=== PATIENT | female | born 1980 | race Caucasian/White ===

== ENCOUNTER 2020-11-12 09:42 | Outpatient (REF) | payer OTHER, SELFPAY ==
--- NOTE | ~2020-11-12 | MM_ITS ---
EXAMINATION: MM SCREENING DIGITAL BREAST TOMOSYNTHESIS, BILATERAL CLINICAL INFORMATION: Screening. Asymptomatic. The lifetime risk of breast cancer based on the Tyrer-Cuzick Model is 19%. COMPARISON: Mammography: 08/28/2019 (baseline) TECHNIQUE: Digital breast tomosynthesis is performed in both the craniocaudal and mediolateral oblique views along with computer-aided detection (CAD). Synthesized 2D images are generated from the tomosynthesis. FINDINGS: There are scattered areas of fibroglandular density (ACR BI-RADS breast composition Category b). There are no significant masses, abnormal calcifications, or other abnormalities. No significant changes from baseline exam. The axilla and skin contours are unremarkable. MM/MM tomosynthesis screening BI IMPRESSION: There are no significant changes from prior study. ASSESSMENT: BI-RADS 1: Negative RECOMMENDATION: Routine annual mammography screening. This patient's information was entered into a reminder system with a target due date for their next mammogram.
== END 2020-11-12 09:43 | disposition home or self-care (01) ==
LOC: HO.MAMMO 09:42
PROVIDERS: PCP Pediatrics; Visit Provider Advanced Practice Midwife
DX: Z12.31 Encounter for screening mammogram for malignant neoplasm of breast (principal)
CPT/HCPCS: 77063; 77067

== ENCOUNTER 2022-06-26 13:47 | Outpatient (REF) | payer OTHER, SELFPAY ==
--- NOTE | ~2022-06-26 | MM_ITS ---
EXAMINATION: MM SCREENING DIGITAL BREAST TOMOSYNTHESIS, BILATERAL CLINICAL INFORMATION: Screening. Asymptomatic. The lifetime risk of breast cancer based on the Tyrer-Cuzick Model is 12%. COMPARISON: Mammography: 11/12/2020, 08/28/2019 TECHNIQUE: Digital breast tomosynthesis is performed in both the craniocaudal and mediolateral oblique views along with computer-aided detection (CAD). Synthesized 2D images are generated from the tomosynthesis. FINDINGS: There are scattered areas of fibroglandular density (ACR BI-RADS breast composition Category b). There are no significant masses, abnormal calcifications, or other abnormalities. Parenchymal pattern is similar to prior studies. No developing density or architectural abnormality. Again, there is incidental low right axillary tail node on MLO view. The axilla and skin contours are unremarkable. No significant changes. MM/MM tomosynthesis screening BI IMPRESSION: No mammographic evidence of malignancy. ASSESSMENT: BI-RADS 2: Benign RECOMMENDATION: Routine annual mammography screening. This patient's information was entered into a reminder system with a target due date for their next mammogram.
== END 2022-06-26 13:48 | disposition home or self-care (01) ==
LOC: HO.MAMMO 13:47
PROVIDERS: PCP Pediatrics; Visit Provider Pediatrics
DX: Z12.31 Encounter for screening mammogram for malignant neoplasm of breast (principal)
CPT/HCPCS: 77063; 77067

== ENCOUNTER → 2022-11-06 09:03 | Outpatient (BNVA) | payer OTHER, SELFPAY | PROVIDERS: PCP Pediatrics; Visit Provider Surgery | DX: D17.9 Benign lipomatous neoplasm, unspecified (principal); D21.9 Benign neoplasm of connective and other soft tissue, unspecified | CPT/HCPCS: 99202 ==

== ENCOUNTER 2023-05-28 12:20 | Outpatient (REF) | payer OTHER, SELFPAY ==
--- NOTE | ~2023-05-28 | US_ITS ---
EXAMINATION: US VENOUS ULTRASOUND WITH DOPPLER LOWER EXTREMITY, BILATERAL CLINICAL INFORMATION: Swelling. COMPARISON: None available. TECHNIQUE: Ultrasound of the deep veins is performed from the hip to the calf with compression sonography and color and pulse Doppler assessment. Spectral analysis with color-flow imaging is performed. FINDINGS: RIGHT: There is normal venous compression and respiratory variation and augmented flow. The visualized common femoral vein, superficial femoral vein, profunda femoral vein, popliteal vein, and the trifurcation region shows no evidence of deep venous thrombosis. There is no significant popliteal fossa cyst. LEFT: There is normal venous compression and respiratory variation and augmented flow. The visualized common femoral vein, superficial femoral vein, profunda femoral vein, popliteal vein, and the trifurcation region shows no evidence of deep venous thrombosis. There is no significant popliteal fossa cyst. If the patient's symptoms persist, followup ultrasound in 5 days 7 days might be of value to exclude proximal propagation from a non-visualized calf vein. US/US venous duplex LE BI IMPRESSION: No DVT demonstrated in the bilateral lower extremities.
--- NOTE | ~2023-05-28 | US_ITS ---
EXAMINATION: US VENOUS WITH DOPPLER UPPER EXTREMITY, BILATERAL CLINICAL INFORMATION: Swelling. History of pulmonary embolism. COMPARISON: None available. TECHNIQUE: Ultrasound of the upper extremity is performed using compression sonography and color and pulse Doppler flow with assessment of augmentation of flow. There is also imaging and Doppler assessment of the jugular and subclavian veins. Spectral analysis with color-flow imaging is performed. FINDINGS: Respiratory variation, normal compression, and augmented flow are noted throughout the upper extremity including the internal jugular, subclavian, axillary, brachial, basilic, cephalic, radial and ulnar veins. There is normal flow in the internal jugular and subclavian veins. There is no visible deep or superficial thrombophlebitis. If the patient's symptoms progress, a followup ultrasound in 5 -7 days might be of value to exclude proximal propagation from a nonvisualized distal arm vein. US/US venous duplex UE BI IMPRESSION: No DVT demonstrated in the bilateral upper extremities
== END 2023-05-28 12:21 | disposition home or self-care (01) ==
LOC: HO.US 12:20
PROVIDERS: PCP Pediatrics; Visit Provider Registered Nurse
DX: R60.0 Localized edema (principal)
CPT/HCPCS: 93970

== ENCOUNTER → 2023-07-14 08:54 | Outpatient (BNV) | payer OTHER, SELFPAY | PROVIDERS: PCP Pediatrics; Visit Provider Internal Medicine | DX: I26.99 Other pulmonary embolism without acute cor pulmonale (principal) | CPT/HCPCS: 99204 ==

== ENCOUNTER 2023-09-17 12:54 | Outpatient (REF) | payer OTHER, SELFPAY ==
[2023-09-18 04:07] LABS: ~Hepatitis B Surface Antibody NONREACTIVE (Nonreactive)
[2023-09-21 05:28] LABS: Rubella IgG Antibody <0.90 Index
== END 2023-09-17 12:55 | disposition home or self-care (01) ==
LOC: HO.CHCLDS 12:54
PROVIDERS: Visit Provider Pediatrics
DX: Z01.84 Encounter for antibody response examination (principal)
CPT/HCPCS: 36415; 86706; 86735; 86762; 86765; 86787

== ENCOUNTER 2023-09-20 08:54 | Outpatient (REF) | payer OTHER, SELFPAY ==
[2023-09-22 06:39] LABS: RPR Rapid Plasma Reagin NON-REACTIVE (NON-REACTIVE)
[2023-09-22 20:24] LABS: TS Negative Control Passed; TS Panel A 2; TS Panel B 0; TS Positive Control Passed; TSpotTB Negative (Negative)
== END 2023-09-20 08:55 | disposition home or self-care (01) ==
LOC: HO.CHCLDS 08:54
PROVIDERS: Visit Provider Internal Medicine
DX: Z00.00 Encounter for general adult medical examination without abnormal findings (principal); Z11.1 Encounter for screening for respiratory tuberculosis
CPT/HCPCS: 36415; 86481; 86592

== ENCOUNTER 2023-09-24 11:12 | Outpatient (AMB) | payer OTHER, SELFPAY ==
--- NOTE | 2023-09-24 11:13 | MHC.OFFVIS ---
Intake Vital Signs 09/24/23 11:21 Height 5 ft 4 in Weight 194 lb 2 oz BMI 33.3 BP 127/71 Blood Pressure Location Lt brachial Position Sitting Pulse 79 Intake Visit Reasons: re-discuss lipoma removal Intake Note: Patient is seen in office to re-discuss removal of lipoma. Pt c/o:lipoma has not changed since last visit, is ready to have it removed L.OV: 11/19/22 Personal Health Coach Required: No Accompanied by: Spouse Allergies Penicillins Allergy (Mild, Unverified 09/24/23 11:20) SWELLING penicillin V Allergy (Unknown, Unverified 09/24/23 11:20) swelling HPI HPI Comments History of Present Illness Details 43-year-old female patient presenting with complaints of gradually enlarging soft tissue lumps located in bilateral thighs as well as the lower back. She 1st identified the lower back lesion when she developed pain with pressure on the lesion. She denies any bleeding or discharge from either site. She also has 2 skin lesions located in the lateral left and right thigh noted by her primary care physician who felt a should be biopsied as well. These are asymptomatic but have increased in size over the last several years. She denies any bleeding or discharge from either skin lesion. She denies a prior history of skin cancer. [facility] Medical History (Updated 09/24/23 @ 11:30 by Esvin Knowles MD) Pulmonary emboli Surgical History Hx of abdominoplasty (~04/28/23) History of breast lift (~04/28/23) History of delivery Family History Father Prostate cancer Mother High cholesterol HTN (hypertension) Social History Household Members: Spouse and Children Housing: House Alcohol intake: never Patient Tobacco Use Status: Never used Tobacco service: No Current occupational status: employed Review of Systems Const All systems reviewed & are unremarkable except as noted in HPI and below Physical Exam Vital Signs: Last Vital Signs Pulse 79 09/24/23 11:21 BP 127/71 09/24/23 11:21 BMI result Body Mass Index 33.3 Const General: healthy appearing Nutritional Appearance: well nourished Orientation/consciousness: patient oriented x3 Limitations: no limitations Resp Effort & Inspection: normal respiratory effort, no audible wheezes, no cough and no respiratory distress GI Inspection: Yes normal to inspection Skin Full body images: 1. 2 cm lipoma midback 2. 2 cm lipoma medial thigh right 3. 1 cm fibroma right lateral thigh 4. 0.5 cm fibroma right medial thigh 5. 1 cm fibroma left anterior thigh Neuro General: patient oriented x3 Extrem Other: See skin above Assessment & Plan Assessment & Plan (1) Fibroma: Code(s): D21.9 - Benign neoplasm of connective and other soft tissue, unspecified (2) Lipoma: Code(s): D17.9 - Benign lipomatous neoplasm, unspecified Qualifiers: Lipoma location: trunk Qualified Code(s): D17.1 - Benign lipomatous neoplasm of skin and subcutaneous tissue of trunk Plan 43-year-old female patient presenting with a lipoma in the mid back, lipoma of the right medial thigh, fibromas located in the right lateral and medial thigh, and left anterior thigh. The patient reports symptoms from all lesions and is requesting excision. After discussion of the procedure, risks, and alternatives, she consents to the excision of the above lesions. This will be scheduled as a minor surgery under local anesthesia. Coding Level of Care Code Est Pt Level 4 (92226) Diagnoses Fibroma D21.9 Lipoma of torso D17.1 Lipoma location: trunk
[2023-09-24 11:21] VITALS: BP 127/71; PULSE 79; BMI 33.3
== END 2023-09-24 11:33 | disposition home or self-care (01) ==
PROVIDERS: PCP Pediatrics; Visit Provider Surgery
DX: D17.1 Benign lipomatous neoplasm of skin and subcutaneous tissue of trunk (principal)
CPT/HCPCS: 99214

== ENCOUNTER → 2023-09-24 11:12 | Outpatient (BNVA) | payer OTHER, SELFPAY | PROVIDERS: PCP Pediatrics; Visit Provider Surgery | DX: D17.1 Benign lipomatous neoplasm of skin and subcutaneous tissue of trunk (principal); D17.23 Benign lipomatous neoplasm of skin and subcutaneous tissue of right leg; D17.24 Benign lipomatous neoplasm of skin and subcutaneous tissue of left leg | CPT/HCPCS: 99212 ==

== ENCOUNTER 2023-10-05 10:54 | Outpatient (REF) | payer OTHER, SELFPAY ==
[2023-10-05 10:54] VITALS: BP 121/68; PULSE 74; RESP 18; TEMP 36.6; O2SAT 99; BMI 32.4
--- NOTE | 2023-10-05 12:35 | P.OP_ITS ---
Operative Note Operative Note Date of Service: 10/05/23 Narrative: Preoperative diagnosis: Lipoma midback, lipoma medial right thigh, lipoma medial left thigh, fibroma lateral right thigh, fibroma lateral left thigh Postoperative diagnosis: Same Procedure: Excision of lipoma midback, lipoma medial right thigh, lipoma medial left thigh, fibroma lateral right thigh, fibroma lateral left thigh Surgeon: Esvin Knowles MD Biofuels Product Manager: None Anesthesia: Lidocaine 1% with epinephrine Indications for procedure: 43-year-old female patient presenting with painful lesions as noted above. Lipoma of the back measures 2 cm; lipoma of the medial right thigh measures 2 cm, lipoma of the medial left thigh measured 1.5 cm. Fibroma of the bilateral thighs each measured 1 cm. Operative findings: Lesions as noted above Specimen: Lipoma mid back, lipoma medial right thigh, lipoma medial left thigh, fibroma lateral right thigh, fibroma lateral left thigh Estimated blood loss: 5 mL Complications: None Procedure details: Site of surgery was confirmed by the patient as noted above. After assuring informed consent the patient was placed in a prone position. The skin over the palpable lipoma in the mid back was prepped with Betadine and draped in a sterile fashion. Local anesthesia was then infiltrated around the lesion. A longitudinal incision was then made over the lesion and this was carried down through subcutaneous tissue up to the lipoma. The lipoma was then bluntly dissected from the surrounding subcutaneous tissue. This was passed off the table and sent to pathology for further examination. Dermis was then reapproximated using interrupted 3-0 Polysorb sutures. Skin was closed using a running subcuticular 4-0 Polysorb suture. Steri-Strips, 2 x 2 gauze and Tegaderm were then applied. The patient was then rolled to a supine position. Beginning in the right leg, the skin was prepped with Betadine and draped in a sterile fashion. The medial right thigh lipoma was then anesthetized and an incision made in longitudinal fashion over the lipoma. This was carried out through subcutaneous tissue. Blunt dissection was then used to dissect the lipoma from the surrounding subcutaneous tissue. This was then passed off the table and sent to pathology for further examination. Dermis was then reapproximated using interrupted 3-0 Polysorb suture. Skin was closed using a running subcuticular 4-0 Polysorb suture. Steri-Strips, 2 x 2 gauze and Tegaderm were then applied. The lateral right thigh fibroma was then excised. Local was infiltrated circumferentially an elliptical incision created around the lesion. This was carried out through subcutaneous tissue and around the skin lesion. The lesion was passed off the table and sent to pathology for further examination. Dermis was then reapproximated using interrupted 3-0 Polysorb suture. Skin was closed using interrupted 4-0 nylon sutures. Attention was then directed to the left leg were again the skin was prepped with Betadine and draped in a sterile fashion. Local anesthesia was infiltrated around both lesions. Beginning in the medial thigh, a longitudinal incision was made with a scalpel and carried out through subcutaneous tissue. The lipoma was then dissected free from the surrounding subcutaneous tissue. This was then bluntly dissected and completely excised. This was sent to pathology for further examination. Dermis was reapproximated using interrupted 3-0 Polysorb suture and skin closed using a running subcuticular 4-0 Polysorb suture. Steri- Strips, 2 x 2 gauze and Tegaderm were then applied. Attention was then directed to the lateral thigh were an elliptical incision was made around the fibroma in the lateral thigh. This was carried out through subcutaneous tissue the lesion completely excised. This was passed off the table and sent to pathology for further examination. Dermis was then reapproximated using interrupted 3-0 Polysorb sutures. Skin was closed using interrupted 4-0 nylon sutures. 2 x 2 gauze and Tegaderm were then applied. The patient tolerated the procedure well. She was discharged to home in stable condition.
== END 2023-10-05 10:55 | disposition home or self-care (01) ==
LOC: HO.MS 10:54
PROVIDERS: PCP Pediatrics; Visit Provider Surgery
PROC: (CPT 11403; principal; 2023-10-05 11:10)
PROC: (CPT 11403; 2023-10-05 11:10)
DX: D17.1 Benign lipomatous neoplasm of skin and subcutaneous tissue of trunk (principal); D17.24 Benign lipomatous neoplasm of skin and subcutaneous tissue of left leg; D17.23 Benign lipomatous neoplasm of skin and subcutaneous tissue of right leg
CPT/HCPCS: 11403; 11406; 11402 ×2; 88304; 88305

== ENCOUNTER → 2023-10-05 10:54 | Outpatient (BNV) | payer OTHER, SELFPAY | PROVIDERS: PCP Pediatrics; Visit Provider Surgery | DX: D17.1 Benign lipomatous neoplasm of skin and subcutaneous tissue of trunk (principal); D17.23 Benign lipomatous neoplasm of skin and subcutaneous tissue of right leg; D17.24 Benign lipomatous neoplasm of skin and subcutaneous tissue of left leg | CPT/HCPCS: 21930; 27327; 27337 ==

== ENCOUNTER 2023-10-12 09:34 | Outpatient (AMB) | payer OTHER, SELFPAY ==
--- NOTE | 2023-10-12 09:36 | A.OFFVIS_ITS ---
Intake Vital Signs 10/12/23 09:47 Height 5 ft Weight 191 lb BMI 37.3 BP 127/70 Blood Pressure Location Lt brachial Position Sitting Pulse 95 Intake Visit Reasons: S/p Exc lipomas Intake Note: Patient is seen in office for post op assessment post excision of multiple lipomas. Pt c/o: healing as expected, lateral left thigh lesion painful, denies discharge, redness or other concerns MS:10/05/23 Tension Machine Operator Required: No Accompanied by: Family/Other Allergies Penicillins Allergy (Mild, Unverified 10/12/23 09:48) SWELLING penicillin V Allergy (Unknown, Unverified 10/12/23 09:48) swelling HPI HPI Comments History of Present Illness Details 43-year-old female patient returning 1 week following excision of bilateral lower extremity lipomas and bilateral lower extremity fibromas as well as a mid back lipoma. She tolerated the procedure well. She does report some soreness from the incision in the left lateral thigh at the site of a dermatofibroma. Pathology confirmed dermatofibroma and lipomas as expected. She denies any bleeding or discharge from Any incision. [facility] Medical History Pulmonary emboli Surgical History History of excision of mass (10/05/23) Hx of abdominoplasty (~04/28/23) History of breast lift (~04/28/23) History of delivery Family History Father Prostate cancer Mother High cholesterol HTN (hypertension) Social History Household Members: Spouse and Children Housing: House Alcohol intake: never Patient Tobacco Use Status: Never used Tobacco service: No Current occupational status: employed Physical Exam Const General: comfortable Nutritional Appearance: well nourished Orientation/consciousness: patient oriented x3 Resp Effort & Inspection: normal respiratory effort Back/Spine/Pelvis Other: well-healed incision in the lower back which is clean and dry. Neuro General: patient oriented x3 Extrem Other: Bilateral lower extremity incisions are clean, dry, and intact. Sutures removed from the lateral incisions and wounds found to be well healed. Assessment & Plan Assessment & Plan (1) Fibroma: Code(s): D21.9 - Benign neoplasm of connective and other soft tissue, unspecified (2) Lipoma: Code(s): D17.9 - Benign lipomatous neoplasm, unspecified Qualifiers: Lipoma location: trunk Qualified Code(s): D17.1 - Benign lipomatous neoplasm of skin and subcutaneous tissue of trunk Plan Patient returns 1 week following excision of lipomas and fibromas which she tolerated well. Her wounds are clean and intact. All sutures were removed. She should follow up as needed. Coding Level of Care Code Global (13174) Diagnoses Fibroma D21.9 Lipoma of torso D17.1 Lipoma location: trunk
[2023-10-12 09:47] VITALS: BP 127/70; PULSE 95; BMI 37.3
== END 2023-10-12 10:19 | disposition home or self-care (01) ==
PROVIDERS: PCP Pediatrics; Visit Provider Surgery
DX: D21.9 Benign neoplasm of connective and other soft tissue, unspecified (principal); D17.1 Benign lipomatous neoplasm of skin and subcutaneous tissue of trunk
CPT/HCPCS: 99024

== ENCOUNTER → 2023-10-12 09:34 | Outpatient (BNVA) | payer OTHER, SELFPAY | PROVIDERS: PCP Pediatrics; Visit Provider Surgery | DX: Z48.3 Aftercare following surgery for neoplasm (principal); Z98.890 Other specified postprocedural states | CPT/HCPCS: 99212 ==

== ENCOUNTER 2024-02-22 15:32 | Outpatient (REF) | payer OTHER, SELFPAY ==
--- NOTE | ~2024-02-22 | MR_ITS ---
EXAMINATION: MR KNEE WITHOUT CONTRAST, RIGHT CLINICAL INFORMATION: Chronic right knee pain and swelling COMPARISON: None available. TECHNIQUE: MRI of the knee without contrast was performed using routine sequences on a high-field scanner. FINDINGS: MENISCI: Medial Meniscus: Intact Lateral Meniscus: Intact LIGAMENTS: Cruciate: Intact Collateral: Intact EXTENSOR MECHANISM: Intact. Edema in the suprapatellar quadriceps fat pad is nonspecific and may represent quadriceps tendinitis or fat pad impingement. ARTICULAR CARTILAGE/BONE: Patellofemoral Compartment: Normal Medial Compartment: Normal Lateral Compartment: Normal JOINT FLUID AND BURSAE: No significant joint effusion. MR/MR knee RT wo con IMPRESSION: 1. No meniscal tear. 2. Edema in the suprapatellar quadriceps fat pad is nonspecific and may represent quadriceps tendinitis or fat pad impingement.
== END 2024-02-22 15:33 | disposition home or self-care (01) ==
LOC: HO.MRI 15:32
PROVIDERS: PCP Pediatrics; Visit Provider Pediatrics
DX: M25.561 Pain in right knee (principal); G89.29 Other chronic pain
CPT/HCPCS: 73721

== ENCOUNTER → 2024-06-30 16:23 | Outpatient (BNVA) | payer OTHER, SELFPAY | PROVIDERS: PCP Pediatrics; Visit Provider Nurse Practitioner Family | DX: Z01.818 Encounter for other preprocedural examination (principal); K21.9 Gastro-esophageal reflux disease without esophagitis; R14.0 Abdominal distension (gaseous) | CPT/HCPCS: 99202 ==

== ENCOUNTER → 2024-06-30 16:23 | Outpatient (AMB) | payer OTHER, SELFPAY ==
[2024-06-30 16:27] VITALS: BP 110/70; PULSE 86; O2SAT 99; BMI 32.8
--- NOTE | 2024-06-30 16:27 | MHC.OFFVIS ---
Vital Signs 06/30/24 16:27 Height 5 ft 4 in Weight 190 lb 14.725 oz BMI 32.8 BP 110/70 Blood Pressure Location Rt brachial Position Sitting Pulse 86 Pulse Source Pulse Oximeter Pulse Oximetry (%) 99 Oxygen Delivery Method Room Air Intake Visit Reasons: Colonoscopy Screening Intake Note: Relevant Flags or Indicators ? Requires Leasing Consultant? Cele Resendiz presents in office today for a scheduled colo and egd consult. CC; No recent labs, diagnostics, or med orders placed. ? Relevant GI Sx as reported per pt? Nausea ? Vomiting (w/ or w/o bleeding?) ? Reflux -- moderate to severe, worsening over the last few months. Pt does take PRN pantoprazole which is sometimes helpful but does not reliably relieve their sx. ? Abdominal Pain - epigastric ? Early satiety ? Bloating -- Intermittently, typically associated with N/V. ? Abdominal distention ? Hx of any recent surgeries? Pt had lipoma excision w/ Dr. Resendez within the last year. ? Pertinent FMHx? Various kidney issues unspecified per pt. Leasing Consultant Required: No Allergies Penicillins Allergy (Mild, Verified 06/30/24 16:27) SWELLING penicillin V Allergy (Unknown, Verified 06/30/24 16:27) swelling HPI HPI Colonoscopy Screening: Details: 44 year old? female with past medical history of fibroma, abdominoplasty, history of breast lift, pulmonary emboli is here today for pre colonoscopy screening.? Patient was sent to us by her PCP.? This is her first colonoscopy screening.? Patient reports that in the past few months she has been having epigastric pain postprandially sometimes no matter what she eats. Patient reports also postprandial abdominal bloating. Occasional nausea and vomiting. Trouble swallowing solid food. Denies any personal or family history of gastrointestinal disease, colon polyps, or CRC.? Patient reports that she only wore abdominal brace for few months and should have for longer than that. Patient also reports that she did not go for therapy and lymphatic drainage long enough and she feels like she has lumps in her abdomen after her plastic surgery. Patient denies melena, hematochezia, unintentional weight loss or ribbon like stools. [facility] Medical History Pulmonary emboli Surgical History History of excision of mass (10/05/23) Hx of abdominoplasty (~04/28/23) History of breast lift (~04/28/23) History of delivery Family History Father Prostate cancer Mother High cholesterol HTN (hypertension) Social History Household Members: Spouse and Children Housing: House Alcohol intake: never Patient Tobacco Use Status: Never used Tobacco service: No Current occupational status: employed Review of Systems Const Denies weight gain and Denies weight loss ENT Reports no additional complaints, Reports dysphagia and Denies odynophagia Card Reports no additional complaints Resp Reports no additional complaints GI Reports abdominal pain (Epigastric), Denies belching, Denies melena, Reports bloating, Denies change in bowel habits, Reports dysphagia, Denies excessive flatus, Denies dyspepsia, Reports heartburn, Denies diarrhea, Denies loose stools, Reports nausea, Denies odynophagia and Reports vomiting Reports no additional complaints Musc Reports no additional complaints Neuro Reports no additional complaints Psych Reports no additional complaints Endo Reports no additional complaints Physical Exam Vital Signs: Last Vital Signs Pulse 86 06/30/24 16:27 BP 110/70 06/30/24 16:27 Pulse Ox 99 06/30/24 16:27 Oxygen Delivery Method Room Air 06/30/24 16:27 BMI result Body Mass Index 32.8 Const General: healthy appearing and no acute distress Nutritional Appearance: well nourished and obese Orientation/consciousness: patient oriented x3 Resp Effort & Inspection: normal respiratory effort, able to speak in complete sentences, no tracheal deviation and symmetric chest movement Auscultation: clear to auscultation bilaterally Cardio Rate: regular rate GI Inspection: Yes normal to inspection, No distended and Yes obesity Palpation (GI): Soft to palpation, not firm, nontender and No hepatosplenomegaly present Auscultation: normal bowel sounds General: Yes no CVA tenderness Back/Spine/Pelvis Back: no CVA tenderness Skin General skin exam: elasticity normal, turgor normal and dry skin Neuro General: patient oriented x3 Psych Appearance: grossly normal Mental Status: mental status grossly normal Assessment & Plan Assessment & Plan (1) Screen for colon cancer: Code(s): Z12.11 - Encounter for screening for malignant neoplasm of colon (2) GERD (gastroesophageal reflux disease): Code(s): K21.9 - Gastro-esophageal reflux disease without esophagitis Qualifiers: Esophagitis presence: esophagitis presence not specified Qualified Code(s): K21.9 - Gastro-esophageal reflux disease without esophagitis (3) Postprandial abdominal bloating: Code(s): R14.0 - Abdominal distension (gaseous) Plan Will check patient for H pylori. Patient's was treated for H pylori few months with effect. Will check vitamin B12, folate, vitamin-D level. Will check for celiac disease. Patient will be sent for upper GI series. I will see her in 3 months. Message will be sent to surgical schedulers to book upper endoscopy and colonoscopy for patient. Patient is agreeable to current plan of care and verbalizes understanding of instructions. She was given the opportunity to ask questions and all questions answered. Thank you for allowing me to participate in her care Orders: Orders H Pylori Breath Test 06/30/24 K21.9 - Gastro-esophageal reflux disease without esophagitis Vitamin B12 and Folate 06/30/24 R19.7 - Diarrhea, unspecified Vitamin D 25-OH (D2 and D3) 06/30/24 E55.9 - Vitamin D deficiency, unspecified [place] upper GI w Ba Swallow 06/30/24 K21.9 - Gastro-esophageal reflux disease without esophagitis Transglutaminase Ab IgG 06/30/24 R10.9 - Unspecified abdominal pain Transglutaminase IgA 06/30/24 R10.9 - Unspecified abdominal pain Medications: New famotidine (Pepcid) 20 mg PO BID 60 tabs 3RF K29.70 - Gastritis, unspecified, without bleeding Coding Level of Care Code New Pt Level 4 (82935) Diagnoses Screen for colon cancer Z12.11 Gastroesophageal reflux disease, unspecified whether esophagitis present K21.9 Esophagitis presence: esophagitis presence not specified Postprandial abdominal bloating R14.0 Time Spent (min) 45 Comment 30 minutes spent with patient and additional 15 minutes spent reviewing her
== END ==
PROVIDERS: PCP Pediatrics; Visit Provider Nurse Practitioner Family
DX: Z12.11 Encounter for screening for malignant neoplasm of colon (principal); K21.9 Gastro-esophageal reflux disease without esophagitis; R14.0 Abdominal distension (gaseous); Z01.818 Encounter for other preprocedural examination
CPT/HCPCS: 99204

== ENCOUNTER 2024-07-10 09:24 | Outpatient (AMB) | payer OTHER, SELFPAY ==
--- NOTE | 2024-07-10 10:09 | AM.OFFVISNUR ---
Intake Visit Reasons: H PYLORI TEST Allergies Penicillins Allergy (Mild, Verified 06/30/24 16:27) SWELLING penicillin V Allergy (Unknown, Verified 06/30/24 16:27) swelling Nursing Note Patient presents for collection of H Pylori breath test. Patient has been fasting for 1 hour (nothing to eat, drink, no chewing gum or smoking) has not taken any antacid medication for at least 2 weeks and has no allergies to artificial sweeteners.?? Assessment & Plan Assessment & Plan (1) GERD (gastroesophageal reflux disease): Code(s): K21.9 - Gastro-esophageal reflux disease without esophagitis Plan Patient presents for collection of H Pylori breath test. Patient has been fasting for 1 hour (nothing to eat, drink, no chewing gum or smoking) has not taken any antacid medication for at least 2 weeks and has no allergies to artificial sweeteners.???This test checks for an overgrowth of bacteria in your stomach. We all have bacteria but some may have more than others. It is treatable. if the test comes back negative there is nothing else to do. If the test result is positive we will treat you with 2 antibiotics and a medication to decrease the acid in your stomach (PPI) for 2 weeks. Two weeks after you have completed the treatment we will retest you to make sure the overgrowth has resolved. Patient Instructions: Process for specimen collection and reason for testing was explained to the patient. Specimen collection. Patient instructed to take a deep breath and then exhale into the blue bag, filling it up as much as possible. Patient instructed to drink a mixture of water and the artificial sweetener with a straw. A 15 minute wait period was observed. Patient instructed to take a deep breath and then exhale into the pink bag, filling it up as much as possible.??
== END 2024-07-10 10:10 | disposition home or self-care (01) ==
PROVIDERS: PCP Pediatrics; Visit Provider Nurse Practitioner Family
DX: K21.9 Gastro-esophageal reflux disease without esophagitis (principal)

== ENCOUNTER → 2024-07-10 09:24 | Outpatient (BNVA) | payer OTHER, SELFPAY | PROVIDERS: PCP Pediatrics; Visit Provider Nurse Practitioner Family | DX: K21.9 Gastro-esophageal reflux disease without esophagitis (principal) | CPT/HCPCS: 99211 ==

== ENCOUNTER 2024-07-10 09:52 | Outpatient (REF) | payer OTHER, SELFPAY ==
[2024-07-13 11:03] LABS: H Pylori Breath Test Negative (Negative)
== END 2024-07-10 09:53 | disposition home or self-care (01) ==
LOC: HO.LNP 09:52
PROVIDERS: Visit Provider Nurse Practitioner Family
DX: K21.9 Gastro-esophageal reflux disease without esophagitis (principal)
CPT/HCPCS: 83013

== ENCOUNTER 2024-10-04 16:04 | Inpatient (IN) | payer OTHER, SELFPAY ==
--- NOTE | ~2024-10-04 | FL_ITS ---
EXAMINATION: FL GUIDANCE ONLY HISTORY: Left ureteroscopy/retrograde COMPARISON: Correlation is made with a CT of the abdomen and pelvis without contrast dated 10/04/2024. TECHNIQUE: Fluoroscopy time: 11.1 seconds. Cumulative Dose: 2.76 mGy. Images: 4. FINDINGS: Images demonstrate placement of a left nephroureteral stent. FL/FL guidance in OR IMPRESSION: Fluoroscopy during procedure. Please see procedure report for additional information. Electronically signed by: Warner Gary MD 10/06/2024 08:04 AM MARITZA
--- NOTE | ~2024-10-04 | CT_ITS ---
CLINICAL HISTORY: left flank pain CT of the abdomen and pelvis without intravenous contrast. No comparison. Findings: There is mild elevation right hemidiaphragm. The dome of the liver is incompletely imaged. The gallbladder is unremarkable. 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 There is a 7 mm left ureteral stone at the pelvic inlet with [id number] hydronephrosis. The spleen and pancreas are unremarkable. No abdominal aortic aneurysm. Small hiatal hernia. No diverticulitis. Normal appendix. No bowel obstruction. Previous abdominal plasty. The bladder is nondilated. Impression: 7 mm left ureteral stone. Other findings as above. This document has been electronically signed by: William Ryder MD on 10/04/2024 18:38:29
[2024-10-04 16:14] VITALS: BP 118/95; PULSE 94; RESP 22; TEMP 36.3; O2SAT 100; BMI 33.2
[2024-10-04] MEDS: Ondansetron ODT 4 MG TAB.RAPDIS TRANSLINGU (16:20)
[2024-10-04] MEDS: Ibuprofen 600 MG TABLET PO (16:20)
--- NOTE | 2024-10-04 16:21 | ED.ABDPAIN ---
HPI - Abdominal Pain General Chief Complaint: Abdominal Pain Stated Complaint: kidney stones? Time Seen by Provider: 10/04/24 16:49 Related Data Home Medications ?Medication ?Instructions ?Recorded ?Confirmed tirzepatide 5 mg/0.5 mL 5 mg subcut TU 10/04/24 10/04/24 subcutaneous pen injector (Natacha) Allergies Allergy/AdvReac Type Severity Reaction Status Date / Time Penicillins Allergy Mild SWELLING Verified 10/04/24 16:16 penicillin V Allergy Unknown swelling Verified 10/04/24 16:16 [facility] Past Medical History Medical History Pulmonary emboli Surgical History History of excision of mass (10/05/23) Hx of abdominoplasty (~04/28/23) History of breast lift (~04/28/23) History of delivery Family History Family History Father Prostate cancer Mother High cholesterol HTN (hypertension) Social History Social History Household Members: Spouse and Children Housing: House Unable to assess alcohol history related to: Unknown Alcohol intake: never Patient Tobacco Use Status: Never used Tobacco Smoked in Last 30 Days: No Use of substances other than those prescribed or required for medical reasons: Unknown Advance Directives: No Advance Directives Information Provided: Yes Do you have a plan to hurt others: No Plan service: No Current occupational status: employed Physical Exam ED Vital Signs: Vital Signs - 24 hr 10/04/24 16:14 10/04/24 18:58 10/05/24 06:25 Temperature 97.3 F 98 F 97.7 F Pulse Rate 94 77 80 Respiratory Rate 22 H 18 16 Blood Pressure 118/95 H 133/80 98/61 Pulse Oximetry 100 100 96 Oxygen Delivery Method Room Air Room Air Room Air 10/05/24 07:48 Temperature 98.7 F Pulse Rate 90 Respiratory Rate 12 Blood Pressure 99/59 L Pulse Oximetry 98 Oxygen Delivery Method BMI result Body Mass Index 33.2 Course Course Course Narrative: This is a Rapid Medical Examination (RME) performed by Chang Flynn PA-C in triage. Full HPI, ROS, assessment and treatment plan per primary provider in the Main ED. 44-year-old female w/ pmhx significant for pulmonary emboli and nephrolithiasis here for eval of left flank pain radiating to left lower abdomen with associated nausea, vomiting and dysuria. +very uncomfortable appearing Plan: labs, UA, CT motrin and zofran given 1623 Medical Decision Making Lab Data 10/04/24 17:03 10/04/24 17:03 Labs: Lab Results 10/04/24 Range/Units 17:03 WBC 7.9 (4.8-10.8) X10*3/uL RBC 4.51 (4.20-5.50) X10*6/uL Hgb 13.8 (12.0-16.0) g/dl Hct 40.5 (37.0-47.0) % MCV 89.8 (80.0-98.0) fL MCH 30.6 (27.0-33.0) pg MCHC 34.1 (31.0-35.0) g/dl RDW 13.7 (11.0-16.0) % Plt Count 272 (160-400) X10*3/uL MPV 10.9 (9.4-12.3) fL Immature Gran % (Auto) 0.4 (0.0-0.4) % Neut % (Auto) 53.3 (45-73) % Lymph % (Auto) 35.8 (20-40) % [place] % (Auto) 8.9 (2-11) % Eos % (Auto) 1.1 (0-4) % Baso % (Auto) 0.5 (0-2) % Lymph # (Auto) 2.8 (1.2-4.9) X10*3/uL [place] # (Auto) 0.7 (0.1-1.2) X10*3/uL Eos # (Auto) 0.1 (0.0-0.4) X10*3/uL Baso # (Auto) 0.0 (0.0-0.2) X10*3/uL Abs Immat Gran (auto) 0.03 (0.00-0.03) X10*3/uL Absolute Neuts (auto) 4.2 (2.0-8.3) x10*3/uL Absolute Nucleated RBC 0.000 (0.0-0.012) X10*3/uL Nucleated RBC % (auto) 0.0 (0.0-0.2) /100WBC PT 11.6 (10.9-12.4) SEC INR 1.0 (0.9-1.1) APTT 30.4 (26.0-36.8) SEC Sodium 141 (135-145) mmol/L Potassium 3.8 (3.3-5.1) mmol/L Chloride 109 H (96-108) mmol/L Carbon Dioxide 25 (22-29) mmol/L Anion Gap 11 L (12-20) BUN 17 H (9-16) mg/dL Creatinine 1.01 (0.5-1.4) mg/dL Estim Creat Clear Calc 75.4 Estimated GFR 59 Random Glucose 84 (60-115) mg/dL Calcium 9.6 (8.4-10.2) mg/dL Magnesium 2.0 (1.6-2.6) mg/dL Total Bilirubin 0.3 (0.0-1.0) mg/dL AST 24 (5-31) U/L ALT 24 (0-31) U/L Alkaline Phosphatase 37 L (39-117) U/L Total Protein 7.2 (6.5-8.0) g/dL Albumin 4.3 (3.5-5.0) g/dL Lipase 31 (8-78) U/L Beta HCG, Quant < 2 mIU/mL Urine Color Yellow Urine Appearance Turbid Urine pH 6.5 (5.0-9.0) Ur Specific [place] 1.020 (1.005-1.025) Urine Protein Trace (Neg-Trace) mg/dL Urine Glucose (UA) Negative (Negative) mg/dL Urine Ketones Negative (Negative) mg/dL Urine Blood Moderate (2+) H (Negative) Urine Nitrite Negative (Negative) Ur Leukocyte Esterase Negative (Negative) Urine RBC >20 H (0-2) /HPF Urine WBC 0-5 (0-5) /HPF Ur Squamous Epith Cells 0-2 (0-2) /HPF Urine Bacteria Trace (None Seen) Hyaline Casts 0-2 (0-2) /LPF Medications Administered Generic Name Dose Route Start Last Admin Trade Name Freq PRN Reason Stop Dose Admin Hydrocodone Bitart/Acetaminophen 1 tab 10/05/24 08:14 10/05/24 09:46 Hydrocodone Bit/Acetam 5/325 Tablet PO 1 tab Q4H PRN Administration Pain, Moderate(Pain Scale 4-6) Lactated Ringer's 1,000 mls @ 125 mls/hr 10/05/24 08:15 10/05/24 08:52 Lr IVCONT 125 mls/hr .Q8H CHRISTOPHER Administration Discontinued Medications Generic Name Dose Route Start Last Admin Trade Name Marcusq PRN Reason Stop Dose Admin Hydromorphone HCl 1 mg 10/04/24 19:02 10/04/24 20:19 Hydromorphone Hcl 1 Mg/Ml Syringe IVPUSH 10/04/24 19:03 1 mg ONCE ONE Administration Protocol Sodium Chloride 1,000 mls @ 999 mls/hr 10/04/24 16:57 10/04/24 19:12 Ns IV 10/04/24 17:57 Infused .Q1H1M STA Infusion Ibuprofen 600 mg 10/04/24 16:15 10/04/24 16:20 Ibuprofen 600 Mg Tablet PO 10/04/24 16:16 600 mg ONCE ONE Administration Ketorolac Tromethamine 30 mg 10/04/24 17:00 10/04/24 17:32 Ketorolac Tromethamine 30 Mg/Ml Vial IVPUSH 10/04/24 17:01 30 mg ONCE ONE Administration Morphine Sulfate 4 mg 10/04/24 16:57 10/04/24 17:37 Morphine Sulfate 4 Mg/Ml Cartridge IVPUSH 10/04/24 16:58 4 mg ONCE ONE Administration Protocol Ondansetron HCl 4 mg 10/04/24 16:15 10/04/24 16:20 Ondansetron Odt 4 Mg Tab.Rapdis TRANSLINGU 10/04/24 16:16 4 mg ONCE ONE Administration Ondansetron HCl 4 mg 10/04/24 16:57 10/04/24 17:32 Ondansetron Hcl 4 Mg/2 Ml Vial IVPUSH 10/04/24 16:58 4 mg ONCE ONE Administration Prochlorperazine Edisylate 10 mg 10/04/24 20:59 10/04/24 21:05 Prochlorperazine Edisylate 10 Mg/2 Ml Vial IVPUSH 10/04/24 21:00 10 mg ONCE STA Administration Discharge Plan Discharge Clinical Impression: Calculus, ureteral Patient Disposition: Admitted As Inpatient
--- NOTE | 2024-10-04 17:00 | ED.GENADULT ---
HPI - General Adult General Chief complaint: Abdominal Pain Stated complaint: kidney stones? Time Seen by Provider: 10/04/24 16:49 Source: patient Mode of arrival: ambulatory Limitations: no limitations History of Present Illness ED Provider: Mohit Franco HPI narrative: 44-year-old female history of kidney stones and had to have lithotripsy therapy in the past presents to ED for left flank pain for the past couple of days. For patient is very uncomfortable. Patient states also nausea and vomiting. Patient states dysuria. Related Data Home Medications ?Medication ?Instructions ?Recorded ?Confirmed pantoprazole 40 mg tablet,delayed 40 mg PO DAILY PRN 06/30/24 release Previous Rx's ?Medication ?Instructions ?Recorded famotidine 20 mg tablet (Pepcid) 20 mg PO BID #60 tabs 06/30/24 Allergies Allergy/AdvReac Type Severity Reaction Status Date / Time Penicillins Allergy Mild SWELLING Verified 10/04/24 16:16 penicillin V Allergy Unknown swelling Verified 10/04/24 16:16 Review of Systems Review of Systems: Left FLank pain Yes all other systems are reviewed and are negative PMFSH Past Medical History Medical History Pulmonary emboli Surgical History History of excision of mass (10/05/23) Hx of abdominoplasty (~04/28/23) History of breast lift (~04/28/23) History of delivery Family History Family History Father Prostate cancer Mother High cholesterol HTN (hypertension) Social History Social History Household Members: Spouse and Children Housing: House Alcohol intake: never Patient Tobacco Use Status: Never used Tobacco Advance Directives: No Advance Directives Information Provided: Yes Do you have a plan to hurt others: No Plan service: No Current occupational status: employed Physical Exam ED Vital Signs: Vital Signs - 24 hr 10/04/24 16:14 10/04/24 18:58 Temperature 97.3 F 98 F Pulse Rate 94 77 Respiratory Rate 22 H 18 Blood Pressure 118/95 H 133/80 Pulse Oximetry 100 100 Oxygen Delivery Method Room Air Room Air BMI result Body Mass Index 33.2 Const General: cooperative, healthy appearing, comfortable, no acute distress, well developed, alert and awake Orientation/consciousness: patient oriented x3 HENMT Head: Yes normal to inspection, Yes No palpable skull fracture present, Yes normocephalic and Yes atraumatic Eyes General: appearance normal, both eyes and all related structures Neck Neck: Yes normal visual inspection, Yes full ROM, Yes no lymphadenopathy, Yes no meningeal signs, Yes trachea midline, Yes supple, No anterior neck swelling and No tender Chest Chest palpation & inspection: normal inspection of the chest and normal palpation of entire chest wall Resp Effort & Inspection: normal respiratory effort and able to speak in complete sentences Auscultation: clear to auscultation bilaterally Cardio Jugular venous distension: no JVD Heart sounds: S1 normal heart sound present and S2 normal heart sound present GI Inspection: Yes normal to inspection Palpation (GI): Soft to palpation, not firm, Tenderness to palpation present (GI) in the LLQ, no guarding and not rigid General: Yes CVA tenderness (left flank tenderness) Back/Spine/Pelvis Back: CVA tenderness (left flank tenderness) Skin General skin exam: no rashes or lesions noted, elasticity normal and turgor normal Neuro General: patient oriented x3, gait normal, tone normal, moves all extremities, Normal light touch and pain sensation, no meningeal signs, no focal motor deficits, CN's II-XI intact bilaterally and normal sensation to monofilament Extrem General: Yes normal to inspection, Yes full ROM and Yes capillary refill normal Psych Appearance: grossly normal and well kempt Medications Administered Discontinued Medications Generic Name Dose Route Start Last Admin Trade Name Freq PRN Reason Stop Dose Admin Sodium Chloride 1,000 mls @ 999 mls/hr 10/04/24 16:57 10/04/24 19:12 Ns IV 10/04/24 17:57 Infused .Q1H1M STA Infusion Ibuprofen 600 mg 10/04/24 16:15 10/04/24 16:20 Ibuprofen 600 Mg Tablet PO 10/04/24 16:16 600 mg ONCE ONE Administration Ketorolac Tromethamine 30 mg 10/04/24 17:00 10/04/24 17:32 Ketorolac Tromethamine 30 Mg/Ml Vial IVPUSH 10/04/24 17:01 30 mg ONCE ONE Administration Morphine Sulfate 4 mg 10/04/24 16:57 10/04/24 17:37 Morphine Sulfate 4 Mg/Ml Cartridge IVPUSH 10/04/24 16:58 4 mg ONCE ONE Administration Protocol Ondansetron HCl 4 mg 10/04/24 16:15 10/04/24 16:20 Ondansetron Odt 4 Mg Tab.Rapdis TRANSLINGU 10/04/24 16:16 4 mg ONCE ONE Administration Ondansetron HCl 4 mg 10/04/24 16:57 10/04/24 17:32 Ondansetron Hcl 4 Mg/2 Ml Vial IVPUSH 10/04/24 16:58 4 mg ONCE ONE Administration Medical Decision Making Medical Decision Making [facility] Narrative: 44-year-old female presents to ED for left flank pain. Patient states history of kidney stones. Labs UA CT scan ordered. 7:27: Patient's CT scan shows 7 mm stone with hydronephrosis. Patient received morphine Dilaudid and Toradol. Patient received fluids. Case discussed with Dr. Dukes who states patient should be admitted and does not believe patient will past stone on her own. Patient agreeable for admission Differential Diagnosis Differential Diagnoses: The differential diagnosis associated with the presentation includes (Kidney stones urosepsis UTI) Admission/Observation Consideration of admission/observation: Escalation of care including admission/observation considered Lab Data [facility] Lab Attestation statement: I reviewed the patient's lab results. 10/04/24 17:03 10/04/24 17:03 Labs: Lab Results 10/04/24 Range/Units 17:03 WBC 7.9 (4.8-10.8) X10*3/uL RBC 4.51 (4.20-5.50) X10*6/uL Hgb 13.8 (12.0-16.0) g/dl Hct 40.5 (37.0-47.0) % MCV 89.8 (80.0-98.0) fL MCH 30.6 (27.0-33.0) pg MCHC 34.1 (31.0-35.0) g/dl RDW 13.7 (11.0-16.0) % Plt Count 272 (160-400) X10*3/uL MPV 10.9 (9.4-12.3) fL Immature Gran % (Auto) 0.4 (0.0-0.4) % Neut % (Auto) 53.3 (45-73) % Lymph % (Auto) 35.8 (20-40) % [place] % (Auto) 8.9 (2-11) % Eos % (Auto) 1.1 (0-4) % Baso % (Auto) 0.5 (0-2) % Lymph # (Auto) 2.8 (1.2-4.9) X10*3/uL [place] # (Auto) 0.7 (0.1-1.2) X10*3/uL Eos # (Auto) 0.1 (0.0-0.4) X10*3/uL Baso # (Auto) 0.0 (0.0-0.2) X10*3/uL Abs Immat Gran (auto) 0.03 (0.00-0.03) X10*3/uL Absolute Neuts (auto) 4.2 (2.0-8.3) x10*3/uL Absolute Nucleated RBC 0.000 (0.0-0.012) X10*3/uL Nucleated RBC % (auto) 0.0 (0.0-0.2) /100WBC PT 11.6 (10.9-12.4) SEC INR 1.0 (0.9-1.1) APTT 30.4 (26.0-36.8) SEC Sodium 141 (135-145) mmol/L Potassium 3.8 (3.3-5.1) mmol/L Chloride 109 H (96-108) mmol/L Carbon Dioxide 25 (22-29) mmol/L Anion Gap 11 L (12-20) BUN 17 H (9-16) mg/dL Creatinine 1.01 (0.5-1.4) mg/dL Estim Creat Clear Calc 75.4 Estimated GFR 59 Random Glucose 84 (60-115) mg/dL Calcium 9.6 (8.4-10.2) mg/dL Magnesium 2.0 (1.6-2.6) mg/dL Total Bilirubin 0.3 (0.0-1.0) mg/dL AST 24 (5-31) U/L ALT 24 (0-31) U/L Alkaline Phosphatase 37 L (39-117) U/L Total Protein 7.2 (6.5-8.0) g/dL Albumin 4.3 (3.5-5.0) g/dL Lipase 31 (8-78) U/L Beta HCG, Quant < 2 mIU/mL Urine Color Yellow Urine Appearance Turbid Urine pH 6.5 (5.0-9.0) Ur Specific [place] 1.020 (1.005-1.025) Urine Protein Trace (Neg-Trace) mg/dL Urine Glucose (UA) Negative (Negative) mg/dL Urine Ketones Negative (Negative) mg/dL Urine Blood Moderate (2+) H (Negative) Urine Nitrite Negative (Negative) Ur Leukocyte Esterase Negative (Negative) Urine RBC >20 H (0-2) /HPF Urine WBC 0-5 (0-5) /HPF Ur Squamous Epith Cells 0-2 (0-2) /HPF Urine Bacteria Trace (None Seen) Hyaline Casts 0-2 (0-2) /LPF Independent Interpretation I performed an independent interpretation of an: CT Scan Independent Historian Clinical information obtained from an independent historian. History obtained from or confirmed by: Other (Patient) Discharge Plan Discharge Clinical Impression: Calculus, ureteral Patient Disposition: Admitted As Inpatient Print Language: Lithuanian
[2024-10-04 17:07] LABS: MANUAL DIFF FLAG NO
[2024-10-04 17:09] LABS: Appearance Urine Turbid; Basophils Percent Auto 0.5 % (0-2); Color Urine Yellow; Eosinophils Absolute Auto 0.1 X10*3/uL (0.0-0.4); Eosinophils Percent Auto 1.1 % (0-4); Glucose Urine UA Negative (Negative); Hematocrit 40.5 % (37.0-47.0); Hemoglobin 13.8 g/dl (12.0-16.0); Imm Gran Abs Auto 0.03 X10*3/uL (0.00-0.03); Imm Gran Pct Auto 0.4 % (0.0-0.4); Leukocyte Esterase Urine Negative (Negative); Lymphocytes Absolute Auto 2.8 X10*3/uL (1.2-4.9); Lymphocytes Percent Auto 35.8 % (20-40); Mean Corpuscular HGB Conc 34.1 g/dl (31.0-35.0); Mean Corpuscular Hemoglobin 30.6 pg (27.0-33.0); Mean Corpuscular Volume 89.8 fL (80.0-98.0); Mean Platelet Volume 10.9 fL (9.4-12.3); Monocytes Absolute Auto 0.7 X10*3/uL (0.1-1.2); Monocytes Percent Auto 8.9 % (2-11); Neutrophils Absolute Auto 4.2 x10*3/uL (2.0-8.3); Neutrophils Percent Auto 53.3 % (45-73); Nitrite Urine Negative (Negative); PH 6.5 (5.0-9.0); Platelet Count 272 X10*3/uL (160-400); Red Blood Count 4.51 X10*6/uL (4.20-5.50); Red Cell Distribution Width 13.7 % (11.0-16.0); UMIC TRIGGER UACC YES; Urine Blood Moderate (2+) (Negative); Urine Ketones Negative (Negative); Urine Protein Trace mg/dL (Neg-Trace); White Blood Count 7.9 X10*3/uL (4.8-10.8)
--- OUTSIDE RECORDS SUMMARY | 2024-10-04 17:11 | XMS_ITS | Clinical Summary ---
Author Organization [employer] Address [address] [facility] 7[address] [place] [address] Care Team Providers Care Supervisor Silvering Department Name Role Phone Bethanie Holliday MD Primary Care Provider [phone] Allergies Active Allergy Reactions Criticality Noted Date Comments Penicillin G Swelling Low 02/10/2012 Penicillins Swelling Low 08/18/2022 Medications EPINEPHrine (Epipen) 0.3 MG/0.3ML injection syringe Inject 0.3 mL into the shoulder, thigh, or buttocks. 0 Active SM Vitamin D3 50 MCG capsule TAKE TWO CAPSULES BY MOUTH EVERY DAY 60 capsule 3 3 Active Additional Information Patient not taking.Reported on 08/06/2023 Eliquis DVT/PE Starter Pack 5 MG tablet therapy pack 10 mg twice a day for 7 days then 5 mg twice daily 3 Active traMADol (Ultram) 50 MG tablet TAKE 1 TABLET BY MOUTH EVERY 8 HOURS FOR 1 WEEK NEEDED 3 Active apixaban (Eliquis) 5 MG tablet Take 1 tablet (5 mg) by mouth 2 times daily. 120 tablet 3 Active Active Problems Problem Noted Date Diagnosed Date Hospital discharge follow-up 05/13/2023 Assessment & Plan (05/13/2023 10:32 AM EDT): Patient underwent a tummy tuck and breast lift on 04/28, complicated 3 days later with sudden shortness of breath, at er found with bilateral pulmonary embolism, no DVT was found. She was started initially on a heparin drip switched to eliquis. No complication associated with taking eliquis. On examination wounds are healing well, no dishcarge, no seroma palpated. She denied shortness of breath. Discussed importance of taking eliquis as prescribed, length of therapy should be at least 3 months, will order refills, and will schedule a follow up with pcp in 4-6 weeks. Reviewed red flags Multiple subsegmental pulmon desiree emboli without acute cor pulmonale 05/13/2023 Assessment & Plan (06/13/2023 11:46 AM EDT): -Hx surgery 04/28/23 - breast augmentation and tummy tuck -05/04/23 - ED visit prior to travel (5 days post-op) for chest pain and SOB, noted to have bilateral lower lobe pulmonary artery embolus and right LL pleural effusion . -Continues on Eliquis 5mg BID -Referral to Heme/Onc for for further eval and coagulopathy workup Prolactinoma 08/18/2022 Dyslipidemia 08/18/2022 Subclinical hypothyroidism 08/18/2022 Nephrolithiasis 08/18/2022 Insulin resistance 08/18/2022 Encounters Date Type Department Care Team Description 10/04/2024 Orders Only GENERIC EXTERNAL DATA DEPARTMENT Provider, Generic External Data 07/20/2024 3:15 PM EST Clinical Support [facility] MED [facility] P[facility] [address] [place] [address] Beverly Mccann RN Encounter for immunization 07/20/2024 Travel 07/18/2024 9:00 AM EST Office Visit [facility] ADULT DENTAL [address] [place] [address] Tk Valerio Dental calculus (Primary Dx) from Last 3 Months Immunizations Name Administration Dates Next Due Hep B, adult 10/21/2023,09/23/2023 Influenza injectable quadriv alent IIV4 with preservative 07/19/2019,07/09/2017 Influenza injectable quadriv alent preservative free 09/23/2023,05/29/2022,06/18/2020 Influenza, seasonal, injecta ble, preservative free 07/20/2024 MMR 09/23/2023 Pfizer Covid-19 Vaccine 12+ 07/20/2024, Tdap 01/07/2017 Social History Tobacco Use Types Packs/Day Years Used Date Smoking Tobacco: Never Passive Smoke Exposure: Never Smokeless Tobacco: Never Tobacco Cessation:Counseling Given: Not Answered Alcohol Use Standard Drinks/Week Comments Never 0 (1 standard drink = 0.6 oz pur e alcohol) Depression Answer Date Recorded Patient Health Questionnaire-9 Score 0 05/25/2023 Housing Stability Answer Date Recorded What is your housing situation today? I have laina dalton 06/14/[address] you li ve. Do you have problems with any of the following? None of the above 06/14/2023 Food Insecurity Answer Date Recorded Within the past 12 months, y ou worried that your food would run out before you got money to buy more: Never True 06/14/2023 Within the past 12 months,th e food you bought just didn't last and you didn't have enough money to get more: Never True Transportation Answer Date Recorded In the past 12 months, has l ack of transportation kept you from medical appts, meetings, work or from getting things needed for daily living? No 06/14/2023 Utilities Answer Date Recorded In the past 12 months, has t he electric, gas, oil or water company threatened to shut off services in your home? No 06/14/2023 Depression Answer Date Recorded Patient Health Questionnaire-2 Score 0 05/25/2023 Comments Unknown Sex and Gender Information Value Date Recorded Sex Assigned at Female 06/29/2022 10:18 AM EDT Legal Sex Female 10:18 AM EDT Gender Identity Female 06/29/2022 10:18 AM EDT Sexual Orientation Straight 06/29/2022 10 :18 AM EDT Last Filed Vital Signs Vital Sign Reading Time Taken Comments Blood Pressure 112/64 07/18/2024 9:05 AM EST Pulse 64 07/18/2024 9:05 AM EST Temperature 36.6 ??C (97.8 ??F) 01/28/2024 11:25 AM E DT Respiratory Rate 18 05/26/2024 2:30 PM EDT Oxygen Saturation 98% 05/26/2024 2:30 PM EDT Inhaled Oxygen Concentration - - Weight 88 kg (194 lb) 05/26/2024 2:30 PM EDT Height 160 cm (5' 3 ) 05/26/2024 2:30 PM EDT Body Mass Index 34.37 05/26/2024 2:30 PM EDT Plan of Treatment Upcoming Encounters Date Type Department Care Team (Late st Contact Info) Description 01/15/2025 10:00 AM EDT Office Visit [facility] ADULT DENTAL [address] [place] [address] Tk Valerio Health Maintenance Due Date Last Done Comments CT Colonography 1979 Colonoscopy 1979 Colorectal Cancer Screening 1979 FIT DNA/Cologuard 1979 FIT 1979 FOBT 1979 HIV Screening 1979 Sigmoidoscopy 1979 Alcohol/Substance Use Screening 1991 Family Planning (PISQ) 1994 Hepatitis C Screening 1997 Pap Smear 06/18/2023 06/18/2020 Hepatitis B Vaccines (3 of 3 - 19+ 3-dose series) 03/23/2024 10/21/2023, 09/23/2023 Dental Oral Exam 05/04/2024 11/01/2023, 06/03/2022 Depression Screening 05/25/2024 05/25/2023, 05/25/20 23 SDOH Screening 05/25/2024 05/25/2023 Mammogram 06/26/2024 06/26/2022, 08/29/2019 Dental X-Ray: Bitewings 11/01/2024 11/01/19 24, 08/06/2023, 08/06/2023, Additional history exists Dental Prophylaxis 01/16/2025 07/18/2024, 0 11/01/2023, 05/28/2022 Dental X-Ray: Full Mouth 05/29/2025 05/28/2022 Cervical Cancer Screening 06/18/2025 HPV/Cotest 06/18/2025 06/18/2020 Tobacco Screening 07/18/2025 07/18/2024 DTaP/Tdap/Td Vaccines (2 - Td or Tdap) 01/07/2027 01/07/2017 Lipid Panel 05/28/2027 05/28/2022, 0210/2021, 10/30/2020, Additional history exists Zoster Vaccines (1 of 2) 2029 RSV Patients and Patients Aged 60 years or older (1 - 1-dose 75+ series) 2054 COVID-19 Vaccine Completed 07/20/2024, , 06/27/2021, Additional history exists Influenza Vaccine Completed 07/20/2024, , 05/29/2022, Additional history exists HIB Vaccines Aged Out No longer eligi ble based on patient's age to complete this topic HPV Vaccines Aged Out No longer eligi ble based on patient's age to complete this topic Hepatitis A Vaccines Aged Out No long er eligible based on patient's age to complete this topic IPV Vaccines Aged Out No longer eligi ble based on patient's age to complete this topic Meningococcal Vaccine Aged Out No abena dann eligible based on patient's age to complete this topic Pneumococcal Vaccine: Pediatrics (0 to 5 Years) and At-Risk Patients (6 to 49) Years) Aged Out No longer eligible based on patient's age to complete this topic RSV under 20 months Aged Out No longe r eligible based on patient's age to complete this topic Rotavirus Vaccines Aged Out No longer eligible based on patient's age to complete this topic Procedures Procedure Name Priority Date/Time Associated Diagnosis Comments URINALYSIS, COMPLETE, WITH REFLEX TO CULTURE Routine 10/04/2024 5:03 PM EST CBC WITH AUTO DIFFERENTIAL Routine 10/04/2024 5:03 PM EST ADJUNCTIVE GENERAL SERVICES - PROFESSIONAL VISITS - CASE PRESENTATION, SUBSEQUENT TO DETAILED AND EXTENSIVE TREATMENT PLANNING Routine 07/18/2024 9:00 AM EST ORAL HYGIENE INSTRUCTIONS Routine 07/18/2024 9:00 AM EST PROPHYLAXIS - ADULT Routine 07/18/2024 9 :00 AM EST BITEWINGS - 4 RADIOGRAPHIC IMAGES Routine 11/01/2023 11:00 AM EST PERIODIC ORAL EVALUATION - ESTABLISHED PATIENT Routine 11/01/2023 11:00 AM EST MAMMOGRAM GENERIC Routine 06/26/2022 2:3 0 PM EDT LIPID PANEL, STANDARD Routine 05/28/2022 8:46 AM EDT HPV MRNA E6/E7 Routine 06/18/2020 1:09 PM EDT THINPREP PAP Routine 06/18/2020 1:09 PM EDT from Last 3 Months or Most Recently Relevant to Health Maintenance Results * (ABNORMAL) Urinalysis, Complete, with Reflex to Culture (10/04/2024 5:03 PM EST) Color Urine Yellow [facility] Appearance Urine Turbid [facility] PH 6.5 5.0 - 9.0 [facility] Glucose Urine UA Negative Negative mg/dL [facility] Urine Blood Moderate (2+)(A) Negative [facility] Specific Vida - Urine 1.020 1.005 - 1.025 [facility] Urine Protein Trace Neg-Trace mg/dL [facility] Urine Ketones Negative Negative mg/dL [facility] Nitrite Urine Negative Negative [facility] Leukocyte Esterase Urine Negative Negative [facility] 10/04/2024 5:03 PM EST 10/04/2024 5:06 PM EST Narrative [facility] - 10/04/2024 5:09 PM EST [id number], Clean Catch us Generic External Data Provider LAB URINE ORDERAB LES Final Result [facility] [address] [place] [phone] * CBC auto differential (10/04/2024 5:03 PM EST) White Blood Count 7.9 4.8 - 10.8 X10*3/uL [facility] Red Blood Count 4.51 4.20 - 5.50 X10*6/uL [facility] Hemoglobin 13.8 12.0 - 16.0 g/dl [facility] Hematocrit 40.5 37.0 - 47.0 % [facility] Mean Corpuscular Volume 89.8 80.0 - 98.0 fL [facility] Mean Corpuscular Hemoglobin 30.6 27.0 - 33.0 pg [facility] Mean Corpuscular HGB Conc 34.1 31.0 - 35.0 g/dl [facility] Red Cell Distribution Width 13.7 11.0 - 16.0 % [facility] Platelet Count 272 160 - 400 X10*3/uL [facility] Mean Platelet Volume 10.9 9.4 - 12.3 fL [facility] Neutrophils Percent Auto 53.3 45 - 73 % [facility] Imm Gran Pct Auto 0.4 0.0 - 0.4 % [facility] Lymphocytes Percent Auto 35.8 20 - 40 % [facility] Monocytes Percent Auto 8.9 2 - 11 % [facility] Eosinophils Percent Auto 1.1 0 - 4 % [facility] Basophils Percent Auto 0.5 0 - 2 % [facility] NRBC Pct Auto 0.0 0.0 - 0.2 /100WBC [facility] Neutrophils Absolute Auto 4.2 2.0 - 8.3 x10*3/uL [facility] Imm Gran Abs Auto 0.03 0.00 - 0.03 X10*3/uL [facility] Lymphocytes Absolute Auto 2.8 1.2 - 4.9 X10*3/uL [facility] Monocytes Absolute Auto 0.7 0.1 - 1.2 X10*3/uL [facility] Eosinophils Absolute Auto 0.1 0.0 - 0.4 X10*3/uL [facility] Basophils Absolute Auto 0.0 0.0 - 0.2 X10*3/uL [facility] NRBC Abs Auto 0.000 0.0 - 0.012 X10*3/uL [facility] 10/04/2024 5:03 PM EST 10/04/2024 5:06 PM EST us Generic External Data Provider LAB BLOOD ORDERAB LES Final Result [facility] [address] [place] [address] [phone] * Mammography Report 1 (06/26/2022 2:30 PM EDT) Anatomical Region Laterality Modality Breast Bilateral Mammography 06/26/2022 2:30 PM EDT Narrative 06/30/2022 9:31 AM EDT Refer to the Notes tab for result details [facility] Procedure: Mammography Report 1 Procedure Note ProviderWendy MD - 11/22/2022 Refer to the Notes tab for result details [facility] Procedure: Mammography Report 1 us Bethanie Holliday MD IMG BI PROCEDURES Final Resul t * (ABNORMAL) LIPID PANEL, STANDARD (05/28/2022 8:46 AM EDT) Chol/HDLC Ratio 4.0 <5.0 (calc) [facility] Cholesterol, Total 188 <200 mg/dL [facility] HDL Cholesterol 47(L) > OR = 50 mg/dL [facility] LDL Cholesterol 115(H) mg/dL (calc) [facility] Comment: Reference range: <100 ?? Desirable range <100 mg/dL for primary prevention; ?? <70 mg/dL for patients with CHD or diabetic patients ?? with > or = 2 CHD risk factors. ?? LDL-C is now calculated using the Lilia ?? calculation, which is a validated novel method providing ?? better accuracy than the Friedewald equation in the ?? estimation of LDL-C. ?? Darren COLLADO et al. REBA. 2013;310(19): 8278-4416 ?? (http://education.Urvew/faq/XYP618) Non-HDL Cholesterol 141(H) <130 mg/dL (calc) [facility] Comment: For patients with diabetes plus 1 major ASCVD risk ?? factor, treating to a non-HDL-C goal of <100 mg/dL ?? (LDL-C of <70 mg/dL) is considered a therapeutic ?? option. Triglycerides 149 <150 mg/dL [facility] 05/28/2022 8:46 AM EDT Bubba Lenz MD LAB BLOOD ORDERABL ES Final Result Performing Organization Address [facility]/ZIP Co de Phone Number [facility] * THINPREP PAP (06/18/2020 1:09 PM EDT) Clinical Information: [facility] Comment:None given COMMENT [facility] Comment: EXPLANATORY NOTE: ? The Pap is a screening test for cervical cancer. It is ?? not a diagnostic test and is subject to false negative ?? and false positive results. It is most reliable when a ?? satisfactory sample, regularly obtained, is submitted ?? with relevant clinical findings and history, and when ?? the Pap result is evaluated along with historic and ?? current clinical information. ?? Skin Care Instructor: [facility] Comment: HJP, CT(ASCP) CT screening location: [address] ??[id number] Interpretation/Resu lt: [facility] Comment:Negative for intraep ithelial lesion or malignancy. LMP: [facility] Comment:05/30/20 Prev. BX: NONE [facility]IVEN [facility] Prev. PAP: [facility] Comment:NONE GIVEN SOURCE: [facility] Comment:None given Statement Of Adequacy: [facility] Comment: Satisfactory for evaluation. Endocervical/transformation zone component absent. 06/18/2020 1:09 PM EDT us Beata Blakely CNM LAB PATHOLOGY ORDERABLES Final Result Performing Organization Address City/[facility]/ZIP Co de Phone Number [facility] [address] * HPV mRNA E6/E7 (06/18/2020 1:09 PM EDT) HPV nRNA E6/E7 Not Detected Not Detected [facility] Comment: This test was performed using the APTIMA HPV Assay ([employer] ?? This assay detects E6/E7 viral messenger RNA (mRNA) from 14 high-risk HPV types (16,18,31,33,35,39,45,51,52,56,58,59,66,68). ?? The analytical performance characteristics of this assay have been determined by [employer]. The modifications have not been cleared or approved by the FDA. This assay has been validated pursuant to the CLIA regulations and is used for clinical purposes. 06/18/2020 1:09 PM EDT us Beata Blakely CNM LAB BLOOD ORDERABLES Liz loco Result [facility] [address] from Last 3 Months or Most Recently Relevant to Health [place] [address] [place] [address] [address] [facility] [address] Care Teams Supervisor Silvering Department Relationship Specialty Start Date End Date Bethanie Holliday MD [address] [place] [phone] PCP - General Family Medicine 10/22/14
--- OUTSIDE RECORDS SUMMARY | 2024-10-04 17:11 | XMS_ITS | Encounter Summary ---
Author Organization [employer] Address [address] [facility] 7t [place] [address] Care Team Providers Care Damascener Name Role Phone Bethanie Holliday MD Primary Care Provider [phone] Encounter Details Date Type Department Care Team (Late st Contact Info) Description 11/13/2022 Orders Only [facility] MED & PEDS [address] [place], [place] [phone] Bethanie Holliday MD [address] [place], [place] [phone] Arthralgia of right knee (Primary Dx) Social History Tobacco Use Types Packs/Day Years Used Date Smoking Tobacco: Never Passive Smoke Exposure: Never Smokeless Tobacco: Never Alcohol Use Standard Drinks/Week Comments Never 0 (1 standard drink = 0.6 oz pur e alcohol) Comments Unknown Sex and Gender Information Value Date Recorded Sex Assigned at Female 06/29/2022 10:18 AM EDT Legal Sex Female 10:18 AM EDT Gender Identity Female 06/29/2022 10:18 AM EDT Sexual Orientation Straight 06/29/2022 10 :18 AM EDT COVID-19 Exposure Response Date Recorded In the last 10 days, have yo u been in contact with someone who was confirmed or suspected to have Coronavirus/COVID-19? No / Unsure 11/05/2022 3:40 PM EST documented as of this encounter Plan of Treatment Upcoming Encounters Date Type Department Care Team (Late st Contact Info) Description 01/15/2025 10:00 AM EDT Office Visit [facility] ADULT D[facility] [address] [place] [address] Tk Valerio documented as of this encounter Visit Diagnoses Diagnosis Arthralgia of right knee- Primary documented in this encounter Care Teams Damascener Relationship Specialty Start Date End Date Bethanie Holliday MD [address] [place] [address] PCP - General Family Medicine 10/22/14 documented as of this encounter
--- OUTSIDE RECORDS SUMMARY | 2024-10-04 17:11 | XMS_ITS | Encounter Summary ---
Author Organization [employer] Address 75 [facility] [address] [place] [address] Care Team Providers Care Forest Practices Field Coordinator Name Role Phone Bethanie Holliday MD Primary Care Provider Encounter Details Date Type Department Care Team (Latest Contact Info) Description 05/28/2022 Abstract [facility] Dental, Provider, DDS Social History Tobacco Use Types Packs/Day Years Used Date Smoking Tobacco: Never Assessed Comments Unknown Sex and Gender Information Value Date Recorded Sex Assigned at Female 06/29/2022 10:18 AM EDT Legal Sex Female 10:18 AM EDT Gender Identity Female 06/29/2022 10:18 AM EDT Sexual Orientation Straight 06/29/2022 10 :18 AM EDT documented as of this encounter Plan of Treatment Upcoming Encounters Date Type Department Care Team (Late st Contact Info) Description 01/15/2025 10:00 AM EDT Office Visit [facility] CHC ADULT DENTAL [address] [place] [address] Tk Valerio documented as of this encounter Visit Diagnoses Not on filedocumented in this encounter Care Teams Forest Practices Field Coordinator Relationship Specialty Start Date End Date Bethanie Holliday MD [address] [place] [address] PCP - General Family Medicine 10/22/14 documented as of this encounter
--- OUTSIDE RECORDS SUMMARY | 2024-10-04 17:11 | XMS_ITS | Encounter Summary ---
Author Organization [employer] Address 75 [facility] 7 [place] [address] Care Team Providers Care Primary Mill Roller Name Role Phone Bethanie Holliday MD Primary Care Provider Encounter Details Date Type Department Care Team (Latest Contact Info) Description 09/06/2019 Abstract [facility] Dental, Provider, DDS Social History [...] Description 01/15/2025 10:00 AM EDT Office Visit [facility] CHC ADULT DENTAL [address] [place] [address] Tk Valerio documented as of this encounter Visit Diagnoses Not on filedocumented in this encounter Care Teams Primary Mill Roller Relationship Specialty Start Date End Date Bethanie Holliday MD [address] [place] [address] PCP - General Family Medicine 10/22/14 documented as of this encounter
--- OUTSIDE RECORDS SUMMARY | 2024-10-04 17:11 | XMS_ITS | Encounter Summary ---
Author Organization [employer] Address [address] [facility] 7 [place] [address] Care Team Providers Care Academic Support Specialist Name Role Phone Bethanie Holliday MD Primary Care Provider [phone] Encounter Details Date Type Department Care Team (Latest Contact Info) Description 12/12/2020 Abstract [facility] Dental, Provider, DDS Social History Tobacco [...] 01/15/2025 10:00 AM EDT Office Visit [facility] CHC ADULT DENTAL [address] [place] [address] Tk Valerio documented as of this encounter Visit Diagnoses Not on filedocumented in this encounter Care Teams Academic Support Specialist Relationship Specialty Start Date End Date Bethanie Holliday MD [address] [place] [address] PCP - General Family Medicine 10/22/14 documented as of this encounter
--- OUTSIDE RECORDS SUMMARY | 2024-10-04 17:11 | XMS_ITS | Encounter Summary ---
Author Organization [employer] Address [address] [facility] 7 [place] [address] Care Team Providers Care Registered Medical Transcriptionist Name Role Phone Bethanie Holliday MD Primary Care Provider [phone] Reason for Visit * Reason Onset Date Comments Nurse Triage 05/24/2023 Encounter Details Date Type Department Care Team (Late st Contact Info) Description 05/24/[address] [facility] [address] [place] [address] Bethanie Holliday MD [address] [place], [place] [id number] Nurse Triage Social History Tobacco Use Types Packs/Day Years [...] AM EDT documented as of this encounter Miscellaneous Notes * Telephone Encounter - Dinorah Hernandez RN - 05/24/2023 11:12 AM EDT Triage call Pt is at work during call. Pt reports hx of surgery 04/28/23 , sarahi layne, breast lift. Pt had complications of pulmonary emboli. Pt has been taking eliquis as prescribed since discharge. Pt reports right arm and leg pain. Pt has had to travel for 2 hours and found some heaviness feeling of right arm and fingers feel like they are falling asleep when arm is lifted up. Right arm feels cooler than left arm. Pt requests to see provider. No apts in [facility] today but apt with TRELL Hester 05/25/23 @1015am. Pt is advised if any worsening of symptoms Pt must go to ED for evaluation and Pt agrees. Pt was seen 05/13/23 by provider and has apt with PCP 06/25/23. Multiple (2) protocols were used on this call. Disposition for Call: See in Office or Video Visit Today or Tomorrow Protocol Used: Arm Pain (Adult) Protocol-Based Disposition: See in Office or Video Visit Today or Tomorrow Video visit not offered Positive Triage Question: * Patient wants to be seen * All higher-acuity triage questions were negative Care Advice Discussed: * Pain Medicines * Pain Medicines - Extra Notes and Warnings * Reasons To Call Back - Moderate pain (e.g., interferes with normal activities) lasts more than 3 days - Mild pain lasts more than 7 days - Arm swelling occurs - Signs of infection occur (e.g., spreading redness, warmth, fever) - You become worse Protocol Used: Leg Pain (Adult) Protocol-Based Disposition: See in Office or Video Visit Today or Tomorrow Video visit not offered Positive Triage Question: * Patient wants to be seen * All higher-acuity triage questions were negative Care Advice Discussed: * Reassurance and Education - Leg Pain * Pain Medicines * Pain Medicines - Extra Notes and Warnings * Reasons To Call Back - Moderate pain (e.g., limping) lasts more than 3 days - Mild pain lasts more than 7 days - Signs of infection occur (e.g., spreading redness, warmth, fever) - You become worse * Telephone Encounter - Iggy Campbell - 05/24/2023 10:42 AM EDT Symptom: Arm Pain - Not From Injury Outcome: Schedule an urgent appointment (within 1 hour) or talk to a nurse or provider soon Reason: Severe pain now, pt stated they had surgery The caller accepted this outcome Please contact at [phone] documented in this encounter Plan of Treatment Upcoming Encounters Date Type Department Care Team (Late st Contact Info) Description 01/15/2025 10:00 AM EDT Office Visit [facility] [address] [place], [place] [id number] Tk Valerio documented as of this encounter Visit Diagnoses Not on filedocumented in this encounter Care Teams Registered Medical Transcriptionist Relationship Specialty Start Date End Date Bethanie Holliday MD [address] [place], [place] [phone] PCP - General Family Medicine 10/22/14 documented as of this encounter
[2024-10-04 17:12] LABS: Bacteria Urine Trace (None Seen); Hyaline Casts Urine 0-2 /LPF (0-2); RBC Urine >20 /HPF (0-2); Squamous Epithelial Cell Urine 0-2 /HPF (0-2); WBC Urine 0-5 /HPF (0-5)
[2024-10-04] MEDS: 0.9 % Sodium Chloride 1,000 ML 999 ML IV (17:13)
[2024-10-04 17:19] LABS: Prothrombin Time 11.6 SEC (10.9-12.4)
[2024-10-04 17:21] LABS: Partial Thromboplastin Time 30.4 SEC (26.0-36.8)
[2024-10-04 17:31] LABS: Alanine Aminotransferase 24 U/L (0-31); Albumin Level 4.3 g/dL (3.5-5.0); Anion Gap 11 (12-20); Aspartate Amino Transferase 24 U/L (5-31); Bilirubin Total 0.3 mg/dL (0.0-1.0); Blood Urea Nitrogen 17 mg/dL (9-16); Calcium 9.6 mg/dL (8.4-10.2); Carbon Dioxide 25 mmol/L (22-29); Chloride 109 mmol/L (96-108); Creatinine Clr Calc Pharmacy 75.4; Estimated Glomerular Filt Rate 59; Glucose Random 84 mg/dL (60-115); HCG Quantitative < 2 mIU/mL; Lipase 31 U/L (8-78); Potassium 3.8 mmol/L (3.3-5.1); Sodium 141 mmol/L (135-145); Total Protein 7.2 g/dL (6.5-8.0)
[2024-10-04] MEDS: ondansetron HCL 4 MG/2 ML VIAL IVPUSH (17:32)
[2024-10-04] MEDS: Ketorolac Tromethamine 30 MG/ML VIAL IVPUSH (17:32)
[2024-10-04] MEDS: Morphine Sulfate 4 MG/ML CARTRIDGE IVPUSH (17:37)
[2024-10-04 18:17] LABS: Alkaline Phosphatase 37 U/L (39-117)
[2024-10-04 18:58] VITALS: BP 133/80; PULSE 77; RESP 18; TEMP 36.6; O2SAT 100
[2024-10-04] MEDS: HYDROmorphone HCl 1 MG/ML SYRINGE IVPUSH (20:19)
--- NOTE | 2024-10-04 20:25 | PHA.MEDREC ---
Pharmacy Consult ? Medication Reconciliation Pharmacy has completed the medication reconciliation. Spoke to patient to confirm medication list. Patient showed me picture of a vial of tirzepatide 16.6 mg/mL (she said she fills it at [facility] pharmacy) and said she injects 0.3 ml every week. Last dose was yesterday 10/03/24.
--- NOTE | 2024-10-04 20:57 | PC.NURSE ---
patient profusely vomtiing post MD lisa aware. Asked for something for nausea and vomiting. Awaiting order.
[2024-10-04] MEDS: Prochlorperazine Edisylate 10 MG/2 ML VIAL IVPUSH (21:05)
[2024-10-05] VITALS (12 sets, daily range): BP systolic 98–135; BP diastolic 59–84; PULSE 71–90; RESP 12–18; TEMP 36.2–37.2; O2SAT 95–100; BMI 34.7
--- NOTE | 2024-10-05 08:19 | PM.UROCN ---
History of Present Illness Consult details Consult date: 10/05/24 Narrative: CC: Distal ureteric stone with persistent pain 44-year-old female Prior history of kidney stones Prior diagnosis Medullary calcinosis Prior as well Presents with left flank pain for past 48 hours. Associated with nausea and vomiting. 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 There is a 7 mm left ureteral stone at the pelvic inlet with [id number] hydronephrosis. Recommend ureteroscopy laser lithotripsy and stent placement NPO after midnight Review of Systems Constitutional: Constitutional: Reports as per HPI and Reports no additional constitutional complaints Cardiovascular: Cardiovascular: Reports as per HPI and Reports no additional cardiovascular complaints Respiratory: Respiratory: Reports as per HPI and Reports no additional respiratory complaints Gastrointestinal: Gastrointestinal: Reports as per HPI and Reports no additional gastrointestinal complaints Genitourinary: Genitourinary: Reports as per HPI Musculoskeletal: Musculoskeletal: Reports no additional musculoskeletal complaints and Reports as per HPI Neurologic: Reports system reviewed and no additional complaints, except as documented and Reports as per HPI [facility] Past Medical History Medical History Pulmonary emboli Family History Family History Father Prostate cancer Mother High cholesterol HTN (hypertension) Surgical History Surgical History History of excision of mass (10/05/23) Hx of abdominoplasty (~04/28/23) History of breast lift (~04/28/23) History of delivery Social History Social History Household Members: Spouse and Children Housing: House Unable to assess alcohol history related to: Unknown Alcohol intake: never Patient Tobacco Use Status: Never used Tobacco Smoked in Last 30 Days: No Use of substances other than those prescribed or required for medical reasons: Unknown Advance Directives: No Advance Directives Information Provided: Yes Do you have a plan to hurt others: No Plan service: No Current occupational status: employed Meds Allergies Allergy/AdvReac Type Severity Reaction Status Date / Time Penicillins Allergy Mild SWELLING Verified 10/04/24 16:16 penicillin V Allergy Unknown swelling Verified 10/04/24 16:16 Active Medications: Current Medications Acetaminophen (Acetaminophen 325 Mg Tablet) 650 mg PO Q6H PRN PRN Reason: Pain, Mild 1-3,fever,headache Hydrocodone Bitart/Acetaminophen (Hydrocodone Bit/Acetam 5/325 Tablet) 1 tab PO Q4H PRN PRN Reason: Pain, Moderate(Pain Scale 4-6) Calcium Carbonate (Calcium Carbonate 750 Mg Tab.Chew) 750 mg PO Q4H PRN PRN Reason: Heartburn Hydromorphone HCl (Hydromorphone Hcl 1 Mg/Ml Syringe) 0.5 mg IVPUSH Q4H PRN; Protocol PRN Reason: Pain, Severe (Pain Scale 7-10) Lactated Ringer's (Lr) 1,000 mls @ 125 mls/hr IVCONT .Q8H CHRISTOP[facility] Magnesium Hydroxide (Milk Of Magnesia 30 Ml Oral.Susp) 30 ml PO DAILY PRN PRN Reason: Constipation Melatonin (Melatonin 3 Mg Tablet) 6 mg PO BEDTIME PRN PRN Reason: Insomnia Sodium Chloride (0.9 % Sodium Chloride Flush 3 Ml Syringe) 3 ml IVFLUSH QSHIFT CHRISTOPHER Home Medications ?Medication ?Instructions ?Recorded ?Confirmed ?Last Taken ?Type tirzepatide 5 mg/0.5 mL 5 mg subcut TU 10/04/24 10/04/24 10/03/24 History subcutaneous pen injector (Natacha) Physical Exam Vital Signs: Vital Signs: Last Vital Signs Temp 98.7 F 10/05/24 07:48 Pulse 90 10/05/24 07:48 Resp 12 10/05/24 07:48 BP 99/59 L 10/05/24 07:48 Pulse Ox 98 10/05/24 07:48 O2 Del Method Room Air 10/05/24 06:25 BMI result Body Mass Index 33.2 Const: General: cooperative, healthy appearing, comfortable and no acute distress Orientation/consciousness: patient oriented x3 HEENT: Face and sinus: Yes normal facial exam Mouth: moist mucous membranes Neck: Neck: Yes normal visual inspection, Yes full ROM and Yes trachea midline Chest: Chest palpation & inspection: normal inspection of the chest Resp: Effort & Inspection: normal respiratory effort, able to speak in complete sentences and no respiratory distress GI: Inspection: Yes normal to inspection Back/Spine/Pelvis: Cervical Spine: normal cervical lordosis Thoracic/Lumbar Spine: thoracic and lumbar spine normal to inspection Skin: General skin exam: no rashes or lesions noted Neuro: General: patient oriented x3, tone normal and moves all extremities Extrem: General: Yes normal to inspection and Yes capillary refill normal Results Labs 10/04/24 17:03 10/04/24 17:03 Labs: Abnormal lab results 10/04/24 Range/Units 17:03 Chloride 109 H (96-108) mmol/L Anion Gap 11 L (12-20) BUN 17 H (9-16) mg/dL Alkaline Phosphatase 37 L (39-117) U/L Urine Blood Moderate (2+) H (Negative) Urine RBC >20 H (0-2) /HPF Short CBC 10/04/24 Range/Units 17:03 WBC 7.9 (4.8-10.8) X10*3/uL Hgb 13.8 (12.0-16.0) g/dl Hct 40.5 (37.0-47.0) % Plt Count 272 (160-400) X10*3/uL BMP 10/04/24 17:03 Sodium 141 Potassium 3.8 Chloride 109 H Carbon Dioxide 25 BUN 17 H Creatinine 1.01 Calcium 9.6 Liver Function 10/04/24 Range/Units 17:03 Total Bilirubin 0.3 (0.0-1.0) mg/dL AST 24 (5-31) U/L ALT 24 (0-31) U/L Alkaline Phosphatase 37 L (39-117) U/L Albumin 4.3 (3.5-5.0) g/dL Urine 10/04/24 Range/Units 17:03 Urine Color Yellow Urine Appearance Turbid Urine pH 6.5 (5.0-9.0) Ur Specific [place] 1.020 (1.005-1.025) Urine Protein Trace (Neg-Trace) mg/dL Urine Glucose (UA) Negative (Negative) mg/dL All other labs normal. Assessment and Plan (1) Calculus, ureteral: Status: Acute Plan Ureteroscopy We discussed the nature of the decision and reasonable alternatives for performing ureteroscopy. Options such as medical therapy were discussed. Interventions include chemical dissolution, ESWL, ureteroscopy with laser lithotripsy and stent placement, PCNL. The relative uncertainties and benefits related to each alternate procedure were adequately discussed. General surgical risks including, but not limited to - pain, bleeding, infection, myocardial infarction, pulmonary embolus, deep vein thrombosis and cerebrovascular accident which may result in further hospitalization were discussed. Full disclosure of the procedure as well as all major risks, benefits and complications were discussed including but not limited to damage to the urethra, bladder and kidney infection, damage to the ureter, stent migration or malposition, scarring to the renal pelvis, remnant stone fragments, subsequent stone passage with need for secondary procedures. The overall secondary procedure rate is approximately 10-15%. The overall clearance rate is approximately 90-95%. Success of the procedure in the short-term does not necessarily guarantee that long-term success will be maintained. Suitable follow up will need to be maintained. The patient showed understanding of discussion and wishes to proceed with - cystoscopy, retrograde, ureteroscopy, possible lithotripsy/stone basketing and stent on the left side Procedures Date of Service Date of Service: 10/05/24
--- NOTE | 2024-10-05 08:44 | PC.NURSE ---
assumed care of patient at 0700, patient resp even and unlabored, skin dry and intact. VSS. patient states her pain is 2/10, states much better than when she initially presented. patient is alert and oriented x3
[2024-10-05] MEDS: Lactated Ringers 1,000 ML 125 ML IVCONT (08:52)
[2024-10-05] MEDS: HYDROcodone Bit/Acetam 5/325 TABLET 1 TAB PO (09:46)
[2024-10-05] MEDS: HYDROmorphone HCl 0.5 MG/0.5 ML SYRINGE IVPUSH (16:00)
--- NOTE | 2024-10-05 16:07 | HO.ANESPROP2 ---
[facility] Active Problems Active Problems: All Active Problems Calculus, ureteral (Acute) Pulmonary emboli (Acute) Fibroma (Acute) Lipoma (Acute) Hx of abdominoplasty (Acute ~04/28/23) History of breast lift (Acute ~04/28/23) Past Medical History Medical History Pulmonary emboli Family History Family History Father Prostate cancer Mother High cholesterol HTN (hypertension) Family history of problems with anesthesia: No Surgical History Surgical History History of excision of mass (10/05/23) Hx of abdominoplasty (~04/28/23) History of breast lift (~04/28/23) History of delivery History of Problems with Anesthesia: No Social History Social History Household Members: Spouse and Children Housing: House Unable to assess alcohol history related to: Unknown Alcohol intake: never Patient Tobacco Use Status: Never used Tobacco Smoked in Last 30 Days: No Use of substances other than those prescribed or required for medical reasons: Unknown Advance Directives: No Advance Directives Information Provided: Yes Do you have a plan to hurt others: No Plan service: No Current occupational status: employed Meds Allergies Allergy/AdvReac Type Severity Reaction Status Date / Time Penicillins Allergy Mild SWELLING Verified 10/04/24 16:16 penicillin V Allergy Unknown swelling Verified 10/04/24 16:16 Active Medications: Current Medications Acetaminophen (Acetaminophen 325 Mg Tablet) 650 mg PO Q6H PRN PRN Reason: Pain, Mild 1-3,fever,headache Hydrocodone Bitart/Acetaminophen (Hydrocodone Bit/Acetam 5/325 Tablet) 1 tab PO Q4H PRN PRN Reason: Pain, Moderate(Pain Scale 4-6) Last Admin: 10/05/24 09:46 Dose: 1 tab Calcium Carbonate (Calcium Carbonate 750 Mg Tab.Chew) 750 mg PO Q4H PRN PRN Reason: Heartburn Hydromorphone HCl (Hydromorphone Hcl 0.5 Mg/0.5 Ml Syringe) 0.5 mg IVPUSH Q4H PRN; Protocol PRN Reason: Pain, Severe (Pain Scale 7-10) Last Admin: 10/05/24 16:00 Dose: 0.5 mg Lactated Ringer's (Lr) 1,000 mls @ 125 mls/hr IVCONT .Q8H [facility] Last Admin: 10/05/24 08:52 Dose: 125 mls/hr Magnesium Hydroxide (Milk Of Magnesia 30 Ml Oral.Susp) 30 ml PO DAILY PRN PRN Reason: Constipation Melatonin (Melatonin 3 Mg Tablet) 6 mg PO BEDTIME PRN PRN Reason: Insomnia Sodium Chloride (0.9 % Sodium Chloride Flush 3 Ml Syringe) 3 ml IVFLUSH QSHIFT [facility] Home Medications ?Medication ?Instructions ?Recorded ?Confirmed ?Last Taken ?Type tirzepatide 5 mg/0.5 mL 5 mg subcut TU 10/04/24 10/04/24 10/03/24 History subcutaneous pen injector (Natacha) Exam Height,Weight and Vital Signs: Height 5 ft 4 in Weight 87.7 kg Last Vital Signs Temp 98.2 F 10/05/24 15:38 Pulse 80 10/05/24 15:38 Resp 18 10/05/24 16:00 BP 115/73 10/05/24 15:38 Pulse Ox 100 10/05/24 15:38 O2 Del Method Room Air 10/05/24 15:38 Pertinent Lab Results Pertinent Lab Results: Laboratory Tests 10/04/24 17:03 WBC 7.9 RBC 4.51 Hgb 13.8 Hct 40.5 MCV 89.8 MCH 30.6 MCHC 34.1 RDW 13.7 Plt Count 272 MPV 10.9 Immature Gran % (Auto) 0.4 Neut % (Auto) 53.3 Lymph % (Auto) 35.8 [place] % (Auto) 8.9 Eos % (Auto) 1.1 Baso % (Auto) 0.5 Lymph # (Auto) 2.8 [place] # (Auto) 0.7 Eos # (Auto) 0.1 Baso # (Auto) 0.0 Abs Immat Gran (auto) 0.03 Absolute Neuts (auto) 4.2 Absolute Nucleated RBC 0.000 Nucleated RBC % (auto) 0.0 PT 11.6 INR 1.0 APTT 30.4 Sodium 141 Potassium 3.8 Chloride 109 H Carbon Dioxide 25 Anion Gap 11 L BUN 17 H Creatinine 1.01 Estim Creat Clear Calc 75.4 Estimated GFR 59 Random Glucose 84 Calcium 9.6 Magnesium 2.0 Total Bilirubin 0.3 AST 24 ALT 24 Alkaline Phosphatase 37 L Total Protein 7.2 Albumin 4.3 Lipase 31 Beta HCG, Quant < 2 Urine Color Yellow Urine Appearance Turbid Urine pH 6.5 Ur Specific [place] 1.020 Urine Protein Trace Urine Glucose (UA) Negative Urine Ketones Negative Urine Blood Moderate (2+) H Urine Nitrite Negative Ur Leukocyte Esterase Negative Urine RBC >20 H Urine WBC 0-5 Ur Squamous Epith Cells 0-2 Urine Bacteria Trace Hyaline Casts 0-2 Airway Mallampati Class: II TM Dist: >3cm Neck ROM: Full Assessment and Plan Assessment Anesthesia Assessment: Anesthesia Plan Discussed and Chart Reviewed Final Anesthetic Review Family History of Problems with Anesthesia: No History of Problems with Anesthesia: No NPO: Yes ASA Class: II and Emergency Final Preanesthetic Review: No Changes in Pt Med Stat, Meds/Allgs Chart Reviewed, Consent Obtained/Reviewed and Anes Risks/Benef Reviewed Patient Risk: Low Procedure Risk: Low Anesthetic Plan Anesthetic Plan: GA Disposition: Standard PACU
--- NOTE | 2024-10-05 16:27 | MHC.SHP ---
Pre-Procedural Eval Section A - 24 Hr Update-Section A only Date of Service: 10/05/24 The patient is an INPATIENT: Yes Changes since office visit: No Cold of Flu in the past 2 weeks, No New Medical Problems, No Changes in Medication and No Patient answered all questions The patient has been examined within 24 hours of the surgical procedure. The History & Physical has been completed within 30 days and I have reviewed it.: Yes Section B - Complete if H&P > 30 days Chief Complaint: Stones Details of Present Illness: distal left ureteric stone with hydronephrosis Allergies: Allergies Allergy/AdvReac Type Severity Reaction Status Date / Time Penicillins Allergy Mild SWELLING Verified 10/04/24 16:16 penicillin V Allergy Unknown swelling Verified 10/04/24 16:16 Plan I have reviewed the history and physical and performed a pertinent physical examination on my patient. No changes have occurred unless specified. Time Spent With Patient Time: Total time managing care of this patient today ____ minutes.
[2024-10-05] MEDS: ceFAZolin Sodium/Dextrose,Iso 2 GM/50 ML PIGGYBACK IV (16:30)
--- NOTE | 2024-10-05 17:02 | P.OP_ITS ---
Operative Note Operative Note Date of Service: 10/05/24 Narrative: PreOperative Diagnosis: Distal left ureteric stone with hydro nephrosis Post Operative Diagnosis: Distal left ureteric stone with hydronephrosis Procedure: - cystoscopy, left retrograde - left dilatation of ureteric orifice under fluoroscopy - left ureteroscopy, laser lithotripsy, stone basketing - left stent placement Surgeon: Dr Yazan Dukes Anesthesia: General Indications for procedure: 8 mm distal left ureteric stone with proximal hydro nephrosis. Two day history of left flank pain associated with nausea and vomiting Procedure: After informed consent was verified the patient was brought to the operating room and placed in a supine position. Anesthesia was administered per protocol. The patient was placed in a modified dorsal lithotomy position and prepped and draped in a sterile fashion. Safety pause time-out and side of surgery were confirmed. Images were available for review. Antibiotic administration confirmed. A 22 Malay cystoscope was inserted per urethra. The urethra was without abnormality. The bladder was normal in its entirety. Both ureteric orifices were seen in normal position. The left ureteric orifice was cannulated and a retrograde examination was performed. Filling defects seen at junction between proximal and mid ureter . A Sensor guidewire was placed up to the level of the renal pelvis under fluoroscopy. The rigid cystoscope was removed. A Marlon dilator was placed over the Sensor guidewire and used to dilate the ureteric orifice under fluoroscopy. The dilator was removed. The semi rigid ureteral scope was placed alongside the Sensor guidewire. The stone was encountered. Using a 365 micro holmium laser fiber the stone was broken into small pieces using a combination of hammer and dusting techiques. Stone fragments were removed from the ureter using a Surecatch 2.4 basket. Once the fragments were removed a decision was made to place a ureteric stent. Based on the height of the patient a 6 Fr x 24 cm stent was used. The string was removed from the stent prior to placement. A 6 Malay by 24 cm double-J stent was placed into the renal pelvis and bladder under a combination of fluoroscopy and direct visualization. The symphisis pubis was used as a radiographic marker to release the stent and good coil was seen within the bladder confirming position Proximal positioning of the stent was confirmed using fluoroscopy. The bladder was emptied. The patient tolerated the procedure well and was extubated in the operating room. They were transferred in stable condition to the recovery area. Pathology: stones Drains: Double J stent as described above
[2024-10-05] MEDS: Ketorolac Tromethamine 15 MG/ML VIAL IVPUSH (17:20)
[2024-10-05] MEDS: Phenazopyridine HCL 100 MG TABLET PO (17:24)
--- NOTE | 2024-10-05 18:43 | PC.NURSE ---
Pt arrived to the unit from the PACU approx 1830. Settled pt in room, primary RN Paige aware patient arrived to the unit. Pt is A&Ox3, no c/o pain, no resp distress, able to make needs known. Call mcnally within reach and instructed how to use. Bed alarm on for safety. Dinner tray delievered.
[2024-10-05] MEDS: oxyCODONE HCl Immed Release 5 MG TABLET PO (22:10)
[2024-10-06] MEDS: 0.9 % Sodium Chloride Flush 3 ML SYRINGE IVFLUSH ×2 (01:17→08:52)
[2024-10-06 04:00] VITALS: BP 110/57; PULSE 96; RESP 16; TEMP 36.4; O2SAT 96
[2024-10-06 07:50] VITALS: BP 119/75; PULSE 85; RESP 20; TEMP 36.6; O2SAT 98
--- NOTE | 2024-10-06 08:30 | P.DS_ITS ---
DS: Providers Provider Date of Service: 10/06/24 Date of admission: 10/05/24 08:34 Date of discharge: 10/06/24 Primary care physician: Bethanie Holliday MD DS: Diagnosis Discharge Diagnosis (1) Calculus, ureteral: Status: Acute DS: Summary Hospital Course Hospital Course: Admit 10/05/2024 Underwent ureteroscopy laser lithotripsy and stent placement for 7 mm distal left ureteric stone Status at Discharge Functional status at discharge: independent ambulation Overall status at discharge: patient is back to baseline Time Attestation Total time managing care of this patient today: 30 mintues. Discharge Coordination Time (in mins): 15 Quality: Safe Use of Opioids Does Pt have an Active Cancer Diagnosis on the Problem List?: No Quality: Stroke Does the patient have a stroke diagnosis?: No Physical Exam Vital Signs: Vital Signs: Last Vital Signs Temp 97.9 F 10/06/24 07:50 Pulse 85 10/06/24 07:50 Resp 20 10/06/24 07:50 BP 119/75 10/06/24 07:50 Pulse Ox 98 10/06/24 07:50 O2 Del Method Room Air 10/06/24 07:50 O2 Flow Rate 2 10/05/24 17:23 BMI result Body Mass Index 34.7 DS: Data Data Completed and Pending Pending studies at discharge: Pending at discharge 10/05/24 16:59 Surgical [PTH] Routine Imaging CT scan - abdomen: Attestation: I personally reviewed and interpreted this imaging study as follows: Radiologist's impression: ITS Impressions Guidance Fluoroscopy 10/05/24 16:42 IMPRESSION: Fluoroscopy during procedure. Please see procedure report for additional information. 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 There is a 7 mm left ureteral stone at the pelvic inlet with [id number] hydronephrosis. Discharge Plan Discharge Anticipated Discharge Date/Time: 10/05/24 17:07 Patient Disposition: Home, Self-Care Discharge Diagnosis: Distal ureteric stones Referrals: Bethanie Holliday MD [Primary Care Provider] - 1 Week Discharge Medications: New tamsulosin 0.4 mg capsule 0.4 mg PO BEDTIME 14 Days Qty: 14 0RF phenazopyridine [Pyridium] 100 mg tablet 100 mg PO TID PRN (Reason: Spasm) 4 Days Qty: 12 0RF naproxen 500 mg tablet 500 mg PO BID PRN (Reason: pain) 7 Days Qty: 14 0RF oxycodone 5 mg tablet 5 mg PO Q8H PRN (Reason: pain) 3 Days Qty: 8 0RF Rx Instructions: Partial Fill upon patient request. Continued Mounjaro 5 mg/0.5 mL Pen Injector 5 mg SUBCUT TU Discharge Orders: Discharge Order (Routine); Ordered 10/06/24 Ordered By: Yazan Dukes Diet: Advance to usual diet Activity on Discharge: As tolerated Stand Alone Forms: Patient Portal Discharge page Print Language: Chinese Care Plan Goals: Stones Health Concerns: Stones Plan of Treatment: Stone Assessment: Stones Patient Instructions: Ureteral Stones (ED)
[2024-10-06] MEDS: Acetaminophen 325 MG TABLET 650 MG PO (08:52)
--- NOTE | 2024-10-06 09:04 | MHC.CM.PN ---
CM MET WITH PT AT BEDSIDE. PT LIVES WITH SPOUSE AND CHILDREN. 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 +HCP PCP DR. AKHTAR AT [facility]. DP: PT HAS BEEN MEDICALLY CLEARED FOR DC HOME, NO SERVICES. PT'S SPOUSE WILL TRANSPORT.
[2024-10-06] MEDS: Phenazopyridine HCL 100 MG TABLET PO (09:29)
--- NOTE | 2024-10-06 14:13 | HO.POSTANES ---
Post Anesthesia Evaluation Post Anesthesia Evaluation Date of Service: 10/06/24 Vital Signs: Vital Signs Temp Pulse Resp BP Pulse Ox O2 Del Method 10/06/24 07:50 97.9 F 85 20 119/75 98 Room Air 10/06/24 04:00 97.5 F 96 16 110/57 L 96 Room Air Anesthesia: General LMA Mental Status: Awake Pain Control: Satisfactory Nausea/Vomiting: None Hydration: Adequate Anesthesia-Related Issues: No Anes. Related Issues
[2024-10-13 15:38] LABS: Stone Source LEFT KIDNEY STONE
== END 2024-10-06 09:33 | disposition home or self-care (01) | DRG 661 ==
LOC: HO.ED 10-05 06:13 → HO.EDOVER 10-05 08:35 → HO.S3 10-05 17:43
PROVIDERS: Physician Assistant; Physician Assistant Medical; Admitting Provider Urology; Emergency Provider Emergency Medicine; PCP Pediatrics; Visit Provider Urology
PROC: 0T778DZ Dilation of Left Ureter with Intraluminal Device, Via Natural or Artificial Opening Endoscopic (ICD-10-PCS; principal; 2024-10-05 16:30)
DX: N13.2 Hydronephrosis with renal and ureteral calculous obstruction (principal); E83.59 Other disorders of calcium metabolism; N29 Other disorders of kidney and ureter in diseases classified elsewhere; Z87.442 Personal history of urinary calculi; Z79.899 Other long term (current) drug therapy
CPT/HCPCS: 36415; 74176; 80053; 81001; 82365; 83690; 83735; 84702; 85025; 85610; 85730; 88300; 99285; C1758; C1769; C2617; J0131; J0690; J0696; J0737; J1100; J1171; J1885; J2003; J2250; J2270; J2405; J2704; J3010; J7120; Q9967

== ENCOUNTER → 2024-10-04 16:21 | Outpatient (BNV) | payer OTHER, SELFPAY | PROVIDERS: Emergency Provider Emergency Medicine; PCP Pediatrics; Visit Provider Radiology Diagnostic Radiology | DX: R10.32 Left lower quadrant pain (principal) | CPT/HCPCS: 74176 ==

== ENCOUNTER 2024-10-17 14:21 | Outpatient (AMB) | payer OTHER, SELFPAY ==
--- NOTE | 2024-10-17 14:54 | A.OFFVIS_ITS ---
Intake Visit Reasons: stent removal Intake Note: New Patient presents for initial visit for stent removal Urology Medications: none Blood Thinner: none URO- G Disposable Cystoscope Lot: [id number] Exp: Marine Diver Required: No Accompanied by: Self / Same As Patient Allergies Penicillins Allergy (Mild, Verified 10/17/24 15:07) SWELLING penicillin V Allergy (Unknown, Verified 10/17/24 15:07) swelling HPI Comments Details: Martín is a pleasant female. She is a patient of . She is seen for the following urologic conditions - nephrolithiasis Here for stent removal Discussed Stone composition Recommend 2 L fluid per day, lemon water therapy Vitamin B6 Three-month follow-up renal ultrasound in Uro risk Nephrolithiasis Longstanding since childhood Prior diagnosis Medullary calcinosis Recent presentation through emergency room Intervention - 10/24 left ureteroscopy Stone composition - 10/24 mixed calcium oxalate with calcium apatite [facility] - calcium 9.6 Therapeutic plan - see above [facility] Medical History Pulmonary emboli Surgical History History of excision of mass (10/05/23) Hx of abdominoplasty (~04/28/23) History of breast lift (~04/28/23) History of delivery Family History Father Prostate cancer Mother High cholesterol HTN (hypertension) Social History Household Members: Family Housing: House Do you presently have visiting nurse or other home services: No Unable to assess alcohol history related to: Unknown Alcohol intake: never Comment: supervision as pt post op Patient Tobacco Use Status: Never used Tobacco service: No Current occupational status: employed Review of Systems Const Denies chills and Denies fever(s) Card Reports no additional complaints and Denies syncope Resp Denies cough GI Denies abdominal pain and Denies heartburn Reports as per HPI and Denies change in libido Neuro Denies syncope Psych Denies change in libido Endo Denies change in libido Physical Exam Const General: cooperative, healthy appearing, comfortable and no acute distress Orientation/consciousness: patient oriented x3 HEENT Face and sinus: Yes normal facial exam Mouth: moist mucous membranes Neck Neck: Yes normal visual inspection, Yes full ROM and Yes trachea midline Chest Chest palpation & inspection: normal inspection of the chest Resp Effort & Inspection: normal respiratory effort, able to speak in complete sentences and no respiratory distress GI Inspection: Yes normal to inspection Back/Spine/Pelvis Cervical Spine: normal cervical lordosis Thoracic/Lumbar Spine: thoracic and lumbar spine normal to inspection Skin General skin exam: no rashes or lesions noted Neuro General: patient oriented x3, gait normal, tone normal and moves all extremities Extrem General: Yes normal to inspection and Yes capillary refill normal Office Procedures Cystoscopy Consent Discussed risk and benefit or proposed procedure with the patient. Information consent for procedure given to the patient. Discussed technical aspects, risks, benefits and alternatives in full. Addressed all of the patient's questions and concerns regarding the procedure. The patient demonstrated knowledge and understanding. They wish to proceed with this procedure. Preparation The patient was prepped in the usual manner. A ginger farmer was present and in the room. Genitalia was prepped with betadine solution in a sterile manner. Lidocaine Jelly 2% was placed into the urethra and 16Fr flexible Olympus cystoscope was inserted into the meatus after adequate lubrication. Procedure A well lubricated 16 Tajik cystoscope was placed No abnormality noted of urethra during placement Indwelling stent seen within bladder emerging from left ureteric orifices The stent was grasped with a 3 prong grasper and removed without difficulty The patient tolerated the procedure well [id number] with stent removal DISPOSABLE SCOPE URO-G FLEXIBLE SCOPE Procedure code (CPT) selection complete Office Meds lidocaine HCl 2 % mucosal jelly in applicator Performing Provider: Yazan Dukes MD [facility] Administered by: Katy Weber RN on 10/17/24 15:17 Dose Route Admin Location Dispensed Lot Number Expiration Date [facility] Power Project Manager 10 mL intra-urethral 10 mL nitrofurantoin monohydrate/macrocrystals 100 mg capsule Performing Provider: Yazan Dukes MD Performing Location: [facility] Administered by: Katy Weber RN on 10/17/24 15:17 Dose Route Admin Location Dispensed Lot Number Expiration Date [employer] 100 mg PO 1 cap naproxen 500 mg tablet Performing Provider: Yazan Dukes MD Performing Location: [facility] Administered by: Katy Weber RN on 10/17/24 15:17 Dose Route Admin Location Dispensed Lot Number Expiration Date [employer] Project [employer] 500 mg PO 1 tab Results AMB Urinalysis, Automated UA Leukoctes 0 Tonia/uL Last Edit by [employer] on 10/17/24 15:14 UA Nitrite Last Edit by [employer] on 10/17/24 15:14 UA Urobilinogen 0.2 mg/dL Last Edit by [employer] on 10/17/24 15:14 UA Protein 0 mg/dL Last Edit by [employer] on 10/17/24 15:14 UA pH 6.0 Last Edit by Br[employer] B[employer] on 10/17/24 15:14 UA Blood 10 Davonte/uL Last Edit by [employer] on 10/17/24 15:14 UA Specific [place] 1.015 Last Edit by Brandy[employer] Bress on 10/17/24 15:14 UA Ketone Last Edit by [employer]andy[employer] Bress on 10/17/24 15:14 UA Bilirubin 0 mg/dL Last Edit by [employer] on 10/17/24 15:14 UA Glucose 0 mg/dL Last Edit by [employer] on 10/17/24 15:14 Results Reviewed Results Reviewed: Laboratory Last Values Urine pH (Auto) 6.0 10/17/24 15:13 Specific [place] (Auto) 1.015 10/17/24 15:13 Urine Protein (Auto) 0 mg/dL 10/17/24 15:13 Glucose (UA)(Auto) 0 mg/dL 10/17/24 15:13 Urine Blood (Auto) 10 Davonte/uL 10/17/24 15:13 Urine Bilirubin (Auto) 0 mg/dL 10/17/24 15:13 Urine Urobilinogen (Auto) 0.2 mg/dL 10/17/24 15:13 Leukocyte Esterase (Auto) 0 Tonia/uL 10/17/24 15:13 Assessment & Plan Assessment & Plan (1) Nephrolithiasis: Code(s): N20.0 - Calculus of kidney Category: Medical Plan Three-month follow-up - Urorisk - imaging Orders: Orders AMB Cystoscopy Today N20.1 - Calculus of ureter US renal BI 3 Months N20.0 - Calculus of kidney AMB Urinalysis Automated Today Z13.9 - Encounter for screening, unspecified URORISK Today N20.0 - Calculus of kidney Patient Instructions: This note is constructed using voice recognition software. While every effort has been made to ensure accuracy logistics manager errors may have been included. Imaging studies, laboratory and physical exam results were discussed and reviewed in detail. No major barriers to patient understanding were identified. An opportunity to ask questions regarding the treatment plan was provided. All questions were answered. The patient expressed understanding and agreement with the above treatment plan. The patient is aware they should contact our office by phone for worsening of their current condition or the appearance of new urologic symptoms. Compliance is encouraged with any medications and followup testing that is ordered. It is a privilege to participate in the urologic care of your patient. If you have any questions or concerns regarding treatment for the above conditions, or other urologic issues, please do not hesitate to contact me. The office telephone contact is [phone]. Sincerely, Dr Yazan Dukes MD, [facility] - Urology Compassionate Specialist Care for the Genitourinary System Coding Level of Care Code Est Pt Level 4 (58028) Diagnoses Nephrolithiasis N20.0 CPT Codes Cystoscopy - CPT: 18010-[id number] with stent removal ([id number])
--- OUTSIDE RECORDS SUMMARY | 2024-10-17 15:21 | XMS_ITS | Encounter Summary ---
Author Organization [employer] Address [address] [place] [address] Care Team Providers Care Plate Glass Installer Name Role Phone Bethanie Holliday MD Primary Care Provider [phone] Reason for Visit * Reason Onset Date Comments Nurse Triage 05/24/2023 Encounter Details Date Type Department Care Team (Late st Contact Info) Description 05/24/2023 Telephone [facility] [address] [place] [address] Bethanie Holliday MD [address], [place] [phone] Nurse Triage Social History Tobacco Use Types [...] caller accepted this outcome Please contact at [phone] documented in this encounter Plan of Treatment Upcoming Encounters Date Type Department Care Team (Late st Contact Info) Description 10/20/2024 9:15 AM EST Office Visit [facility] [address], [place] [phone] Bethanie Holliday MD [address], [place] [phone] 01/15/2025 10:00 AM EDT Office Visit [facility] AD[facility] [address] [place] [address] Tk Valerio documented as of this encounter Visit Diagnoses Not on filedocumented in this encounter Care Teams Plate Glass Installer Relationship Specialty Start Date End Date Bethanie Holliday MD [address] [place] [address] PCP - General Family Medicine 10/22/14 documented as of this encounter
--- OUTSIDE RECORDS SUMMARY | 2024-10-17 15:21 | XMS_ITS | Clinical Summary ---
Author Organization [employer] Address [address] [facility] 7t [place] [address] Care Team Providers Care Bulb Grower Name Role Phone Bethanie Holliday MD Primary Care Provider [phone] Allergies Active Allergy Reactions Criticality Noted Date [...] Encounters Date Type Department Care Team Description 10/06/2024 Patient Outreach [facility] [address] [place] [address] Bethanie Holliday MD 10/06/2024 Telephone [facility] [address] [place] [address] Bethanie Holliday MD Hospital Follow-up 10/04/2024 Orders Only GENERIC EXTERNAL DATA DEPARTMENT Provider, Generic External Data 07/20/2024 3:15 PM EST Clinical Support [facility] [address] [place] [address] Beverly Mccann, RN Encounter for immunization 07/20/2024 Travel 07/18/2024 9:00 AM EST Office Visit [facility] [address] [facility] [place] [address] Tk Valerio Dental calculus (Primary Dx) from [...] is your housing situation today? I have lainaayde dalton 06/14/[address] you [...] Upcoming Encounters Date Type Department Care Team ([facility] st Contact Info) Description 10/20/2024 9:15 AM EST Office Visit [facility] [address] [place] [address] Bethanie Holliday MD [address] [place] [address] 01/15/2025 10:00 AM EDT Office Visit [facility] [address] [place] [address] Tk Valerio Health Maintenance Due Date Last [...] Tdap) 01/07/2027 01/07/2017 Lipid Panel 05/28/2027 05/28/2022, 02/0 10/2021, 10/30/2020, Additional history exists Zoster Vaccines (1 [...] Procedure Name Priority Date/Time Associated Diagnosis Comments FL GUIDANCE IN OR Routine 10/05/2024 4:[address] ABDOMEN PELVIS WO CONTRAST Routine 10/04/2024 6:38 PM EST HCG, TOTAL, QN Routine 10/04/2024 5:03 PM EST LIPASE Routine 10/04/2024 5:03 PM EST MAGNESIUM Routine 10/04/2024 5:03 PM EST COMPREHENSIVE METABOLIC PANEL Routine 10/04/2024 5:03 PM EST APTT Routine 10/04/2024 5:03 PM EST PROTHROMBIN TIME-INR Routine 10/04/2024 5:03 PM EST URINALYSIS, COMPLETE, WITH REFLEX TO CULTURE Routine 10/04/2024 5:03 PM EST CBC WITH AUTO DIFFERENTIAL Routine 10/04/2024 5:03 PM EST CASE PRESENTATION, DETAILED AND EXTENSIVE TREATMENT PLANNING Routine 07/18/2024 [...] Recently Relevant to Health Maintenance Results * FL Guidance in OR (10/05/2024 4:42 PM EST) Anatomical Region Laterality Modality X-Ray Angiograph y 10/05/2024 4:42 PM EST Narrative 10/06/2024 8:06 AM EST ? [facility] ?[address] ?[place] [address] ? Fluoroscopy Report ? Signed ? Patient: Sapna Cabrera,Martín Markham ?MR#: [id number] ? : 1980 ?Acct:[id number] ? Age/Sex: 44 / F ?ADM Date: 10/05/24 ? Loc: HO.S3 ?371-1 ? Attending Dr: Yazan Dukes MD ? Ordering Physician: Yazan Dukes MD ?? Date of Service: 10/05/24 ?? Procedure(s): FL guidance in OR ?? Accession Number(s): [id number] ? cc: Bethanie Holliday MD; Yazan Dukes MD ? EXAMINATION: ??FL GUIDANCE ONLY ? HISTORY: Left ureteroscopy/retrograde ? COMPARISON: ?? Correlation is made with a CT of the abdomen and pelvis without ?? contrast dated 10/04/2024. ? TECHNIQUE: ?? Fluoroscopy time: 11.1 seconds. ?? Cumulative Dose: 2.76 mGy. ?? Images: 4. ? FINDINGS: ?? Images demonstrate placement of a left nephroureteral stent. ? FL/FL guidance in OR ?? IMPRESSION: ?? Fluoroscopy during procedure. Please see procedure report for ?? additional information. ? Electronically signed by: ??Warner Gary MD ??10/06/2024 08:04 AM EST ? Dictated By: ?Warner Gary MD ? Signed By: ?<Electronically signed by Warner Gary MD in OV> ?10/06/24 0804 ? DD/ 1642 ? TD/TT: 10/05/24 1703 ? Particle Board Supervisor: ? Procedure Note Cynthia Mary - 10/06/[address] [address] Fluoroscopy Report Signed Patient: Martín Ervin MR#: [id number] : 1980Acct:[id number] Age/Sex: 44 / FADM Date: 10/05/24 Loc: HO.S3 371-[address]: Yazan Dukes MD Ordering Physician: Yazan Dukes MD Date of Service: 10/05/24 Procedure(s): FL guidance in OR Accession Number(s): [id number] cc: Bethanie Holliday MD; Yazan Dukes MD EXAMINATION: FL GUIDANCE ONLY HISTORY: Left ureteroscopy/retrograde COMPARISON: Correlation is made with a CT of the abdomen and pelvis without contrast dated 10/04/2024. TECHNIQUE: Fluoroscopy time: 11.1 seconds. Cumulative Dose: 2.76 mGy. Images: 4. FINDINGS: Images demonstrate placement of a left nephroureteral stent. FL/FL guidance in OR IMPRESSION: Fluoroscopy during procedure. Please see procedure report for additional information. Electronically signed by: Warner Gary MD 10/06/2024 08:04 AM EST RP Dictated By: Warner Gary MD Signed By: <Electronically signed by Warner Gary MD in OV> 10/06/24 0804 DD/ 1642 TD/TT: 10/05/24 1703 Particle Board Supervisor: [facility] External Provider IMG IR PROCEDURES Final Result * CT Abdomen Pelvis w/o Contrast (10/04/2024 6:38 PM EST) Anatomical Region Laterality Modality Body, Pelvis, Abdomen Computed T omography 10/04/2024 6:38 PM EST Narrative 10/04/2024 6:39 PM EST ? [facility] ?[address] ?[place] [address] ? CT Scan Report ? Signed ? Patient: Sapna Cabrera,Martín Markham ?MR#: [id number] ? : 1980 ?Acct:[id number] ? Age/Sex: 44 / F ?ADM Date: 02/05/25 ? Loc: HO.ED ? Attending Dr: ? Ordering Physician: Roxana Flynn ?? Date of Service: 10/04/24 ?? Procedure(s): CT abdomen pelvis wo IV con ?? Accession Number(s): [id number] ? cc: Bethanie Holliday MD; Roxana Flynn ? Report Number: ?? [id number]: Total DLP = ??805.00 mGy-cm ? CLINICAL HISTORY: left flank pain ? CT of the abdomen and pelvis without intravenous contrast. ? No comparison. ? Findings: ?? There is mild elevation right hemidiaphragm. ?? The dome of the liver is incompletely imaged. ?? The gallbladder is unremarkable. ?? 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 There is a 7 mm left ?? ureteral stone at the pelvic inlet with ggal-we-igmojmdn hydronephrosis. ? The spleen and pancreas are unremarkable. ?? No abdominal aortic aneurysm. ?? Small hiatal hernia. ? No diverticulitis. ?? Normal appendix. ?? No bowel obstruction. ?? Previous abdominal plasty. ? The bladder is nondilated. ? Impression: ?? 7 mm left ureteral stone. ?? Other findings as above. ? This document has been electronically signed by: William Ryder MD on ?? 10/04/2024 18:38:29 ? Dictated By: ?Josh Galicia MD ? Signed By: ?<Electronically signed by Josh Galicia MD in OV> ?10/04/24 1839 ? DD/ 1838 ? TD/TT: 10/04/241837 ? Particle Board Supervisor: ? Procedure Note Tyra, Image - 10/04/[address] [place] [address] [address] Scan Report Signed Patient: Martín Ervin MR#: [id number] : 1980Acct:[id number] Age/Sex: 44 / FADM Date: 10/04/24 Loc: HO.ED Attending Dr: Ordering Physician: Roxana Flynn Date of Service: 10/04/24 Procedure(s): CT abdomen pelvis wo IV con Accession Number(s): [id number] cc: Bethanie Holliday MD; Roxana Flynn Report Number: [id number]: Total DLP = 805.00 mGy-cm CLINICAL HISTORY: left flank pain CT of the abdomen and pelvis without intravenous contrast. No comparison. Findings: There is mild elevation right hemidiaphragm. The dome of the liver is incompletely imaged. The gallbladder is unremarkable. 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 There is a 7 mm left ureteral stone at the pelvic inlet with pmcr-rz-usbdnkug hydronephrosis. The spleen and pancreas are unremarkable. No abdominal aortic aneurysm. Small hiatal hernia. No diverticulitis. Normal appendix. No bowel obstruction. Previous abdominal plasty. The bladder is nondilated. Impression: 7 mm left ureteral stone. Other findings as above. This document has been electronically signed by: William Ryder MD on 10/04/2024 18:38:29 Dictated By: Josh Galicia MD Signed By: <Electronically signed by Josh Galicia MD in OV> 10/04/241838 DD/ 37 TD/TT: 10/04/241837 Particle Board Supervisor: [facility] External Provider IMG CT PROCEDURES Edited Result - Final * (ABNORMAL) Urinalysis, Complete, with Reflex to Culture (10/04/2024 5:03 PM EST) Color Urine Yellow [facility] Appearance Urine Turbid [facility] PH 6.5 5.0 - 9.0 [facility] Glucose Urine UA Negative Negative mg/dL [facility] Urine Blood Moderate (2+)(A) Negative [facility] Specific Streeter - Urine 1.020 1.005 - 1.025 [facility] Urine Protein Trace Neg-Trace mg/dL [facility] Urine Ketones Negative Negative mg/dL [facility] Nitrite Urine Negative Negative [facility] Leukocyte Esterase Urine Negative Negative [facility] RBC Urine >20(A) 0 - 2 /HPF [facility] Urine WBC 0-5 0 - 5 /HPF [facility] Urine Squamous Epithelial Cell 0-2 0 - 2 /HPF [facility] Urine Bacteria Trace None Seen [facility] Hyaline Casts, Urine 0-2 0 - 2 /LPF [facility] 10/04/2024 5:03 PM EST 10/04/2024 5:06 PM EST Narrative [facility] - 10/04/2024 5:13 PM EST [id number], [employer] us Generic External Data Provider LAB URINE ORDERAB LES Final Result [facility] [address] [place] [address] [phone] * CBC auto differential (10/04/2024 5:03 PM EST) White Blood Count 7.9 4.8 - 10.8 X10*3/uL [facility] Red Blood Count 4.51 4.20 - 5.50 X10*6/uL [facility] Hemoglobin 13.8 12.0 - 16.0 g/dl [facility] Hematocrit 40.5 37.0 - 47.0 % [facility] Mean Corpuscular Volume 89.8 80.0 - 98.0 fL [facility] Mean Corpuscular Hemoglobin 30.6 27.0 - 33.0 pg [facility] Mean Corpuscular HGB Conc 34.1 31.0 - 35.0 g/dl [facility] Red Cell Distribution Width 13.7 11.0 - 16.0 % [facility] Platelet Count 272 160 - 400 X10*3/uL [facility] Mean Platelet Volume 10.9 9.4 - 12.3 fL [facility] Neutrophils Percent Auto 53.3 45 - 73 % [facility] Imm Gran Pct Auto 0.4 0.0 - 0.4 % [facility] Lymphocytes Percent Auto 35.8 20 - 40 % [facility] Monocytes Percent Auto 8.9 2 - 11 % [facility] Eosinophils Percent Auto 1.1 0 - 4 % [facility] Basophils Percent Auto 0.5 0 - 2 % [facility] NRBC Pct Auto 0.0 0.0 - 0.2 /100WBC [facility] Neutrophils Absolute Auto 4.2 2.0 - 8.3 x10*3/uL [facility] Imm Gran Abs Auto 0.03 0.00 - 0.03 X10*3/uL [facility] Lymphocytes Absolute Auto 2.8 1.2 - 4.9 X10*3/uL [facility] Monocytes Absolute Auto 0.7 0.1 - 1.2 X10*3/uL [facility] Eosinophils Absolute Auto 0.1 0.0 - 0.4 X10*3/uL [facility] Basophils Absolute Auto 0.0 0.0 - 0.2 X10*3/uL [facility] NRBC Abs Auto 0.000 0.0 - 0.012 X10*3/uL [facility] 10/04/2024 5:03 PM EST 10/04/2024 5:06 PM EST us Generic External Data Provider LAB BLOOD ORDERAB LES Final Result Performing Organization Address City/[facility]/ZIP Co de Phone Number [facility] [address] [place] [phone] * Partial Thromboplastin Time, Activated (APTT) (10/04/2024 5:03 PM EST) [facility] Partial Thromboplastin Time 30.4 26.0 - 36.8 SEC [facility] Comment:For information rega rding the monitoring of direct thrombininhibitors, please refer to Pharmacy. 10/04/2024 5:03 PM EST 10/04/2024 5:06 PM EST us Generic External Data Provider LAB BLOOD ORDERAB LES Final Result Performing Organization Address City/[facility]/ZIP Co de Phone Number [facility] [address] [place] [phone] * Prothrombin Time-INR (10/04/2024 5:03 PM EST) Prothrombin Time 11.6 10.9 - 12.4 SEC [facility] INTERNATIONAL NORM RATIO 1.0 0.9 - 1.1 [facility] Comment:INTERNATIONAL NORMAL IZED RATIO (INR) REFERENCE RANGES Reference RangeFor patients not on anticoagulant therapy: 0.9 - 1.1INR ranges for oral anticoagulanttherapy:For prevention and treatment of venous thrombosis and pulmonary embolism: 2.0 - 3.0For acute myocardial infarction with aspirin therapy: 2.0 - 3.0For acute myocardial infarction without aspirin therapy: 3.0 - 4.0For patients with mechanical prosthetic heart valves: 2.5 - 3.5 10/04/2024 5:03 PM EST 10/04/2024 5:06 PM EST [employer] External Data Provider LAB BLOOD ORDERAB LES Final Result [facility] [address] [place] [phone] * hCG, Total, Quantitative (10/04/2024 5:03 PM EST) HCG Quantitative <2 mIU/mL [facility] Comment:Weeks post LMP Appro ximate hCG(Last Menstrual Period) Range (mIU/ml)3 - 4 weeks 9 - 1304 - 5 weeks 75 - 2,6005 - 6 weeks 850 - 20,8006 - 7 weeks 4000 - 100,2007 - 12 weeks 11,500 - 289,74374 - 16 weeks 18,300 - 137,86621 - 29 weeks (2nd trimester) 1,400 - 53,15139 - 41 weeks (3rd trimester) 940 - 60,000The Herrera B- hCG assay is used for the early detection ofpregnancy; it cannot be used to diagnose any conditionunrelated to . If a B-hCG level is not supportedby the clinical evidence, results should be confirmed by analternative method (qualitative urine hCG, for example). 10/04/2024 5:03 PM EST 10/04/2024 5:06 PM EST Generic External Data Provider LAB BLOOD ORDERAB LES Final Result Performing Organization Address [facility] Co de Phone Number [facility] [address] [place] [phone] * Magnesium (10/04/2024 5:03 PM EST) [facility] Magnesium 2.0 1.6 - 2.6 mg/dL [facility] 10/04/2024 5:03 PM EST 10/04/2024 5:06 PM EST Generic External Data Provider LAB BLOOD ORDERAB LES Final Result Performing Organization Address [facility] Co ct Phone Number [facility] [address] [place] [phone] * Lipase (10/04/2024 5:03 PM EST) [facility] Lipase 31 8 - 78 U/L [facility] 10/04/2024 5:03 PM EST 10/04/2024 5:06 PM EST Generic External Data Provider LAB BLOOD ORDERAB LES Final Result Performing Organization Address [facility] Phone Number [facility] [address] [place] [phone] * (ABNORMAL) Comprehensive Metabolic Panel (10/04/2024 5:03 PM EST) [facility] Sodium 141 135 - 145 mmol/L [facility] Potassium 3.8 3.3 - 5.1 mmol/L [facility] Chloride 109(H) 96 - 108 mmol/L [facility] Carbon Dioxide 25 22 - 29 mmol/L [facility] Anion Gap 11(L) 12 - 20 [facility] Urea Nitrogen (BUN) 17(H) 9 - 16 mg/dL [facility] Creatinine, Serum 1.01 0.5 - 1.4 mg/dL [facility] Creatinine Clr Calc Pharmacy 75.4 [facility] Comment:Provided height and weight: 162.56 cm,87.7 kg.eGFR (calculated from the MDRD study equation) and eCrCl(calculated from the Cockcroft-Gault equation) are based ondifferent parameters and may not yield comparable results.If eCrCl result is absurd, please check patient'sheight/weight. Estimated Glomerular Filt Rate 59 [facility] Comment:Chronic Kidney Disea se: Estimated GFR < 60 mL/min/1.65w5Rbqkop Kidney Disease: Estimated GFR < 15 mL/min/1.73m2 Glucose 84 60 - 115 mg/dL [facility] Calcium 9.6 8.4 - 10.2 mg/dL [facility] Bilirubin, Total 0.3 0.0 - 1.0 mg/dL [facility] Aspartate Amino Transferase 24 5 - 31 U/L [facility] Alanine Aminotransferase 24 0 - 31 U/L [facility] Total Protein 7.2 6.5 - 8.0 g/dL [facility] Albumin Level 4.3 3.5 - 5.0 g/dL [facility] Alkaline Phosphatase 37(L) 39 - 117 U/L [facility] 10/04/2024 5:03 PM EST 10/04/2024 5:06 PM EST us Generic External Data Provider LAB BLOOD ORDERAB LES Final Result [facility] [address] [place] [phone] * Mammography Report 1 (06/26/2022 2:30 [...] ?? LDL-C is now calculated using the Darren-Calvillo ?? calculation, which is a validated novel method providing ?? better accuracy than the Friedewald equation in the ?? estimation of LDL-C. ?? Darren SS et al. REBA. 2013;310(19): 0261-6063 ?? (http://education.GreenSQL/faq/NSG648) Non-HDL Cholesterol 141(H) <130 mg/dL (calc) [facility] Comment: For patients with diabetes plus 1 major ASCVD risk ?? factor, treating to a non-HDL-C goal of <100 mg/dL ?? (LDL-C of <70 mg/dL) is considered a therapeutic ?? option. Triglycerides 149 <150 mg/dL [facility] 05/28/2022 8:46 AM EDT Bubba Lenz MD LAB BLOOD ORDERABL ES Final Result [facility] * THINPREP PAP (06/18/2020 1:09 PM EDT) Pathologist [facility] Clinical Information: [facility] [...] historic and ?? current clinical information. ?? Extension Service Specialist In Charge: SEE COMMENT [facility] Comment: HJP, CT(ASCP) CT screening location: [address] ??[address] Interpretation/Resu lt: SEE COMMENT [facility] Comment:Negative for intraep ithelial lesion or malignancy. LMP: [facility] Comment:05/30/20 Prev. BX: NONE [facility]IVEN [facility] Prev. PAP: [facility] Comment:NONE GIVEN SOURCE: [facility] Comment:None given Statement Of Adequacy: SEE COMMENT [facility] Comment: Satisfactory for evaluation. Endocervical/transformation zone component absent. 06/18/2020 1:09 PM EDT Beata Blakely [facility] PATHOLOGY ORDERABLES Final Result Performing Organization Address [facility] Phone Number [facility] [address] * HPV mRNA E6/E7 (06/18/2020 1:09 PM EDT) HPV nRNA E6/E7 Not Detected Not Detected [facility] Comment: This test was performed using the APTIMA HPV Assay ([employer] ?? This assay detects E6/E7 viral messenger RNA (mRNA) from 14 high-risk HPV types (16,18,31,33,35,39,45,51,52,56,58,59,66,68). ?? The analytical performance characteristics of this assay have been determined by [employer]. The modifications have not been cleared or approved by the FDA. This assay has been validated pursuant to the CLIA regulations and is used for clinical purposes. 06/18/2020 1:09 PM EDT Beata Blakely [facility] LAB BLOOD ORDERABLES Liz l Result Performing Organization Address [facility] de Phone Number [facility] [address] from Last 3 Months or Most Recently Relevant to Health Maintenance Insurance [facility] Care Teams Bulb Grower Relationship Specialty Start Date End Date Bethanie Holliday MD [address] [place] [phone] PCP - General Family Medicine 10/22/14
--- OUTSIDE RECORDS SUMMARY | 2024-10-17 15:22 | XMS_ITS | Encounter Summary ---
Author Organization [employer] Address [address] [facility] [address]t [place] [address] Care Team Providers Care Minute Clerk For Basic Traffic Name Role Phone Bethanie Holliday MD Primary Care Provider [phone] Encounter Details Date Type Department Care Team (Latest Contact Info) Description 09/06/2019 Abstract [facility] CONVERSIONS Dental, Provider, DDS Social History [...] Description 10/20/2024 9:15 AM EST Office Visit [facility] [address] [place] [address] Bethanie Holliday MD [address] [place] [address] 01/15/2025 10:00 AM EDT Office Visit [facility] AD[facility] [address] [place] [address] Tk Valerio documented as of this encounter Visit Diagnoses Not on filedocumented in this encounter Care Teams Minute Clerk For Basic Traffic Relationship Specialty Start Date End Date Bethanie Holliday MD [address] [place] [phone] PCP - General Family Medicine 10/22/14 documented as of this encounter
--- OUTSIDE RECORDS SUMMARY | 2024-10-17 15:22 | XMS_ITS | Encounter Summary ---
Author Organization [employer] Address [address] [facility] 7t [place] [address] Care Team Providers Care Vendor Analyst Name Role Phone Bethanie Holliday MD Primary Care Provider [phone] Encounter Details Date Type Department Care Team (Latest Contact Info) Description 12/12/2020 Abstract [facility] CONVERSIONS Dental, Provider, DDS Social History [...] Visit [facility] [address] [place] [address] Bethanie Holliday MD [address] [place] [address] 01/15/2025 10:00 AM EDT Office Visit [facility] [address] [place] [address] Tk Valerio documented as of this encounter Visit Diagnoses Not on filedocumented in this encounter Care Teams Vendor Analyst Relationship Specialty Start Date End Date Bethanie Holliday MD [address] [place] [phone] PCP - General Family Medicine 10/22/14 documented as of this encounter
--- OUTSIDE RECORDS SUMMARY | 2024-10-17 15:22 | XMS_ITS | Encounter Summary ---
Author Organization [employer] Address [address] [facility] 7t [place] [address] Care Team Providers Care Set Designer Name Role Phone Bethanie Holliday MD Primary Care Provider [phone] Encounter Details Date Type Department Care Team (Late st Contact Info) Description 11/13/2022 Orders Only [facility] [address] [place], [place] [phone] Bethanie Holliday MD [address] [place], [place] [phone] Arthralgia of right knee (Primary Dx) Social [...] Description 10/20/2024 9:15 AM EST Office Visit [facility] MED & PED[facility] [address] [place] [address] Bethanie Holliday MD [address] [place] [address] 01/15/2025 10:00 AM EDT Office Visit [facility] ADULT DENTAL [address] [place] [address] Tk Valerio documented as of this encounter Visit Diagnoses Diagnosis Arthralgia of right knee- Primary documented in this encounter Care Teams Set Designer Relationship Specialty Start Date End Date Bethanie Holliday MD [address] [place] [address] PCP - General Family Medicine 10/22/14 documented as of this encounter
--- OUTSIDE RECORDS SUMMARY | 2024-10-17 15:22 | XMS_ITS | Encounter Summary ---
Author Organization [employer] Address [address] [facility] 7t [place] [address] Care Team Providers Care Research Home Economist Name Role Phone Bethanie Holliday MD Primary Care Provider [phone] Encounter Details Date Type Department Care Team (Late st Contact Info) Description 10/06/2024 Patient Outreach [facility] MED & PEDS [address] [place], [place] [phone] Bethanie Holliday MD [address] [place] [address] Social History Tobacco Use Types Packs/Day Years [...] AM EDT documented as of this encounter Progress Notes * Milagros Figueroa - 10/06/2024 4:10 PM EST error documented in this encounter Plan of Treatment Upcoming Encounters Date Type Department Care Team (Late st Contact Info) Description 10/20/2024 9:15 AM EST Office Visit [facility] MED & PEDS [address] [place] [address] Bethanie Holliday MD [address] [place] [address] 01/15/2025 10:00 AM EDT Office Visit [facility] ADULT DENTAL [address] [place] [address] Tk Valerio documented as of this encounter Visit Diagnoses Not on filedocumented in this encounter Additional Health Concerns Assessment Noted Time PHQ-9 Depression Total Score: 0 05/25/20 10:22 AM EDT documented as of this encounter Care Teams Research Home Economist Relationship Specialty Start Date End Date Bethanie Holliday MD [address] [place] [address] PCP - General Family Medicine 10/22/14 documented as of this encounter
--- OUTSIDE RECORDS SUMMARY | 2024-10-17 15:22 | XMS_ITS | Encounter Summary ---
Author Organization [employer] Address [address] [facility] 7t [place] [address] Care Team Providers Care Faith Doctor Name Role Phone Bethanie Holliday MD Primary Care Provider [phone] Reason for Visit * Reason Onset Date Comments Hospital Follow-up 10/06/2024 Encounter Details Date Type Department Care Team (Late st Contact Info) Description 10/06/2024 Telephone [facility] MEDICINE [address] [place] [address] Bethanie Holliday MD [address] [place] [address] Hospital Follow-up Social History Tobacco Use Types Packs/Day Years [...] encounter Miscellaneous Notes * Telephone Encounter - Shae Yi - 10/06/2024 3:59 PM EST Tc from pt requesting a HDF appt. Hospital: [facility] Date of admission: 10/04 Discharge date: 10/06 Diagnosed: Kidney Stones Surgery *Send message to [facility] Care Coordinators [phone] documented in this encounter Plan of Treatment Upcoming Encounters Date Type Department Care Team (Late st Contact Info) Description 10/20/2024 9:15 AM EST Office Visit [facility] MED & PEDS [address] [place] [address] Bethanie Holliday MD [address] [place] [address] 01/15/2025 10:00 AM EDT Office Visit [facility] ADULT DENTAL [address] [place] [address] Tk Valerio documented as of this encounter Visit Diagnoses Not on filedocumented in this encounter Additional Health Concerns Assessment Noted Time PHQ-9 Depression Total Score: 0 05/25/20 10:22 AM EDT documented as of this encounter Care Teams Faith Doctor Relationship Specialty Start Date End Date Bethanie Holliday MD [address] [place] [phone] PCP - General Family Medicine 10/22/14 documented as of this encounter
--- OUTSIDE RECORDS SUMMARY | 2024-10-17 15:22 | XMS_ITS | Encounter Summary ---
Author Organization [employer] Address [address] [facility] 7 [place] [address] Care Team Providers Care Shock Absorption Floor Layer Name Role Phone Bethanie Holliday MD Primary Care Provider [phone] Encounter Details Date Type Department Care Team (Latest Contact Info) Description 05/28/2022 Abstract [facility] CONVERSIONS Dental, Provider, DDS Social History [...] Description 10/20/2024 9:15 AM EST Office Visit [facility] MED & PEDS [address] [place] [address] Bethanie Holliday MD [address] [place] [address] 01/15/2025 10:00 AM EDT Office Visit [facility] ADULT DENTAL [address] [place] [address] Tk Valerio documented as of this encounter Visit Diagnoses Not on filedocumented in this encounter Care Teams Shock Absorption Floor Layer Relationship Specialty Start Date End Date Bethanie Holliday MD [address] [place] [phone] PCP - General Family Medicine 10/22/14 documented as of this encounter
--- OUTSIDE RECORDS SUMMARY | 2024-10-17 15:22 | XMS_ITS | Encounter Summary ---
Author Organization [employer] Address [address] [facility] [address] 7t [place] [address] Care Team Providers Care Water Taxi Operator Name Role Phone Bethanie Holliday MD Primary Care Provider [phone] Encounter Details Date Type Department Care Team (Late st Contact Info) Description 10/04/2024 Orders Only GENERIC EXTERNAL DATA DEPARTMENT Provider, Generic External Data Social History Tobacco Use Types Packs/Day Years [...] Upcoming Encounters Date Type Department Care Team ([facility] st Contact Info) Description 10/20/2024 9:15 AM EST Office Visit [facility] MED & PEDS [address] [place] [address] Bethanie Holliday MD [address] [place], [place] [phone] 01/15/2025 10:00 AM EDT Office Visit [facility] ADULT DENTAL [address] [place] [address] Tk Valerio documented as of this encounter Procedures Procedure Name Priority Date/Time Associated Diagnosis Comments FL GUIDANCE IN OR Routine 10/05/2024 4:[address] ABDOMEN PELVIS WO CONTRAST Routine 10/04/2024 6:38 PM EST URINALYSIS, COMPLETE, WITH REFLEX TO CULTURE Routine 10/04/2024 5:03 PM EST CBC WITH AUTO DIFFERENTIAL Routine 10/04/2024 5:03 PM EST APTT Routine 10/04/2024 5:03 PM EST PROTHROMBIN TIME-INR Routine 10/04/2024 5:03 PM EST HCG, TOTAL, QN Routine 10/04/2024 5:03 PM EST MAGNESIUM Routine 10/04/2024 5:03 PM EST LIPASE Routine 10/04/2024 5:03 PM EST COMPREHENSIVE METABOLIC PANEL Routine 10/04/2024 5:03 PM EST documented in this encounter Results * FL Guidance in OR (10/05/2024 4:42 PM EST) Anatomical Region Laterality Modality X-Ray Angiograph y 10/05/2024 4:42 PM EST Narrative 10/06/2024 8:06 AM EST ? [facility] ?[address] ?[place] [address] ? Fluoroscopy Report ? Signed ? Patient: Alejo Rick,Martín Markham ?MR#: [id number] ? : 1980 ?Acct:[id number] ? Age/Sex: 44 / F ?ADM Date: 10/05/24 ? Loc: HO.S3 ?371-1 ? Attending Dr: Yazan Dukes MD ? Ordering Physician: Yazan Dukes MD ?? Date of Service: 10/05/24 ?? Procedure(s): FL guidance in OR ?? Accession Number(s): [id number] ? cc: Bethanie Holliday MD; Yazan Dukes [...] ??Warner Gary MD ??10/06/2024 08:04 AM EST ?? RP ? Dictated By: ?Warner Gary MD ? Signed By: ?<Electronically signed by Warner Gary MD in OV> ?10/06/24 0804 ? DD/ ? TD/TT: 10/05/24 1703 ? Sewer And Inspector: ? Procedure Note Donotuseinterpreter, Image - 10/06/[address] [address] Fluoroscopy Report Signed Patient: Martín Ervin MR#: [id number] : 1980Acct:[id number] Age/Sex: 44 / FADM Date: 10/05/24 Loc: .S3 371-[address]: Yazan Dukes MD Ordering Physician: Yazan Dukes MD Date of Service: 10/05/24 Procedure(s): FL guidance in OR Accession Number(s): [id number] cc: Bethanie Holliday MD; Yazan Dukes MD [...] Warner Gary MD 10/06/2024 08:04 AM EST Dictated By: Warner Gary MD Signed By: <Electronically signed by Warner Gary MD in OV> 10/06/24 0804 DD/ 1642 TD/TT: 10/05/24 1703 Sewer And Inspector: us [facility] External Provider IMG IR PROCEDURES Final Result * CT Abdomen Pelvis w/o Contrast (10/04/2024 6:38 PM EST) Anatomical Region Laterality Modality Body, Pelvis, Abdomen Computed T omography 10/04/2024 6:38 PM EST Narrative 10/04/2024 6:39 PM EST ? [facility] ?[address] ?[place] [address] ? CT Scan Report ? Signed ? Patient: Sapna Cabrera,Clecia Shahrzad ?MR#: [id number] ? : 1980 ?Acct:[id number] ? Age/Sex: 44 / F ?ADM Date: 10/04/24 ? Loc: HO.ED ? Attending Dr: ? Ordering Physician: Roxana Flynn ?? Date of Service: 10/04/24 ?? Procedure(s): CT abdomen pelvis wo IV con ?? Accession Number(s): [id number] ? cc: Bethanie Holliday MD; Roxana Flynn ? Report Number: ?? [id number]: Total DLP = ??805.00 mGy-cm ? CLINICAL [...] ureteral stone at the pelvic inlet with dbsq-bk-pphvqtzt hydronephrosis. ? The spleen and pancreas are [...] MD in OV> ?10/04/24 1839 ? DD/ 37 ? TD/TT: 10/04/241837 ? Sewer And Inspector: ? Procedure Note Cynthia Mary - 10/04/[address] [address] [address] Scan Report Signed Patient: Martín Ervin MR#: [id number] : 1980Acct:[id number] Age/Sex: 44 / FADM Date: 10/04/24 Loc: HO.ED Attending Dr: Ordering Physician: Roxana Flynn Date of Service: 10/04/24 Procedure(s): CT abdomen pelvis wo IV con Accession Number(s): [id number] cc: Bethanie Holliday MD; Roxana Flynn Report Number: [id number]: Total DLP = 805.00 mGy-cm CLINICAL HISTORY: left flank pain CT of the abdomen and pelvis without intravenous contrast. No comparison. Findings: There is mild elevation right hemidiaphragm. The dome of the liver is incompletely imaged. The gallbladder is unremarkable. 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 There is a 7 mm left ureteral stone at the pelvic inlet with jasu-va-tglkcaps hydronephrosis. The spleen and pancreas are unremarkable. [...] in OV> 10/04/241838 DD/ 37 TD/TT: 10/04/241837 Sewer And Inspector: [facility] External Provider IMG CT PROCEDURES Edited Result - Final * hCG, Total, Quantitative (10/04/2024 5:03 PM EST) HCG Quantitative <2 mIU/mL [facility] Comment:Weeks post LMP Appro ximate hCG(Last Menstrual Period) Range (mIU/ml)3 - 4 weeks 9 - 1304 - 5 weeks 75 - 2,6005 - 6 weeks 850 - 20,8006 - 7 weeks 4000 - 100,2007 - 12 weeks 11,500 - 289,43770 - 16 weeks 18,300 - 137,72706 - 29 weeks (2nd trimester) 1,400 - 53,15743 - 41 weeks (3rd trimester) 940 - [...] ORDERAB LES Final Result Performing Organization Address [facility] Co de Phone Number [facility] [address] [place] [phone] * Lipase (10/04/2024 5:03 PM EST) Pathologist [facility] Lipase 31 8 - 78 U/L [facility] 10/04/2024 5:03 PM EST 10/04/2024 5:06 PM EST Generic External Data Provider LAB BLOOD ORDERAB LES Final Result Performing Organization Address [facility] Phone Number [facility] [address] [place] [phone] * Magnesium (10/04/2024 5:03 PM EST) Pathologist [facility] Magnesium 2.0 1.6 - 2.6 mg/dL [facility] 10/04/2024 5:03 PM EST 10/04/2024 5:06 PM EST Generic External Data Provider LAB BLOOD ORDERAB LES Final Result Performing Organization Address [place] de Phone Number [facility] [address] [place] [phone] * (ABNORMAL) Comprehensive Metabolic Panel (10/04/2024 5:03 PM EST) Pathologist [facility] Sodium 141 135 - 145 mmol/L [facility] Potassium 3.8 3.3 - 5.1 mmol/L [facility] Chloride 109(H) 96 - 108 mmol/L [facility] Carbon Dioxide 25 22 - 29 mmol/L [facility] Anion Gap 11(L) 12 - 20 [facility] Urea Nitrogen (BUN) 17(H) 9 - 16 mg/dL [facility] Creatinine, Serum 1.01 0.5 - 1.4 mg/dL [facility] Creatinine Clr Calc Pharmacy 75.4 [facility] Comment:Provided height and weight: 162.56 cm,87.7 kg.eGFR (calculated from the MDRD study equation) and eCrCl(calculated from the Cockcroft-Gault equation) are based ondifferent parameters and may not yield comparable results.If eCrCl result is absurd, please check patient'sheight/weight. Estimated Glomerular Filt Rate 59 [facility] Comment:Chronic Kidney Disea se: Estimated GFR < 60 mL/min/1.82h9Ctthie Kidney Disease: Estimated GFR < 15 mL/min/1.73m2 Glucose 84 60 - 115 mg/dL [facility] Calcium 9.6 8.4 - 10.2 mg/dL [facility] Bilirubin, Total 0.3 0.0 - 1.0 mg/dL [facility] Aspartate Amino Transferase 24 5 - 31 U/L [facility] Alanine Aminotransferase 24 0 - 31 U/L [facility] Total Protein 7.2 6.5 - 8.0 g/dL [facility] Albumin Level 4.3 3.5 - 5.0 g/dL [facility] Alkaline Phosphatase 37(L) 39 - 117 U/L [facility] 10/04/2024 5:03 PM EST 10/04/2024 5:06 PM EST us Generic External Data Provider LAB BLOOD ORDERAB LES Final Result [facility] [address] [place] [phone] * Partial Thromboplastin Time, Activated (APTT) (10/04/2024 5:03 PM EST) Pathologist [facility] Partial Thromboplastin Time 30.4 26.0 - 36.8 SEC [facility] Comment:For information rega rding the monitoring of direct thrombininhibitors, please refer to Pharmacy. 10/04/2024 5:03 PM EST 10/04/2024 5:06 PM EST Generic External Data Provider LAB BLOOD ORDERAB LES Final Result Performing Organization Address [facility] Co de Phone Number [facility] [address] [place] [phone] * Prothrombin Time-INR (10/04/2024 5:03 PM EST) [facility] Prothrombin Time 11.6 10.9 - 12.4 SEC [facility] INTERNATIONAL NORM RATIO 1.0 0.9 - 1.1 [facility] Comment:INTERNATIONAL NORMAL IZED RATIO (INR) REFERENCE [...] 5:03 PM EST 10/04/2024 5:06 PM EST [employer] External Data Provider LAB BLOOD ORDERAB LES Final Result Performing Organization Address [facility] de Phone Number [facility] [address] [place] [phone] * (ABNORMAL) Urinalysis, Complete, with Reflex to Culture (10/04/2024 5:03 PM EST) Pathologist [facility] Color Urine Yellow [facility] Appearance Urine Turbid [facility] PH 6.5 5.0 - 9.0 [facility] Glucose Urine UA Negative Negative mg/dL [facility] Urine Blood Moderate (2+)(A) Negative [facility] Specific Wilmore - Urine 1.020 1.005 - 1.025 [facility] Urine Protein Trace Neg-Trace mg/dL [facility] Urine Ketones Negative Negative mg/dL [facility] Nitrite Urine Negative Negative [facility] Leukocyte Esterase Urine Negative Negative [facility] RBC Urine >20(A) 0 - 2 /HPF [facility] Urine WBC 0-5 0 - 5 /HPF [facility] Urine Squamous Epithelial Cell 0-2 0 - 2 /HPF [facility] Urine Bacteria Trace None Seen [facility] Hyaline Casts, Urine 0-2 0 - 2 /LPF [facility] 10/04/2024 5:03 PM EST 10/04/2024 5:06 PM EST Narrative [facility] - 10/04/2024 5:13 PM EST [id number], Clean Catch us Generic External Data Provider LAB URINE ORDERAB LES Final Result [facility] [address] [place] [phone] * CBC auto differential (10/04/2024 5:03 PM EST) White Blood Count 7.9 4.8 - 10.8 X10*3/uL [facility] Red Blood Count 4.51 4.20 - 5.50 X10*6/uL [facility] Hemoglobin 13.8 12.0 - 16.0 g/dl [facility] Hematocrit 40.5 37.0 - 47.0 % [facility] Mean Corpuscular Volume 89.8 80.0 - 98.0 fL [facility] Mean Corpuscular Hemoglobin 30.6 27.0 - 33.0 pg [facility] Mean Corpuscular HGB Conc 34.1 31.0 - 35.0 g/dl [facility] Red Cell Distribution Width 13.7 11.0 - 16.0 % [facility] Platelet Count 272 160 - 400 X10*3/uL [facility] Mean Platelet Volume 10.9 9.4 - 12.3 fL [facility] Neutrophils Percent Auto 53.3 45 - 73 % [facility] Imm Gran Pct Auto 0.4 0.0 - 0.4 % [facility] Lymphocytes Percent Auto 35.8 20 - 40 % [facility] Monocytes Percent Auto 8.9 2 - 11 % [facility] Eosinophils Percent Auto 1.1 0 - 4 % [facility] Basophils Percent Auto 0.5 0 - 2 % [facility] NRBC Pct Auto 0.0 0.0 - 0.2 /100WBC [facility] Neutrophils Absolute Auto 4.2 2.0 - 8.3 x10*3/uL [facility] Imm Gran Abs Auto 0.03 0.00 - 0.03 X10*3/uL [facility] Lymphocytes Absolute Auto 2.8 1.2 - 4.9 X10*3/uL [facility] Monocytes Absolute Auto 0.7 0.1 - 1.2 X10*3/uL [facility] Eosinophils Absolute Auto 0.1 0.0 - 0.4 X10*3/uL [facility] Basophils Absolute Auto 0.0 0.0 - 0.2 X10*3/uL [facility] NRBC Abs Auto 0.000 0.0 - 0.012 X10*3/uL [facility] 10/04/2024 5:03 PM EST 10/04/2024 5:06 PM EST us Generic External Data Provider LAB BLOOD ORDERAB LES Final Result [facility] [address] [place] [phone] documented in this encounter Visit Diagnoses Not on filedocumented in this encounter Additional Health Concerns Assessment Noted Time PHQ-9 Depression Total Score: 0 05/25/20 23 10:22 AM EDT documented as of this encounter Care Teams Water Taxi Operator Relationship Specialty Start Date End Date Bethanie Holliday MD [address] [place] [address] PCP - General Family Medicine 10/22/14 documented as of this encounter
== END 2024-10-17 15:34 | disposition home or self-care (01) ==
PROVIDERS: PCP Pediatrics; Visit Provider Urology
DX: N20.1 Calculus of ureter (principal); N20.0 Calculus of kidney; Z13.9 Encounter for screening, unspecified
CPT/HCPCS: 52310

== ENCOUNTER → 2024-10-17 14:21 | Outpatient (BNVA) | payer OTHER, SELFPAY | PROVIDERS: PCP Pediatrics; Visit Provider Urology | DX: Z48.816 Encounter for surgical aftercare following surgery on the genitourinary system (principal) | CPT/HCPCS: 52310; 81003 ==

== ENCOUNTER 2025-01-16 10:12 | Outpatient (REF) | payer OTHER, SELFPAY ==
--- OUTSIDE RECORDS SUMMARY | 2025-01-16 11:24 | XMS_ITS | Encounter Summary ---
Author Organization [employer] Address [address] [place] [phone] Care Team Providers Care Cnc Grinder Name Role Phone Bethanie Holliday MD Primary Care Provider Encounter Details Date Type Department Care Team (Latest Contact Info) Description 09/06/2019 Abstract [facility] CONVERSIONS Dental, Provider, DDS Social History Tobacco Use Types Packs/Day Years Used Date Smoking Tobacco: Never Assessed Comments Unknown Sex and Gender Information Value Date Recorded Sex Assigned at Female 06/29/2022 10:18 AM EDT Legal Sex Female 10:18 AM EDT Gender Identity Female 06/29/2022 10:18 AM EDT Sexual Orientation Straight 06/29/2022 10 :18 AM EDT documented as of this encounter Plan of Treatment Not on file documented as of this encounter Visit Diagnoses Not on filedocumented in this encounter Care Teams Cnc Grinder Relationship Specialty Start Date End Date Bethanie Holliday MD [address] [place] [address] PCP - General Family Medicine 10/22/14 documented as of this encounter
--- OUTSIDE RECORDS SUMMARY | 2025-01-16 11:24 | XMS_ITS | Encounter Summary ---
Author Organization [employer] Address [address] [facility] 7 [place] [address] Care Team Providers Care Outside Property Agent Name Role Phone Bethanie Holliday MD Primary Care Provider [phone] Encounter Details Date Type Department Care Team (Late st Contact Info) Description 11/13/2022 Orders Only [facility] CH[facility] MED & PEDS [address] [place], [place] [phone] Bethanie Holliday MD [address] [place], [place] [phone] Arthralgia of right knee (Primary Dx) Social [...] Primary documented in this encounter Care Teams Outside Property Agent Relationship Specialty Start Date End Date Bethanie Holliday MD [address] [place] [address] PCP - General Family Medicine 10/22/14 documented as of this encounter
--- OUTSIDE RECORDS SUMMARY | 2025-01-16 11:24 | XMS_ITS | Encounter Summary ---
Author Organization [employer] Address [address] [facility] 7t [place] [address] Care Team Providers Care Two Needle Machine Operator Name Role Phone Bethanie Holliday MD Primary Care Provider [phone] Encounter Details Date Type Department Care Team (Latest Contact Info) Description 01/16/2025 Travel Social History Tobacco Use Types Packs/Day Years Used Date Smoking Tobacco: Never Passive Smoke Exposure: Never Smokeless Tobacco: Never Alcohol Use Standard Drinks/Week Comments Never 0 (1 standard drink = 0.6 oz pur e alcohol) Depression Answer Date Recorded Patient Health Questionnaire-9 Score 2 01/16/2025 Patient Health Questionnaire-9 Score 2 01/16/2025 Last PHQ-9: Questionnaire Data Not on file 0 01/16/2025 Housing Stability Answer Date Recorded What is your housing situation today? I have laina dalton 11/24/[address] you li ve. Do you have problems with any of the following? None of the above 11/24/2024 Food Insecurity Answer Date Recorded Within the past 12 months, y ou worried that your food would run out before you got money to buy more: Never True 11/24/2024 Within the past 12 months,th e food you bought just didn't last and you didn't have enough money to get more: Never True Transportation Answer Date Recorded In the past 12 months, has l ack of transportation kept you from medical appts, meetings, work or from getting things needed for daily living? No 11/24/2024 Utilities Answer Date Recorded In the past 12 months, has t he electric, gas, oil or water company threatened to shut off services in your home? No 11/24/2024 Depression Answer Date Recorded Patient Health Questionnaire-2 Score 0 01/16/2025 Internet Access Answer Date Recorded Internet Access Q1 Yes 11/24/2024 Internet Access Q2 Not on file 11/24/2024 Comments No Sex and Gender Information Value Date Recorded Sex Assigned at Female 06/29/2022 10:18 AM EDT Legal Sex Female 10:18 AM EDT Gender Identity Female 06/29/2022 10:18 AM EDT Sexual Orientation Straight 06/29/2022 10 :18 AM EDT documented as of this encounter Functional Status * Over the past 2 weeks, how often have you been bothered by any of the following problems? Question Answer Date of Assessment Author Patient Health Questionnaire -2 Score 0 01/16/2025 9:54 AM EDT Sari Georges MA * Little interest or pleasure in doing things Answer Date of Assessment Author Not at all 01/16/2025 9:54 AM EDT Torri Georges MA * Feeling down, depressed, or hopeless Answer Date of Assessment Author Not at all 01/16/2025 9:54 AM CLAIRT Torri Georges MA * Trouble falling or staying asleep, or sleeping too much Answer Date of Assessment Author More than half the days 01/16/2025 9:54 AM EDT Torri Barker MA * Feeling tired or having little energy Answer Date of Assessment Author Not at all 01/16/2025 9:54 AM EDT Torri Georges MA * Poor appetite or overeating Answer Date of Assessment Author Not at all 01/16/2025 9:54 AM Torri Montemayor MA * Feeling bad about yourself - or that you are a failure or have let yourself or your family down Answer Date of Assessment Author Not at all 01/16/2025 9:54 AM Torri Montemayor MA * Trouble concentrating on things, such as reading the newspaper or watching television Answer Date of Assessment Author Not at all 01/16/2025 9:54 AM EDT Torri Georges MA * Moving or speaking so slowly that other people could have noticed? Or the opposite - being so fidgety or restless that you have been moving around a lot more than usual. Answer Date of Assessment Author Not at all 01/16/2025 9:54 AM EDT Torri Georges MA * Thoughts that you would be better off or hurting yourself in some way Answer Date of Assessment Author Not at all 01/16/2025 9:54 AM EDT Torri Georges MA * Patient Health Questionnaire-9 Score Answer Date of Assessment Author 2 01/16/2025 9:54 AM EDT Torri Georges MA * How difficult have these problems made it for you to do your work, take care of things at home, or get along with other people? Answer Date of Assessment Author Not difficult at all 01/16/2025 9:54 AM EDT Torri Flores MA documented as of this encounter Plan of Treatment Not on file documented as of this encounter Visit Diagnoses Not on filedocumented in this encounter Additional Health Concerns Assessment Noted Time PHQ-9 Depression Total Score: 2 01/17/20 25 9:54 AM EDT documented as of this encounter Care Teams Two Needle Machine Operator Relationship Specialty Start Date End Date Bethanie Holliday MD [address] [place] [address] PCP - General Family Medicine 10/22/14 documented as of this encounter
--- OUTSIDE RECORDS SUMMARY | 2025-01-16 11:24 | XMS_ITS | Encounter Summary ---
Author Organization [employer] Address [address] [place] [address] Care Team Providers Care Continuity Director Name Role Phone Bethanie Holliday MD Primary Care Provider [phone] Encounter Details Date Type Department Care Team (Latest Contact Info) Description 01/16/2025 9:15 AM EDT Office Visit [facility] PEDS [address] [place], [place] [phone] Bethanie Holliday MD [address] [place] [address] Subclinical hypothyroidism (Primary Dx); Prolactinoma (CMS/HCC) Social History Tobacco Use Types Packs/Day Years [...] AM EDT documented as of this encounter Last Filed Vital Signs Vital Sign Reading Time Taken Comments Blood Pressure 128/80 01/16/2025 9:21 AM EDT Pulse 100 01/16/2025 9:21 AM EDT Temperature 36.9 ??C (98.4 ??F) 01/16/2025 9:21 AM ED T Respiratory Rate 20 01/16/2025 9:21 AM EDT Oxygen Saturation - - Inhaled Oxygen Concentration - - Weight 87.1 kg (192 lb) 01/16/2025 9:21 AM EDT Height 161.3 cm (5' 3.5 ) 01/16/2025 9:21 AM EDT Body Mass Index 33.48 01/16/2025 9:21 AM EDT documented in this encounter Functional Status * Over the [...] 9:54 AM Torri Montemayor [place] * Feeling down, depressed, or hopeless Answer Date of Assessment Author Not at all 01/16/2025 9:54 AM Torri Montemayor [place] * Trouble falling or staying asleep, or sleeping too much Answer Date of Assessment Author More than half the days 01/16/2025 9:54 AM Torri Daniels [place] * Feeling tired or having little energy Answer Date of Assessment Author Not at all 01/16/2025 9:54 AM Torri Montemayor MA * Poor appetite or overeating Answer [...] 01/16/2025 9:54 AM Torri Montemayor MA * Moving or speaking so slowly that other people could have noticed? Or the opposite - being so fidgety or restless that you have been moving around a lot more than usual. Answer Date of Assessment Author Not at all 01/16/2025 9:54 AM Torri Montemayor MA * Thoughts that you would be better off or hurting yourself in some way Answer Date of Assessment Author Not at all 01/16/2025 9:54 AM Torri Montemayor MA * Patient Health Questionnaire-9 Score Answer Date of Assessment Author 2 01/16/2025 9:54 AM Torri Montemayor MA * How difficult have these problems made it for you to do your work, take care of things at home, or get along with other people? Answer Date of Assessment Author Not difficult at all 01/16/2025 9:54 AM Torri Benz MA documented as of this encounter Plan of Treatment Scheduled Orders Name Type Priority Associated Diagnoses Orde r Schedule CBC auto differential Lab Routine Subclinical hypothyroidism Prolactinoma (CMS/HCC) Expected: 01/16/2025 (Approximate), Expires: 01/16/2026 TSH W/Reflex to FT4 Lab Routine Subclinical hypothyroidism Prolactinoma (CMS/HCC) Expected: 01/16/2025 (Approximate), Expires: 01/16/2026 Prolactin Lab Routine Subclinical hypothyroidism Prolactinoma (CMS/HCC) Expected: 01/16/2025 (Approximate), Expires: 01/16/2026 documented as of this encounter Visit Diagnoses Diagnosis Subclinical hypothyroidism- Primary Other specified acquired hypothyroidism Prolactinoma (CMS/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
--- OUTSIDE RECORDS SUMMARY | 2025-01-16 11:24 | XMS_ITS | Encounter Summary ---
Author Organization [employer] Address [address] [place] [address] Care Team Providers Care Logistics Operations Manager Name Role Phone Bethanie Holliday MD Primary Care Provider [phone] Reason for Visit * Reason Onset Date Comments Hospital Follow-up 10/06/2024 Encounter Details Date Type Department Care Team (Late st Contact Info) Description 10/06/2024 Telephone [facility] MEDICINE [address] [place] [address] Bethanie Holliday MD [address] [place] [address] Hospital Follow-up Social History Tobacco Use Types [...] from pt requesting a HDF appt. Hospital: [facility] Date of admission: 10/04 Discharge date: 10/06 Diagnosed: Kidney Stones Surgery *Send message to [place] Clinical Care Coordinators [phone] documented in this encounter Plan of Treatment Not on file documented as of this encounter Visit Diagnoses Not on filedocumented in this encounter Additional Health Concerns Assessment Noted Time PHQ-9 Depression Total Score: 0 05/25/20 23 10:22 AM EDT documented as of this encounter Care Teams Logistics Operations Manager Relationship Specialty Start Date End Date Bethanie Holliday MD [address] [place] [address] PCP - General Family Medicine 10/22/14 documented as of this encounter
--- OUTSIDE RECORDS SUMMARY | 2025-01-16 11:24 | XMS_ITS | Clinical Summary ---
Author Organization [employer] Address 75 [facility] 7 [place] [address] Care Team Providers Care Management Trainee Program Stores Name Role Phone Bethanie Holliday MD Primary Care Provider [phone] Allergies Active Allergy Reactions Criticality Noted Date Comments Penicillin G Swelling Low 02/10/2012 Penicillins Swelling Low 08/18/2022 Medications EPINEPHrine (Epipen) 0.3 MG/0.3ML injection syringe Inject 0.3 mL into the shoulder, thigh, or buttocks. 0 Active SM Vitamin D3 50 MCG capsule TAKE TWO CAPSULES BY MOUTH EVERY DAY 60 capsule 3 3 Active Additional Information Patient not taking.Reported on 08/06/2023 Tirzepatide (Mounjaro) 5 MG/0.5ML solution auto-injector 5 mg. 5 Active ergocalciferol (Vitamin D2) 1.25 MG (97206 UT) capsule Take 1 capsule (1.25 mg) by mouth 1 (one) time per week. 12 capsule 5 Active Active Problems Problem Noted Date Diagnosed [...] Encounters Date Type Department Care Team Description 01/16/2025 9:15 AM EDT Office Visit [facility] MED & PEDS [address] [place] [address] Bethanie Holliday MD Subclinical hypothyroidism (Primary Dx); Prolactinoma (CMS/HCC) 01/16/2025 Travel 12/01/2024 Telephone [facility] MED & PEDS [address] [place] [address] Bethanie Holliday MD Fax: Pre-Op 11/24/2024 9:15 AM EDT Office Visit [facility] MED & PEDS [address] [place] [address] Bethanie Holliday MD Preoperative clearance (Primary Dx) 11/24/2024 Travel 10/23/2024 Telephone [facility] MED [facility] PEDS [address] [place] [address] Bethanie Holliday MD Pre-op Visit 10/20/2024 9:15 AM EST Office Visit [facility] MED [facility] PEDS [address] [place] [address] Bethanie Holliday MD Breast cancer screening by mammogram (Primary Dx); Dietary counseling; Exercise counseling; Nephrolithiasis 10/20/2024 Travel from Last 3 Months Immunizations Immunization Administration Dates Next Due Hep B, adult [...] 01/16/2025 9:21 AM ED T Respiratory Rate 01/16/2025 9:21 AM EDT Oxygen Saturation 98% 10/20/2024 9:29 AM EST Inhaled Oxygen Concentration - - Weight 87.1 kg (192 lb) 01/16/2025 9:21 AM EDT Height 161.3 cm (5' 3.5 ) 01/16/2025 9:21 AM EDT Body Mass Index 33.48 01/16/2025 9:21 AM EDT Plan of Treatment Health Maintenance Due Date Last Done Comments CT Colonography 1979 Colonoscopy 1979 Colorectal Cancer Screening 1979 FIT DNA/Cologuard 1979 FIT 1979 FOBT 1979 HIV Screening 1980 Sigmoidoscopy 1980 Family Planning (PISQ) 1994 Hepatitis C Screening 1997 Pap Smear 06/18/2023 06/18/2020 Hepatitis B Vaccines (3 of 3 - 19+ 3-dose series) 03/23/2024 10/21/2023, 09/23/2023 Dental Oral Exam 05/04/2024 11/01/2023, 06/03/2022 Mammogram 06/26/2024 06/26/2022, 08/29/2019 Dental X-Ray: Bitewings 11/01/2024 11/01/19 24, 08/06/2023, 08/06/2023, Additional history exists Dental Prophylaxis 01/16/2025 07/18/2024, 0 11/01/2023, 05/28/2022 Dental X-Ray: Full Mouth 05/29/2025 05/28/2022 Cervical Cancer Screening 06/18/2025 HPV/Cotest 06/18/2025 06/18/2020 Alcohol/Substance Use Screening 11/24/2025 11/24/2024 Disability Screening 11/24/2025 11/24/2024 SDOH Screening 11/24/2025 11/24/2024 Depression Screening 01/16/2026 01/16/2025, 01/17/20 Tobacco Screening 01/16/2026 01/16/2025 DTaP/Tdap/Td Vaccines (2 - Td or Tdap) [...] patient's age to complete this topic Meningococcal B Vaccine Aged Out No l onger eligible based on patient's age to complete [...] Procedure Name Priority Date/Time Associated Diagnosis Comments PROPHYLAXIS - ADULT Routine 07/18/2024 9 :00 [...] Recently Relevant to Health Maintenance Results * Mammography Report 1 (06/26/2022 2:30 PM EDT) Anatomical Region Laterality Modality Breast Bilateral Mammography 06/26/2022 2:30 PM EDT Narrative 06/30/2022 9:31 AM EDT Refer to the Notes tab for result details [facility] Procedure: Mammography Report 1 Procedure Note Provider, MD Wendy - 11/22/2022 Refer to the Notes tab for result details [facility] Procedure: Mammography Report 1 Bethanie Holliday MD IM BI PROCEDURES Final Resul t * (ABNORMAL) [...] ?? Darren COLLADO et al. REBA. 2013;310(19): 3193-8000 ?? (http://education.[employer]/faq/UVO107) Non-HDL Cholesterol 141(H) <130 mg/dL (calc) CONVERTED [...] 1:09 PM EDT) Clinical Information: SEE COMMENT [facility] Comment:None given COMMENT SEE COMMENT [...] historic and ?? current clinical information. ?? Primer And Powder Canning Leader: SEE COMMENT [facility] Comment: HJP, CT(ASCP) CT screening location: [address] ??[address] Interpretation/Resu lt: SEE COMMENT [facility] Comment:Negative for intraep ithelial lesion or malignancy. LMP: SEE COMMENT [facility] Comment:05/30/20 Prev. BX: NONE GIVEN [facility] Prev. PAP: SEE COMMENT [facility] Comment:NONE GIVEN SOURCE: SEE COMMENT [facility] Comment:None given Statement Of Adequacy: SEE COMMENT [facility] Comment: Satisfactory for evaluation. Endocervical/transformation zone component absent. 06/18/2020 1:09 PM EDT Beata Blakely CNM LAB PATHOLOGY ORDERABLES Final Result Performing Organization Address [facility] Co de Phone Number [facility] [address] * HPV mRNA E6/E7 (06/18/2020 1:09 PM EDT) HPV nRNA E6/E7 Not Detected Not Detected [facility] Comment: This test was performed using the APTIMA HPV Assay ([employer] ?? This assay detects E6/E7 viral messenger RNA (mRNA) from 14 high-risk HPV types (16,18,31,33,35,39,45,51,52,56,58,59,66,68). ?? The analytical performance characteristics of this assay have been determined by [employer]. The modifications have not been cleared or approved by the FDA. This assay has been validated pursuant to the CLIA regulations and is used for clinical purposes. 06/18/2020 1:09 PM EDT Beata HENRY LAB BLOOD ORDERABLES Liz l Result Performing Organization Address [facility] Co de Phone Number [facility] [address] from Last 3 Months or Most Recently Relevant to Health Maintenance [place] [address] [place] [address] [facility] Care Teams Management Trainee Program Stores Relationship Specialty Start Date End Date Bethanie Holliday MD [address] [place] [id number] PCP - General Family Medicine 10/22/14
--- OUTSIDE RECORDS SUMMARY | 2025-01-16 11:24 | XMS_ITS | Encounter Summary ---
Author Organization [employer] Address [address] [address] Care Team Providers Care Compensation Consulting Manager Name Role Phone Bethanie Holliday MD Primary Care Provider [phone] Encounter Details Date Type Department Care Team (Latest Contact Info) Description 05/28/[address] [facility] CONVERSIONS Dental, Provider, DDS Social [...] on filedocumented in this encounter Care Teams Compensation Consulting Manager Relationship Specialty Start Date End Date Bethanie Holliday MD [address] [place] [address] PCP - General Family Medicine 10/22/14 documented as of this encounter
--- OUTSIDE RECORDS SUMMARY | 2025-01-16 11:24 | XMS_ITS | Encounter Summary ---
Author Organization [employer] Address [address] [place] [address] Care Team Providers Care Brick Kiln Burner Name Role Phone Bethanie Holliday MD Primary Care Provider [phone] Encounter Details Date Type Department Care Team (Latest Contact Info) Description 12/12/2020 Abstract [facility] CONVERSIONS Dental, Provider, DDS Social History Tobacco [...] on filedocumented in this encounter Care Teams Brick Kiln Burner Relationship Specialty Start Date End Date Bethanie Holliday MD [address] [place] [address] PCP - General Family Medicine 10/22/14 documented as of this encounter
[2025-01-16 14:19] LABS: MANUAL DIFF FLAG NO
[2025-01-16 14:26] LABS: Basophils Percent Auto 0.5 % (0-2); Eosinophils Absolute Auto 0.2 X10*3/uL (0.0-0.4); Eosinophils Percent Auto 2.7 % (0-4); Hematocrit 37.2 % (37.0-47.0); Hemoglobin 12.3 g/dl (12.0-16.0); Imm Gran Abs Auto 0.04 X10*3/uL (0.00-0.03); Imm Gran Pct Auto 0.7 % (0.0-0.4); Lymphocytes Absolute Auto 1.9 X10*3/uL (1.2-4.9); Lymphocytes Percent Auto 34.9 % (20-40); Mean Corpuscular HGB Conc 33.1 g/dl (31.0-35.0); Mean Corpuscular Hemoglobin 30.7 pg (27.0-33.0); Mean Corpuscular Volume 92.8 fL (80.0-98.0); Mean Platelet Volume 10.9 fL (9.4-12.3); Monocytes Absolute Auto 0.5 X10*3/uL (0.1-1.2); Monocytes Percent Auto 8.9 % (2-11); Neutrophils Absolute Auto 2.9 x10*3/uL (2.0-8.3); Neutrophils Percent Auto 52.3 % (45-73); Platelet Count 324 X10*3/uL (160-400); Red Blood Count 4.01 X10*6/uL (4.20-5.50); Red Cell Distribution Width 14.4 % (11.0-16.0); White Blood Count 5.5 X10*3/uL (4.8-10.8)
[2025-01-16 14:59] LABS: TSH reflex Free T4 3.59 uIU/mL (0.32-4.0)
[2025-01-17 03:53] LABS: Prolactin 24.1 ng/mL
== END 2025-01-16 10:13 | disposition home or self-care (01) ==
LOC: HO.CHCLDS 10:12
PROVIDERS: Visit Provider Pediatrics
DX: E03.8 Other specified hypothyroidism (principal); D35.2 Benign neoplasm of pituitary gland
CPT/HCPCS: 36415; 84146; 84443; 85025

== ENCOUNTER 2025-02-12 10:58 | Outpatient (REF) | payer OTHER, SELFPAY ==
--- OUTSIDE RECORDS SUMMARY | 2025-02-12 12:31 | XMS_ITS | Encounter Summary ---
Author Organization [employer] Address [address] [place] [address] Care Team Providers Care Financial Wellness Coach Name Role Phone Bethanie Holliday MD Primary Care Provider [phone] Encounter Details Date Type Department Care Team (Latest Contact Info) Description 09/06/2019 Abstract [facility] CONVERSIONS Dental, Provider, DDS Social History [...] on filedocumented in this encounter Care Teams Financial Wellness Coach Relationship Specialty Start Date End Date Bethanie Holliday MD [address] [place] [address] PCP - General Family Medicine 10/22/14 documented as of this encounter
== END 2025-02-12 10:59 | disposition home or self-care (01) ==
LOC: HO.US 10:58
PROVIDERS: PCP Pediatrics; Visit Provider Urology
DX: Z13.89 Encounter for screening for other disorder (principal)

== ENCOUNTER → 2025-02-12 11:07 | Outpatient (BNV) | payer OTHER, SELFPAY | PROVIDERS: PCP Pediatrics; Visit Provider Radiology Vascular & Interventional Radiology | DX: Q61.5 Medullary cystic kidney (principal) | CPT/HCPCS: 76775 ==

== ENCOUNTER 2025-02-16 13:10 | Outpatient (REF) | payer OTHER, SELFPAY ==
--- NOTE | ~2025-02-16 | US_ITS ---
CLINICAL HISTORY: N20.0 - Calculus of kidney US Renal Comparison: None Findings: Right kidney normal size, 9.5 cm length. Diffusely echogenic renal pyramids. Left kidney normal size, 10.4 cm length. Diffusely echogenic renal pyramids. No hydronephrosis of either kidney. Normal color Doppler IMPRESSION: Medullary sponge kidney appearance bilaterally. No obstruction. No suspicious lesion. This document has been electronically signed by: Rodrick Dozier MD on 02/12/2025 20:33:39
--- NOTE | ~2025-02-16 | MM_ITS ---
EXAMINATION: MM SCREENING DIGITAL BREAST TOMOSYNTHESIS, BILATERAL CLINICAL INFORMATION: Screening. Asymptomatic. COMPARISON: Mammography: Comparison is made with available priors TECHNIQUE: Digital breast mammography with tomosynthesis is performed in both the craniocaudal and mediolateral oblique views along with computer-aided detection (CAD). FINDINGS: There are scattered areas of fibroglandular density (ACR BI-RADS breast composition Category b). Bilateral mastopexy/reduction mammoplasty changes. There are no significant masses, abnormal calcifications, or other abnormalities. MM/MM tomosynthesis screening BI IMPRESSION: No mammographic evidence of malignancy. ASSESSMENT: BI-RADS BI-RADS 2 - Benign Findings RECOMMENDATION: Routine annual mammography screening. 1 year F/U This examination should not preclude the clinical evaluation of a suspicious palpable abnormality. This patient's information was entered into a reminder system with a target due date for their next mammogram. Electronically signed by: Karen Gaytan DO 02/22/2025 01:39 PM EDT
--- OUTSIDE RECORDS SUMMARY | 2025-02-16 13:14 | XMS_ITS | Encounter Summary ---
Author Organization [email or web address] Address 75 [facility] 7t [place] [address] Care Team Providers Care Chemical Detection Expert Name Role Phone Bethanie Holliday MD Primary Care Provider [phone] Encounter Details Date Type Department Care Team (Late st Contact Info) Description 02/16/2025 Orders Only [facility] External Provider, [facility] Social History Tobacco Use Types Packs/Day Years [...] on file documented as of this encounter Procedures Procedure Name Priority Date/Time Associated Diagnosis Comments US RENAL BI Routine 02/12/2025 8:33 PM EDT documented in this encounter Results * US RENAL BI (02/12/2025 8:33 PM EDT) Anatomical Region Laterality Modality Abdomen Ultrasound 02/12/2025 8:33 PM EDT Narrative 02/12/2025 8:34 PM EDT [address] [place], [place] [address] Ultrasound Report Signed Patient: Alejo Martín Cabrera#: [id number] : 1980 Acct:[id number] Age/Sex: 45 / F ADM Date: 12/28/24 Loc: HO.MAMMO Attending Dr: Bethanie Holliday MD Ordering Physician: Yazan Dukes MD Date of Service: 02/12/25 Procedure(s): US renal BI Accession Number(s): [id number] cc: Bethanie Holliday MD; Yazan Dukes MD CLINICAL HISTORY: N20.0 - Calculus of kidney US Renal Comparison: None Findings: Right kidney normal size, 9.5 cm length. Diffusely echogenic renal pyramids. Left kidney normal size, 10.4 cm length. Diffusely echogenic renal pyramids. No hydronephrosis of either kidney. Normal color Doppler IMPRESSION: Medullary sponge kidney appearance bilaterally. No obstruction. No suspicious lesion. This document has been electronically signed by: Rodrick Dozier MD on 02/12/2025 20:33:39 Dictated By: Rodrick Dozier MD Signed By: <Electronically signed by Rodrick Dozier MD in OV> 02/12/252033 DD/ 32 TD/TT: 02/12/252032 Developmental Mathematics Instructor: Procedure Note Donotuseinterpreter, Image - 02/12/2025 [facility] [address] [place], [place] [address] Ultrasound Report Signed Patient: Martín Ervin MM R#: [id number] : 1980Acct:[id number] Age/Sex: 45 / FADM Date: 12/28/24 Loc: HOOsvaldoMAMMO Attending Dr: Bethanie Holliday MD Ordering Physician: Yazan Dukes MD Date of Service: 02/12/25 Procedure(s): US renal BI Accession Number(s): [id number] cc: Bethanie Holliday MD; Yazan Dukes MD CLINICAL HISTORY: N20.0 - Calculus of kidney US Renal Comparison: None Findings: Right kidney normal size, 9.5 cm length. Diffusely echogenic renal pyramids. Left kidney normal size, 10.4 cm length. Diffusely echogenic renal pyramids. No hydronephrosis of either kidney. Normal color Doppler IMPRESSION: Medullary sponge kidney appearance bilaterally. No obstruction. No suspicious lesion. This document has been electronically signed by: Rodrick Dozier MD on 02/12/2025 20:33:39 Dictated By: Rodrick Dozier MD Signed By: <Electronically signed by Rodrick Dozier MD in OV> 02/12/252033 DD/ 32 TD/TT: 02/12/252032 Developmental Mathematics Instructor: us [facility] External Provider IMG US PROCEDURES Edited Result - Final documented in this encounter Visit Diagnoses Not on filedocumented in this encounter Additional Health Concerns Assessment Noted Time PHQ-9 Depression Total Score: 2 01/17/20 25 9:54 AM EDT documented as of this encounter Care Teams Chemical Detection Expert Relationship Specialty Start Date End Date Bethanie Holliday MD [address] [place] [address] PCP - General Family Medicine 10/22/14 documented as of this encounter
== END 2025-02-16 13:11 | disposition home or self-care (01) ==
LOC: HO.MAMMO 13:10
PROVIDERS: PCP Pediatrics; Visit Provider Pediatrics
DX: Z12.31 Encounter for screening mammogram for malignant neoplasm of breast (principal); N20.0 Calculus of kidney
CPT/HCPCS: 76775; 77063; 77067

== ENCOUNTER → 2025-02-16 13:15 | Outpatient (BNV) | payer OTHER, SELFPAY | PROVIDERS: PCP Pediatrics; Visit Provider Internal Medicine | DX: Z12.31 Encounter for screening mammogram for malignant neoplasm of breast (principal) | CPT/HCPCS: 77063; 77067 ==

== ENCOUNTER 2025-04-03 15:36 | Outpatient (AMB) | payer OTHER, SELFPAY ==
--- NOTE | 2025-04-03 15:40 | A.OFFVIS_ITS ---
Intake Visit Reasons: follow up/ Litho/US(set) Intake Note: Patient presents for follow up visit Urology Medications: none Blood Thinner: none Supreme Court Judge Required: No Accompanied by: Self / Same As Patient Allergies Penicillins Allergy (Mild, Verified 04/03/25 16:10) SWELLING penicillin V Allergy (Unknown, Verified 04/03/25 16:10) swelling Medication List - Last Reconciled 04/03/25 by HARLEEN Mejia naproxen 500 mg PO BID 2 weeks tirzepatide (Mounjaro) 5 mg subcut TU HPI Comments Details: Martín a very pleasant 45-year-old Chinese female patient of . She has a past medical history of pulmonary embolism and nephrolithiasis. She presents to the office today for follow-up of her nephrolithiasis and medullary sponge kidney. In discussion with the patient today she reports a longstanding history of nephrolithiasis since the age of 76 years old. She denies having had any bothersome urinary issues or concerns since her last office visit here. Recent renal imaging results were reviewed 02/21 bilateral kidneys are normal in size. Diffusely echogenic renal pyramids. No hydronephrosis noted bilaterally. Medullary sponge kidney appearance bilaterally. No obstruction or suspicious lesions per radiology report. Recent 24 hour urine collection results reviewed with the patient today. We discussed suboptimal urine volume of 1.7 L. We did discuss attempting to increase urine volume between 2-2.5L. We also discussed hypercalciuria, borderline high pH. We discussed trial of indapamide. However, she would like to attempt lifestyle modifications as she believes hypercalciuria might be related to her [id number] vitamins. She currently denies any bothersome urinary issues. She denies urinary urgency, urinary frequency, incontinence, nocturia, hematuria, dysuria, foul smelling urine, changes to urinary stream, flank pain, fever, and or chills. She is happy with her current voiding parameters. In office urinalysis results reviewed with the patient today. All questions were answered. She otherwise offers no other issues or concerns at this time. PREVIOUS OFFICE NOTE: Discussed Stone composition Recommend 2 L fluid per day, lemon water therapy Vitamin B6 Nephrolithiasis Longstanding since childhood Prior diagnosis Medullary calcinosis Recent presentation through emergency room Intervention - 10/24 left ureteroscopy Stone composition - 10/24 mixed calcium oxalate with calcium [facility] - calcium 9.6 Therapeutic plan - see above [facility] Medical History Pulmonary emboli Surgical History History of excision of mass (10/05/23) Hx of abdominoplasty (~04/28/23) History of breast lift (~04/28/23) History of delivery Family History Father Prostate cancer Mother High cholesterol HTN (hypertension) Social History Household Members: Family Housing: House Do you presently have visiting nurse or other home services: No Unable to assess alcohol history related to: Unknown Alcohol intake: never Comment: supervision as pt post op Patient Tobacco Use Status: Never used Tobacco service: No Current occupational status: employed Review of Systems Const All systems reviewed & are unremarkable except as noted in HPI and below Physical Exam Const General: cooperative, healthy appearing, comfortable, no acute distress, well developed, alert and awake Nutritional Appearance: overweight Orientation/consciousness: patient oriented x3 Limitations: no limitations HEENT Head: Yes normal to inspection, Yes normocephalic and Yes atraumatic Ears: hearing grossly normal bilaterally Eyes General: appearance normal, both eyes and all related structures Neck Neck: Yes normal visual inspection and Yes trachea midline Chest Chest palpation & inspection: normal inspection of the chest Resp Effort & Inspection: normal respiratory effort and able to speak in complete sentences Cardio Rate: regular rate GI Inspection: Yes normal to inspection General: Yes no CVA tenderness Back/Spine/Pelvis Back: no CVA tenderness Skin General skin exam: no rashes or lesions noted Neuro General: patient oriented x3 Extrem General: Yes normal to inspection Psych Appearance: grossly normal and well kempt Mental Status: mental status grossly normal Speech and movement: Normal speech and movement present and Clear speech present Affect: normal affect Attitude: cooperative Thought process: Normal thought process present Thought content: Normal thought content present Insight: Fair insight present (Psych) Judgement: Fair judgement present (Psych) Results Reviewed Results Reviewed: Date of Service: 02/12/25 Procedure(s): US renal BI Findings: Right kidney normal size, 9.5 cm length. Diffusely echogenic renal pyramids. Left kidney normal size, 10.4 cm length. Diffusely echogenic renal pyramids. No hydronephrosis of either kidney. Normal color Doppler IMPRESSION: Medullary sponge kidney appearance bilaterally. No obstruction. No suspicious lesion. Assessment & Plan Assessment & Plan (1) Nephrolithiasis: Code(s): N20.0 - Calculus of kidney Category: Medical (2) Medullary sponge kidney: Code(s): Q61.5 - Medullary cystic kidney Category: Medical Plan Recent Litholink results reviewed with the patient today; as noted above. Recent renal imaging results reviewed with the patient today; as noted above. We discussed trial of indapamide; however patient declines at this time would like to consider lifestyle modifications. We discussed decrease in sodium intake. We discussed increase in hydration in relation to recent 24 hour urine collection results. She currently denies any bothersome urinary issues or concerns. She reports be happy with current voiding parameters. Will repeat Litholink in 2-3 months. Continue adding 1 oz of lemon juice to water daily. Follow-up in 2-3 months with Litholink to be completed prior; or sooner with any issues, concerns, and or questions. Orders: Orders URORISK 2 Months N20.0 - Calculus of kidney, Q61.5 - Medullary cystic kidney Patient Instructions: The patient had an opportunity to ask questions regarding the treatment plan. All questions were answered. Physical exam, labs, and imaging were discussed and reviewed in detail. As well as risks, benefits, and discussion of treatment choices. No major barriers to understanding were identified. The patient expressed understanding and agreement with the above treatment plan. The patient was made aware they should contact our office by phone for worsening of their current condition, the appearance of new symptoms, or with any questions or concerns. Compliance is encouraged with any medications and follow up testing that is ordered. It is a privilege to be allowed the opportunity to participate in? your urological care.? Again, if you have any questions or concerns If you have any questions or concerns please do not hesitate to contact me. The office is [phone]. This note is constructed using voice recognition software. While every effort has been made to ensure accuracy thaw shed heater tender errors may have been included. Yours sincerely, HARLEEN Mejia Coding Level of Care Code Est Pt Level 3 (17478) Diagnoses Nephrolithiasis N20.0 Medullary sponge kidney Q61.5
== END 2025-04-03 16:10 | disposition home or self-care (01) ==
PROVIDERS: PCP Pediatrics; Visit Provider Nurse Practitioner Family
DX: N20.0 Calculus of kidney (principal); Q61.5 Medullary cystic kidney
CPT/HCPCS: 99213

== ENCOUNTER → 2025-04-03 15:36 | Outpatient (BNVA) | payer OTHER, SELFPAY | PROVIDERS: PCP Pediatrics; Visit Provider Nurse Practitioner Family | DX: N20.0 Calculus of kidney (principal); Q61.5 Medullary cystic kidney | CPT/HCPCS: 99212 ==

== ENCOUNTER 2025-05-01 14:53 | Outpatient (AMB) | payer OTHER, SELFPAY ==
[2025-05-01 14:58] VITALS: BP 130/78; PULSE 92; O2SAT 98; BMI 32.8
--- NOTE | 2025-05-01 14:58 | A.OFFVIS_ITS ---
Vital Signs 05/01/25 14:58 Height 5 ft 4 in Weight 190 lb 14.725 oz BMI 32.8 BP 130/78 Blood Pressure Location Rt brachial Position Sitting Pulse 92 Pulse Source Pulse Oximeter Pulse Oximetry (%) 98 Oxygen Delivery Method Room Air Intake Visit Reasons: Obesity Intake Note: New patient externally referred by PCP for Obesity. Costume Seamstress Required: No Accompanied by: Self / Same As Patient Allergies Penicillins Allergy (Mild, Verified 05/01/25 15:03) SWELLING penicillin V Allergy (Unknown, Verified 05/01/25 15:03) swelling Medication List - Last Reconciled 05/01/25 by Warner Solis MD naproxen 500 mg PO BID 2 weeks tirzepatide (Mounjaro) 5 mg subcut TU HPI Comments Details: This is a 45-year-old female sent to endocrinology for evaluation of obesity. Weight gain was 10 yrs ago Patient has tried various diets . Patient has seen a web operations lead. She was prescribed Mounjaro by Dr. Bragg provider who prescribed Mounjaro . On Mounjaro for 2 yrs and lost 60 lbs . On 5 mg for >1 yr . Some nausea but tolerating The patient is a 45-year-old female presenting with obesity management. She reports a significant weight gain starting approximately ten years ago, reaching a peak weight of 240 pounds, attributed to hormonal changes. 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 Approximately two to three years ago, she began treatment with Mounjaro, initially weighing 242 pounds. She has faced challenges with insurance coverage for the medication, affecting her ability to maintain consistent treatment. Despite these challenges, she has reduced her weight to 190 pounds, with f luctuations between 184 and 190 pounds. The patient has been on a 5 mg dose of Mounjaro for over a year, tolerating it well with only initial mild gastrointestinal discomfort. She has been advised to continue dietary management and exercise, with a referral to a web operations lead suggested to support her weight management goals. In her past medical history, a thyroid cyst was identified through biopsy, which was benign, and no further follow-up was deemed necessary at that time. The patient has attempted various diets and consulted a web operations lead to change her eating habits, although the specifics of her dietary intake were not detailed. The patient engages in some exercise as part of her weight management efforts, although specific types and frequency were not detailed. [facility] Medical History (Updated 05/01/25 @ 15:18 by Warner Solis MD) Obesity Pulmonary emboli Surgical History History of excision of mass (10/05/23) Hx of abdominoplasty (~04/28/23) History of breast lift (~04/28/23) History of delivery Family History Father Prostate cancer Mother High cholesterol HTN (hypertension) Social History Household Members: Family Housing: House Do you presently have visiting nurse or other home services: No Unable to assess alcohol history related to: Unknown Alcohol intake: never Comment: supervision as pt post op Patient Tobacco Use Status: Never used Tobacco service: No Current occupational status: employed Physical Exam Vital Signs: Last Vital Signs Pulse 92 05/01/25 14:58 BP 130/78 05/01/25 14:58 Pulse Ox 98 05/01/25 14:58 Oxygen Delivery Method Room Air 05/01/25 14:58 BMI result Body Mass Index 32.8 Const Other: Thyroid gland is normal size weighs about 15 g. There are no thyroid nodules palpated. There are no cushingoid features Assessment & Plan Assessment & Plan (1) Obesity: Code(s): E66.9 - Obesity, unspecified Category: Medical Plan: 1. Obesity The patient is managing her weight with Mounjaro, reducing from 242 to 190 pounds. Insurance issues affect treatment consistency. A web operations lead referral is planned to aid dietary management and exercise. - Continue taking Zepbound 5 mg as prescribed. - Follow up with the web operations lead for dietary and exercise guidance. - Monitor weight and report any significant changes. T The patient had an opportunity to ask questions regarding treatment plan. The patient expressed understanding and agreement with the above treatment plan. Patient was informed and verbally consented to the use of an ambient scribe for clinic note documentation during this visit. Orders: Referrals Nutrition/Dietitian Referral E66.9 - Obesity, unspecified Medications: New Zepbound (tirzepatide (weight loss)) 5 mg (0.5 mL) subcut QWEEK 2 mL 3RF NS Coding Level of Care Code New Pt Level 4 (98762) Diagnoses Obesity E66.9
--- OUTSIDE RECORDS SUMMARY | 2025-05-01 16:07 | XMS_ITS | Clinical Summary ---
Author Organization [employer] Address 75 [facility] 7 [place] [address] Care Team Providers Care It Operations Analyst Name Role Phone Bethanie Holliday MD Primary Care Provider [phone] Allergies Active Allergy Reactions Criticality Noted Date Comments Penicillin G Swelling Low 02/10/2012 Penicillins Swelling Low 08/18/2022 Medications EPINEPHrine (Epipen) 0.3 MG/0.3ML injection syringe Inject 0.3 mL into the shoulder, thigh, or buttocks. 01/18/2020 Active Tirzepatide (Mounjaro) 5 MG/0.5ML solution auto-injector 5 mg. 10/04/2024 Activ e ergocalciferol (Vitamin D2) 1.25 MG (44250 UT) capsule Take 1 capsule (1.25 mg) by mouth 1 (one) time per week. 12 capsule 11/24/2024 Active Active Problems Problem Noted Date Diagnosed Date Obesity (BMI 30-39.9) 03/15/2025 Hospital discharge follow-up 05/13/2023 Assessment & Plan [...] pcp in 4-6 weeks. Reviewed red flags Prolactinoma 08/18/2022 Dyslipidemia 08/18/2022 Subclinical hypothyroidism 08/18/2022 Nephrolithiasis 08/18/2022 Insulin resistance 08/18/2022 Resolved Problems Problem Noted Date Diagnosed Date Resolved Date Multiple subsegmental pulmon desiree emboli without acute cor pulmonale 05/13/2023 01/16/2025 Assessment & Plan (06/13/2023 11:46 AM EDT): -Hx surgery 04/28/23 - breast augmentation and tummy tuck -05/04/23 - ED visit prior to travel (5 days post-op) for chest pain and SOB, noted to have bilateral lower lobe pulmonary artery embolus and right LL pleural effusion . -Continues on Eliquis 5mg BID -Referral to Heme/Onc for for further eval and coagulopathy workup Encounters Date Type Department Care Team Description 03/28/2025 Refill [facility] [address] [place] [address] Bethanie Holliday MD 03/26/2025 Refill [facility] [address] [place] [address] Bethanie Holliday MD 03/15/2025 10:15 AM EDT Office Visit [facility] [address] [place] [address] Bethanie Holliday MD Pelvic pain (Primary Dx); Obesity (BMI 30-39.9); Prolactinoma (CMS/HCC) 03/15/2025 Travel 03/14/2025 Telephone [facility] [address] [place] [address] Bethanie Holliday MD Chart Prep 03/08/2025 Patient Outreach [facility] [address] [place] [address] Bethanie Holliday MD Pre-visit Planning (SDOH screening completed on 11/24/24 ) 02/28/2025 Results Follow-Up [facility] [address] [place] [address] Bethanie Holliday MD BI Mammogram Screening Tomosynthesis Bilateral 02/16/2025 Orders Only [facility] External Provider, [facility] from Last 3 Months Immunizations Immunization Administration [...] Sign Reading Time Taken Comments Blood Pressure 103/71 03/15/2025 10:28 AM EDT Pulse 85 03/15/2025 10:28 AM EDT Temperature 37.1 C (98.7 F) 03/15/2025 10:28 AM EDT Respiratory Rate 20 03/15/2025 10:28 AM EDT Oxygen Saturation 98% 10/20/2024 9:29 AM EST Inhaled Oxygen Concentration - - Weight 82.6 kg (182 lb) 03/15/2025 10:28 AM EDT Height 161.3 cm (5' 3.5 ) 03/15/2025 10:28 AM ED T Body Mass Index 31.73 03/15/2025 10:28 AM EDT Plan of Treatment Health Maintenance Due Date Last Done Comments CT Colonography 1979 Colonoscopy 1979 Colorectal Cancer Screening 1979 FIT DNA/Cologuard 1979 FIT 1979 FOBT 1979 HIV Screening 1979 Sigmoidoscopy 1979 Family Planning (PISQ) 1994 Hepatitis C Screening 1997 Hepatitis B Vaccines (3 of 3 - 19+ 3-dose series) 03/23/2024 10/21/2023, 09/23/2023 Dental Oral Exam 05/04/2024 11/01/2023, 06/03/2022 Dental X-Ray: Bitewings 11/01/2024 11/01/19 24, 08/06/2023, 08/06/2023, Additional history exists Dental Prophylaxis 01/16/2025 07/18/2024, 0 11/01/2023, 05/28/2022 Influenza Vaccine (#1) 2025 4, 09/23/2023, 05/29/2022, Additional history exists Dental X-Ray: Full Mouth 05/29/2025 05/28/2022 Cervical Cancer Screening 06/18/2025 HPV/Cotest 06/18/2025 06/18/2020 Pap Smear 06/18/2025 06/18/2020 Alcohol/Substance Use Screening 11/24/2025 11/24/2024 Disability Screening 11/24/2025 11/24/2024 SDOH Screening 11/24/2025 11/24/2024 Depression Screening 01/16/2026 01/16/2025, 01/17/20 Tobacco Screening 03/15/2026 03/15/2025 DTaP/Tdap/Td Vaccines (2 - Td or Tdap) 01/07/2027 01/07/2017 Mammogram 02/16/2027 02/16/2025, 1003/2022, 08/29/2019 Lipid Panel 05/28/2027 05/28/2022, 02/10/2021, 10/30/2020, Additional history exists Zoster Vaccines (1 of 2) 2029 RSV Patients and Patients Aged 60 years or older (1 - 1-dose 75+ series) 2054 COVID-19 Vaccine Completed 07/20/2024, , 06/27/2021, Additional history exists HIB Vaccines Aged Out [...] Years) and At-Risk Patients (6 to 49) Years Aged Out No longer eligible based on patient's age to complete this topic RSV under 20 months Aged Out No longe r eligible based on patient's age to complete this topic Rotavirus Vaccines Aged Out No longer eligible based on patient's age to complete this topic Procedures Procedure Name Priority Date/Time Associated Diagnosis Comments BI MAMMOGRAM SCREENING TOMOSYNTHESIS BILATERAL Routine 02/16/2025 1:20 PM EDT Breast cancer screening by mammogram US RENAL BI Routine 02/12/2025 8:33 PM EDT PROPHYLAXIS - ADULT Routine 07/18/2024 9 :00 AM EST BITEWINGS - 4 RADIOGRAPHIC IMAGES Routine 11/01/2023 11:00 AM EST PERIODIC ORAL EVALUATION - ESTABLISHED PATIENT Routine 11/01/2023 11:00 AM EST LIPID PANEL, STANDARD Routine 05/28/2022 8:46 AM EDT HPV MRNA E6/E7 Routine 06/18/2020 1:09 PM EDT THINPREP PAP Routine 06/18/2020 1:09 PM EDT from Last 3 Months or Most Recently Relevant to Health Maintenance Results * BI Mammogram Screening Tomosynthesis Bilateral (02/16/2025 1:20 PM EDT) Anatomical Region Laterality Modality Breast Bilateral Mammography 02/16/2025 1:20 PM EDT Narrative 02/22/2025 1:42 PM EDT [facility] [address] [place] [address] Mammography Report Signed Patient: Alejo Martín Cabrera#: [id number] : 1980 Acct:[id number] Age/Sex: 45 / F ADM Date: 02/16/25 Loc: MAMMO Attending Dr: Bethanie Holliday MD Ordering Physician: Bethanie Holliday MD Results: 2Be nign Findings Date of Service: 02/16/25 Follow Up: 1 Year From Orig inal Mammogram Procedure(s): MM tomosynthesis screening BI Accession Number(s): [id number] cc: Bethanie Holliday MD EXAMINATION: MM SCREENING DIGITAL BREAST TOMOSYNTHESIS, BILATERAL CLINICAL INFORMATION: Screening. Asymptomatic. COMPARISON: Mammography: Comparison is made with available priors TECHNIQUE: Digital breast mammography with tomosynthesis is performed in both the craniocaudal and mediolateral oblique views along with computer-aided detection (CAD). FINDINGS: There are scattered areas of fibroglandular density (ACR BI-RADS breast composition Category b). Bilateral mastopexy/reduction mammoplasty changes. There are no significant masses, abnormal calcifications, or other abnormalities. MM/MM tomosynthesis screening BI IMPRESSION: No mammographic evidence of malignancy. ASSESSMENT: BI-RADS BI-RADS 2 - Benign Findings RECOMMENDATION: Routine annual mammography screening. 1 year F/U This examination should not preclude the clinical evaluation of a suspicious palpable abnormality. This patient's information was entered into a reminder system with a target due date for their next mammogram. Electronically signed by: Karen Gaytan DO 02/22/2025 01:39 PM EDT Dictated By: Karen Gaytan DO Signed By: <Electronically signed by Karen Gaytan DO in OV> 02/22/25 1339 DD/ 1320 TD/TT: 02/16/25 1340 Chief Minister: Procedure Note Donotuseinterpreter, Image - 02/22/2025 [facility] [address] [place] [address] Mammography Report Signed Patient: Martín Ervin ELIO R#: [id number] : 1980Acct:[id number] Age/Sex: 45 / FADM Date: 02/16/25 Loc: HO.MAMMO Attending Dr: Bethanie Holliday MD Ordering Physician: Bethanie Holliday MDResults: 2Be nign Findings Date of Service: 02/16/25Follow Up: 1 Year From Orig inal Mammogram Procedure(s): MM tomosynthesis screening BI Accession Number(s): [id number] cc: Bethanie Holliday MD EXAMINATION: MM SCREENING DIGITAL BREAST TOMOSYNTHESIS, BILATERAL CLINICAL INFORMATION: Screening. Asymptomatic. COMPARISON: Mammography: Comparison is made with available priors TECHNIQUE: Digital breast mammography with tomosynthesis is performed in both the craniocaudal and mediolateral oblique views along with computer-aided detection (CAD). FINDINGS: There are scattered areas of fibroglandular density (ACR BI-RADS breast composition Category b). Bilateral mastopexy/reduction mammoplasty changes. There are no significant masses, abnormal calcifications, or other abnormalities. MM/MM tomosynthesis screening BI IMPRESSION: No mammographic evidence of malignancy. ASSESSMENT: BI-RADS BI-RADS 2 - Benign Findings RECOMMENDATION: Routine annual mammography screening. 1 year F/U This examination should not preclude the clinical evaluation of a suspicious palpable abnormality. This patient's information was entered into a reminder system with a target due date for their next mammogram. Electronically signed by: Karen Gaytan DO 02/22/2025 01:39 PM EDT Dictated By: Karen Gaytan DO Signed By: <Electronically signed by Karen Gaytan DO in OV> 02/22/25 1339 DD/ 1320 TD/TT: 02/16/25 1340 Chief Minister: us Bethanie Holliday MD IMG BI PROCEDURES Final Resul t * US RENAL BI (02/12/2025 8:33 PM EDT) Anatomical Region Laterality Modality Abdomen Ultrasound 02/12/2025 8:33 PM EDT Narrative 02/12/2025 8:34 PM EDT [facility] [address] [place] [address] Ultrasound Report Signed Patient: Sapna CabreraMartín#: [id number] : 1980 Acct:[id number] Age/Sex: 45 / F ADM Date: 12/28/24 Loc: HO.MAMMO Attending Dr: Bethanie Holliday MD Ordering Physician: Yazan Dukes MD Date of Service: 02/12/25 Procedure(s): US renal BI Accession Number(s): [id number] cc: Bethanie Holliday MD; Yazan Dukes MD [...] in OV> 02/12/252033 DD/ 32 TD/TT: 02/12/252032 Chief Minister: Procedure Note Donotuseinterpreter, Image - 02/12/2025 [facility] [address] [place], [place] [address] Ultrasound Report Signed Patient: Martín Ervin R#: [id number] : 1980Acct:[id number] Age/Sex: 45 / FADM Date: 12/28/24 Loc: HO.MAMMO Attending Dr: Bethanie Holliday MD Ordering Physician: Yazan Dukes MD Date of Service: 02/12/25 Procedure(s): US renal BI Accession Number(s): [id number] cc: Bethanie Holliday MD; Yazan Dukes MD [...] in OV> 02/12/252033 DD/ 32 TD/TT: 02/12/252032 Chief Minister: [facility] External Provider IMG US PROCEDURES Edited Result - Final * (ABNORMAL) LIPID PANEL, STANDARD (05/28/2022 8:46 AM EDT) Chol/HDLC Ratio 4.0 <5.0 (calc) [facility] Cholesterol, Total 188 <200 mg/dL [facility] HDL Cholesterol 47(L) > OR = 50 mg/dL [facility] LDL Cholesterol 115(H) mg/dL (calc) [facility] Comment: Reference range: <100 Desirable range <100 mg/dL for primary prevention; <70 mg/dL for patients with CHD or diabetic patients with > or = 2 CHD risk factors. LDL-C is now calculated using the Darren-Calvilol calculation, which is a validated novel method providing better accuracy than the Friedewald equation in the estimation of LDL-C. Darren SS et al. REBA. 2013;310(19): 8533-1065 (http://education.CompassMD.com/faq/CBW266) Non-HDL Cholesterol 141(H) <130 mg/dL (calc) [facility] Comment: For patients with diabetes plus 1 major ASCVD risk factor, treating to a non-HDL-C goal of <100 mg/dL (LDL-C of <70 mg/dL) is considered a therapeutic option. Triglycerides 149 <150 mg/dL [facility] 05/28/2022 8:46 AM EDT Bubba Lenz MD LAB BLOOD ORDERABL ES Final Result [facility] * THINPREP PAP (06/18/2020 1:09 PM EDT) Clinical Information: SEE COMMENT [facility] Comment:None given COMMENT [facility] Comment: EXPLANATORY NOTE: The Pap is a screening test for cervical cancer. It is not a diagnostic test and is subject to false negative and false positive results. It is most reliable when a satisfactory sample, regularly obtained, is submitted with relevant clinical findings and history, and when the Pap result is evaluated along with historic and current clinical information. Ship Captain: SEE COMMENT [facility] Comment: HJP, CT(ASCP) CT screening location: [place] [address] Interpretation/Resu lt: SEE COMMENT [facility] Comment:Negative for intraep ithelial lesion or malignancy. LMP: SEE COMMENT [facility] Comment:05/30/20 Prev. BX: NONE GIVEN [facility] Prev. PAP: SEE COMMENT [facility] Comment:NONE GIVEN SOURCE: SEE COMMENT [facility] Comment:None given Statement Of Adequacy: SEE COMMENT [facility] Comment: Satisfactory for evaluation. Endocervical/transformation zone component absent. 06/18/2020 1:[address] [facility] LAB PATHOLOGY ORDERABLES Final Result [facility] [address] * HPV mRNA E6/E7 (06/18/2020 1:09 PM EDT) HPV nRNA E6/E7 Not Detected Not Detected [facility] Comment: This test was performed using the APTIMA HPV Assay ([employer] This assay detects E6/E7 viral messenger RNA (mRNA) from 14 high-risk HPV types (16,18,31,33,35,39,45,51,52,56,58,59,66,68). The analytical performance characteristics of this assay have been determined by [employer]. The modifications have not been cleared or approved by the FDA. This assay has been validated pursuant to the CLIA regulations and is used for clinical purposes. 06/18/2020 1:[address] [facility] LAB BLOOD ORDERABLES Liz l Result [facility] [address] from Last 3 Months or Most Recently Relevant to Health Maintenance Insurance [facility] [address] [place] [address] Care Teams It Operations Analyst Relationship Specialty Start Date End Date Bethanie Holliday MD [address] [place] [address] PCP - General Family Medicine 10/22/14
--- OUTSIDE RECORDS SUMMARY | 2025-05-01 16:07 | XMS_ITS | Encounter Summary ---
Author Organization [employer] Address [address] [place] [address] Care Team Providers Care Shuttle Spotter Name Role Phone Bethanie Holliday MD Primary Care Provider [phone] Encounter Details Date Type Department Care Team (Latest Contact Info) Description 02/28/2025 Results Follow-Up [facility] [address] [place], [place] [phone] Bethanie Holliday MD [address] [place], [place] [id number] BI Mammogram Screening Tomosynthesis Bilateral Social History Tobacco Use Types Packs/Day Years [...] documented as of this encounter Care Teams Shuttle Spotter Relationship Specialty Start Date End Date Bethanie Holliday MD [address] [place] [address] PCP - General Family Medicine 10/22/14 documented as of this encounter
--- OUTSIDE RECORDS SUMMARY | 2025-05-01 16:07 | XMS_ITS | Encounter Summary ---
Author Organization [employer] Address [address] [place] [address] Care Team Providers Care Superintendent Automotive Name Role Phone Bethanie Holliday MD Primary Care Provider [phone] Reason for Visit * Reason Onset Date Comments Hospital Follow-up 10/06/2024 Encounter Details Date Type Department Care Team (Late st Contact Info) Description 10/06/2024 Telephone [facility] [address] [place] [address] Bethanie Holliday MD [address] [place] [address] Hospital Follow-up Social History Tobacco Use Types [...] from pt requesting a HDF appt. Hospital: [facility] Date of admission: 10/04 Discharge date: 10/06 Diagnosed: Kidney Stones Surgery *Send message to [place] [facility] Care Coordinators [phone] documented in this encounter Plan of Treatment Not on file documented as of this encounter Visit Diagnoses Not on filedocumented in this encounter Additional Health Concerns Assessment Noted Time PHQ-9 Depression Total Score: 0 05/25/20 23 10:22 AM EDT documented as of this encounter Care Teams Superintendent Automotive Relationship Specialty Start Date End Date Bethanie Holliday MD [address] [place] [address] PCP - General Family Medicine 10/22/14 documented as of this encounter
--- OUTSIDE RECORDS SUMMARY | 2025-05-01 16:07 | XMS_ITS | Encounter Summary ---
Author Organization [employer] Address [address] [place] [address] Care Team Providers Care Computer Customer Support Specialist Name Role Phone Bethanie Holliday MD Primary Care Provider Encounter Details Date Type Department Care Team (Latest Contact Info) Description 12/12/2020 Abstract [facility] CONVERSIONS Dental, Provider, DDS Social [...] on filedocumented in this encounter Care Teams Computer Customer Support Specialist Relationship Specialty Start Date End Date Bethanie Holliday MD [address] [place] [address] PCP - General Family Medicine 10/22/14 documented as of this encounter
--- OUTSIDE RECORDS SUMMARY | 2025-05-01 16:07 | XMS_ITS | Encounter Summary ---
Author Organization [employer] Address [address] [address] Care Team Providers Care Non Ferrous Material Handler Name Role Phone Bethanie Holliday MD Primary Care Provider [phone] Reason for Visit * Reason Comments Med Refill Encounter Details Date Type Department Care Team (Late st Contact Info) Description 03/28/2025 Refill [facility] [address] [place], [place] [phone] Bethanie Holliday MD [address] [place] [address] Social History Tobacco Use Types Packs/Day Years [...] documented as of this encounter Care Teams Non Ferrous Material Handler Relationship Specialty Start Date End Date Bethanie Holliday MD [address] [place] [address] PCP - General Family Medicine 10/22/14 documented as of this encounter
--- OUTSIDE RECORDS SUMMARY | 2025-05-01 16:07 | XMS_ITS | Encounter Summary ---
Author Organization [employer] Address [address] [place] [address] Care Team Providers Care Optimization Engineer Name Role Phone Bethanie Holliday MD Primary Care Provider [phone] Encounter Details Date Type Department Care Team (Latest Contact Info) Description 05/28/2022 Abstract [facility] CONVERSIONS Dental, Provider, DDS Social History [...] on filedocumented in this encounter Care Teams Optimization Engineer Relationship Specialty Start Date End Date Bethanie Holliday MD [address] [place] [address] PCP - General Family Medicine 10/22/14 documented as of this encounter
--- OUTSIDE RECORDS SUMMARY | 2025-05-01 16:07 | XMS_ITS | Encounter Summary ---
Author Organization [employer] Address 75 [facility] 7 [place] [address] Care Team Providers Care Buckle Strap Drum Operator Name Role Phone Bethanie Holliday MD Primary Care Provider Encounter Details Date Type Department Care Team (Late st Contact Info) Description 11/13/2022 Orders Only [facility] [address] [place], [place] [phone] Bethanie Holliday MD [address] [place], [place] [phone] Arthralgia of right knee (Primary Dx) Social [...] Primary documented in this encounter Care Teams Buckle Strap Drum Operator Relationship Specialty Start Date End Date Bethanie Holliday MD [address] [place] [address] PCP - General Family Medicine 10/22/14 documented as of this encounter
--- OUTSIDE RECORDS SUMMARY | 2025-05-01 16:07 | XMS_ITS | Encounter Summary ---
Author Organization [employer] Address [address] [place] [address] Care Team Providers Care Certified Nursing Assistant Instructor Name Role Phone Bethanie Holliday MD Primary Care Provider [phone] Reason for Visit * Reason Onset Date Comments Med Refill 03/26/2025 Encounter Details Date Type Department Care Team (Late st Contact Info) Description 03/26/2025 Refill [facility] [address] [place], [place] [phone] Bethanie Holliday MD [address] [place] [address] Social History Tobacco Use Types Packs/Day Years [...] documented as of this encounter Care Teams Certified Nursing Assistant Instructor Relationship Specialty Start Date End Date Bethanie Holliday MD [address] [place] [address] PCP - General Family Medicine 10/22/14 documented as of this encounter
--- OUTSIDE RECORDS SUMMARY | 2025-05-01 16:07 | XMS_ITS | Encounter Summary ---
Author Organization [employer] Address [address] [place] [address] Care Team Providers Care Utility Aircrewman Name Role Phone Bethanie Holliday MD Primary Care Provider [phone] Encounter Details Date Type Department Care Team (Latest Contact Info) Description 09/06/2019 Abstract [facility] CONVERSIONS Dental, Provider, DDS Social History Tobacco [...] on filedocumented in this encounter Care Teams Utility Aircrewman Relationship Specialty Start Date End Date Bethanie Holliday MD [address] [place] [address] PCP - General Family Medicine 10/22/14 documented as of this encounter
== END 2025-05-01 15:45 | disposition home or self-care (01) ==
LOC: HO.ENCR 14:54
PROVIDERS: PCP Pediatrics; Visit Provider Internal Medicine Endocrinology, Diabetes & Metabolism
DX: E66.9 Obesity, unspecified (principal)
CPT/HCPCS: 99204

== ENCOUNTER → 2025-05-01 14:53 | Outpatient (BNVA) | payer OTHER, SELFPAY | PROVIDERS: PCP Pediatrics; Visit Provider Internal Medicine Endocrinology, Diabetes & Metabolism | DX: E66.9 Obesity, unspecified (principal) | CPT/HCPCS: 99202 ==

== ENCOUNTER 2025-05-11 13:15 | Outpatient (REF) | payer OTHER, SELFPAY ==
--- NOTE | ~2025-05-11 | US_ITS ---
EXAMINATION: US PELVIS CLINICAL INFORMATION: Pelvic pain. COMPARISON: December 01, 2015. TECHNIQUE: Ultrasound of the pelvis is performed using both transabdominal and transvaginal transducers along with Doppler. Transvaginal imaging is performed due to inadequate visualization transabdominally. FINDINGS: Uterus: The uterus is anteverted and measures 9 x 4 x 6 cm. Volume: 125 cc. The double wall endometrial thickness is 8 mm. Trace of fluid in the uterine cavity. The cervix is closed. Normal parenchyma of the uterus. No gross uterine fibroid. Adnexa: The ovaries are identified with flow on color Doppler interrogation.. No free fluid in the cul-de-sac. Right ovary measures 3 x 2 x 2 cm. Volume: 3 cc. No gross solid or cystic lesion. Left ovary measures 4 x 2 x 2 cm. Volume: 9 cc. No gross solid or cystic lesion. US/US pelvic and transvaginal IMPRESSION: 8 mm endometrial stripe with trace of fluid. No gross uterine fibroid. No ovarian torsion. Electronically signed by: Luis Antonio Leavitt MD 05/11/2025 02:22 PM EDT
--- OUTSIDE RECORDS SUMMARY | 2025-05-11 15:46 | XMS_ITS | Encounter Summary ---
Author Organization [employer] Address [address] [place] [address] Care Team Providers Care Fur Trimmer Name Role Phone Bethanie Holliday MD Primary Care Provider [phone] Reason for Visit * Reason Onset Date Comments Med Refill 03/26/2025 Encounter Details Date Type Department Care Team (Late st Contact Info) Description 03/26/2025 Refill [facility] [address] [place], [place] [phone] Bethanie Holliday MD [address] [place] [address] Social History Tobacco Use Types Packs/Day Years [...] documented as of this encounter Care Teams Fur Trimmer Relationship Specialty Start Date End Date Bethanie Holliday MD [address] [place] [address] PCP - General Family Medicine 10/22/14 documented as of this encounter
--- OUTSIDE RECORDS SUMMARY | 2025-05-11 15:46 | XMS_ITS | Encounter Summary ---
Author Organization [employer] Address [address] [place] [address] Care Team Providers Care Map Drafter Name Role Phone Bethanie Holliday MD Primary Care Provider [phone] Encounter Details Date Type Department Care Team (Latest Contact Info) Description 12/12/2020 Abstract [facility] CONVERSIONS Dental, Provider, DDS Social History [...] on filedocumented in this encounter Care Teams Map Drafter Relationship Specialty Start Date End Date Bethanie Holliday MD [address] [place] [address] PCP - General Family Medicine 10/22/14 documented as of this encounter
--- OUTSIDE RECORDS SUMMARY | 2025-05-11 15:46 | XMS_ITS | Encounter Summary ---
Author Organization [employer] Address [address] [place] [address] Care Team Providers Care Senior Director Creative Services Name Role Phone Bethanie Holliday MD Primary Care Provider [phone] Encounter Details Date Type Department Care Team (Latest Contact Info) Description 05/28/2022 Abstract [facility] CONVERSIONS Dental, Provider, DDS Social History [...] on filedocumented in this encounter Care Teams Senior Director Creative Services Relationship Specialty Start Date End Date Bethanie Holliday MD [address] [place] [address] PCP - General Family Medicine 10/22/14 documented as of this encounter
--- OUTSIDE RECORDS SUMMARY | 2025-05-11 15:46 | XMS_ITS | Encounter Summary ---
Author Organization [employer] Address [address] [place] [address] Care Team Providers Care Hand Fretted Instrument Maker Name Role Phone Bethanie Holliday MD Primary Care Provider Encounter Details Date Type Department Care Team (Latest Contact Info) Description 09/06/2019 Abstract [facility] CONVERSIONS Dental, Provider, DDS Social History [...] on filedocumented in this encounter Care Teams Hand Fretted Instrument Maker Relationship Specialty Start Date End Date Bethanie Holliday MD [address] [place] [address] PCP - General Family Medicine 10/22/14 documented as of this encounter
--- OUTSIDE RECORDS SUMMARY | 2025-05-11 15:47 | XMS_ITS | Encounter Summary ---
Author Organization [employer] Address 75 [facility] 7 [place] [address] Care Team Providers Care Physical Therapist Center Manager Name Role Phone Bethanie Holliday MD Primary Care Provider [phone] Encounter Details Date Type Department Care Team (Late st Contact Info) Description 11/13/2022 Orders Only [facility] MED & PEDS [address] [place], [place] [phone] Bethanie oHlliday MD [address] [place], [place] [phone] Arthralgia of right knee (Primary Dx) Social [...] Primary documented in this encounter Care Teams Physical Therapist Center Manager Relationship Specialty Start Date End Date Bethanie Holliday MD [address] [place] [address] PCP - General Family Medicine 10/22/14 documented as of this encounter
--- OUTSIDE RECORDS SUMMARY | 2025-05-11 15:47 | XMS_ITS | Clinical Summary ---
Author Organization [employer] Address 75 [facility] 7 [place] [address] Care Team Providers Care Turf Grower Name Role Phone Bethanie Holliday MD Primary Care Provider [phone] Allergies Active Allergy Reactions Criticality Noted Date Comments Penicillin G Swelling Low 02/10/2012 Penicillins Swelling Low 08/18/2022 Medications EPINEPHrine (Epipen) 0.3 MG/0.3ML injection syringe Inject 0.3 mL into the shoulder, thigh, or buttocks. 01/18/2020 Active Tirzepatide (Mounjaro) 5 MG/0.5ML solution auto-injector 5 mg. 10/04/2024 Activ e ergocalciferol (Vitamin D2) 1.25 MG (75329 UT) capsule Take 1 capsule (1.25 mg) [...] Type Department Care Team Description 03/28/2025 Refill [facility] MED & PEDS [address] [place] [address] Bethanie Holliday MD 03/26/2025 Refill [facility] [address] [place] [address] Bethanie Holliday MD 03/15/2025 10:15 AM EDT Office Visit [facility] [address] [place] [address] Bethanie Holliday MD Pelvic pain (Primary Dx); Obesity (BMI 30-39.9); Prolactinoma (CMS/HCC) 03/15/2025 Travel 03/14/2025 Telephone [facility] [address] [place] [address] Bethanie Holliday MD Chart Prep 03/08/2025 Patient Outreach [facility] [address] [place] [address] Bethanie Holliday MD Pre-visit Planning (SDOH screening completed on 11/24/24 ) 02/28/2025 Results Follow-Up [facility] CHC MED & PEDS [address] [place] [address] Bethanie Holliday MD BI Mammogram Screening Tomosynthesis Bilateral 02/16/2025 Orders Only [facility] External Provider, [facility] from Last 3 Months Immunizations Immunization Administration [...] Name Priority Date/Time Associated Diagnosis Comments US PELVIS TRANSVAGINAL Routine 1:49 PM EDT Pelvic pain BI MAMMOGRAM SCREENING TOMOSYNTHESIS BILATERAL Routine 02/16/2025 [...] Recently Relevant to Health Maintenance Results * US Pelvis Transvaginal (05/11/2025 1:49 PM EDT) Anatomical Region Laterality Modality Pelvis Ultrasound 05/11/2025 1:49 PM EDT Narrative 05/11/2025 2:25 PM EDT [address] [address] Ultrasound Report Signed Patient: Sapna Martín Cabrera#: [id number] : 1980 Acct:[id number] Age/Sex: 45 / F ADM Date: 05/11/25 Loc: HO.US Attending Dr: Bethanie Holliday MD Ordering Physician: Bethanie Holliday MD Date of Service: 05/11/25 Procedure(s): US pelvic and transvaginal Accession Number(s): [id number] cc: Bethanie Holliday MD Reason for Exam: chronic right pelvic pain,dyspareunia EXAMINATION: US PELVIS CLINICAL INFORMATION: Pelvic pain. COMPARISON: December 01, 2015. TECHNIQUE: Ultrasound of the pelvis is performed using both transabdominal and transvaginal transducers along with Doppler. Transvaginal imaging is performed due to inadequate visualization transabdominally. FINDINGS: Uterus: The uterus is anteverted and measures 9 x 4 x 6 cm. Volume: 125 cc. The double wall endometrial thickness is 8 mm. Trace of fluid in the uterine cavity. The cervix is closed. Normal parenchyma of the uterus. No gross uterine fibroid. Adnexa: The ovaries are identified with flow on color Doppler interrogation.. No free fluid in the cul-de-sac. Right ovary measures 3 x 2 x 2 cm. Volume: 3 cc. No gross solid or cystic lesion. Left ovary measures 4 x 2 x 2 cm. Volume: 9 cc. No gross solid or cystic lesion. US/US pelvic and transvaginal IMPRESSION: 8 mm endometrial stripe with trace of fluid. No gross uterine fibroid. No ovarian torsion. Electronically signed by: Luis Antonio Leavitt MD 05/11/2025 02:22 PM EDT Dictated By: Luis Antonio Crane MD Signed By: <Electronically signed by Luis Antonio Ramirez MD in OV> 05/11/25 1422 DD/ 1349 TD/TT: 05/11/25 1401 Plastic Shaper: Procedure Note Donotuseinterpreter, Image - 05/11/[address] [address] Ultrasound Report Signed Patient: Martín Ervin ELIO R#: [id number] : 1980Acct:[id number] Age/Sex: 45 / FADM Date: 05/11/25 Loc: HO.US Attending Dr: Bethanie Holliday MD Ordering Physician: Bethanie Holliday MD Date of Service: 05/11/25 Procedure(s): US pelvic and transvaginal Accession Number(s): [id number] cc: Bethanie Holliday MD Reason for Exam: chronic right pelvic pain,dyspareunia EXAMINATION: US PELVIS CLINICAL INFORMATION: Pelvic pain. COMPARISON: December 01, 2015. TECHNIQUE: Ultrasound of the pelvis is performed using both transabdominal and transvaginal transducers along with Doppler. Transvaginal imaging is performed due to inadequate visualization transabdominally. FINDINGS: Uterus: The uterus is anteverted and measures 9 x 4 x 6 cm. Volume: 125 cc. The double wall endometrial thickness is 8 mm. Trace of fluid in the uterine cavity. The cervix is closed. Normal parenchyma of the uterus. No gross uterine fibroid. Adnexa: The ovaries are identified with flow on color Doppler interrogation.. No free fluid in the cul-de-sac. Right ovary measures 3 x 2 x 2 cm. Volume: 3 cc. No gross solid or cystic lesion. Left ovary measures 4 x 2 x 2 cm. Volume: 9 cc. No gross solid or cystic lesion. US/US pelvic and transvaginal IMPRESSION: 8 mm endometrial stripe with trace of fluid. No gross uterine fibroid. No ovarian torsion. Electronically signed by: Luis Antonio Leavitt MD 05/11/2025 02:22 PM EDT Dictated By: Luis Antonio Crane MD Signed By: <Electronically signed by Luis Antonio Ramirez MDin OV> 05/11/25 1422 DD/ 1349 TD/TT: 05/11/25 1401 Plastic Shaper: us Bethanie Holliday MD IMG US PROCEDURES Final Resul t * BI Mammogram Screening Tomosynthesis Bilateral (02/16/2025 1:20 PM EDT) Anatomical Region Laterality Modality Breast Bilateral Mammography 02/16/2025 1:20 PM EDT Narrative 02/22/2025 1:42 PM EDT [facility] [address] [place] [address] Mammography Report Signed Patient: Martín Ervin Robyn R#: [id number] : 1980 Acct:[id number] Age/Sex: 45 / F ADM Date: 02/16/25 Loc: HO.MAMMO Attending Dr: Bethanie Holliday MD Ordering Physician: Bethanie Holliday MD Results: 2Be nign Findings Date of Service: 02/16/25 Follow Up: 1 Year From Orig inal Mammogram Procedure(s): MM tomosynthesis screening BI Accession Number(s): [id number] cc: Bethanie Holliday MD EXAMINATION: MM SCREENING [...] 02/22/25 1339 DD/ 1320 TD/TT: 02/16/25 1340 Plastic Shaper: Procedure Note Donotuseinterpreter, Image - [facility] [address] [place] [address] Mammography Report Signed Patient: Martín Ervin MM R#: [id number] : 1980Acct:[id number] Age/Sex: 45 / FADM Date: 02/16/25 Loc: HO.MAMMO Attending Dr: Bethanie Holliday MD Ordering Physician: Bethanie Holliday MDResults: 2Be nign Findings Date of Service: 02/16/25Follow Up: 1 Year From Orig ina Mammogram Procedure(s): MM tomosynthesis screening BI Accession Number(s): [id number] cc: Bethanie Holliday MD EXAMINATION: MM SCREENING [...] 02/22/25 1339 DD/ 1320 TD/TT: 02/16/25 1340 Plastic Shaper: us Bethanie Holliday MD IMG BI PROCEDURES Final Resul t * US RENAL BI (02/12/2025 8:33 PM EDT) Anatomical Region Laterality Modality Abdomen Ultrasound 02/12/2025 8:33 PM EDT Narrative 02/12/2025 8:34 PM EDT [address] [place] [address] Ultrasound Report Signed Patient: Martín Ervin R#: [id number] : 1980 Acct:[id number] Age/Sex: 45 / F ADM Date: 12/28/24 Loc: HOOsvaldoMAMMO Attending Dr: Bethanie Holliday MD Ordering Physician: Yazan Dukes MD Date of Service: 02/12/25 Procedure(s): US renal BI Accession Number(s): [id number] cc: Bethanie Holliday MD; Yazan Dukes MD [...] in OV> 02/12/252033 DD/ 32 TD/TT: 02/12/252032 Plastic Shaper: Procedure Note Donotuseinterpreter, Image - 02/12/[address] [place] [address] Ultrasound Report Signed Patient: Martín Ervin MM R#: [id number] : 1980Acct:[id number] Age/Sex: 45 / FADM Date: 12/28/24 Loc: MAMMO Attending Dr: Bethanie Holliday MD Ordering Physician: Yazan Dukes MD Date of Service: 02/12/25 Procedure(s): US renal BI Accession Number(s): [id number] cc: Bethanie Holliday MD; Yazan Dukes MD [...] in OV> 02/12/252033 DD/ 32 TD/TT: 02/12/252032 Plastic Shaper: [facility] External Provider IMG US PROCEDURES [...] factors. LDL-C is now calculated using the Darren-Calvillo calculation, which is a validated novel method providing better accuracy than the Friedewald equation in the estimation of LDL-C. Darren COLLADO et al. REBA. 2013;310(19): 8859-8768 (http://education.[employer].com/faq/CZX635) Non-HDL Cholesterol 141(H) <130 mg/dL (calc) [facility] Comment: For patients with diabetes plus 1 major ASCVD risk factor, treating to a non-HDL-C goal of <100 mg/dL (LDL-C of <70 mg/dL) is considered a therapeutic option. Triglycerides 149 <150 mg/dL [facility] 05/28/2022 8:46 AM EDT us Bubba Lenz MD LAB BLOOD ORDERABL ES Final Result Performing Organization Address [facility] Co de Phone Number [facility] * THINPREP PAP (06/18/2020 1:09 PM EDT) Clinical Information: SEE COMMENT [facility] Comment:None given COMMENT SEE [...] along with historic and current clinical information. Fringe Knotter: SEE COMMENT [facility] Comment: HJP, CT(ASCP) CT screening location: [place] [address] Interpretation/Resu lt: SEE COMMENT [facility] Comment:Negative for intraep ithelial lesion or malignancy. LMP: [facility] Comment:05/30/20 Prev. BX: NONE GIVEN [facility] Prev. PAP: SEE COMMENT [facility] Comment:NONE GIVEN SOURCE: SEE COMMENT [facility] Comment:None given Statement Of Adequacy: SEE COMMENT [facility] Comment: Satisfactory for evaluation. Endocervical/transformation zone component absent. 06/18/2020 1:09 PM EDT us Beata Blakely CNM LAB PATHOLOGY ORDERABLES Final Result Performing Organization Address City/[facility]/ZIP Co de Phone Number [facility] [address] * HPV mRNA E6/E7 (06/18/2020 1:09 PM EDT) HPV nRNA E6/E7 Not Detected Not Detected [facility] Comment: This test was performed using the APTIMA HPV Assay ([employer] This assay detects E6/E7 viral messenger RNA (mRNA) from 14 high-risk HPV types (16,18,31,33,35,39,45,51,52,56,58,59,66,68). The analytical performance characteristics of this assay have been determined by [employer]. The modifications have not been cleared or approved by the FDA. This assay has been validated pursuant to the CLIA regulations and is used for clinical purposes. 06/18/2020 1:09 PM EDT us Beata Blakely CNM LAB BLOOD ORDERABLES Liz loco Result [facility] [address] from Last 3 Months or Most Recently Relevant to Health Maintenance [place] [address] [place] [address] [facility] * Guarantor: Martín Cabrera Account Type Relation to Patient Date of Phone Billing Address Personal/Family Self [address] [id number] Care Teams Turf Grower Relationship Specialty Start Date End Date Bethanie Holliday MD [address] [place] [address] PCP - General Family Medicine 10/22/14
--- OUTSIDE RECORDS SUMMARY | 2025-05-11 15:47 | XMS_ITS | Encounter Summary ---
Author Organization [employer] Address [address] [place] [address] Care Team Providers Care Attending Psychiatrist Name Role Phone Bethanie Holliday MD Primary Care Provider Reason for Visit * Reason Onset Date Comments Hospital Follow-up 10/06/2024 Encounter Details Date Type Department Care Team (Late st Contact Info) Description 10/06/2024 Telephone [facility] [address] [place] [address] Bethanie Holliday MD [address] [place] [address] Hospital Follow-up Social History Tobacco Use Types [...] from pt requesting a HDF appt. Hospital: [facility] Date of admission: 10/04 Discharge date: 10/06 Diagnosed: Kidney Stones Surgery *Send message to [place] Clinical Care Coordinators [phone] documented in this encounter Plan of Treatment Not on file documented as of this encounter Visit Diagnoses Not on filedocumented in this encounter Additional Health Concerns Assessment Noted Time PHQ-9 Depression Total Score: 0 05/25/20 23 10:22 AM EDT documented as of this encounter Care Teams Attending Psychiatrist Relationship Specialty Start Date End Date Bethanie Holliday MD [address] [place] [address] PCP - General Family Medicine 10/22/14 documented as of this encounter
--- OUTSIDE RECORDS SUMMARY | 2025-05-11 15:47 | XMS_ITS | Encounter Summary ---
Author Organization [employer] Address [address] [address] Care Team Providers Care Home Health Clinician Name Role Phone Bethanie Holliday MD Primary Care Provider [phone] Reason for Visit * Reason Comments Med Refill Encounter Details Date Type Department Care Team (Late st Contact Info) Description 03/28/2025 Refill [facility] CHC MED & PEDS [address] [place], [place] [phone] Bethanie Holliday MD [address] [place] [address] Social History Tobacco Use Types Packs/Day Years [...] documented as of this encounter Care Teams Home Health Clinician Relationship Specialty Start Date End Date Bethanie Holliday MD [address] [place] [address] PCP - General Family Medicine 10/22/14 documented as of this encounter
== END 2025-05-11 13:16 | disposition home or self-care (01) ==
LOC: HO.US 13:15
PROVIDERS: PCP Pediatrics; Visit Provider Pediatrics
DX: R10.2 Pelvic and perineal pain (principal)
CPT/HCPCS: 76830; 76856

== ENCOUNTER → 2025-05-11 13:18 | Outpatient (BNV) | payer OTHER, SELFPAY | PROVIDERS: PCP Pediatrics; Visit Provider Radiology Diagnostic Radiology | DX: N85.00 Endometrial hyperplasia, unspecified (principal) | CPT/HCPCS: 76830; 76856 ==

== ENCOUNTER 2025-05-28 09:00 | Outpatient (REF) | payer OTHER, SELFPAY ==
--- NOTE | ~2025-05-28 | FL_ITS ---
EXAMINATION: XR UPPER GI SERIES WITH SMALL BOWEL CLINICAL INFORMATION: Abdominal pain with nausea. COMPARISON: None available. TECHNIQUE: Routine upper GI air contrast study with barium swallow was performed in upright and lying position. FINDINGS: Following oral administration of thick barium and effervescent granules there is normal propagation of bolus from the oral cavity through the pharynx, esophagus into stomach without obstruction, narrowing or stricture. No laryngeal penetration, aspiration or extrinsic esophageal compression. On placing patient supine and prone lying there is mild increased gastric secretions. No gastric and duodenal bulb ulceration or erosion seen. The course, caliber and peristalsis of the stomach, duodenal bulb and the sweep is normal. There is moderate gastroesophageal reflux into the upper esophagus with a small sliding hiatal hernia. FLUOROSCOPY TIME: 2 minutes 21 seconds. DOSE AREA PRODUCT: 2323 uGy-m2 (microgray-meter squared) FL/FL upper GI w air w Ba Swallow IMPRESSION: Increased gastric secretions suggestive of hyper acidity. Moderate gastroesophageal reflux into upper esophagus with a small sliding hiatal hernia. Electronically signed by: Randy Gutierrez MD 05/28/2025 12:42 PM EDT
--- OUTSIDE RECORDS SUMMARY | 2025-05-28 09:34 | XMS_ITS | Encounter Summary ---
Author Organization [employer] Address [address] [address] Care Team Providers Care Rod Finisher Name Role Phone Bethanie Holliday MD Primary Care Provider [phone] Encounter Details Date Type Department Care Team (Latest Contact Info) Description 05/28/2022 Abstract [facility] CONVERSIONS Dental, Provider, DDS Social [...] on filedocumented in this encounter Care Teams Rod Finisher Relationship Specialty Start Date End Date Bethanie Holliday MD [address] [place] [address] PCP - General Family Medicine 10/22/14 documented as of this encounter
--- OUTSIDE RECORDS SUMMARY | 2025-05-28 09:34 | XMS_ITS | Encounter Summary ---
Author Organization [employer] Address [address] [place] [address] Care Team Providers Care Personnel Placement Specialist Name Role Phone Bethanie Holliday MD Primary Care Provider [phone] Encounter Details Date Type Department Care Team (Latest Contact Info) Description 12/12/2020 Abstract [facility] CONVERSIONS Dental, Provider, DDS Social History Tobacco [...] on filedocumented in this encounter Care Teams Personnel Placement Specialist Relationship Specialty Start Date End Date Bethanie Holliday MD [address] [place] [address] PCP - General Family Medicine 10/22/14 documented as of this encounter
--- OUTSIDE RECORDS SUMMARY | 2025-05-28 09:34 | XMS_ITS | Encounter Summary ---
Author Organization [employer] Address 75 [facility] 7 [place] [address] Care Team Providers Care 3D Specialist Name Role Phone Bethanie Holliday MD Primary Care Provider [phone] Encounter Details Date Type Department Care Team (Late st Contact Info) Description 11/13/2022 Orders Only [facility] MED & PEDS [address] [place], [place] [phone] Bethanie Holliday MD [address] [place], [place] [phone] Arthralgia of right knee (Primary Dx) Social [...] Primary documented in this encounter Care Teams 3D Specialist Relationship Specialty Start Date End Date Bethanie Holliday MD [address] [place] [address] PCP - General Family Medicine 10/22/14 documented as of this encounter
--- OUTSIDE RECORDS SUMMARY | 2025-05-28 09:34 | XMS_ITS | Encounter Summary ---
Author Organization [employer] Address [address] [place] [address] Care Team Providers Care Accounts Payables Clerk Name Role Phone Bethanie Holliday MD Primary Care Provider Reason for Visit * Reason Onset Date Comments Med Refill 03/26/2025 Encounter Details Date Type Department Care Team (Late st Contact Info) Description 03/26/2025 Refill [facility] PEDS [address] [place], [place] [phone] Bethanie Holliday MD [address] [place] [address] Social History Tobacco Use Types Packs/Day Years [...] documented as of this encounter Care Teams Accounts Payables Clerk Relationship Specialty Start Date End Date Bethanie Holliday MD [address] [place] [address] PCP - General Family Medicine 10/22/14 documented as of this encounter
--- OUTSIDE RECORDS SUMMARY | 2025-05-28 09:34 | XMS_ITS | Clinical Summary ---
Author Organization [employer] Address [address] [facility] 7 [place] [address] Care Team Providers Care Career Coach Name Role Phone Bethanie Holliday MD Primary Care Provider [phone] Allergies Active Allergy Reactions Criticality Noted Date Comments Penicillin G Swelling Low 02/10/2012 Penicillins Swelling Low 08/18/2022 Medications EPINEPHrine (Epipen) 0.3 MG/0.3ML injection syringe Inject 0.3 mL into the shoulder, thigh, or buttocks. 01/18/2020 Active Tirzepatide (Mounjaro) 5 MG/0.5ML solution auto-injector 5 mg. 10/04/2024 Activ e ergocalciferol (Vitamin D2) 1.25 MG (69905 UT) capsule Take 1 capsule (1.25 mg) [...] in 4-6 weeks. Reviewed red flags Prolactinoma (CMS/HCC) 08/18/2022 Dyslipidemia 08/18/2022 Subclinical hypothyroidism 08/18/2022 Nephrolithiasis 08/18/2022 Insulin resistance 08/18/2022 Resolved Problems Problem Noted Date Diagnosed Date Resolved Date Multiple subsegmental pulmon desiree emboli without acute cor pulmonale (CMS/HCC) 05/13/2023 Assessment & Plan (06/13/2023 11:46 AM [...] Encounters Date Type Department Care Team Description 05/14/2025 Results Follow-Up [facility] [address] [place] [address] Bethanie Holliday MD Pelvis Transvaginal 05/14/2025 Orders Only [facility] [address] [place] [address] Bethanie Holliday MD Pelvic pain (Primary Dx); Free fluid in pelvis; Dyspareunia, female 03/28/2025 Refill [facility] [address] [place] [address] Bethanie Holliday MD 03/26/2025 Refill [facility] [address] [place] [address] Bethanie Holliday MD 03/15/2025 10:15 AM EDT Office Visit [facility] [address] [place] [address] Bethanie Holliday MD Pelvic pain (Primary Dx); Obesity (BMI 30-39.9); Prolactinoma (CMS/HCC) 03/15/2025 Travel 03/14/2025 Telephone [facility] [address] [place] [address] Bethanie Holliday MD Chart Prep 03/08/2025 Patient Outreach [facility] [address] [place] [address] Bethanie Holliday MD Pre-visit Planning (SDOH screening completed on 11/24/24 ) 02/28/2025 Results Follow-Up [facility] [address] [place] [address] Bethanie Holliday MD BI Mammogram Screening Tomosynthesis Bilateral from Last 3 Months Immunizations Immunization Administration [...] 0 11/01/2023, 05/28/2022 Influenza Vaccine (#1) 2025 , 09/23/2023, 05/29/2022, Additional history exists Dental X-Ray: Full Mouth 05/29/2025 05/28/2022 Cervical Cancer Screening 06/18/2025 HPV/Cotest 06/18/2025 06/18/2020 Pap Smear 06/18/2025 06/18/2020 Alcohol/Substance Use Screening 11/24/2025 11/24/2024 Disability Screening 11/24/2025 11/24/2024 SDOH Screening 11/24/2025 11/24/2024 Depression Screening 01/16/2026 01/16/2025, 01/17/20 Tobacco Screening 03/15/2026 03/15/2025 DTaP/Tdap/Td Vaccines (2 - Td or Tdap) 01/07/2027 01/07/2017 Mammogram 02/16/2027 02/16/2025, 05/31, 08/29/2019 Lipid Panel 05/28/2027 05/28/2022, 02/0 10/2021, 10/30/2020, [...] PM EDT Breast cancer screening by mammogram PROPHYLAXIS - ADULT Routine 07/18/2024 9 :00 [...] PM EDT Narrative 05/11/2025 2:25 PM EDT [address] [address] Ultrasound Report Signed Patient: Martín Ervin#: [id number] : 1980 Acct:[id number] Age/Sex: 45 / F ADM Date: 05/11/25 Loc: HO.US Attending Dr: Bethanie Holliday MD Ordering Physician: Bethanie Holliday MD Date of Service: 05/11/25 Procedure(s): US pelvic and transvaginal Accession Number(s): [id number] cc: Bethanie Holliday MD Reason for Exam: [...] 05/11/25 1422 DD/ 1349 TD/TT: 05/11/25 1401 Bar Supervisor: Procedure Note Donotuseinterpreter, Image - 05/11/[address] [address] Ultrasound Report Signed Patient: Martín Ervin R#: [id number] : 1980Acct:[id number] Age/Sex: 45 / FADM Date: 05/11/25 Loc: HO.US Attending Dr: Bethanie Holliday MD Ordering Physician: Bethanie Holliday MD Date of Service: 05/11/25 Procedure(s): US pelvic and transvaginal Accession Number(s): [id number] cc: Bethanie Holliday MD Reason for Exam: [...] 05/11/25 1422 DD/ 1349 TD/TT: 05/11/25 1401 Bar Supervisor: us Bethanie Holliday MD IMG US PROCEDURES Final Resul t * BI Mammogram Screening Tomosynthesis Bilateral (02/16/2025 1:20 PM EDT) Anatomical Region Laterality Modality Breast Bilateral Mammography 02/16/2025 1:20 PM EDT Narrative 02/22/2025 1:42 PM EDT [facility] [address] [place] [place], [place] [address] Mammography Report Signed Patient: Martín Ervin R#: [id number] : 1980 Acct:[id number] Age/Sex: 45 / F ADM Date: 02/16/25 Loc: HO.MAMMO Attending Dr: Bethanie Holliday MD Ordering Physician: Bethanie Holliday MD Results: 2Be nign Findings Date of Service: 02/16/25 Follow Up: 1 Year From Orig ina Mammogram Procedure(s): MM tomosynthesis screening BI Accession Number(s): [id number] cc: Bethanie Holliday MD EXAMINATION: MM SCREENING [...] 02/22/25 1339 DD/ 1320 TD/TT: 02/16/25 1340 Bar Supervisor: Procedure Note Donotuseinterpreter, Image - 02/22/2025 [facility] [address] [place], [place] [address] Mammography Report Signed Patient: Martín Ervin MM R#: [id number] : 1980Acct:[id number] Age/Sex: 45 / FADM Date: 02/16/25 Loc: HO.MAMMO Attending Dr: Bethanie Holliday MD Ordering Physician: Bethanie Holliday MDResults: 2Be nign Findings Date of Service: 02/16/25Follow Up: 1 Year From Orig inal Mammogram Procedure(s): MM tomosynthesis screening BI Accession Number(s): [id number] cc: Bethanie Holliday MD EXAMINATION: MM SCREENING [...] 02/22/25 1339 DD/ 1320 TD/TT: 02/16/25 1340 Bar Supervisor: us Bethanie Holliday MD IMG BI PROCEDURES [...] LDL-C. Darren SS et al. REBA. 2013;310(19): 7836-0041 (http://education.[employer] [facility]/faq/WOZ639) Non-HDL Cholesterol 141(H) <130 mg/dL (calc) CONVERTED [...] along with historic and current clinical information. Contact Center Consultant: SEE COMMENT [facility] Comment: HJP, CT(ASCP) CT screening location: [place] [address] Interpretation/Resu lt: SEE COMMENT [facility] [...] zone component absent. 06/18/2020 1:09 PM EDT [facility] PATHOLOGY ORDERABLES Final Result Performing Organization Address [facility] Any[address] * HPV mRNA E6/E7 (06/18/2020 1:09 PM EDT) HPV nRNA E6/E7 Not Detected Not Detected [facility] Comment: This test was performed using the APTIMA HPV Assay ([employer] This assay detects E6/E7 viral messenger RNA (mRNA) from 14 high-risk HPV types (16,18,31,33,35,39,45,51,52,56,58,59,66,68). The analytical performance characteristics of this assay have been determined by [employer]. The modifications have not been cleared or approved by the FDA. This assay has been validated pursuant to the CLIA regulations and is used for clinical purposes. 06/18/2020 1:09 PM EDT Beata Blakely [facility] LAB BLOOD ORDERABLES Liz l Result Performing Organization Address [facility] de Phone Number [facility] [address] from Last 3 Months or Most Recently Relevant to Health Maintenance Insurance [facility] Care Teams Career Coach Relationship Specialty Start Date End Date Bethanie Holliday MD [address] [place] [address] PCP - General Family Medicine 10/22/14
--- OUTSIDE RECORDS SUMMARY | 2025-05-28 09:34 | XMS_ITS | Encounter Summary ---
Author Organization [employer] Address [address] [address] Care Team Providers Care Parallel Computing Software Engineer Name Role Phone Bethanie Holliday MD Primary Care Provider [phone] Encounter Details Date Type Department Care Team (Latest Contact Info) Description 05/14/2025 Results Follow-Up [facility] MED & PEDS [address] [place], [place] [phone] Bethanie Holliday MD [address] [place] [address] [place] Pelvis Transvaginal Social History Tobacco Use Types Packs/Day Years [...] documented as of this encounter Care Teams Parallel Computing Software Engineer Relationship Specialty Start Date End Date Bethanie Holliday MD [address] [place] [address] PCP - General Family Medicine 10/22/14 documented as of this encounter
--- OUTSIDE RECORDS SUMMARY | 2025-05-28 09:34 | XMS_ITS | Encounter Summary ---
Author Organization [employer] Address [address] [place] [address] Care Team Providers Care Electronic Assembler Group Leader Name Role Phone Bethanie Holliday MD Primary Care Provider [phone] Reason for Visit * Reason Onset Date Comments Hospital Follow-up 10/06/2024 Encounter Details Date Type Department Care Team (Late st Contact Info) Description 10/06/2024 Telephone [facility] MEDICINE [address] [place] [address] Bethanie Holliday MD [address] [place] [address] Hospital Follow-up Social History Tobacco Use Types [...] from pt requesting a HDF appt. Hospital: [facility] Date of admission: 10/04 Discharge date: 10/06 Diagnosed: Kidney Stones Surgery *Send message to [place] Clinical Care Coordinators [phone] documented in this encounter Plan of Treatment Not on file documented as of this encounter Visit Diagnoses Not on filedocumented in this encounter Additional Health Concerns Assessment Noted Time PHQ-9 Depression Total Score: 0 05/25/20 23 10:22 AM EDT documented as of this encounter Care Teams Electronic Assembler Group Leader Relationship Specialty Start Date End Date Bethanie Holliday MD [address] [place] [address] PCP - General Family Medicine 10/22/14 documented as of this encounter
--- OUTSIDE RECORDS SUMMARY | 2025-05-28 09:34 | XMS_ITS | Encounter Summary ---
Author Organization [employer] Address [address] [address] Care Team Providers Care Subgrade Tester Name Role Phone Bethanie Holliday MD Primary Care Provider [phone] Reason for Visit * Reason Comments Med Refill Encounter Details Date Type Department Care Team (Late st Contact Info) Description 03/28/2025 Refill [facility] MED & PEDS [address] [place], [place] [phone] Bethanie Holliday MD [address] [place] [address] Social History Tobacco Use Types Packs/Day Years [...] documented as of this encounter Care Teams Subgrade Tester Relationship Specialty Start Date End Date Bethanie Holliday MD [address] [place] [address] PCP - General Family Medicine 10/22/14 documented as of this encounter
--- OUTSIDE RECORDS SUMMARY | 2025-05-28 09:34 | XMS_ITS | Encounter Summary ---
Author Organization [employer] Address [address] [place] [address] Care Team Providers Care Forensic Scientist Name Role Phone Bethanie Holliday MD Primary Care Provider [phone] Encounter Details Date Type Department Care Team (Latest Contact Info) Description 09/06/2019 Abstract [facility] CONVERSIONS Dental, Provider, DDS Social History [...] on filedocumented in this encounter Care Teams Forensic Scientist Relationship Specialty Start Date End Date Bethanie Holliday MD [address] [place] [address] PCP - General Family Medicine 10/22/14 documented as of this encounter
== END 2025-05-28 09:01 | disposition home or self-care (01) ==
LOC: HO.XRAY 09:00
PROVIDERS: PCP Pediatrics; Visit Provider Nurse Practitioner Family
DX: K21.9 Gastro-esophageal reflux disease without esophagitis (principal)
CPT/HCPCS: 74246

== ENCOUNTER → 2025-05-28 09:01 | Outpatient (BNV) | payer OTHER, SELFPAY | PROVIDERS: PCP Pediatrics; Visit Provider Radiology Diagnostic Radiology | DX: K21.9 Gastro-esophageal reflux disease without esophagitis (principal); K44.9 Diaphragmatic hernia without obstruction or gangrene | CPT/HCPCS: 74246 ==

== ENCOUNTER 2025-05-31 11:03 | Outpatient (REF) | payer OTHER, SELFPAY ==
[2025-05-31 13:52] LABS: Lipase 52 U/L (8-78)
[2025-05-31 14:19] LABS: Folate 13.3 ng/mL (> or = 4.0); Vitamin B12 423 pg/mL (200-900)
[2025-06-01 18:08] LABS: Transglutaminase Ab IgG <1.0 U/mL
[2025-06-05 16:24] LABS: Vitamin D 25-OH, D2 12 ng/mL; Vitamin D 25-OH, D3 19 ng/mL; Vitamin D 25-OH, Total 31 ng/mL (30-100)
== END 2025-05-31 11:04 | disposition home or self-care (01) ==
LOC: HO.LAB 11:03
PROVIDERS: PCP Pediatrics; Visit Provider Nurse Practitioner Family
DX: K21.9 Gastro-esophageal reflux disease without esophagitis (principal); K59.00 Constipation, unspecified; E55.9 Vitamin D deficiency, unspecified; Z12.11 Encounter for screening for malignant neoplasm of colon
CPT/HCPCS: 36415; 82306; 82607; 82746; 83690; 84443; 86364; 99212

== ENCOUNTER 2025-05-31 11:03 | Outpatient (AMB) | payer OTHER, SELFPAY ==
--- NOTE | 2025-05-31 11:09 | A.OFFVIS_ITS ---
Vital Signs 05/31/25 11:14 Height 5 ft 4 in Weight 182 lb BMI 31.2 BP 104/70 Blood Pressure Location Rt brachial Position Sitting Pulse 72 Pulse Source Pulse Oximeter Pulse Oximetry (%) 99 Intake Visit Reasons: Pt + Prov req visit. Intake Note: ESTABLISHED PATIENT for GERD mgmt. Worsening chronic sx. Chief Complaint; C.O. worsening GERD despite current therapies. Pt also reports having epigastric pain intermittently. Review EGD + [place]. Physical Education Instructor Required: No Accompanied by: Self / Same As Patient Allergies Penicillins Allergy (Mild, Verified 05/01/25 15:03) SWELLING penicillin V Allergy (Unknown, Verified 05/01/25 15:03) swelling HPI HPI Pt + Prov req visit.: Details: LAST VISIT: Screen for colon cancer GERD (gastroesophageal reflux disease) Postprandial abdominal bloating Plan Will check patient for H pylori. Patient's was treated for H pylori few months with effect. Will check vitamin B12, folate, vitamin-D level. Will check for celiac disease. Patient will be sent for upper GI series. I will see her in 3 months. Message will be sent to surgical schedulers to book upper endoscopy and colonoscopy for patient. Patient is agreeable to current plan of care and verbalizes understanding of instructions. She was given the opportunity to ask questions and all questions answered. ? Thank you for allowing me to participate in her care Orders H Pylori Breath Test 06/30/24 K21.9 Vitamin B12 and Folate 06/30/24 R19.7 Vitamin D 25-OH (D2 and D3) 06/30/24 E55.9 FL upper GI w Ba Swallow 06/30/24 K21.9 Transglutaminase Ab IgG 06/30/24 R10.9 Transglutaminase IgA 06/30/24 R10.9 New famotidine (Pepcid) 20 mg PO BID 60 tabs 3RF K29.70 TODAY'S VISIT Patient is here today to discuss going for colonoscopy. Unfortunately patient was unable to poke procedure. Patient had to change the appointment for her upper GI series with barium swallow. Patient ate the morning of that test and had to reschedule. Patient continues to have epigastric pain and nausea. Patient reports that she feels worse by the end of the day. Postprandial abdominal bloating. Patient reports that she is moving her bowels without any issues. Denies melena, hematochezia, unintentional weight loss or rectal script patient never had a colonoscopy in the past. Patient reports was diagnosed and treated for H pylori. Patient had negative breath test in the past. However patient has not completed her blood work yet. Will send patient today. [facility] Medical History Obesity Pulmonary emboli Surgical History (Updated 05/31/25 @ 11:11 by GRACIELA Zuleta) H/O lithotripsy History of excision of mass (10/05/23) Hx of abdominoplasty (~04/28/23) History of breast lift (~04/28/23) History of delivery Family History Father Prostate cancer Mother High cholesterol HTN (hypertension) Social History Household Members: Family Housing: House Do you presently have visiting nurse or other home services: No Unable to assess alcohol history related to: Unknown Alcohol intake: never Comment: supervision as pt post op Patient Tobacco Use Status: Never used Tobacco service: No Current occupational status: employed Review of Systems Const Denies weight gain and Denies weight loss ENT Reports no additional complaints, Reports dysphagia and Denies odynophagia Card Reports no additional complaints Resp Reports no additional complaints GI Reports abdominal pain (Epigastric), Denies belching, Denies melena, Reports bloating, Denies change in bowel habits, Reports dysphagia, Denies excessive flatus, Denies dyspepsia, Reports heartburn, Denies diarrhea, Denies loose stools, Reports nausea, Denies odynophagia and Reports vomiting Reports no additional complaints Musc Reports no additional complaints Neuro Reports no additional complaints Psych Reports no additional complaints Endo Reports no additional complaints Physical Exam Vital Signs: Last Vital Signs Pulse 72 10/02/25 11:14 BP 104/70 05/31/25 11:14 Pulse Ox 99 05/31/25 11:14 BMI result Body Mass Index 31.2 Const General: healthy appearing and no acute distress Nutritional Appearance: well nourished and obese Orientation/consciousness: patient oriented x3 Resp Effort & Inspection: normal respiratory effort, able to speak in complete sentences, no tracheal deviation and symmetric chest movement Auscultation: clear to auscultation bilaterally Cardio Rate: regular rate GI Inspection: Yes normal to inspection, No distended and Yes obesity Palpation (GI): Soft to palpation, not firm, nontender and No hepatosplenomegaly present Auscultation: normal bowel sounds General: Yes no CVA tenderness Back/Spine/Pelvis Back: no CVA tenderness Skin General skin exam: elasticity normal, turgor normal and dry skin Neuro General: patient oriented x3 Psych Appearance: grossly normal Mental Status: mental status grossly normal Assessment & Plan Assessment & Plan (1) GERD (gastroesophageal reflux disease): Code(s): K21.9 - Gastro-esophageal reflux disease without esophagitis Qualifiers: Esophagitis presence: esophagitis presence not specified Qualified Code(s): K21.9 - Gastro-esophageal reflux disease without esophagitis (2) Postprandial epigastric pain: Code(s): R10.13 - Epigastric pain (3) Screen for colon cancer: Code(s): Z12.11 - Encounter for screening for malignant neoplasm of colon (4) Postprandial abdominal bloating: Code(s): R14.0 - Abdominal distension (gaseous) Plan Message sent to surgical schedulers to bulk procedure for patient. Patient will start taking pantoprazole in the morning and famotidine at bedtime. Discussed with patient upper GI series. Patient will go to lab her to get that done. H pylori was negative. Patient will be sent for upper endoscopy and colonoscopy. What to expect before during and after procedures discussed with patient. Stressed the importance of good bowel prep and clear liquid diet day before procedure. Patient denies issues with anesthesia in the past. No history of sleep apnea. Patient is on Zepbound for weight loss. Patient reports that symp toms of epigastric pain and reflux on going in even when patient was not on GLP 1 I will see patient after the procedure, sooner on as needed basis. Patient is agreeable to this plan and verbalizes understanding of instructions. She was given the opportunity to ask questions and all questions answered. Thank you for allowing me to participate in her care Orders: Orders Vitamin D 25-OH (D2 and D3) Today E55.9 - Vitamin D deficiency, unspecified Transglutaminase IgA Today R10.9 - Unspecified abdominal pain TSH reflex Free T4 Today K59.00 - Constipation, unspecified Vitamin B12 and Folate Today R19.7 - Diarrhea, unspecified Lipase Today R10.9 - Unspecified abdominal pain Medications: New pantoprazole 40 mg PO DAILY 90 tabs 1RF bisacodyl (Dulcolax (bisacodyl)) take 4 tabs at noon the day before your colonoscopy 20 mg (4 x 5 mg) PO ONCE 4 tabs 0RF constipation 1 day Z12.11 - Encounter for screening for malignant neoplasm of colon polyethylene glycol 3350 (Miralax) As directed by gastroenterology department at [facility] 238 grams PO ONCE 238 grams 0RF Z12.11 - Encounter for screening for malignant neoplasm of colon famotidine 40 mg PO BEDTIME 30 tabs 3RF K21.9 - Gastro-esophageal reflux disease without esophagitis Coding Level of Care Code Est Pt Level 4 (59211) Complex EM visit Add On G2211 Diagnoses Gastroesophageal reflux disease, unspecified whether esophagitis present K21.9 Esophagitis presence: esophagitis presence not specified Postprandial epigastric pain R10.13 Screen for colon cancer Z12.11 Postprandial abdominal bloating R14.0 Time Spent (min) 40 Comment 25 minutes spent with patient and additional 15 minutes spent reviewing her records
[2025-05-31 11:14] VITALS: BP 104/70; PULSE 72; O2SAT 99; BMI 31.2
--- OUTSIDE RECORDS SUMMARY | 2025-05-31 12:58 | XMS_ITS | Encounter Summary ---
Author Organization [employer] Address [address] [place] [address] Care Team Providers Care Ada Accommodation Consultant Name Role Phone Bethanie Holliday MD Primary Care Provider [phone] Reason for Visit * Reason Onset Date Comments Hospital Follow-up 10/06/2024 Encounter Details Date Type Department Care Team (Late st Contact Info) Description 10/06/2024 Telephone [facility] MEDICINE [address] [place] [address] Bethanie Holliday MD [address] [place] [address] Hospital Follow-up Social History Tobacco Use Types [...] from pt requesting a HDF appt. Hospital: [facility] Date of admission: 10/04 Discharge date: 10/06 Diagnosed: Kidney Stones Surgery *Send message to [place] Clinical Care Coordinators [phone] documented in this encounter Plan of Treatment Not on file documented as of this encounter Visit Diagnoses Not on filedocumented in this encounter Additional Health Concerns Assessment Noted Time PHQ-9 Depression Total Score: 0 05/25/20 23 10:22 AM EDT documented as of this encounter Care Teams Ada Accommodation Consultant Relationship Specialty Start Date End Date Bethanie Holliday MD [address] [place] [address] PCP - General Family Medicine 10/22/14 documented as of this encounter
--- OUTSIDE RECORDS SUMMARY | 2025-05-31 12:58 | XMS_ITS | Encounter Summary ---
Author Organization [employer] Address [address] [place] [address] Care Team Providers Care Regrinder Name Role Phone Bethanie Holliday MD Primary Care Provider [phone] Encounter Details Date Type Department Care Team (Latest Contact Info) Description 12/12/2020 Abstract [facility] CONVERSIONS Dental, Provider, DDS Social History Tobacco [...] on filedocumented in this encounter Care Teams Regrinder Relationship Specialty Start Date End Date Bethanie Holliday MD [address] [place] [address] PCP - General Family Medicine 10/22/14 documented as of this encounter
--- OUTSIDE RECORDS SUMMARY | 2025-05-31 12:58 | XMS_ITS | Encounter Summary ---
Author Organization [employer] Address [address] [place] [address] Care Team Providers Care Medical Intern Name Role Phone Bethanie Holliday MD Primary Care Provider [phone] Encounter Details Date Type Department Care Team (Latest Contact Info) Description 09/06/2019 Abstract [facility] CONVERSIONS Dental, Provider, DDS Social [...] on filedocumented in this encounter Care Teams Medical Intern Relationship Specialty Start Date End Date Bethanie Holliday MD [address] [place] [address] PCP - General Family Medicine 10/22/14 documented as of this encounter
--- OUTSIDE RECORDS SUMMARY | 2025-05-31 12:58 | XMS_ITS | Encounter Summary ---
Author Organization [employer] Address [address] [address] Care Team Providers Care Sky Diver Name Role Phone Bethanie Holliday MD Primary Care Provider [phone] Encounter Details Date Type Department Care Team (Latest Contact Info) Description 05/14/2025 Results Follow-Up [facility] MED & PEDS [address] [place], [place] [phone] Bethanie Holliday MD [address] [place] [address] [place] Pelvis Transvaginal Social History Tobacco Use [...] documented as of this encounter Care Teams Sky Diver Relationship Specialty Start Date End Date Bethanie Holliday MD [address] [place] [address] PCP - General Family Medicine 10/22/14 documented as of this encounter
--- OUTSIDE RECORDS SUMMARY | 2025-05-31 12:58 | XMS_ITS | Encounter Summary ---
Author Organization [employer] Address [address] [place] [address] Care Team Providers Care Learning Design Specialist Name Role Phone Bethanie Holliday MD Primary Care Provider [phone] Reason for Visit * Reason Onset Date Comments Med Refill 03/26/2025 Encounter Details Date Type Department Care Team (Late st Contact Info) Description 03/26/2025 Refill [facility] MED & PEDS [address] [place], [place] [phone] Bethanie Holliday MD 505 [place] [address] Social History Tobacco Use Types Packs/Day Years [...] documented as of this encounter Care Teams Learning Design Specialist Relationship Specialty Start Date End Date Bethanie Holliday MD [address] [place] [address] PCP - General Family Medicine 10/22/14 documented as of this encounter
--- OUTSIDE RECORDS SUMMARY | 2025-05-31 12:58 | XMS_ITS | Encounter Summary ---
Author Organization [employer] Address [address] [place] [address] Care Team Providers Care Pastrycook'S Assistant Name Role Phone Bethanie Holliday MD Primary Care Provider [phone] Encounter Details Date Type Department Care Team (Latest Contact Info) Description 05/28/2022 Abstract [facility] CONVERSION[facility] Dental, Provider, DDS Social History Tobacco [...] on filedocumented in this encounter Care Teams Pastrycook'S Assistant Relationship Specialty Start Date End Date Bethanie Holliday MD 505 [place] [address] PCP - General Family Medicine 10/22/14 documented as of this encounter
--- OUTSIDE RECORDS SUMMARY | 2025-05-31 12:58 | XMS_ITS | Encounter Summary ---
Author Organization [employer] Address [address] [address] Care Team Providers Care Bale Breaker Operator Name Role Phone Bethanie Holliday MD Primary Care Provider Reason for Visit * Reason Comments Med Refill Encounter Details Date Type Department Care Team (Late st Contact Info) Description 03/28/2025 Refill [facility] CH[facility] MED & PEDS [address] [place], [place] [phone] Bethanie Holliday MD 505 [place] [address] Social History Tobacco Use Types Packs/Day Years [...] documented as of this encounter Care Teams Bale Breaker Operator Relationship Specialty Start Date End Date Bethanie Holliday MD [address] [place] [address] PCP - General Family Medicine 10/22/14 documented as of this encounter
--- OUTSIDE RECORDS SUMMARY | 2025-05-31 12:58 | XMS_ITS | Encounter Summary ---
Author Organization [employer] Address 75 [facility] 7 [place] [address] Care Team Providers Care Buttonhole Marker Name Role Phone Bethanie Holliday MD Primary Care Provider [phone] Encounter Details Date Type Department Care Team (Late st Contact Info) Description 11/13/2022 Orders Only [facility] CHC MED & PEDS 505 [place], [place] [phone] Bethanie Holliday MD [address] [place], [place] [phone] Arthralgia of right knee (Primary Dx) Social [...] Primary documented in this encounter Care Teams Buttonhole Marker Relationship Specialty Start Date End Date Bethanie Holliday MD [address] [place] [address] PCP - General Family Medicine 10/22/14 documented as of this encounter
--- OUTSIDE RECORDS SUMMARY | 2025-05-31 12:58 | XMS_ITS | Clinical Summary ---
Author Organization [employer] Address 75 [facility] 7 [place] [address] Care Team Providers Care Retail Analyst Name Role Phone Bethanie Holliday MD Primary Care Provider [phone] Allergies Active Allergy Reactions Criticality Noted Date Comments Penicillin G Swelling Low 02/10/2012 Penicillins Swelling Low 08/18/2022 Medications EPINEPHrine (Epipen) 0.3 MG/0.3ML injection syringe Inject 0.3 mL into the shoulder, thigh, or buttocks. 01/18/2020 Active Tirzepatide (Mounjaro) 5 MG/0.5ML solution auto-injector 5 mg. 10/04/2024 Activ e ergocalciferol (Vitamin D2) 1.25 MG (85678 UT) capsule Take 1 capsule (1.25 mg) [...] Department Care Team Description 05/14/2025 Results Follow-Up [facility] MED & PEDS [address] [place] [address] Bethanie Holliday MD Pelvis Transvaginal 05/14/[address] [facility] MED & PEDS [address] [place] [address] Bethanie Holliday MD Pelvic pain (Primary Dx); Free fluid in pelvis; Dyspareunia, female 03/28/[address] [facility] MED & PEDS [address] [place] [address] Bethanie Holliday MD 03/26/[address] [facility] MED & PEDS [address] [place] [address] Bethanie Holliday MD 03/15/2025 10:15 AM EDT Office Visit [facility] MED & PEDS [address] [place] [address] Bethanie Holliday MD Pelvic pain (Primary Dx); Obesity (BMI 30-39.9); Prolactinoma (CMS/HCC) 03/15/2025 Travel 03/14/[address] [facility] MED & PEDS [address] [place] [address] Bethanie Holliday MD Chart Prep 03/08/2025 Patient Outreach [facility] MEDICINE [address] [place] [address] Bethanie Holliday MD Pre-visit Planning (SDOH screening completed on 11/24/24 ) 02/28/2025 Results Follow-Up [facility] MED & PEDS [address] [place] [address] Bethanie Holliday MD BI Mammogram Screening Tomosynthesis [...] Name Priority Date/Time Associated Diagnosis Comments FL UPPER GI W AIR W BARIUM SWALLOW Routine 05/28/2025 9:24 AM EDT US PELVIS TRANSVAGINAL Routine 1:49 PM EDT [...] Relevant to Health Maintenance Results * FL Upper GI w/air w/Barium Swallow (05/28/2025 9:24 AM EDT) Anatomical Region Laterality Modality Body Radiographic Elza ging 05/28/2025 9:24 AM EDT Narrative 05/28/2025 12:45 PM EDT [address] [address] Fluoroscopy Report Signed Patient: Martín Ervin Wen#: [id number] : 1980 Acct:[id number] Age/Sex: 45 / F ADM Date: 05/28/25 Loc: HO.XRAY Attending Dr: Aylin Morales [facility] Ordering Physician: Aylin Morales [facility] Date of Service: 05/28/25 Procedure(s): FL upper GI w air w Ba Swallow Accession Number(s): [id number] cc: Bethanie Holliday MD; Aylin Morales [facility] Reason for Exam: K21.9 - Gastro-esophageal reflux disease without esophagitis EXAMINATION: XR UPPER GI SERIES WITH SMALL BOWEL CLINICAL INFORMATION: Abdominal pain with nausea. COMPARISON: None available. TECHNIQUE: Routine upper GI air contrast study with barium swallow was performed in upright and lying position. FINDINGS: Following oral administration of thick barium and effervescent granules there is normal propagation of bolus from the oral cavity through the pharynx, esophagus into stomach without obstruction, narrowing or stricture. No laryngeal penetration, aspiration or extrinsic esophageal compression. On placing patient supine and prone lying there is mild increased gastric secretions. No gastric and duodenal bulb ulceration or erosion seen. The course, caliber and peristalsis of the stomach, duodenal bulb and the sweep is normal. There is moderate gastroesophageal reflux into the upper esophagus with a small sliding hiatal hernia. FLUOROSCOPY TIME: 2 minutes 21 seconds. DOSE AREA PRODUCT: 2323 uGy-m2 (microgray-meter squared) FL/FL upper GI w air w Ba Swallow IMPRESSION: Increased gastric secretions suggestive of hyper acidity. Moderate gastroesophageal reflux into upper esophagus with a small sliding hiatal hernia. Electronically signed by: Randy Gutierrez MD 05/28/2025 12:42 PM EDT Dictated By: Randy Gutierrez MD Signed By: <Electronically signed by Randy Gutierrez MD in OV> 05/28/25 1242 DD/ TD/TT: 05/28/25 0937 Traveling Inventory Associate: [facility] Procedure Note Donotuseinterpreter, Image - 05/28/[address] [address] Fluoroscopy Report Signed Patient: Martín Ervin MM R#: [id number] : 1980Acct:[id number] Age/Sex: 45 / FADM Date: 05/28/25 Loc: HO.XRAY Attending Dr: Aylin Morales [facility] Ordering Physician: Aylin Morales [facility] Date of Service: 05/28/25 Procedure(s): FL upper GI w air w Ba Swallow Accession Number(s): [id number] cc: Bethanie Holliday MD; Aylin Morales [facility] Reason for Exam: K21.9 - Gastro-esophageal reflux disease withoutesophagitis EXAMINATION: XR UPPER GI SERIES WITH SMALL BOWEL CLINICAL INFORMATION: Abdominal pain with nausea. COMPARISON: None available. TECHNIQUE: Routine upper GI air contrast study with barium swallow was performed in upright and lying position. FINDINGS: Following oral administration of thick barium and effervescent granules there is normal propagation of bolus from the oral cavity through the pharynx, esophagus into stomach without obstruction, narrowing or stricture. No laryngeal penetration, aspiration or extrinsic esophageal compression. On placing patient supine and prone lying there is mild increased gastric secretions. No gastric and duodenal bulb ulceration or erosion seen. The course, caliber and peristalsis of the stomach, duodenal bulb and the sweep is normal. There is moderate gastroesophageal reflux into the upper esophagus with a small sliding hiatal hernia. FLUOROSCOPY TIME: 2 minutes 21 seconds. DOSE AREA PRODUCT: 2323 uGy-m2 (microgray-meter squared) FL/FL upper GI w air w Ba Swallow IMPRESSION: Increased gastric secretions suggestive of hyper acidity. Moderate gastroesophageal reflux into upper esophagus with a small sliding hiatal hernia. Electronically signed by: Randy Gutierrez MD 05/28/2025 12:42 PM EDT Dictated By: Randy Gutierrez MD Signed By: <Electronically signed by Randy Gutierrez MD in OV> 05/28/25 1242 DD/ 3 TD/TT: 05/28/25 0937 Traveling Inventory Associate: SOHEILA us [facility] External Provider IMG FLU OROSCOPY PROCEDURES Final Result * US Pelvis Transvaginal (05/11/2025 1:49 PM EDT) Anatomical Region Laterality Modality Pelvis Ultrasound 05/11/2025 1:49 PM EDT Narrative 05/11/2025 2:25 PM EDT [address] [address] Ultrasound Report Signed Patient: Martín Ervin Robyn Carlson R#: [id number] : 1980 Acct:[id number] Age/Sex: 45 / F ADM Date: 05/11/25 Loc: HO.US Attending Dr: Bethanie Holliday MD Ordering Physician: Bethanie Holliday MD Date of Service: 05/11/25 Procedure(s): US pelvic and transvaginal Accession Number(s): [id number] cc: Bethanie Holliday MD Reason for Exam: [...] Antonio Leavitt MD 05/11/2025 02:22 PM EDT RP Dictated By: Luis Antonio Crane MD Signed By: <Electronically signed by Luis Antonio Ramirez MD in OV> 05/11/25 1422 DD/ 1349 TD/TT: 05/11/25 1401 Traveling Inventory Associate: Procedure Note Donotuseinterpreter, Image - 05/11/[address] [address] Ultrasound Report Signed Patient: Martín Ervin ELIO R#: [id number] : 1980Acct:[id number] Age/Sex: 45 / FADM Date: 05/11/25 Loc: HO.US Attending Dr: Bethnaie Holliday MD Ordering Physician: Bethanie Holliday MD Date of Service: 05/11/25 Procedure(s): US pelvic and transvaginal Accession Number(s): [id number] cc: Bethanie Holliday MD Reason for Exam: [...] 05/11/25 1422 DD/ 1349 TD/TT: 05/11/25 1401 Traveling Inventory Associate: us Bethanie Holliday MD IMG US PROCEDURES Final Resul t * BI Mammogram Screening Tomosynthesis Bilateral (02/16/2025 1:20 PM EDT) Anatomical Region Laterality Modality Breast Bilateral Mammography 02/16/2025 1:20 PM EDT Narrative 02/22/2025 1:42 PM EDT [facility] [place] [address] Mammography Report Signed Patient: Sapna TarangoMartín francisco R#: [id number] : 1980 Acct:[id number] Age/Sex: 45 / F ADM Date: 02/16/25 Loc: HO.MAMMO Attending Dr: Bethanie Holliday MD Ordering Physician: Bethanie Holliday MD Results: 2Be nign Findings Date of Service: 02/16/25 Follow Up: 1 Year From [facility] Mammogram Procedure(s): MM tomosynthesis screening BI Accession Number(s): [id number] cc: Bethanie Holliday MD EXAMINATION: MM SCREENING [...] Karen Gaytan DO 02/22/2025 01:39 PM EDT RP Dictated By: Karen Gaytan DO Signed By: <Electronically signed by Karen Gaytan DO in OV> 02/22/25 1339 DD/ 1320 TD/TT: 02/16/25 1340 Traveling Inventory Associate: Procedure Note Donotuseinterpreter, Image - 02/22/2025 [facility] [address] [place], [place] [address] Mammography Report Signed Patient: Sapna CabreraMartín MM R#: [id number] : 1980Acct:[id number] Age/Sex: 45 / FADM Date: 02/16/25 Loc: HO.MAMMO Attending Dr: Bethanie Holliday MD Ordering Physician: Bethanie Holliday MDResults: 2Be nign Findings Date of Service: 02/16/25Follow Up: 1 Year From [facility] Mammogram Procedure(s): MM tomosynthesis screening BI Accession Number(s): [id number] cc: Bethanie Holliday MD EXAMINATION: MM SCREENING [...] Karen Gaytan DO 02/22/2025 01:39 PM EDT RP Dictated By: Karen Gaytan DO Signed By: <Electronically signed by Karen Gaytan DO in OV> 02/22/25 1339 DD/ 1320 TD/TT: 02/16/25 1340 Traveling Inventory Associate: us Bethanie Holliday MD IMG BI PROCEDURES [...] LDL-C. Darren SS et al. REBA. 2013;310(19): 8871-1788 (http://education.iPerceptions.AcesoBee/faq/JSI140) Non-HDL Cholesterol 141(H) <130 mg/dL (calc) [facility] Comment: For patients with diabetes plus 1 major ASCVD risk factor, treating to a non-HDL-C goal of <100 mg/dL (LDL-C of <70 mg/dL) is considered a therapeutic option. Triglycerides 149 <150 mg/dL [facility] 05/28/2022 8:46 AM EDT us Bubba Lenz MD LAB BLOOD ORDERABL ES Final Result Performing Organization Address City/[facility]/ZIP Co de Phone Number [facility] * THINPREP PAP (06/18/2020 1:09 PM EDT) Clinical Information: SEE COMMENT [facility] Comment:None given COMMENT SEE COMMENT [...] along with historic and current clinical information. Gallery Manager: SEE COMMENT [facility] Comment: HJP, CT(ASCP) CT screening location: [place] [address] Interpretation/Resu lt: SEE COMMENT [facility] Comment:Negative for intraep ithelial lesion or malignancy. LMP: SEE COMMENT [facility] Comment:05/30/20 Prev. BX: NONE GIVEN [facility] Prev. PAP: SEE COMMENT [facility] Comment:NONE GIVEN SOURCE: SEE COMMENT [facility] Comment:None given Statement Of Adequacy: SEE COMMENT [facility] Comment: Satisfactory for evaluation. Endocervical/transformation zone component absent. 06/18/2020 1:09 PM EDT Beata HENRY LAB PATHOLOGY ORDERABLES Final Result Performing Organization Address [facility] Co de Phone Number [facility] [address] * HPV mRNA E6/E7 (06/18/2020 1:09 PM EDT) HPV nRNA E6/E7 Not Detected Not Detected [facility] Comment: This test was performed using the APTIMA HPV Assay ([employer] This assay detects E6/E7 viral messenger RNA (mRNA) from 14 high-risk HPV types (16,18,31,33,35,39,45,51,52,56,58,59,66,68). The analytical performance characteristics of this assay have been determined by [employer]. The modifications have not been cleared or approved by the FDA. This assay has been validated pursuant to the CLIA regulations and is used for clinical purposes. 06/18/2020 1:09 PM EDT us Beata Reddy CN LAB BLOOD ORDERABLES Liz claudy Result [facility] [address] from Last 3 Months or Most Recently Relevant to Health Maintenance Insurance [facility] Care Teams Retail Analyst Relationship Specialty Start Date End Date Bethanie Holliday MD [address] [place] [address] PCP - General Family Medicine 10/22/14
== END 2025-05-31 11:50 | disposition home or self-care (01) ==
LOC: HO.HGI 11:04
PROVIDERS: PCP Pediatrics; Visit Provider Nurse Practitioner Family
DX: Z01.818 Encounter for other preprocedural examination (principal); Z12.11 Encounter for screening for malignant neoplasm of colon; R10.13 Epigastric pain; K21.9 Gastro-esophageal reflux disease without esophagitis; R14.0 Abdominal distension (gaseous)
CPT/HCPCS: 99214

== ENCOUNTER 2025-06-12 14:30 | Outpatient (AMB) | payer OTHER, SELFPAY ==
--- NOTE | 2025-06-12 14:30 | MHC.OFFVIS ---
Vital Signs 06/12/25 14:39 Height 5 ft 4 in Weight 185 lb BMI 31.8 BP 112/70 Intake Visit Reasons: pelvic pain Intake Note: Per patient, unsure of when her last pap smear was. Normal hx. Freight Shipping Agent: Freight Shipping Agent Present (Vicky) Accompanied by: Self / Same As Patient Allergies Penicillins Allergy (Mild, Verified 06/12/25 14:37) SWELLING penicillin V Allergy (Unknown, Verified 06/12/25 14:37) swelling Medication List - Last Reconciled 06/12/25 by Dipika Gurrola CNM bisacodyl (Dulcolax (bisacodyl)) 20 mg (4 x 5 mg) PO ONCE 1 day famotidine 40 mg PO BEDTIME naproxen 500 mg PO BID 2 weeks pantoprazole 40 mg PO DAILY polyethylene glycol 3350 (Miralax) 238 grams PO ONCE tirzepatide (weight loss) (Zepbound) 7.5 mg (0.5 mL) subcut QWEEK Is last menstrual period known: Yes Last menstrual period: 05/18/25 Post menopausal: No Patient : No HPI HPI pelvic pain: Details: Patient tells me she is referred here from her primary care provider after having an ultrasound done for pelvic pain that comes and goes. She says her primary care provider told her there was something seen in the ultrasound particularly fluid in the uterus and thickened lining and that she might need further testing. Patient tells me that her last menstrual period was approximately 3 weeks ago she gets them every month she does not use control because her had a vasectomy. She has a little bit of pain when she had sex 2 days ago which corresponds to the day of ovulation according to her herman. she gets regular cycles she has had 2 children delivered by 2 C sections and tells me that I saw her in her pregnancies and helped her in her pregnancies the last was done by Dr. Watters at the [facility] 17 years ago. [facility] Medical History Obesity Pulmonary emboli Surgical History H/O lithotripsy History of excision of mass (10/05/23) Hx of abdominoplasty (~04/28/23) History of breast lift (~04/28/23) History of delivery Family History Father Prostate cancer Mother High cholesterol HTN (hypertension) Social History Household Members: Family Housing: House Do you presently have visiting nurse or other home services: No Alcohol intake: never Comment: supervision as pt post op Patient Tobacco Use Status: Never used Tobacco Patient : No service: No Current occupational status: employed Female Reproductive History Menstrual Age of Menarche: 13 Duration of menses: 3-5 days Date of last menstrual period: 05/18/25 control method: none Total pregnancies: 3 Full term: 2 Ab spontaneous: 1 Date of Mammogram: 02/16/25 (bi rad 2) Physical Exam Vital Signs: Last Vital Signs BP 112/70 06/12/25 14:39 BMI result Body Mass Index 31.8 Other: Pelvic exam offered as no Pap visible in system either end the patient's phone or in our system Pap smear done as well as cultures offered the patient has no complaints about infection or worries. Cervix is tightly closed nulliparous barely yielding to Cytobrush and Q-tips it is pink soft with normal scant discharge cervix long close thick mobile nontender adnexa nontender uterus nontender nonenlarged patient's bladder was full. She had a very slight twinge on the right-hand side on deep palpation but her bladder was full. External Female Exam: normal external appearance Speculum Exam - Vagina: normal appearance of the vagina and normal vaginal discharge Speculum Exam - Cervix: normal appearance of the cervix Bimanual exam- vagina & uterus: normal bimanual exam, uterine size normal, consistency normal, uterine mobility normal, uterine shape normal and non-tender Bimanual Exam- Adnexa, other: normal adnexae, no masses and No adnexal tenderness Results Reviewed Results Reviewed: Patient: Martín Ervin MR#: [id number] : 1980 Acct:[id number] Age/Sex: 45 / F ADM Date: 05/11/25 Loc: . Attending Dr: Bethanie Holliday MD Ordering Physician: Bethanie Holliday MD Date of Service: 05/11/25 Procedure(s): US pelvic and transvaginal Accession Number(s): [id number] cc: Bethanie Holliday MD~ Reason for Exam: chronic right pelvic pain,dyspareunia EXAMINATION: US PELVIS CLINICAL INFORMATION: Pelvic pain. COMPARISON: December 01, 2015. TECHNIQUE: Ultrasound of the pelvis is performed using both transabdominal and transvaginal transducers along with Doppler. Transvaginal imaging is performed due to inadequate visualization transabdominally. FINDINGS: Uterus: The uterus is anteverted and measures 9 x 4 x 6 cm. Volume: 125 cc. The double wall endometrial thickness is 8 mm. Trace of fluid in the uterine cavity. The cervix is closed. Normal parenchyma of the uterus. No gross uterine fibroid. Adnexa: The ovaries are identified with flow on color Doppler interrogation.. No free fluid in the cul-de-sac. Right ovary measures 3 x 2 x 2 cm. Volume: 3 cc. No gross solid or cystic lesion. Left ovary measures 4 x 2 x 2 cm. Volume: 9 cc. No gross solid or cystic lesion. US/US pelvic and transvaginal IMPRESSION: 8 mm endometrial stripe with trace of fluid. No gross uterine fibroid. No ovarian torsion. Electronically signed by: Luis Antonio Leavitt MD 05/11/2025 02:22 PM EDT RP Dictated By: Luis Antonio Crane MD Signed By: <Electronically signed by Luis Antonio Ramirez MD in OV> 05/11/25 1422 DD/ 1349 TD/TT: 05/11/25 1401 Soil Chemist: Assessment & Plan Assessment & Plan (1) Pelvic pain: Comment: Occasional sporadic Code(s): R10.20 - Pelvic and perineal pain unspecified side Category: Medical (2) Screening for malignant neoplasm of cervix: Code(s): Z12.4 - Encounter for screening for malignant neoplasm of cervix Category: Medical (3) Nephrolithiasis: Code(s): N20.0 - Calculus of kidney Category: Medical Plan I reviewed the patient's ultrasound with her in great detail. 8 mm uterine lining would not be out of norms for somebody who is regularly menstruating and a week before her period When the ultrasound was done. Neither would a trace fluid be abnormal. No ovarian cyst was seen. No Pap smear could be found in any system neither her phone herman or our system Discussed with the patient that I could today do a Pap smear and I offered cultures though she had no worry but she accepted them Discussed in detail the ultrasound and the I did not see any evident pathology in it. Whoever it maybe very helpful for her to keep close track using her herman or something else in a calendar of when exactly she gets the pain and is it with intercourse or without and chart on the calendar how it is related and when it is within her cycle and related to ovulation and post ovulatory time discussed that this is often a time when women have a little bit more discomfort because of having ovulated in a cycle and also the tendency towards constipation at this time can also contribute as well. The patient is very well-versed with her symptoms of kidney stones and has had them often on for many many years and they run in her family. Discussed keeping close track of her symptoms and if she finds that it is always the 2nd half of her cycle that may in fact be reassuring to her but if she finds anything untoward if she ever experienced an irregular bleeding pattern or bleeding outside of her cycle were something that changed that would deserve looking into in addition she may some day soon expect hoda menopausal changes such as skipped periods hot flashes vaginal dryness etc. and I did discuss these as information. She will keep track of her symptoms and seek a visit if it is necessary. Coding Level of Care Code New Pt Level 3 (94386) Diagnoses Pelvic pain R10.20 Screening for malignant neoplasm of cervix Z12.4 Nephrolithiasis N20.0
[2025-06-12 14:39] VITALS: BP 112/70; BMI 31.8
--- OUTSIDE RECORDS SUMMARY | 2025-06-12 17:22 | XMS_ITS | Encounter Summary ---
Author Organization [employer] Address [address] [place] [address] Care Team Providers Care Airport Ramp Agent Name Role Phone Bethanie Holliday MD Primary Care Provider Reason for Visit * Reason Onset Date Comments Med Refill 03/26/2025 Encounter Details Date Type Department Care Team (Late st Contact Info) Description 03/26/[address] [facility] MED & PEDS [address] [place], [place] [phone] Bethanie Holliday MD [address] [place] [address] Social History Tobacco Use Types Packs/Day Years [...] documented as of this encounter Care Teams Airport Ramp Agent Relationship Specialty Start Date End Date Bethanie Holliday MD [address] [place] [phone] PCP - General Family Medicine 10/22/14 documented as of this encounter
--- OUTSIDE RECORDS SUMMARY | 2025-06-12 17:22 | XMS_ITS | Encounter Summary ---
Author Organization [employer] Address [address] [place] [address] Care Team Providers Care Bench Scientist Name Role Phone Bethanie Holliday MD Primary Care Provider [phone] Encounter Details Date Type Department Care Team (Latest Contact Info) Description 05/14/2025 Results Follow-Up [facility] MED & PEDS [address] [place], [place] [phone] Bethanie Holilday MD [address] [place] [address] [place] Pelvis Transvaginal Social History Tobacco Use [...] documented as of this encounter Care Teams Bench Scientist Relationship Specialty Start Date End Date Bethanie Holliday MD [address] [place] [address] PCP - General Family Medicine 10/22/14 documented as of this encounter
--- OUTSIDE RECORDS SUMMARY | 2025-06-12 17:22 | XMS_ITS | Encounter Summary ---
Author Organization [employer] Address [address] [address] Care Team Providers Care Infantry Weapons Officer Name Role Phone Bethanie Holliday MD Primary Care Provider [phone] Encounter Details Date Type Department Care Team (Latest Contact Info) Description 05/28/2022 Abstract [facility] CONVERSIONS Dental, Provider, DDS Social [...] on filedocumented in this encounter Care Teams Infantry Weapons Officer Relationship Specialty Start Date End Date Bethanie Holliday MD [address] [place] [address] PCP - General Family Medicine 10/22/14 documented as of this encounter
--- OUTSIDE RECORDS SUMMARY | 2025-06-12 17:22 | XMS_ITS | Clinical Summary ---
Author Organization [employer] Address [address] [facility] 7 [place] [address] Care Team Providers Care Finishing Technician Name Role Phone Bethanie Holliday MD Primary Care Provider [phone] Allergies Active Allergy Reactions Criticality Noted Date Comments Penicillin G Swelling Low 02/10/2012 Penicillins Swelling Low 08/18/2022 Medications EPINEPHrine (Epipen) 0.3 MG/0.3ML injection syringe Inject 0.3 mL into the shoulder, thigh, or buttocks. 01/18/2020 Active Tirzepatide (Mounjaro) 5 MG/0.5ML solution auto-injector 5 mg. 10/04/2024 Activ e ergocalciferol (Vitamin D2) 1.25 MG (70813 UT) capsule Take 1 capsule (1.25 mg) [...] Provider, Generic External Data 05/14/2025 Results Follow-Up [facility] [address] [place] [address] Bethanie Holliday MD Pelvis Transvaginal 05/14/2025 Orders Only [facility] [address] [place] [address] Bethanie Holliday MD Pelvic pain (Primary Dx); Free fluid in pelvis; Dyspareunia, female 03/28/2025 Refill [facility] [address] [place] [address] Bethanie Holliday MD 03/26/2025 Refill [facility] [address] [place] [address] Bethanie Holliday MD 03/15/2025 10:15 AM EDT Office Visit [facility] [address] [place] [address] Bethanie Holliday MD Pelvic pain (Primary Dx); Obesity (BMI 30-39.9); Prolactinoma ([facility]/HCC) 03/15/2025 Travel 03/14/2025 Telephone [facility] [address] [place] [address] Bethanie Holliday MD Chart Prep from Last 3 Months Immunizations Immunization Administration [...] 02/16/2025, 05/31, 08/29/2019 Lipid Panel 05/28/2027 05/28/2022, 02/10/2021, 10/30/2020, [...] Name Priority Date/Time Associated Diagnosis Comments VITAMIN D 25-OH (D2 AND D3) Routine 05/31/2025 12:18 PM EDT TISSUE TRANSGLUTAMINASE [...] Recently Relevant to Health Maintenance Results * VITAMIN D 25-OH (D2 AND D3) (05/31/2025 12:18 PM EDT) Vitamin D, 25-OH, D2 12 ng/mL [facility] Comment:This test was develo ped and its analytical performancecharacteristics have been determined by [employer], [place]. It hasnot been cleared or approved by the U.S. Food and DrugAdministration. This assay has been validated pursuantto the CLIA regulations and is used for clinicalpurposes.THIS TEST WAS PERFORMED AT:[employer] [id number] [place] [id number] SUAREZ MD,PHD Vitamin D, 25-OH, D3 19 ng/mL [facility] Comment:This test was develo ped and its analytical performancecharacteristics have been determined by [employer] [place], [place]. It hasnot been cleared or approved by the U.S. Food and DrugAdministration. This assay has been validated pursuantto the CLIA regulations and is used for clinicalpurposes. Vitamin D, 25-OH, Total 31 30 - 100 ng/mL [facility] Comment:Vitamin D, 25-Hydrox y reports concentrations of twocommon forms, 25-OHD2 and 25-OHD3. 25-OHD3 indicatesboth endogenous production and supplementation.25-OHD2 is an indicator of exogenous sources such asdiet or supplementation. Therapy is based onmeasurement of Total 25-OHD, with levels <20 ng/mLindicative of Vitamin D deficiency, while levelsbetween 20 ng/mL and 30 ng/mL suggest insufficiency.Optimal levels are > or = 30 ng/mL.For additional information, please refer tohttp://education.[employer]/faq/VED368(This link is being provided for informational/educational purposes only.) 05/31/2025 12:1 8 PM EDT 05/31/2025 12:18 PM EDT us Generic External Data Provider LAB BLOOD ORDERAB LES Final Result Performing Organization Address City/[facility]/ZIP Co de Phone Number [facility] [address] [place] [phone] * Vitamin B12 (Cobalamin) and Folate Panel, Serum (05/31/2025 12:18 PM EDT) Vitamin B12 423 200 - 900 pg/mL [facility] Comment:NORMAL 200-900 PG/ML INDETERMINATE 160-199 PG/ML DEFICIENT < 160 PG/ML Folate 13.3 > or = 4.0 ng/mL [facility] Comment:Reference Values:> o r = 4.0 ng/mL< 4.0 ng/mL suggests folate deficiency Methotrexate, aminopterin and folinic acid(leucovorin) are chemotherapeutic agents whose molecularstructures are similar to folate; therefore, the Architectfolate assay cannot be used for patients using these drugs. 05/31/2025 12:1 8 PM EDT 05/31/2025 12:18 PM EDT us Generic External Data Provider LAB BLOOD ORDERAB LES Final Result Performing Organization Address [facility] Co de Phone Number [facility] [address] [place] [phone] * TSH with Reflex to Free T4 (05/31/2025 12:18 PM EDT) TSH reflex Free T4 2.55 0.32 - 4.0 uIU/mL [facility] 05/31/2025 12:1 8 PM EDT 05/31/2025 12:18 PM EDT us Generic External Data Provider LAB BLOOD ORDERAB LES Final Result Performing Organization Address [facility]/ZIP Co de Phone Number [facility] [address] [place] [phone] * Tissue Transglutaminase (tTG) Antibody (IgG) (05/31/2025 12:18 PM EDT) Tissue Transglutaminase Antibody IgG <1.0 U/mL [facility] Comment:Value Interpretation ----- <15.0 Antibody not detected> or = 15.0 Antibody detectedTHIS TEST WAS PERFORMED AT:[facility] [place] [id number] NINA MD 05/31/2025 12:1 8 PM EDT 05/31/2025 12:18 PM EDT Generic External Data Provider LAB BLOOD ORDERAB LES Final Result Performing Organization Address [facility] Co de Phone Number [facility] [address] [place] [phone] * Tissue Transglutaminase Antibody, IgA (05/31/2025 12:18 PM EDT) Transglutaminase IgA <1.0 U/mL [facility] Comment:Value Interpretation ----- <15.0 Antibody not detected> or = 15.0 Antibody detectedTHIS TEST WAS PERFORMED AT:[facility] [address] [id number] NINA MD 05/31/2025 12:1 8 PM EDT 05/31/2025 12:18 PM EDT us Generic External Data Provider LAB BLOOD ORDERAB LES Final Result Performing Organization Address [facility] de Phone Number [facility] [address] [place] [phone] * Lipase (05/31/2025 12:18 PM EDT) Lipase 52 8 - 78 U/L [facility] 05/31/2025 12:1 8 PM EDT 05/31/2025 12:18 PM EDT us Generic External Data Provider LAB BLOOD ORDERAB LES Final Result Performing Organization Address City/State/[facility] Co de Phone Number [facility] [address] [place] [phone] * FL Upper GI w/air w/Barium Swallow (05/28/2025 9:24 AM EDT) Anatomical Region Laterality Modality Body Radiographic Elza ging 05/28/2025 9:24 AM EDT Narrative 05/28/2025 12:45 PM EDT [address] [address] Fluoroscopy Report Signed Patient: Sapna CabreraMartín Carver#: [id number] : 1980 Acct:[id number] Age/Sex: 45 / F ADM Date: 05/28/25 Loc: HOCHRISTOPHER Attending Dr: Aylin Morales [facility]- Ordering Physician: Aylin Morales [facility] Date of Service: 05/28/25 Procedure(s): FL upper GI w air w Ba Swallow Accession Number(s): [id number] cc: Bethanie Holliday MD; Aylin Morales [facility]- Reason for Exam: K21.9 - Gastro-esophageal reflux [...] in OV> 05/28/25 1242 DD/ 3 TD/TT: 05/28/2537 Seo Analyst: [facility] Procedure Note Donotuseinterpreter, Image - 05/28/2025 [place] [address] Fluoroscopy Report Signed Patient: Sapna CabreraMartín BALLARD R#: [id number] : 1980Acct:[id number] Age/Sex: 45 / FADM Date: 05/28/25 Loc: HO.XRAY Attending Dr: Aylin Morales [facility] Ordering Physician: Aylin Morales Date of Service: 05/28/25 Procedure(s): FL upper GI w air w Ba Swallow Accession Number(s): [id number] cc: Bethanie Holliday MD; Aylin Morales [facility] Reason for Exam: K21.9 - Gastro-esophageal [...] OV> 05/28/25 1242 DD/ 3 TD/TT: 05/28/25936 Seo Analyst: [facility] External Provider IMG FLU OROSCOPY PROCEDURES Final Result * US Pelvis Transvaginal (05/11/2025 1:49 PM EDT) Anatomical Region Laterality Modality Pelvis Ultrasound 05/11/2025 1:49 PM EDT Narrative 05/11/2025 2:25 PM EDT [place] [address] Ultrasound Report Signed Patient: Martín Ervin Robyn Carver#: [id number] : 1980 Acct:[id number] Age/Sex: 45 / F ADM Date: 05/11/25 Loc: .US Attending Dr: Bethanie Holliday MD Ordering Physician: Bethanie Holliday MD Date of Service: 05/11/25 Procedure(s): US pelvic and transvaginal Accession Number(s): [id number] cc: Bethanie Holliday MD Reason for Exam: [...] 05/11/25 1422 DD/ 1349 TD/TT: 05/11/25 1401 Seo Analyst: Procedure Note Donotuseinterpreter, Image - 05/11/2025 [place] [address] Ultrasound Report Signed Patient: Martín Ervin MM R#: [id number] : 1980Acct:[id number] Age/Sex: 45 / FADM Date: 05/11/25 Loc: HO.US Attending Dr: Bethanie Holliday MD Ordering Physician: Bethanie Holliday MD Date of Service: 05/11/25 Procedure(s): US pelvic and transvaginal Accession Number(s): [id number] cc: Bethanie Holliday MD Reason for Exam: [...] 05/11/25 1422 DD/ 1349 TD/TT: 05/11/25 1401 Seo Analyst: us Bethanie Holliday MD IMG US PROCEDURES Final Resul t * BI Mammogram Screening Tomosynthesis Bilateral (02/16/2025 1:20 PM EDT) Anatomical Region Laterality Modality Breast Bilateral Mammography 02/16/2025 1:20 PM EDT Narrative 02/22/2025 1:42 PM EDT [facility] [address] [place] [address] Mammography Report Signed Patient: Sapna CabreraMartín#: [id number] : 1980 Acct:[id number] Age/Sex: 45 / F ADM Date: 02/16/25 Loc: HO.MAMMO Attending Dr: Bethanie Holliday MD Ordering Physician: Bethanie Holliday MD Results: 2Be nign Findings Date of Service: 02/16/25 Follow Up: 1 Year From Orig inal Mammogram Procedure(s): MM tomosynthesis screening BI Accession Number(s): [id number] cc: Bethanie Holliday MD EXAMINATION: MM SCREENING [...] 02/22/25 1339 DD/ 1320 TD/TT: 02/16/25 1340 Seo Analyst: Procedure Note Donotuseinterpreter, Image - 02/22/20[facility] [address] [place] [address] Mammography Report Signed Patient: Martín Ervin ELIO R#: [id number] : 1980Acct:[id number] Age/Sex: 45 / FADM Date: 02/16/25 Loc: HO.MAMMO Attending Dr: Bethanie Holliday MD Ordering Physician: Bethanie Holliday MDResults: 2Be nign Findings Date of Service: 02/16/25Follow Up: 1 Year From Orig inal Mammogram Procedure(s): MM tomosynthesis screening BI Accession Number(s): [id number] cc: Bethanie Holliday MD EXAMINATION: MM SCREENING [...] 02/22/25 1339 DD/ 1320 TD/TT: 02/16/25 1340 Seo Analyst: us Bethanie Holliday MD IMG BI PROCEDURES [...] LDL-C. Darren SS et al. REBA. 2013;310(19): 2509-3229 (http://education.[employer].[address]/faq/PEJ869) Non-HDL Cholesterol 141(H) <130 mg/dL (calc) CONVERTED [...] 1:09 PM EDT) Clinical Information: SEE COMMENT [facility] Comment:None given COMMENT SEE COMMENT [...] along with historic and current clinical information. Refurbish Technician: SEE COMMENT [facility] Comment: HJP, CT(ASCP) CT screening location: [place] [address] Interpretation/Resu lt: SEE COMMENT [facility] Comment:Negative for intraep ithelial lesion or malignancy. LMP: SEE COMMENT [facility] Comment:05/30/20 Prev. BX: NONE GIVEN [facility] Prev. PAP: SEE COMMENT [facility] Comment:NONE GIVEN SOURCE: SEE COMMENT [facility] Comment:None given Statement Of Adequacy: SEE COMMENT [facility] Comment: Satisfactory for evaluation. Endocervical/transformation zone component absent. 06/18/2020 1:09 PM EDT us Beata Blakely CNM LAB PATHOLOGY ORDERABLES Final Result Performing Organization Address [facility] de Phone Number [facility] [address] * HPV mRNA E6/E7 (06/18/2020 1:09 PM EDT) HPV nRNA E6/E7 Not Detected Not Detected [facility] Comment: This test was performed using the APTIMA HPV Assay ([employer] This assay detects E6/E7 viral messenger RNA (mRNA) from 14 high-risk HPV types (16,18,31,33,35,39,45,51,52,56,58,59,66,68). The analytical performance characteristics of this assay have been determined by [employer]. The modifications have not been cleared or approved by the FDA. This assay has been validated pursuant to the CLIA regulations and is used for clinical purposes. 06/18/2020 1:09 PM EDT Beata Blakely [facility] LAB BLOOD ORDERABLES Liz l Result Performing Organization Address [facility] de Phone Number [facility] [address] from Last 3 Months or Most Recently Relevant to Health Maintenance [place] [address] LANIE MCDONOUGH [id number] [facility] Care Teams Finishing Technician Relationship Specialty Start Date End Date Bethanie Holliday MD [address] [place] [phone] PCP - General Family Medicine 10/22/14
--- OUTSIDE RECORDS SUMMARY | 2025-06-12 17:22 | XMS_ITS | Encounter Summary ---
Author Organization [employer] Address [address] [address] Care Team Providers Care Contact Representative Name Role Phone Bethanie Holliday MD Primary Care Provider [phone] Reason for Visit * Reason Comments Med Refill Encounter Details Date Type Department Care Team (Late st Contact Info) Description 03/28/2025 Refill [facility] P[facility] [address] [place], [place] [phone] Bethanie Holliday MD [address] [place] [address] Social History Tobacco Use Types Packs/Day Years [...] documented as of this encounter Care Teams Contact Representative Relationship Specialty Start Date End Date Bethanie Holliday MD [address] [place] [address] PCP - General Family Medicine 10/22/14 documented as of this encounter
--- OUTSIDE RECORDS SUMMARY | 2025-06-12 17:22 | XMS_ITS | Encounter Summary ---
Author Organization [employer] Address [address] [place] [address] Care Team Providers Care Solar Energy System Installer Helper Name Role Phone Bethanie Holliday MD Primary Care Provider [phone] Reason for Visit * Reason Onset Date Comments Hospital Follow-up 10/06/2024 Encounter Details Date Type Department Care Team (Late st Contact Info) Description 10/06/2024 Telephone [facility] [address] [place] [address] Bethanie Holliday MD [address] [place] [address] Hospital Follow-up Social History Tobacco Use Types [...] from pt requesting a HDF appt. Hospital: [facility] Date of admission: 10/04 Discharge date: 10/06 Diagnosed: Kidney Stones Surgery *Send message to [place] Clinical Care Coordinators [phone] documented in this encounter Plan of Treatment Not on file documented as of this encounter Visit Diagnoses Not on filedocumented in this encounter Additional Health Concerns Assessment Noted Time PHQ-9 Depression Total Score: 0 05/25/20 23 10:22 AM EDT documented as of this encounter Care Teams Solar Energy System Installer Helper Relationship Specialty Start Date End Date Bethanie Holliday MD [address] [place] [phone] PCP - General Family Medicine 10/22/14 documented as of this encounter
--- OUTSIDE RECORDS SUMMARY | 2025-06-12 17:22 | XMS_ITS | Encounter Summary ---
Author Organization [employer] Address 75 [facility] 7 [place] [address] Care Team Providers Care Production Technician Name Role Phone Bethanie Holliday MD Primary Care Provider [phone] Encounter Details Date Type Department Care Team (Late st Contact Info) Description 11/13/2022 Orders Only [facility] MED & PEDS [address] [place], [place] [phone] Bethanie Holliday MD [address] [place], [place] [phone] Arthralgia of right knee (Primary Dx) Social [...] Primary documented in this encounter Care Teams Production Technician Relationship Specialty Start Date End Date Bethanie Holliday MD [address] [place] [address] PCP - General Family Medicine 10/22/14 documented as of this encounter
--- OUTSIDE RECORDS SUMMARY | 2025-06-12 17:22 | XMS_ITS | Encounter Summary ---
Author Organization [employer] Address [address] [place] [address] Care Team Providers Care Aluminum Boat Assembly Supervisor Name Role Phone Bethanie Holliday MD Primary Care Provider [phone] Encounter Details Date Type Department Care Team (Latest Contact Info) Description 12/12/2020 Abstract [facility] CONVERSIONS Dental, Provider, DDS Social History Tobacco [...] on filedocumented in this encounter Care Teams Aluminum Boat Assembly Supervisor Relationship Specialty Start Date End Date Bethanie Holliday MD [address] [place] [address] PCP - General Family Medicine 10/22/14 documented as of this encounter
--- OUTSIDE RECORDS SUMMARY | 2025-06-12 17:22 | XMS_ITS | Encounter Summary ---
Author Organization [employer] Address [address] [place] [address] Care Team Providers Care Epic Specialist Name Role Phone Bethanie Holliday MD Primary Care Provider [phone] Encounter Details Date Type Department Care Team (Latest Contact Info) Description 09/06/2019 Abstract [facility] CONVERSIONS Dental, Provider, DDS Social [...] on filedocumented in this encounter Care Teams Epic Specialist Relationship Specialty Start Date End Date Bethanie Holliday MD [address] [place] [address] PCP - General Family Medicine 10/22/14 documented as of this encounter
== END 2025-06-12 16:12 | disposition home or self-care (01) ==
LOC: HO.HWSM 14:30
PROVIDERS: PCP Pediatrics; Visit Provider Advanced Practice Midwife
DX: R10.20 Pelvic and perineal pain unspecified side (principal); Z12.4 Encounter for screening for malignant neoplasm of cervix; N20.0 Calculus of kidney
CPT/HCPCS: 99203

== ENCOUNTER 2025-06-12 14:30 | Outpatient (REF) | payer OTHER, SELFPAY ==
[2025-06-13 14:53] LABS: Bacterial Vaginosis PCR NEGATIVE (Negative); Candida Group PCR NOT DETECTED (Not Detect); Candida glab krusei PCR NOT DETECTED (Not Detect); Trichomonas vaginalis PCR NOT DETECTED (Not Detect)
[2025-06-13 15:22] LABS: CT PCR NOT DETECTED (Not Detect.); NG PCR NOT DETECTED (Not Detect.)
== END 2025-06-12 14:31 | disposition home or self-care (01) ==
LOC: HO.LNP 14:30
PROVIDERS: PCP Pediatrics; Visit Provider Advanced Practice Midwife
DX: R10.20 Pelvic and perineal pain unspecified side (principal); N20.0 Calculus of kidney; Z20.2 Contact with and (suspected) exposure to infections with a predominantly sexual mode of transmission; Z12.4 Encounter for screening for malignant neoplasm of cervix; Z11.51 Encounter for screening for human papillomavirus (HPV)
CPT/HCPCS: 81515; 87491; 87591; 87626; 88175; 99202

== ENCOUNTER 2025-06-29 10:45 | Day surgery (SDC) | payer OTHER, SELFPAY ==
--- OUTSIDE RECORDS SUMMARY | 2025-06-04 13:52 | XMS_ITS | Encounter Summary ---
Author Organization [employer] Address [address] [address] Care Team Providers Care Apartment Leasing Agent Name Role Phone Bethanie Holliday MD Primary Care Provider [phone] Reason for Visit * Reason Comments Med Refill Encounter Details Date Type Department Care Team (Late st Contact Info) Description 03/28/2025 Refill [facility] MED & PEDS [address] [place], [place] [phone] Bethanie Holliday MD [address] [place] [address] Social History Tobacco Use Types Packs/Day Years [...] documented as of this encounter Care Teams Apartment Leasing Agent Relationship Specialty Start Date End Date Bethanie Holliday MD [address] [place] [address] PCP - General Family Medicine 10/22/14 documented as of this encounter
--- OUTSIDE RECORDS SUMMARY | 2025-06-04 13:52 | XMS_ITS | Encounter Summary ---
Author Organization [employer] Address [address] [place] [address] Care Team Providers Care Button Buttonhole Marker Name Role Phone Bethanie Holliday MD Primary Care Provider [phone] Encounter Details Date Type Department Care Team (Latest Contact Info) Description 09/06/2019 Abstract [facility] CONVERSIONS Dental, Provider, DDS Social History [...] on filedocumented in this encounter Care Teams Button Buttonhole Marker Relationship Specialty Start Date End Date Bethanie Holliday MD [address] [place] [address] PCP - General Family Medicine 10/22/14 documented as of this encounter
--- OUTSIDE RECORDS SUMMARY | 2025-06-04 13:52 | XMS_ITS | Encounter Summary ---
Author Organization [employer] Address [address] [address] Care Team Providers Care Telecommunications Line Installer Name Role Phone Bethanie Holliday MD Primary Care Provider [phone] Encounter Details Date Type Department Care Team (Latest Contact Info) Description 05/14/2025 Results Follow-Up [facility] CHC MED & PEDS [address] [place], [place] [phone] Bethanie Holliday MD [address] [place] [address] [place] Pelvis Transvaginal Social History Tobacco Use [...] documented as of this encounter Care Teams Telecommunications Line Installer Relationship Specialty Start Date End Date Bethanie Holliday MD [address] [place] [address] PCP - General Family Medicine 10/22/14 documented as of this encounter
--- OUTSIDE RECORDS SUMMARY | 2025-06-04 13:52 | XMS_ITS | Encounter Summary ---
Author Organization [employer] Address [address] [place] [address] Care Team Providers Care District Fire Management Officer Name Role Phone Bethanie Holliday MD Primary Care Provider [phone] Encounter Details Date Type Department Care Team (Latest Contact Info) Description 12/12/[address] [facility] CONVERSIONS Dental, Provider, DDS Social History [...] on filedocumented in this encounter Care Teams District Fire Management Officer Relationship Specialty Start Date End Date Bethanie Holliday MD [address] [place] [address] PCP - General Family Medicine 10/22/14 documented as of this encounter
--- OUTSIDE RECORDS SUMMARY | 2025-06-04 13:52 | XMS_ITS | Encounter Summary ---
Author Organization [employer] Address [address] [place] [address] Care Team Providers Care Bee Keeper Name Role Phone Bethanie Holliday MD Primary Care Provider [phone] Reason for Visit * Reason Onset Date Comments Med Refill 03/26/2025 Encounter Details Date Type Department Care Team (Late st Contact Info) Description 03/26/2025 Refill [facility] CHC MED & PEDS [address] [place], [place] [phone] Bethanie Holliday MD [address] [place] [address] Social History Tobacco Use Types Packs/Day Years [...] documented as of this encounter Care Teams Bee Keeper Relationship Specialty Start Date End Date Bethanie Holliday MD [address] [place] [address] PCP - General Family Medicine 10/22/14 documented as of this encounter
--- OUTSIDE RECORDS SUMMARY | 2025-06-04 13:52 | XMS_ITS | Encounter Summary ---
Author Organization [employer] Address [address] [place] [address] Care Team Providers Care Cooling Room Attendant Name Role Phone Bethanie Holliday MD Primary Care Provider [phone] Encounter Details Date Type Department Care Team (Latest Contact Info) Description 05/28/2022 Abstract [facility] CONVERSIONS Dental, Provider, DDS Social [...] on filedocumented in this encounter Care Teams Cooling Room Attendant Relationship Specialty Start Date End Date Bethanie Holliday MD [address] [place] [address] PCP - General Family Medicine 10/22/14 documented as of this encounter
--- OUTSIDE RECORDS SUMMARY | 2025-06-04 13:52 | XMS_ITS | Encounter Summary ---
Author Organization [employer] Address [address] [place] [address] Care Team Providers Care Resistor Inspector Name Role Phone Bethanie Holliday MD Primary Care Provider [phone] Reason for Visit * Reason Onset Date Comments Hospital Follow-up 10/06/2024 Encounter Details Date Type Department Care Team (Late st Contact Info) Description 10/06/2024 Telephone [facility] MEDICINE [address] [place] [address] Bethanie Holliday MD [address] [place] [address] Hospital Follow-up Social History Tobacco Use Types [...] from pt requesting a HDF appt. Hospital: [facility] Date of admission: 10/04 Discharge date: 10/06 Diagnosed: Kidney Stones Surgery *Send message to [place] Clinical Care Coordinators [phone] documented in this encounter Plan of Treatment Not on file documented as of this encounter Visit Diagnoses Not on filedocumented in this encounter Additional Health Concerns Assessment Noted Time PHQ-9 Depression Total Score: 0 05/25/20 23 10:22 AM EDT documented as of this encounter Care Teams Resistor Inspector Relationship Specialty Start Date End Date Bethanie Holliday MD [address] [place] [address] PCP - General Family Medicine 10/22/14 documented as of this encounter
--- OUTSIDE RECORDS SUMMARY | 2025-06-04 13:52 | XMS_ITS | Data Portability ---
Author Organization LANIE Dian [facility], [facility] Address [address] [place] [address] Care Team Providers Care Hand Packer/Packager Name Role Phone ZIA AKHTAR Primary Care Provider Assessment No assessment recorded. Plan of Treatment Reminders Order Date Submit Date Provider Last Modified By Organization Details Last Modified Time Details Appointments None record ed. Lab None record ed. Referral None record ed. Procedures None record ed. Surgeries None record ed. Imaging XR, knee, 4 or more view - 114 024 05/09/20 [facility] [address] [facility] [address], [place], [address], 09:23:46 Medication Orders None record ed. Patient TargetsNo targets recorded. Patient InstructionsNo instructions recorded. Reason for Referral None Reported. Results Created Date Observation Date Name Description Value Unit Range Abnormal Flag Note LastModifiedBy Organization Detail LastModifiedTime 05/09/20 24 05/09/2024 XR, knee, 4 or more view http:/ [email or web address] ?Encry pted=s hAaTro YD8dLq bEUv6g %2BXZw aYqtaq 0bqfl% 2Fg9IQ a4ajBk vP9nXo QUaueC m3YtLR FvZlgJ JJ8mAn HZtai3 2k4641 AC0Kqa n%2BFW KakKiQ trMwF INTERFACE [facility] [address], [place], [address], 05/09/2024 09:57:38 09/10/20 24 05/09/2024 XR, knee, 4 or more view http:/ [email or web address] ?Encry pted=s hAaTro YD8dLq bEUv6g %2BXZw aYqtaq 0bqfl% 2Fg9IQ a4ajBk vP9nXo QUaueC m3YtLR FvZlgJ JJ8mAn HZtai3 6c8491 AC0Kqa n%2BFW KakKiQ trMwF INTERFACE [facility] [address], [place], [address], 05/09/2024 09:57:40 Result Notes Documentation Provider Name and Address Organization Details Recorded Time Xr, Knee, 4 Or More View : [email or web address] Encrypted=buDvJhzDU7jFnqJ Uv6g%5GFHftKfzll4mjxv%2Fg 5IBw5bfKcfH5zRySMbrkZe7Tt SOAoAwuESF6kMvNVyjy21u327 3YC6Wddo%2BFWKakKiQtrMwF Not Available [facility] 05/09/2024 09:5 7:39 Xr, Knee, 4 Or More View : [email or web address] Encrypted=abKoOrhIC3bGsxS Uv6g%5ZPZgkVfekv9janv%2Fg 0RPa7qoLhqI0gBhAWtxmMb2Vd DYAvSdiMRZ3bSfYMsrv46u080 9PJ9Gcxo%2BFWKakKiQtrMwF Not Available [facility] 05/09/2024 09:5 7:41 Problems Name Problem SNOMED Code Status Onset Date Resolution Date Notes Provider Name and Address Organization Details Recorded Time Pain of right knee joint 088474202723469 Active 2023 Marybeth Delgado i, PA-C [address], [facility] [address], [facility] 13:24:47 Problem Notes None recorded. Procedures Surgical History Date Name Laterality Status Provider Name and Address Organization Details Recorded Time 05/09/2024 Sports Knee 4&1 completed Marybeth Magallanes PA-C [address] [facility] [address], [place], [address], [facility] 05/09/2024 12:45:35 Imaging Results None recorded. Procedure Notes None recorded. Medical Equipment None Reported. Allergies Allergen ID Allergen Name Allergen Category Reaction Reaction Severity Criticality Documentation Date Start Date Code Code System Note Provider Name and Address Organization Details Recorded Time 570477 Product containin g penicilli n (product) medicatio n Not available Not available Not available 05/09/2024 85929 8001 SNOMED MICHAEL galeano [facility] 09:49:07 Medications Name Sig Start Date Stop Date Status Note LastModified by Organization Details LastModified Time clindamycin HCl 150 mg capsule TAKE ONE CAPSULE THREE TIMES DAILY FOR 7 DAYS 05/09 completed Not Available Not Available Not Available tramadol 50 mg tablet TAKE 1 TABLET BY MOUTH EVERY 8 HOURS FOR 1 WEEK NEEDED 05/09 completed Not Available Not Available Not Available acetaminoph en 500 mg tablet TAKE ONE TABLET EVERY 8 HOURS NEEDED MILD PAIN active Not Available Not Available No t Available ondansetron 8 mg disintegrat ing tablet PLACE 1 TABLET BY MOUTH TWICE A DAY NEEDED FOR NAUSEA active Not Available Not Available No t Available lidocaine-p rilocaine 2.5 %-2.5 % topical cream APPLY TO SITE 60 TO 90 MINUTES PRIOR TO TREATMENT active Not Available Not Available No t Available celecoxib 100 mg capsule TAKE ONE CAPSULE TWICE DAILY 05/09 completed Not Available Not Available Not Available chlorhexidi ne gluconate 0.12 % mouthwash SWISH AND SPIT OUT 15 mls THREE TIMES DAILY IN THE MORNING, AT NOON, AND AT BEDTIME FOR UP TO FIVE DAYS 05/09 completed Not Available Not Available Not Available Eliquis 5 mg tablet TAKE ONE TABLET BY MOUTH TWICE DAILY 05/09 completed Not Available Not Available Not Available Vitals Date Recorded Body height Body mass index (BMI) Body weight Provider Name and Address Organization Details Last Updated DateTime 05/09/2024 162.56 cm 32.3 kg/m2 19753.37 g MICHAEL DELGADOJoeARCADIO Clarice [facility] 05/09/2024 09:48:57 Date Recorded Body height Provider Name an d Address Organization Details Last Updated DateTime 08/08/2024 162.56 cm Sariah Vaughan [facility] 08/08/2024 09:37:24 Social History None recorded. Functional Status Question Answer Note LastModified by Organizat ion Details LastModified Time Do you use any illicit or recreational drugs? No jholguinmejia Information not available 05/09/2024 Do you or have you ever used any other forms of tobacco or nicotine? No olguinmejia Information not available 05/09/2024 What is your level of alcohol consumption? None [facility] Information not available 05/09/2024 Mental Status None recorded. Family History Nothing Reported. Medical History Condition Response Kidney/Bladder Problems Y Gynecological HistoryNo gynecological history recorded. Obstetrics History GPAL:G 0 P 0 0 0 0 Past Encounters Encounter ID Performer Location Encounter Start Date Encounter Closed Date Diagnosis/Indication Diagnosis SNOMED-CT Code Diagnosis ICD10 Code Diagnosis IMO Codes Diagnosis Note [id number] GRACIE Zheng [address] [place] [address] 05/09/2024 09:25:51 05/22/2024 09:23:46 Pain of right knee joint [id number] 37012 M25.800 [id number] GRACIE Zheng [address] [place] [address] 08/08/2024 09:05:23 08/29/2024 08:45:13 Pain of right knee joint 1576182012 31493 M25.561 Health Concerns Section Related Observation LastModified by Organization Detai ls LastModified Time None Recorded Concern Status LastModified by Organization Details LastModified Time None Recorded Advance Directives Directive None Recorded Payers Insurance Date Sequence Insurance Name Policy Number Policy Leggett Covered Member ID Leggett Member ID Guarantor Name 08/29/2024 1 [facility] [employer] [facility] TYPE I (HMO) [id number] Martín Cabrera [id number] Martín Cabrera Notes Date Note Type Note Provider Name and Address Organization Details Recorded Time 05/09/2024 text/html I am seeing the patient today under the supervision of Dr. Brian who was available but who did not see the patient. HPI: 44-year-old female patient presents today for right knee pain that began in July 2023, no specific injury. She reports at that time she began working out doing more squats. She had an MRI 02-22-24 [facility] that the only finding was quadriceps tendinitis, she does not bring the disc for review today. She was sent for physical therapy for 3 weeks and provided ibuprofen that provided mild relief. Localizes pain to the anterior aspect of the knee with intermittent swelling and occasional difficulty with knee flexion. Pain exacerbated with squatting/kneeling, stairs, running/jumping. Past family, social history and review of systems has been reviewed, updated and is located in the patient s chart. X-RAYS:4v X-rays of the Right knee were ordered, obtained and reviewed today at [facility] demonstrates mild tricompartmental changes. IMPRESSION: Right knee chondromalaciaPLAN: Findings reviewed. Discussed based on her physical exam findings, her knee joint itself seems to be most bothersome. Recommended initial conservative treatment. She elected to proceed wtih right knee cortisone injection today. Discussed low impact exercises. Discussed bzps-vix-hcmsefw anti-inflammatories as needed for pain relief. Follow up in 3 months for recheck. All of her concerns are addressed and she understands and agrees with the plan. Speech recognition repairer helper software was used to create portions of this document. An attempt at proofreading has been made to minimize errors. Please call for corrections. Marybeth Magallanes PA-C [address] [facility] [address], [place], [address], [facility] 05/09/2024 12:48:41 08/08/2024 text/html I am seeing the patient today under the supervision of Dr. Davidson who was available but who did not see the patient. CLINICAL UPDATE: 44-year-old female patient presents today for right knee recheck. She has minimal pain at this time, worse in the mornings. Last cortisone injection 05/09/24. HPI: Presented 05/09/24 with right knee pain that began in July 2023, no specific injury. She reports at that time she began working out doing more squats. She had [id number] [facility] that the only finding was quadriceps tendinitis, she does not bring the disc for review today. She was sent for physical therapy for 3 weeks and provided ibuprofen that provided mild relief. Localizes pain to the anterior aspect of the knee with intermittent swelling and occasional difficulty with knee flexion. Pain exacerbated with squatting/kneeling, stairs, running/jumping. Past family, social history and review of systems has been reviewed, updated and is located in the patient s chart. X-RAYS:Previous 4v X-rays of the Right knee reviewed today at [facility] demonstrates mild tricompartmental changes. IMPRESSION: Right knee chondromalacia PLAN: Findings reviewed. Discussed based on her physical exam findings, her knee joint itself seems to be most bothersome. Recommended ongoing conservative treatment. We held off on injection today as her pain has not returned and she is feeling good. Discussed low impact exercises. Discussed eplq-awt-dtvoztl anti-inflammatories as needed for pain relief. Follow up as needed. All of her concerns are addressed and she understands and agrees with the plan. Speech recognition repairer helper software was used to create portions of this document. An attempt at proofreading has been made to minimize errors. Please call for corrections. Marybeth Magallanes PA-C [address] [facility] [address] [facility], [place], [address], [facility] 08/08/2024 09:46:15 OBGyn Episode No OBEpisode recorded.
--- OUTSIDE RECORDS SUMMARY | 2025-06-04 13:53 | XMS_ITS | Encounter Summary ---
Author Organization [employer] Address [address] [facility] [address] [place] [address] Care Team Providers Care Book Binder Name Role Phone Bethanie Holliday MD Primary Care Provider [phone] Encounter Details Date Type Department Care Team (Late st Contact Info) Description 05/31/2025 Orders Only GENERIC EXTERNAL DATA DEPARTMENT Provider, [...] housing situation today? I have lainaayde dalton 11/24/[address] you [...] Procedure Name Priority Date/Time Associated Diagnosis Comments VITAMIN B12/FOLATE, SERUM PANEL Routine 05/31/2025 12:18 PM EDT TSH W/REFLEX TO FT4 Routine 05/31/2025 1 2:18 PM EDT TISSUE TRANSGLUTAMINASE AB, IGG Routine 05/31/2025 12:18 PM EDT TISSUE TRANSGLUTAMINASE AB, IGA Routine 05/31/2025 12:18 PM EDT LIPASE Routine 05/31/2025 12:18 PM EDT documented in this encounter Results * Tissue Transglutaminase Antibody, IgA (05/31/2025 12:18 PM EDT) Transglutaminase IgA <1.0 U/mL [facility] Comment:Value Interpretation ----- <15.0 Antibody not detected> or = 15.0 Antibody detectedTHIS TEST WAS PERFORMED AT:[employer] [address] [id number] NINA MD 05/31/2025 12:1 8 PM EDT 05/31/2025 12:18 PM EDT Generic External Data Provider LAB BLOOD ORDERAB LES Final Result Performing Organization Address [facility] de Phone Number [facility] [address] [place] [phone] * Tissue Transglutaminase (tTG) Antibody (IgG) (05/31/2025 12:18 PM EDT) Tissue Transglutaminase Antibody IgG <1.0 U/mL [facility] Comment:Value Interpretation ----- <15.0 Antibody not detected> or = 15.0 Antibody detectedTHIS TEST WAS PERFORMED AT:[facility] [place] [id number] NINA MD 05/31/2025 12:1 8 PM EDT 05/31/2025 12:18 PM EDT Generic External Data Provider LAB BLOOD ORDERAB LES Final Result Performing Organization Address [facility] Phone Number [facility] [address] [place] [phone] * Vitamin B12 (Cobalamin) and Folate Panel, Serum (05/31/2025 12:18 PM EDT) Vitamin B12 423 200 - 900 pg/mL [facility] Comment:NORMAL 200-900 PG/ML INDETERMINATE 160-199 PG/ML DEFICIENT < 160 PG/ML Folate 13.3 > or = 4.0 ng/mL [facility] Comment:Reference Values:> o r = 4.0 ng/mL< 4.0 ng/mL suggests folate deficiency Methotrexate, aminopterin and folinic acid(leucovorin) are chemotherapeutic agents whose molecularstructures are similar to folate; therefore, the Architectfolate assay cannot be used for patients using these drugs. 05/31/2025 12:1 8 PM EDT 05/31/2025 12:18 PM EDT us Generic External Data Provider LAB BLOOD ORDERAB LES Final Result Performing Organization Address [facility] Co de Phone Number [facility] [address] [place] [address] [phone] * TSH with Reflex to Free T4 (05/31/2025 12:18 PM EDT) TSH reflex Free T4 2.55 0.32 - 4.0 uIU/mL [facility] 05/31/2025 12:1 8 PM EDT 05/31/2025 12:18 PM EDT us Generic External Data Provider LAB BLOOD ORDERAB LES Final Result Performing Organization Address [facility] Co de Phone Number [facility] [address] [place] [phone] * Lipase (05/31/2025 12:18 PM EDT) Lipase 52 8 - 78 U/L [facility] 05/31/2025 12:1 8 PM EDT 05/31/2025 12:18 PM EDT Generic External Data Provider LAB BLOOD ORDERAB LES Final Result Performing Organization Address [facility] de Phone Number [facility] [address] [place] [phone] documented in this encounter Visit Diagnoses Not on filedocumented in this encounter Additional Health Concerns Assessment Noted Time PHQ-9 Depression Total Score: 2 01/17/20 25 9:54 AM EDT documented as of this encounter Care Teams Book Binder Relationship Specialty Start Date End Date Bethanie Holliday MD [address] [place] [phone] PCP - General Family Medicine 10/22/14 documented as of this encounter
--- OUTSIDE RECORDS SUMMARY | 2025-06-04 13:53 | XMS_ITS | Clinical Summary ---
Author Organization [employer] Address [address] [facility] 7 [place] [address] Care Team Providers Care Racecourse Barrier Attendant Name Role Phone Bethanie Holliday MD Primary Care Provider [phone] Allergies Active Allergy Reactions Criticality Noted Date Comments Penicillin G Swelling Low 02/10/2012 Penicillins Swelling Low 08/18/2022 Medications EPINEPHrine (Epipen) 0.3 MG/0.3ML injection syringe Inject 0.3 mL into the shoulder, thigh, or buttocks. 01/18/2020 Active Tirzepatide (Mounjaro) 5 MG/0.5ML solution auto-injector 5 mg. 10/04/2024 Activ e ergocalciferol (Vitamin D2) 1.25 MG (08505 UT) capsule Take 1 capsule (1.25 mg) [...] Encounters Date Type Department Care Team Description 05/31/2025 Orders Only GENERIC EXTERNAL DATA DEPARTMENT Provider, Generic External Data 05/14/2025 Results Follow-Up [facility] [address] [place] [address] Bethanie Holliday MD Pelvis Transvaginal 05/14/2025 Orders Only [facility] [address] [place] [address] Bethanie Holliday MD Pelvic pain (Primary Dx); Free fluid in pelvis; Dyspareunia, female 03/28/2025 Refill [facility] [address] [place] [address] Bethanie Holliday MD 03/26/2025 Refill [facility] [address] [place] [address] Bethanie Holliday MD 03/15/2025 10:15 AM EDT Office Visit [facility] [address] [place] [address] Bethanie Holliday MD Pelvic pain (Primary Dx); Obesity (BMI 30-39.9); Prolactinoma ([facility]/HCC) 03/15/2025 Travel 03/14/2025 Telephone [facility] [address] [place] [address] Bethanie Holliday MD Chart Prep 03/08/2025 Patient Outreach [facility] [address] [place] [address] Bethanie Holliday MD Pre-visit Planning ([facility] screening completed on 11/24/24 ) from Last 3 Months Immunizations Immunization Administration [...] 02/16/2025, 05/31, 08/29/2019 Lipid Panel 05/28/2027 05/28/2022, 0210/2021, 10/30/2020, Additional [...] Procedure Name Priority Date/Time Associated Diagnosis Comments TISSUE TRANSGLUTAMINASE AB, IGA Routine 05/31/2025 12:18 PM EDT TISSUE TRANSGLUTAMINASE AB, IGG Routine 05/31/2025 12:18 PM EDT VITAMIN B12/FOLATE, SERUM PANEL Routine 05/31/2025 12:18 PM EDT TSH W/REFLEX TO FT4 Routine 05/31/2025 1 2:18 PM EDT LIPASE Routine 05/31/2025 12:18 PM EDT FL UPPER GI W AIR W BARIUM [...] Recently Relevant to Health Maintenance Results * Vitamin B12 (Cobalamin) and Folate Panel, Serum (05/31/2025 12:18 PM EDT) Vitamin B12 423 200 - 900 pg/mL [facility] Comment:NORMAL 200-900 PG/ML INDETERMINATE 160-199 PG/ML DEFICIENT < 160 PG/ML Folate 13.3 > or = 4.0 ng/mL [facility] Comment:Reference Values:> o r = 4.0 ng/mL< 4.0 ng/mL suggests folate deficiency Methotrexate, aminopterin and folinic acid(leucovorin) are chemotherapeutic agents whose molecularstructures are similar to folate; therefore, the Architectfolate assay cannot be used for patients using these drugs. 05/31/2025 12:1 8 PM EDT 05/31/2025 12:18 PM EDT us Generic External Data Provider LAB BLOOD ORDERAB LES Final Result Performing Organization Address City/[facility]/ZIP Co de Phone Number [facility] [address] [place] [phone] * TSH with Reflex to Free T4 (05/31/2025 12:18 PM EDT) TSH reflex Free T4 2.55 0.32 - 4.0 uIU/mL [facility] 05/31/2025 12:1 8 PM EDT 05/31/2025 12:18 PM EDT us Generic External Data Provider LAB BLOOD ORDERAB LES Final Result Performing Organization Address City/[facility]/ZIP Co de Phone Number [facility] [address] [place] [phone] * Tissue Transglutaminase (tTG) Antibody (IgG) (05/31/2025 12:18 PM EDT) Tissue Transglutaminase Antibody IgG <1.0 U/mL [facility] Comment:Value Interpretation ----- <15.0 Antibody not detected> or = 15.0 Antibody detectedTHIS TEST WAS PERFORMED AT:[employer] [address] [id number] NINA MD 05/31/2025 12:1 8 PM EDT 05/31/2025 12:18 PM EDT Generic External Data Provider LAB BLOOD ORDERAB LES Final Result Performing Organization Address [facility] Co de Phone Number [facility] [address] [place] [phone] * Tissue Transglutaminase Antibody, IgA (05/31/2025 12:18 PM EDT) Pathologist [facility] Transglutaminase IgA <1.0 U/mL [facility] Comment:Value Interpretation ----- <15.0 Antibody not detected> or = 15.0 Antibody detectedTHIS TEST WAS PERFORMED AT:[employer] [address] [id number] NINA MD 05/31/2025 12:1 8 PM EDT 05/31/2025 12:18 PM EDT Generic External Data Provider LAB BLOOD ORDERAB LES Final Result Performing Organization Address [facility]/ZIP Co de Phone Number [facility] [address] [place] [phone] * Lipase (05/31/2025 12:18 PM EDT) Lipase 52 8 - 78 U/L [facility] 05/31/2025 12:1 8 PM EDT 05/31/2025 12:18 PM EDT us Generic External Data Provider LAB BLOOD ORDERAB LES Final Result [facility] [address] [place] [phone] * FL Upper GI w/air w/Barium Swallow (05/28/2025 9:24 AM EDT) Anatomical Region Laterality Modality Body Radiographic Elza ging 05/28/2025 9:24 AM EDT Narrative 05/28/2025 12:45 PM EDT [address] [address] Fluoroscopy Report Signed Patient: Sapna CabreraMartín#: [id number] : 1980 Acct:[id number] Age/Sex: 45 / F ADM Date: 05/28/25 Loc: CHRISTOPHER Attending Dr: Aylin Morales [facility] Ordering Physician[facility] Date of Service: 05/28/25 Procedure(s): FL upper GI w air w Ba Swallow Accession Number(s): [id number] cc: Bethanie Holliday MD; Aylin Morales [facility] Reason for Exam: K21.9 - Gastro-esophageal [...] Randy Gutierrez MD 05/28/2025 12:42 PM EDT RP Dictated By: Randy Gutierrez MD Signed By: <Electronically signed by Randy Gutierrez MD in OV> 05/28/25 1242 DD/ 3 TD/TT: 05/28/25936 Can Worker: [facility] Procedure Note Donotuseinterpreter, Image - 05/28/[address] [address] Fluoroscopy Report Signed Patient: Martní Ervin MM R#: [id number] : 1980Acct:[id number] Age/Sex: 45 / FADM Date: 05/28/25 Loc: HOCHRISTOPHER Attending Dr: Aylin Morales [facility]- Ordering Physician: Aylin Morales [facility] Date of Service: 05/28/25 Procedure(s): FL upper GI w air w Ba Swallow Accession Number(s): [id number] cc: Bethanie Holliday MD; Aylin Morales [facility] Reason for Exam: K21.9 - Gastro-esophageal [...] Randy Gutierrez MD 05/28/2025 12:42 PM EDT RP Dictated By: Randy Guiterrez MD Signed By: <Electronically signed by Randy Gutierrez MD in OV> 05/28/25 1242 DD/ 3 TD/TT: 05/28/25936 Can Worker: [facility] External Provider IMG FLU OROSCOPY PROCEDURES Final Result * US Pelvis Transvaginal (05/11/2025 1:49 PM EDT) Anatomical Region Laterality Modality Pelvis Ultrasound 05/11/2025 1:49 PM EDT Narrative 05/11/2025 2:25 PM EDT [place] [address] Ultrasound Report Signed Patient: Sapna CabreraMartín#: [id number] : 1980 Acct:[id number] Age/Sex: 45 / F ADM Date: 05/11/25 Loc: HO.US Attending Dr: Bethanie Holliday MD Ordering Physician: Bethanie Holliday MD Date of Service: 05/11/25 Procedure(s): US pelvic and transvaginal Accession Number(s): [id number] cc: Bethanie Holliday MD Reason for Exam: [...] 05/11/25 1422 DD/ 1349 TD/TT: 05/11/25 1401 Can Worker: Procedure Note Donotuseinterpreter, Image - 05/11/2025 [place] [address] Ultrasound Report Signed Patient: Martín Ervin ELIO R#: [id number] : 1980Acct:[id number] Age/Sex: 45 / FADM Date: 05/11/25 Loc: .US Attending Dr: Bethanie Holliday MD Ordering Physician: Bethanie Holliday MD Date of Service: 05/11/25 Procedure(s): US pelvic and transvaginal Accession Number(s): [id number] cc: Bethanie Holliday MD Reason for Exam: [...] 05/11/25 1422 DD/ 1349 TD/TT: 05/11/25 1401 Can Worker: us Bethanie Holliday MD IMG US PROCEDURES Final Resul t * BI Mammogram Screening Tomosynthesis Bilateral (02/16/2025 1:20 PM EDT) Anatomical Region Laterality Modality Breast Bilateral Mammography 02/16/2025 1:20 PM EDT Narrative 02/22/2025 1:42 PM EDT [facility] [address] [place] [address] Mammography Report Signed Patient: Alejolela TarangoMartín francisco#: [id number] : 1980 Acct:[id number] Age/Sex: 45 / F ADM Date: 02/16/25 Loc: HO.MAMMO Attending Dr: Bethanie Holliday MD Ordering Physician: Bethanie Holliday MD Results: 2Be nign Findings Date of Service: 02/16/25 Follow Up: 1 Year From Orig ina Mammogram Procedure(s): MM tomosynthesis screening BI Accession Number(s): [id number] cc: Bethanie Holliday MD EXAMINATION: MM SCREENING [...] 02/22/25 1339 DD/ 1320 TD/TT: 02/16/25 1340 Can Worker: Procedure Note Donotuseinterpreter, Image - 02/22/2025 [facility] [address] [place] [address] Mammography Report Signed Patient: Sapna Martín Cabrera MM R#: [id number] : 1980Acct:[id number] Age/Sex: 45 / FADM Date: 02/16/25 Loc: HO.MAMMO Attending Dr: Bethanie Holliday MD Ordering Physician: Bethanie Holliday MDResults: 2Be nign Findings Date of Service: 02/16/25Follow Up: 1 Year From Orig inal Mammogram Procedure(s): MM tomosynthesis screening BI Accession Number(s): [id number] cc: Bethanie Holliday MD EXAMINATION: MM SCREENING [...] 02/22/25 1339 DD/ 1320 TD/TT: 02/16/25 1340 Can Worker: us Bethanie Holliday MD IMG BI PROCEDURES [...] factors. LDL-C is now calculated using the Lilia calculation, which is a validated novel method providing better accuracy than the Friedewald equation in the estimation of LDL-C. Darren SS et al. REBA. 2013;310(19): 1328-4208 (http://education.[employer].com/faq/HBF664) Non-HDL Cholesterol 141(H) <130 mg/dL (calc) [facility] Comment: For patients with diabetes plus 1 major ASCVD risk factor, treating to a non-HDL-C goal of <100 mg/dL (LDL-C of <70 mg/dL) is considered a therapeutic option. Triglycerides 149 <150 mg/dL [facility] 05/28/2022 8:46 AM EDT us Bubba Lenz MD LAB BLOOD ORDERABL ES Final Result Performing Organization Address [facility]/ZIP Co de Phone Number [facility] [...] along with historic and current clinical information. Analytical Manager: SEE COMMENT [facility] Comment: HJP, CT(ASCP) CT screening location: [place] [address] Interpretation/Resu lt: [facility] Comment:Negative for intraep ithelial lesion or malignancy. LMP: [facility] Comment:05/30/20 Prev. BX: NONE [facility]EN [facility] Prev. PAP: [facility] Comment:NONE GIVEN SOURCE: [facility] Comment:None given Statement Of Adequacy: [facility] Comment: Satisfactory for evaluation. Endocervical/transformation zone component absent. 06/18/2020 1:09 PM EDT us Beata Blakely CNM LAB PATHOLOGY ORDERABLES Final Result Performing Organization Address City/[facility]/ZIP Co de Phone Number [facility] [address] * HPV mRNA E6/E7 (06/18/2020 1:09 PM EDT) HPV nRNA E6/E7 Not Detected Not Detected [facility] Comment: This test was performed using the APTIMA HPV Assay ([employer] This assay detects E6/E7 viral messenger RNA (mRNA) from 14 high-risk HPV types (16,18,31,33,35,39,45,51,52,56,58,59,66,68). The analytical performance characteristics of this assay have been determined by [employer]. The modifications have not been cleared or approved by the FDA. This assay has been validated pursuant to the CLIA regulations and is used for clinical purposes. 06/18/2020 1:09 PM EDT us Beata Blakely [facility] LAB BLOOD ORDERABLES Liz loco Result [facility] [address] from Last 3 Months or Most Recently Relevant to Health Maintenance [place] [address] [place] [address] [facility]AL [facility] Care Teams Racecourse Barrier Attendant Relationship Specialty Start Date End Date Bethanie Holliday MD [address] [place] [phone] PCP - General Family Medicine 10/22/14
--- OUTSIDE RECORDS SUMMARY | 2025-06-04 13:53 | XMS_ITS | Encounter Summary ---
Author Organization [employer] Address 75 [facility] 7 [place] [address] Care Team Providers Care Machine Repairer Name Role Phone Bethanie Holliday MD Primary Care Provider [phone] Encounter Details Date Type Department Care Team (Late st Contact Info) Description 11/13/2022 Orders Only [facility] [address] [place], [place] [phone] Bethanie Holliday MD [address] [place], [place] [phone] Arthralgia of right knee (Primary Dx) Social [...] Primary documented in this encounter Care Teams Machine Repairer Relationship Specialty Start Date End Date Bethanie Holliday MD [address] [place] [address] PCP - General Family Medicine 10/22/14 documented as of this encounter
--- NOTE | 2025-06-27 09:32 | HO.ANESPROP2 ---
Documented by User: Nadine Stephens NP 06/27/25 09:33 HPI - Anesthesia Eval Consult details Narrative: 45 yr old female for Upper Endoscopy and Colonoscopy Anesthesia Pre-Procedure Meds Is the patient on any of the following meds?: GLP1/DPP4 PMFSH Active Problems Active Problems: All Active Problems (Updated 05/31/25 @ 11:11 by Josh Sanon [facility]) Screening for malignant neoplasm of cervix (Acute) Pelvic pain (Acute) Obesity (Acute) Medullary sponge kidney (Acute) Nephrolithiasis (Acute) Pulmonary emboli (Acute) Fibroma (Acute) Lipoma (Acute) Hx of abdominoplasty (Acute ~04/28/23) History of breast lift (Acute ~04/28/23) Past Medical History Medical History GERD (gastroesophageal reflux disease) Nephrolithiasis Medullary sponge kidney Obesity Pulmonary emboli Family History Family History Father Prostate cancer Mother High cholesterol HTN (hypertension) Family history of problems with anesthesia: No Surgical History Surgical History H/O lithotripsy History of excision of mass (10/05/23) Hx of abdominoplasty (~04/28/23) History of breast lift (~04/28/23) History of delivery History of Problems with Anesthesia: No Social History Social History Household Members: Family Housing: House Do you presently have visiting nurse or other home services: No Alcohol intake: never Comment: supervision as pt post op Patient Tobacco Use Status: Never used Tobacco Use of substances other than those prescribed or required for medical reasons: No Are you DNR?: No Advance Directives: No Advance Directives Information Provided: Yes service: No Current occupational status: employed Meds Allergies Allergy/AdvReac Type Severity Reaction Status Date / Time Penicillins Allergy Mild SWELLING Verified 06/29/25 12:22 Assessment and Plan Final Anesthetic Review Family History of Problems with Anesthesia: No History of Problems with Anesthesia: No Documented by User: Diane Mcrae MD 06/29/25 13:47 PMFSH Past Medical History Medical History GERD (gastroesophageal reflux disease) Nephrolithiasis Medullary sponge kidney Obesity Pulmonary emboli Family History Family History Father Prostate cancer Mother High cholesterol HTN (hypertension) Surgical History Surgical History H/O lithotripsy History of excision of mass (10/05/23) Hx of abdominoplasty (~04/28/23) History of breast lift (~04/28/23) History of delivery Social History Social History Household Members: Family Housing: House Do you presently have visiting nurse or other home services: No Alcohol intake: never Comment: supervision as pt post op Patient Tobacco Use Status: Never used Tobacco Use of substances other than those prescribed or required for medical reasons: No Are you DNR?: No Advance Directives: No Advance Directives Information Provided: Yes service: No Current occupational status: employed Meds Allergies Allergy/AdvReac Type Severity Reaction Status Date / Time Penicillins Allergy Mild SWELLING Verified 06/29/25 12:22 Exam Airway Mallampati Class: II TM Dist: >3cm Neck ROM: Full Loose/Missing/Broken Teeth: No Heart: RRR Lungs: CTA Assessment and Plan Assessment Anesthesia Assessment: Anesthesia Plan Discussed and Chart Reviewed Final Anesthetic Review NPO: Yes ASA Class: II Final Preanesthetic Review: Meds/Allgs Chart Reviewed, Consent Obtained/Reviewed and Anes Risks/Benef Reviewed Patient Risk: Low Procedure Risk: Intermediate Anesthetic Plan Anesthetic Plan: MAC: Disposition: Standard PACU
[2025-06-27 14:27] VITALS: BMI 31.2
[2025-06-29 12:24] VITALS: BMI 33.2
--- NOTE | 2025-06-29 12:30 | MHC.SHP ---
Pre-Procedural Eval Section A - 24 Hr Update-Section A only Date of Service: 06/29/25 The patient is an INPATIENT: No The patient has been examined within 24 hours of the surgical procedure. The History & Physical has been completed within 30 days and I have reviewed it.: No Section B - Complete if H&P > 30 days Chief Complaint: gerd,screening Relevant Family History (Specify if Yes): No Relevant Social History: None Present Medications: see Short Stay Collaborative assessment Medical History: Significant History (Obesity, pulmonary emboli, medullary sponge kidney, nephrolithiasis) History of Previous Operations: Relevant previous surgery/procedure and date(s) (H/O lithotripsy History of excision of mass (10/05/23) Hx of abdominoplasty (~04/28/23) History of breast lift (~04/28/23) History of delivery) Allergies: Allergies Allergy/AdvReac Type Severity Reaction Status Date / Time Penicillins Allergy Mild SWELLING Verified 06/29/25 12:22 Review of Systems Sugical H&P ROS: Negative: Constitution, Cardiovascular and Respiratory and Yes, Specify: Gastrointestinal (GERD) Exam Surgical H&P Exam: Normal: Heart, Normal: Lungs, Normal: Extremities and Normal: Abdomen Plan Diagnosis/Plan: Unchanged I have reviewed the history and physical and performed a pertinent physical examination on my patient. No changes have occurred unless specified. Time Spent With Patient Time: Total time managing care of this patient today ____ minutes.
[2025-06-29 12:33] VITALS: BP 113/72; PULSE 62; RESP 14; TEMP 36.4; O2SAT 100
[2025-06-29 12:38] LABS: UPreg QC Valid YES
--- NOTE | 2025-06-29 13:35 | P.OPN-COLO_ITS ---
Colonoscopy Operative Note Operative Note Date of Service: 06/29/25 Narrative: FLEXIBLE TRANSORAL UPPER GASTROINTESTINAL ENDOSCOPY WITH BIOPSIES AND SNARE POLYPECTOMY AND COLONOSCOPY TILL CECUM WITH BIOPSIES Pre-op diagnosis: Colon cancer screening, GERD, epigastric pain, abdominal bloating Post-op diagnosis: GERD, Gastritis, gastric polyps, Diverticulosis, hemorrhoids Specimens and Sources: : a- small bowel bxs r/o celiac disease ?b- gastric antrum bxs r/o h pylori ?c- gastric body bxs ?d- gastric polyp ?e- ge junction bxs ?f- terminal ileum bxs r/o IBD ?G- right colon bxs r/o microscopic colitis ?h- left colon bxs r/o microscopic colitis Endoscopist:? Amy Saldaña MD Anesthesia:?[facility] [place] Consent: Indications for the procedure and potential complications of bleeding, perforation, reaction to medications and missed diagnosis were discussed with the patient and informed consent was obtained. Instrument: Olympus GIF H 190 mid size upper endoscope Monitoring: Vital signs and clinical assessment, continuous EKG monitoring, Pulse oximetry, Carbon Dioxide monitoring and blood pressure monitoring were done throughout the procedure. Procedure: The patient was placed in the left lateral decubitis position and pre-procedure medications were administered and a bite block was placed. The endoscope was inserted into the mouth and advanced under direct vision to the third part of duodenum. A careful inspection was made as the upper endoscope was withdrawn including a retroflexed examination of the proximal stomach; Findings and interventions are described below. Findings: Larynx: Normal Esophagus: GE junction at 36 cms. Focal esophagitis with a 5 mm superficial healing erosion at GE junction. Edematous folds on gastric side of the GE junction -biopsies were obtained. Stomach: A 5-6 mm benign appearing polyp in the gastric body - removed with a cold snare. Mild diffuse gastric erythema - biopsies were obtained from the gastric body and antrum. Grade 2 flap valve on retroflexed examination of the cardia. Duodenum: Normal bulb and descending duodenum Biopsies were obtained from descending duodenum to check for celiac sprue Intervention: Biopsies as noted above COLONOSCOPY PROCEDURE NOTE Instrument: Olympus PCF H 190 L variable stiffness pediatric colonoscope Monitoring: Vital signs and clinical assessment, intermittent blood pressure monitoring, continuous EKG monitoring, Pulse oximetry and Carbon Dioxide monitoring were done throughout the procedure. Please see anesthesia flowsheet. Colon withdrawl time was 20 minutes. Procedure: The patient was placed in the left lateral decubitis position and pre-procedure medications were administered. After a digital rectal examination of the ano-rectum, the video colonoscope was inserted into the rectum and advanced through the colon to the cecum. The colonoscope was slowly withdrawn in a retrograde panoramic fashion and the colon mucosa was carefully examined including a retroflexed view of the rectum. Findings and interventions are described below. Procedure Difficulty: without difficulty Findings: Terminal Ileum: Distal 5 cm was examined and appeared normal - random biopsies were obtained Cecum: Normal Ascending Colon: Normal Transverse Colon: Normal Descending Colon: Normal Sigmoid Colon: Mild diverticulosis Rectum: Normal Ano-rectum: Moderate internal hemorrhoids Colon preparation: Excellent, after some irrigation. Allen Bowel Preparation Scale Right colon; 3 Transverse colon: 3 Left colon; 3 (0 = Unprepared colon segment with mucosa not seen due to solid stool that cannot be cleared. 1 = Portion of mucosa of the colon segment seen, but other areas of the colon segment not well seen due to staining, residual stool and/or opaque liquid. 2 = Minor amount of residual staining, small fragments of stool and/or opaque liquid, but mucosa of colon segment seen well. 3 = Entire mucosa of colon segment seen well with no residual staining, small fragments of stool or opaque liquid) Impression and Post Procedure Diagnosis: Endoscopy Findings: ESOPHAGUS: Focal esophagitis with a small healing erosion STOMACH: Mild gastritis and benign-appearing gastric polyps DUODENUM: Normal - biopsies were obtained to check for celiac sprue Colonoscopy Findings: No polyps were detected Random biopsies were obtained from the colon to check for microscopic colitis Mild diverticulosis seen in the sigmoid colon Moderate hemorrhoids on retroflexed exam. Plan: Pt has a FU appointment on 08/20/25 with Mavis Morales NP Repeat Colonoscopy in 10 years if biopsies are normal A summary of above findings and relevant handouts were given to the patient.
[2025-06-29 14:04] VITALS: BP 98/62; PULSE 79; RESP 16; TEMP 36.2; O2SAT 97
[2025-06-29 14:15] VITALS: BP 114/79; PULSE 57; RESP 16; O2SAT 97
[2025-06-29 14:30] VITALS: BP 116/80; PULSE 56; RESP 16; O2SAT 100
== END 2025-06-29 15:29 | disposition home or self-care (01) ==
PROVIDERS: Nurse Practitioner; PCP Pediatrics; Visit Provider Internal Medicine Gastroenterology
PROC: (CPT 45380; principal; 2025-06-29 12:40)
DX: Z12.11 Encounter for screening for malignant neoplasm of colon (principal); K21.00 Gastro-esophageal reflux disease with esophagitis, without bleeding; R10.13 Epigastric pain; R14.0 Abdominal distension (gaseous); K31.7 Polyp of stomach and duodenum; K57.30 Diverticulosis of large intestine without perforation or abscess without bleeding
CPT/HCPCS: 45380; 43239; 43251; 81025; 88305; 88313; 88342; J2704

== ENCOUNTER → 2025-06-29 10:45 | Outpatient (BNV) | payer OTHER, SELFPAY | PROVIDERS: PCP Pediatrics; Visit Provider Internal Medicine Gastroenterology | DX: Z12.11 Encounter for screening for malignant neoplasm of colon (principal); K57.30 Diverticulosis of large intestine without perforation or abscess without bleeding; K64.8 Other hemorrhoids; K21.00 Gastro-esophageal reflux disease with esophagitis, without bleeding; K31.7 Polyp of stomach and duodenum; K29.70 Gastritis, unspecified, without bleeding | CPT/HCPCS: 43251; 45380 ==

== ENCOUNTER 2025-07-16 09:29 | Outpatient (AMB) | payer OTHER, SELFPAY ==
--- NOTE | 2025-07-16 09:31 | MHC.AMNUTRGE ---
VS Expanded 07/16/25 09:38 07/16/25 09:44 Height 5 ft 4 in 5 ft 4 in Weight 195 lb 6 oz 195 lb BMI 33.5 33.5 Intake Visit Reasons: Obesity Allergies Penicillins Allergy (Mild, Verified 06/29/25 12:22) SWELLING Nutrition Presentation Details: Patient presents for medical nutrition therapy for obesity. Pt is currently on zepbound 7.5 mg per week, Reports doing well. Reports noticing GI symptoms after having milk Report typically having 2-3 meals a day, reports needing to make meal schedules and reminders otherwise she may not feel hungry. Patient reports starting to get into a physical activity routine and has questions regarding protein supplement B:eggs coffee, cream L: May skip or have a protein supplement (whey protein, collagen, berries, almond milk) D: Rice, beans, salad, chicken, water Food frequency Fruits 0-1 per day Veggies: 1 per day Milk: 1-2 per day (working on choosing lactose free options) Fish: Once to twice per week Beverages: Choosing lower sugar options and mostly water VAW-Jtlzbti-Rz.Jeor Equation Height: 5 ft 4 in Weight: 195 lb Resting Metabolic Rate: 1512.30 Calculated Activity Level: Sedentary Calories Needed to Maintain Weight: 1814.76 Diagnosis Nutrition problem #1: overweight/obesity As related to (etiology) #1: diagnosis As evidenced by (sign/symptom) #1: knowledge deficit of diet [facility] Medical History GERD (gastroesophageal reflux disease) Nephrolithiasis Medullary sponge kidney Obesity Pulmonary emboli Surgical History H/O lithotripsy History of excision of mass (10/05/23) Hx of abdominoplasty (~04/28/23) History of breast lift (~04/28/23) History of delivery Family History Father Prostate cancer Mother High cholesterol HTN (hypertension) Social History Household Members: Family Housing: House Do you presently have visiting nurse or other home services: No Alcohol intake: never Comment: supervision as pt post op Patient Tobacco Use Status: Never used Tobacco service: No Current occupational status: employed Female Reproductive History Menstrual Age of Menarche: 13 Assessment & Plan Assessment & Plan (1) Obesity: Code(s): E66.9 - Obesity, unspecified Category: Medical Plan: current wt: 88 kg ( ) est kcal needs as per MSJ: 1800 est protein needs as per 1 g/kg BW: 80- 90 est fluid needs as per 30 ml/kg BW: 2600 Recommended fiber > 12 g /day and gradually increase up to 25-28 g /day or as tolerated Nutrition topics discussed : Reviewed (R), Pt verbalized understanding (V) , not applicable (N/A) R, : Healthy Plate Method Concept: R, : Carbohydrates: food sources of carbohydrates, relationship of carbohydrates to blood glucose, fatty liver GI health. Recommended total amount of carbohydrates per meals and snack. Differences between simple carbohydrates and complex carbohydrates R, : Lean protein foods including vegan , vegetarian sources of protein. Benefits of protein (including but not limited to healing, nutritional value , benefits in weight loss, glucose control R, V, N/A: Fats : Source of fats, benefits of fats. Difference between saturated and unsaturated fats. Saturated fats and its contribution to inflammation R, V, N/A: Fiber: food sources and role of fiber in the diet (including but not limited to its role as a prebiotic, benefits in constipation, role in IBS , role in glucose control and cholesterol level) R, V: Hydration: role of hydration and prevention of dehydration or over hydration. Foods and water content. R, V, N/A: Vitamins and Minerals in foods and supplements R, V, N/A: Interpreting food labels, including serving size, macronutrients, vitamins, minerals, allergens, ingredient list , % daily value Patient Instructions: Work on having a 3 meal schedule Include lean protein foods in each meal, 2-3 oz serving Reduce on sugars in total carbohydrates to less than 45 g at a meal Read food labels choosing lactose free food options Coding Level of Care Code Nutr Indiv Intake (92235) Diagnoses Obesity E66.9 Time Spent (min) 30
[2025-07-16 09:38] VITALS: BMI 33.5
[2025-07-16 09:44] VITALS: BMI 33.5
== END 2025-07-16 10:08 | disposition home or self-care (01) ==
LOC: HO.ENCR 09:30
PROVIDERS: PCP Pediatrics; Visit Provider Dietitian, Registered
DX: E66.9 Obesity, unspecified (principal)

== ENCOUNTER → 2025-07-16 09:29 | Outpatient (BNVA) | payer OTHER, SELFPAY | PROVIDERS: PCP Pediatrics; Visit Provider Dietitian, Registered | DX: E66.9 Obesity, unspecified (principal) | CPT/HCPCS: 97802 ==

== ENCOUNTER 2025-08-01 07:58 | Outpatient (AMB) | payer OTHER, SELFPAY ==
--- OUTSIDE RECORDS SUMMARY | 2025-08-01 08:04 | XMS_ITS | Encounter Summary ---
Author Organization [employer] Address [address] [place] [id number] Care Team Providers Care Radiation Monitor Name Role Phone Bethanie Holliday MD Primary Care Provider [phone] Encounter Details Date Type Department Care Team (Latest Contact Info) Description 09/06/2019 Abstract [facility] CONVERSIONS Dental, Provider, DDS Social History [...] on filedocumented in this encounter Care Teams Radiation Monitor Relationship Specialty Start Date End Date Bethanie Holliday MD [address] [place] [address] PCP - General Family Medicine 10/22/14 documented as of this encounter
--- OUTSIDE RECORDS SUMMARY | 2025-08-01 08:05 | XMS_ITS | Encounter Summary ---
Author Organization [employer] Address [address] [address] Care Team Providers Care Front Desk Name Role Phone Bethanie Holliday MD Primary Care Provider [phone] Reason for Visit * Reason Comments Med Refill Encounter Details Date Type Department Care Team (Late st Contact Info) Description 03/28/2025 Refill [facility] CH[facility] MED & PEDS [address] [place], [place] [phone] Bethanie Holliday MD [address] [place] [address] Social History Tobacco Use Types Packs/Day Years [...] documented as of this encounter Care Teams Front Desk Relationship Specialty Start Date End Date Bethanie Holliday MD [address] [place] [address] PCP - General Family Medicine 10/22/14 documented as of this encounter
--- OUTSIDE RECORDS SUMMARY | 2025-08-01 08:05 | XMS_ITS | Encounter Summary ---
Author Organization [employer] Address [address] [address] Care Team Providers Care Shotgun Shell Assembly Machine Adjuster Name Role Phone Bethanie Holliday MD Primary Care Provider [phone] Reason for Visit * Reason Comments Med Refill Encounter Details Date Type Department Care Team ([facility] st Contact Info) Description 07/20/2025 Refill [facility] CH[facility] MED & PEDS [address] [place], [place] [phone] Bethanie Holliday MD [address] [place] [address] Social History Tobacco Use Types Packs/Day Years [...] documented as of this encounter Care Teams Shotgun Shell Assembly Machine Adjuster Relationship Specialty Start Date End Date Bethanie Holliday MD [address] [place] [address] PCP - General Family Medicine 10/22/14 documented as of this encounter
--- OUTSIDE RECORDS SUMMARY | 2025-08-01 08:05 | XMS_ITS | Encounter Summary ---
Author Organization [employer] Address [address] [place] [address] Care Team Providers Care Corporate Giving Manager Name Role Phone Bethanie Holliday MD Primary Care Provider [phone] Reason for Visit * Reason Onset Date Comments Hospital Follow-up 10/06/2024 Encounter Details Date Type Department Care Team (Late st Contact Info) Description 10/06/2024 Telephone [facility] MEDICINE [address] [place] [address] Bethanie Holliday MD [address] [place] [address] Hospital Follow-up Social History Tobacco Use Types [...] from pt requesting a HDF appt. Hospital: [facility] Date of admission: 10/04 Discharge date: 10/06 Diagnosed: Kidney Stones Surgery *Send message to [facility] [phone] documented in this encounter Plan of Treatment Not on file documented as of this encounter Visit Diagnoses Not on filedocumented in this encounter Additional Health Concerns Assessment Noted Time PHQ-9 Depression Total Score: 0 05/25/20 23 10:22 AM EDT documented as of this encounter Care Teams Corporate Giving Manager Relationship Specialty Start Date End Date Bethanie Holliday MD [address] [place] [id number] PCP - General Family Medicine 10/22/14 documented as of this encounter"
--- OUTSIDE RECORDS SUMMARY | 2025-08-01 08:05 | XMS_ITS | Encounter Summary ---
Author Organization [employer] Address [address] [facility] [address] [place] [address] Care Team Providers Care Speech Language Pathologist Travel Name Role Phone Bethanie Holliday MD Primary Care Provider [phone] Encounter Details Date Type Department Care Team (Late st Contact Info) Description 11/13/2022 Orders Only [facility] CHC MED & PEDS [address] [place], [place] [phone] Bethanie Holliday MD [address] [place], [place] [phone] Arthralgia of right knee (Primary Dx) Social [...] Primary documented in this encounter Care Teams Speech Language Pathologist Travel Relationship Specialty Start Date End Date Bethanie Holliday MD [address] [place] [address] PCP - General Family Medicine 10/22/14 documented as of this encounter
--- OUTSIDE RECORDS SUMMARY | 2025-08-01 08:05 | XMS_ITS | Clinical Summary ---
Author Organization [employer] Address [address] 7 [place] [address] Care Team Providers Care Lump Machine Operator Name Role Phone Bethanie Holliday MD Primary Care Provider [phone] Allergies Active Allergy Reactions Criticality Noted Date Comments Penicillin G Swelling Low 02/10/2012 Penicillins Swelling Low 08/18/2022 Medications EPINEPHrine (Epipen) 0.3 MG/0.3ML injection syringe Inject 0.3 mL into the shoulder, thigh, or buttocks. 01/18/2020 Active Tirzepatide (Mounjaro) 5 MG/0.5ML solution auto-injector 5 mg. 10/04/2024 Activ e ergocalciferol (Vitamin D2) 1.25 MG (38275 UT) capsule Take 1 capsule (1.25 mg) [...] Encounters Date Type Department Care Team Description 07/20/2025 Refill [facility] [address] [place] [address] Bethanie Holliday MD 06/29/2025 Orders Only GENERIC EXTERNAL DATA DEPARTMENT Provider, Generic External Data 06/25/2025 Results Follow-Up [facility] [address] [place] [address] Bethanie Holliday MD Bacterial Vaginosis, Chlamydia/N. Gonorrhoeae RNA, TMA, Urogenitial, Pap Smear, HPV DNA, Low/High Risk 06/12/2025 Orders Only GENERIC EXTERNAL DATA DEPARTMENT Provider, Generic External Data 05/31/2025 Orders Only GENERIC EXTERNAL DATA DEPARTMENT Provider, Generic External Data 05/14/2025 Results Follow-Up [facility] [address] [place] [address] Bethanie Holliday MD Pelvis Transvaginal 05/14/2025 Orders Only [facility] [address] [place] [address] Bethanie Holliday MD Pelvic pain (Primary Dx); Free fluid in pelvis; Dyspareunia, female from Last 3 Months Immunizations Immunization Administration [...] t he electric, gas, oil or water [employer] threatened to shut off services in your [...] Date Last Done Comments CT Colonography 1979 FIT DNA/Cologuard 1979 FIT 1979 FOBT 1979 HIV Screening 1979 Sigmoidoscopy 1979 Family Planning (PISQ) 1994 Hepatitis C Screening 1997 Hepatitis B Vaccines (3 of 3 - 19+ 3-dose series) 03/23/2024 10/21/2023, 09/23/2023 Dental Oral Exam 05/04/2024 11/01/2023, 06/03/2022 Dental X-Ray: Bitewings 11/01/2024 11/01/19 24, 08/06/2023, 08/06/2023, Additional history exists Dental Prophylaxis 01/16/2025 07/18/2024, 0 11/01/2023, 05/28/2022 COVID-19 Vaccine ( season) 2025 07/20/2024, 09/23/2023, 06/27/2021, Additional history exists Influenza Vaccine (#1) 2025 , 09/23/2023, 05/29/2022, Additional history exists Dental X-Ray: Full Mouth 05/29/2025 05/28/2022 Alcohol/Substance Use Screening 11/24/2025 11/24/2024 Disability Screening 11/24/2025 11/24/2024 SDOH Screening 11/24/2025 11/24/2024 Depression Screening 01/16/2026 01/16/2025, 01/17/20 Tobacco Screening 03/15/2026 03/15/2025 DTaP/Tdap/Td Vaccines (2 - Td or Tdap) 01/07/2027 01/07/2017 Mammogram 02/16/2027 02/16/2025, 05/31, 08/29/2019 Lipid Panel 05/28/2027 05/28/2022, 02/0 10/2021, 10/30/2020, Additional history exists Zoster Vaccines (1 of 2) 2029 HPV/Cotest 06/12/2030 06/12/2025, 06/18/2020 Cervical Cancer Screening 06/13/2030 Pap Smear 06/13/2030 06/13/2025, 05/30, 06/18/2020 Colonoscopy 06/29/2035 06/29/2025 Colorectal Cancer Screening 06/29/2035 RSV Patients and Patients Aged 60 years or older (1 - 1-dose 75+ series) 2054 HIB Vaccines Aged Out No longer eligi [...] Procedure Name Priority Date/Time Associated Diagnosis Comments HEMATOXYLIN AND EOSIN STAIN Routine 06/29/2025 1:37 PM EDT HCG, QL, URINE Routine 06/29/2025 12:20 PM EDT HM COLONOSCOPY Routine 06/29/2025 HM PAP/HPV Routine 06/13/2025 PAP SMEAR Routine 06/12/2025 4:17 PM EDT HPV DNA, LOW/HIGH RISK Routine 4:17 PM EDT CHLAMYDIA/N. GONORRHOEAE RNA, TMA, UROGENITAL Routine 06/12/2025 2:30 PM EDT BACTERIAL VAGINOSIS PANEL Routine 06/12/2025 2:30 PM EDT VITAMIN D 25-OH (D2 AND D3) Routine [...] PANEL, STANDARD Routine 05/28/2022 8:46 AM EDT from Last 3 Months or Most Recently Relevant to Health Maintenance Results * Hematoxylin and Eosin Stain (06/29/2025 1:37 PM EDT) 06/29/2025 1:37 PM EDT 07/02/2025 8:48 AM EST [facility] - 07/04/2025 10:24 AM EST ----- ------- Name: Martín Ervin Age/Sex: 45/F : 1980 Unit#: [id number] Attend Dr: Amy Saldaña MD Re06/29/25 Status: [facility] Location: [facility] Disch: ----- ------- SPEC : [id number] RECD: 07/02/25 STATUS: JOVANNA FRAZIER NUM: [id number] MARCELA: 06/29/251337 [facility] DR: Amy Saldaña MD ENTERED: 07/02/25 SP TYPE: Surgical OTHR DR: Bethanie Holliday MD ORDERED: HE Stain/, Gross Micro L4/8, IHC/2, Special st. 2/, H. pylori/2, AB/PAS/4 Diagnosis A. Small bowel, biopsy: Duodenal mucosa with mildly increased intraepithelial lymphocytes and preserved villous architecture. See comment. B. Stomach, antrum, biopsy: Antral-type mucosa with mild chronic inactive inflammation; no Helicobacter organisms seen. C. Stomach, body, biopsy: Oxyntic mucosa with mild chronic inactive inflammation; no Helicobacter organisms seen. D. Stomach, polypectomy: Fundic gland polyp with background mild chronic inactive inflammation; no Helicobacter organisms seen. E. GE junction, biopsy: - Cardiofundic-type mucosa with mild chronic inactive inflammation; no intestinal metaplasia seen. - No squamous epithelium identified. F. Terminal ileum, biopsy: Terminal ileal mucosa within normal limits. G. Colon, right, biopsy: Colonic mucosa within normal limits. H. Colon, left, biopsy: Colonic mucosa within normal limits. COMMENT: The findings in the duodenum are non-specific. The differential diagnosis is broad and includes infection (e.g. viral or H. pylori), medication/drugs (e.g. NSAIDs), gluten sensitivity/celiac disease, bacterial overgrowth, tropical sprue, immunodeficiency syndromes (e.g. IgA deficiency, CVID), autoimmune enteropathy, Crohns and collagen vascular disease, among others. Please correlate with clinical and other laboratory findings. Clinical History Pre-Op Dx: GERD, ABD pain Post-Op Dx: Gastritis, gastric polyp, esophagitis, hemorrhoids Microscopic Description A-H. Microscopic sections examined. No metaplastic changes are seen, supported by AB/PAS stains (A, B, C and D); no Helicobacter organisms are seen, supported by H. pylori immunostain (B and C). CONTINUED ON NEXT PAGE ----- ------- Name: Sapna TarangoMartín francisco Age/Sex: 45/F : 1980 Unit#: [id number] Attend Dr: Amy Saldaña MD Re06/29/25 Status: [facility] Location: [facility] Disch: ----- ------- SPEC : [id number] RECD: 07/02/25 [facility] NUM: [id number] MARCELA: 06/29/25 [facility] DR: Amy Saldaña MD ENTERED: 07/02/25 SP TYPE: Surgical OTHR DR: Bethanie Holliday MD ORDERED: HE Stain/24, Gross Micro L4/8, IHC/2, Special st. 2/4, H. pylori/2, AB/PAS/4 Material Received A. Small bowel bxs r/o celiac disease B. Gastric antrum bxs r/o H.Pylori C. Gastric body bxs D. Gastric polyp E. GE junction bxs F. Terminal ileum bxs r/o IBD G. Right colon bxs r/o microscopic colitis H. Left colon bxs r/o microscopic colitis Gross Description A. Received in formalin are 2 edge soft tissue fragments measuring 2 and 3 mm, totally submitted in cassette A1. B. Received in formalin is 1 edge soft tissue fragment measuring 5 mm, totally submitted in cassette B1. C. Received in formalin are 3 edge soft tissue fragments measuring 2-3 mm, totally submitted in cassette C1. D. Received in formalin are 3 edge soft tissue fragments measuring 1-6 mm, totally submitted in cassette D1. E. Received in formalin are 2 edge soft tissue fragments measuring 3 and 4 mm, totally submitted in cassette E1. F. Received in formalin are 2 edge soft tissue fragments measuring 2 and 3 mm, totally submitted in cassette F1. G. Received in formalin are 2 edge-white soft tissue fragments measuring 4 and 5 mm, totally submitted in cassette G1. H. Received in formalin are 2 edge-white soft tissue fragments measuring 2 and 3 mm, totally submitted in cassette H1. (OWR) Special studies ordered and performed: Immunostain for H. pylori on B and C; AB/PAS stains on A, B, C and D IHC S/NG Disclaimer NOTE: Unless otherwise stated, all tissue is formalin-fixed and paraffin-embedded. Some or all of the immunohistochemical tests reported herein may have been developed and their performance characteristics determined by [facility]. They have not been cleared or approved by the U.S. Food and Drug Administration (FDA). However, the FDA has determined that such clearance or approval is not necessary. This laboratory is certified under the Clinical Laboratory Improvement Amendments of 1988 (CLIA) as qualified to perform high complexity clinical laboratory testing. CONTINUED ON NEXT PAGE ----- ------- Name: Martín Ervin Age/Sex: 45/F : 1980 Unit#: [id number] Attend Dr: Amy Saldaña MD Re06/29/25 Status: [facility] Location: [facility] Disch: ----- ------- SPEC : [id number] RECD: 07/02/25 STATUS: JOVANNA FRAZIER NUM: [id number] MARCELA: 06/29/25 [facility] DR: Amy Saldaña MD ENTERED: 07/02/25 SP TYPE: Surgical OTHR DR: Bethanie Holliday MD ORDERED: HE Stain/, Gross Micro L4/8, IHC/2, Special st. 2, H. pylori/2, AB/PAS/4 Copies To: Bethanie Holliday MD [address] [phone] Amy Saldaña MD [facility] [address] [place] [phone] ----- ------- Signed (signature on file) Braulio Segura MD 07/04/25 1024 ----- ------- END OF REPORT us Generic External Data Provider LAB BLOOD ORDERAB LES Final Result [facility] [address] [place] [phone] * HCG, Qualitative, Urine (06/29/2025 12:20 PM EDT) Urine NEGATIVE NEGATIVE [facility] Comment:This test was develo ped to detect early . Falsenegative results may occur after the 5th - 7th week ofpregnancy when using this test method. If clinicallyindicated, consider a serum hCG. 06/29/2025 12:2 0 PM EDT 06/29/2025 12:33 PM EDT us Generic External Data Provider LAB URINE ORDERAB LES Final Result [facility] [address] [place] [phone] * Colonoscopy (06/29/2025) Pathologist [facility] Colonoscopy Normal Normal Bethanie Holliday MD HEALTH MAINTENANCE Final Resu lt * HM PAP/HPV (06/13/2025) Pap Smear 1. NILM 1. NILM Bethanie Holliday MD HEALTH MAINTENANCE Final Resu lt * HPV DNA, Low/High Risk (06/12/2025 4:17 PM EDT) Pathologist [facility] HPV High Risk Negative Negative [facility] HPV Genotype 16 Negative Negative [facility] HPV Genotype 18 Negative Negative [facility] Comment:HPV testing performe d at [facility] (CLIA#[id number]), [address] [place] [address].Testing for HPV was performed using the Sukhdeep DISHA 6800system. The presence of HPV in the female genital tract isassociated with a number of diseases, including cervicalcarcinoma. The HPV DNA high risk pool tests for HPV 31, 33,35, 39, 45, 51, 52, 56, 58, 59, 66 and 68. The testing forHPV 16 and 18 genotypes has also been performed. A positiveresult indicates detection of nucleic acid sequences fromone or more subtypes, whereas a negative result indicatessuch sequences were not detected. 06/12/2025 4:17 PM EDT 06/13/2025 2:13 PM EDT us Generic External Data Provider LAB BLOOD ORDERAB LES Final Result [facility] [address] [place] [address] [phone] * Pap Smear (06/12/2025 4:17 PM EDT) 06/12/2025 4:17 PM EDT 06/13/2025 2:06 PM EDT Narrative [facility] - 06/18/2025 1:36 PM EDT ----- ------- Name: Martín Ervin Age/Sex: 45/F : 1980 Unit#: [id number] Attend Dr: Dipika Gurrola CNM Re06/12/25 Status: DEP REF Location: HO.LNP Disch: ----- ------- SPEC : [id number] RECD: 06/13/25914 STATUS: JOVANNA FRAZIER NUM: [id number] MARCELA: 06/12/25-[address]: Dipika Gurrola CNM ENTERED: 06/13/25-1410 SP TYPE: Pap Smr OTHR DR: Bethanie Holliday MD ORDERED: Pap Smear Interpretation Satisfactory for evaluation. Negative for intraepithelial lesion or malignancy. No endocervical cells seen. HPV High Risk: Negative HPV Genotyping 16: Negative HPV Genotyping 18: Negative Clinical Information LMP: Previous PAP test: Other surgery: Other history: Material Received ThinPrep-Cervical Copies To: Bethanie Holliday MD [address] [address] Dipika Gurrola CNM [facility] [address] [facility] 3rd [place] [address] ----- ------- Signed (signature on file) AYAAN Zuluaga (ASCP) 06/18/25 1336 ----- ------- END OF REPORT us Generic External Data Provider LAB CYTOLOGY KINAA JOHN Final Result [facility] [address] [place] [phone] * Bacterial Vaginosis (06/12/2025 2:30 PM EDT) TRICHOMONAS VAGINALIS DETECTION BY PCR NOT DETECTED Not Detect [facility] BACTERIAL VAGINOSIS DETECTION BY PCR NEGATIVE Negative [facility] Comment:The BV organism targ ets of the Xpert Xpress MVP test can becommensal in women; Xpert Xpress MVP positive results forbacterial vaginosis should be considered in conjunction withother clinical and patient information to determine thedisease status. Organisms that are not detected by the XpertXpress MVP test have also been reported to be associatedwith BV and aerobic vaginitis.The Xpert Xpress MVP test performance has not been evaluatedin patients under the age of 14. YVONNE GROUP DETECTION BY PCR NOT DETECTED Not Detect [facility] Yvonne glab krusei PCR NOT DETECTED Not Detect [facility] 06/12/2025 2:30 PM EDT 06/13/2025 1:49 PM EDT us Generic External Data Provider LAB MICROBIOLOGY - GENERAL ORDERABLES Final Result [facility] [address] [place] [phone] * Chlamydia/N. Gonorrhoeae RNA, TMA, Urogenitial (06/12/2025 2:30 PM EDT) CT PCR NOT DETECTED Not Detect. [facility] Comment:A not detected test result does not exclude the possibilityof infection because test results can be affected byimproper specimen collection, concurrent antibiotic therapy,or the number of organisms in the specimen which may bebelow the sensitivity of the test. As with many diagnostictests, results from the Xpert CT/NG assay should beinterpreted in conjunction with other laboratory andclinical data available to the clinician.Xpert CT/NG performance has not been evaluated in patientsless than 14 years of age. The assay should not be used forthe evaluationof suspected sexual abuse or for other medico-legalindications. Additional testing is recommended in anycircumstance when false positive or false negative resultscould lead to adverse medical, social or psychologicalconsequences. NG PCR NOT DETECTED Not Detect. [facility] Comment:A not detected test result does not exclude the possibilityof infection because test results can be affected byimproper specimen collection, concurrent antibiotic therapy,or the number of organisms in the specimen which may bebelow the sensitivity of the test. As with many diagnostictests, results from the Xpert CT/NG assay should beinterpreted in conjunction with other laboratory andclinical data available to the clinician.Xpert CT/NG performance has not been evaluated in patientsless than 14 years of age. The assay should not be used forthe evaluationof suspected sexual abuse or for other medico-legalindications. Additional testing is recommended in anycircumstance when false positive or false negative resultscould lead to adverse medical, social or psychologicalconsequences. 06/12/2025 2:30 PM EDT 06/13/2025 1:49 PM EDT us Generic External Data Provider LAB MICROBIOLOGY - GENERAL ORDERABLES Final Result [facility] [address] [place] [phone] * VITAMIN D 25-OH (D2 AND D3) (05/31/2025 12:18 PM EDT) Vitamin D, 25-OH, D2 12 ng/mL [facility] Comment:This test was develo ped and its analytical performancecharacteristics have been determined by [employer] [place]. It hasnot been cleared or approved by the U.S. Food and DrugAdministration. This assay has been validated pursuantto the CLIA regulations and is used for clinicalpurposes.THIS TEST WAS PERFORMED AT:[employer] [id number] [place] [address]PYCPUEGCRYSTAL SUAREZ MD,PHD Vitamin D, 25-OH, D3 19 ng/mL [facility] Comment:This test was develo ped and its analytical performancecharacteristics have been determined by [employer] [place], [place]. It hasnot been cleared or approved by the U.S. Food and DrugAdministration. This assay has been validated pursuantto the CLIA regulations and is used for clinicalpurposes. Vitamin D, 25-OH, Total 31 30 - 100 ng/mL [facility] Comment:Vitamin D, 25-Hydrox y reports concentrations [...] = 30 ng/mL.For additional information, please refer tohttp://education.MusicSiren/faq/HHJ128(This link is being provided for informational/educational purposes only.) 05/31/2025 12:1 8 PM EDT 05/31/2025 12:18 PM EDT us Generic External Data Provider LAB BLOOD ORDERAB LES Final Result [facility] [address] [place] [phone] * Vitamin B12 (Cobalamin) and Folate Panel, Serum (05/31/2025 12:18 PM EDT) Vitamin B12 423 200 - 900 pg/mL [facility] Comment:NORMAL 200-900 PG/ML INDETERMINATE 160-199 PG/ML DEFICIENT < 160 PG/ML Folate 13.3 > or = 4.0 ng/mL [facility] Comment:Reference Values:> o r = 4.0 [...] Final Result Performing Organization Address [facility] Co de Phone Number [facility] [address] [place] [phone] * TSH with Reflex to Free T4 (05/31/2025 12:18 PM EDT) TSH reflex Free T4 2.55 0.32 - 4.0 uIU/mL [facility] 05/31/2025 12:1 8 PM EDT 05/31/2025 12:18 PM EDT Generic External Data Provider LAB BLOOD ORDERAB LES Final Result Performing Organization Address [facility] Number [facility] [address] [place] [phone] * Tissue Transglutaminase (tTG) Antibody (IgG) (05/31/2025 12:18 PM EDT) Tissue Transglutaminase Antibody IgG <1.0 U/mL [facility] Comment:Value Interpretation ----- <15.0 Antibody not detected> or = 15.0 Antibody detectedTHIS TEST WAS PERFORMED AT:[employer] [place] [phone] NINA MD 05/31/2025 12:1 8 PM EDT 05/31/2025 12:18 PM EDT Generic External Data Provider LAB BLOOD ORDERAB LES Final Result Performing Organization Address [facility] Co de Phone Number [facility] [address] [place] [phone] * Tissue Transglutaminase Antibody, IgA (05/31/2025 12:18 PM EDT) Transglutaminase IgA <1.0 U/mL [facility] Comment:Value Interpretation ----- <15.0 Antibody not detected> or = 15.0 Antibody detectedTHIS TEST WAS PERFORMED AT:[employer] [place] [phone] NINA MD 05/31/2025 12:1 8 PM EDT 05/31/2025 12:18 PM EDT Generic External Data Provider LAB BLOOD ORDERAB LES Final Result Performing Organization Address [facility] Co de Phone Number [facility] [address] [place] [phone] * Lipase (05/31/2025 12:18 PM EDT) Lipase 52 8 - 78 U/L [facility] 05/31/2025 12:1 8 PM EDT 05/31/2025 12:18 PM EDT Generic External Data Provider LAB BLOOD ORDERAB LES Final Result Performing Organization Address [facility] de Phone Number [facility] [address] [place] [phone] * FL Upper GI w/air w/Barium Swallow (05/28/2025 9:24 AM EDT) Anatomical Region Laterality Modality Body Radiographic Elza ging 05/28/2025 9:24 AM EDT Narrative 05/28/2025 12:45 PM EDT [address] [address] Fluoroscopy Report Signed Patient: Sapna CabreraMartín#: [id number] : 1980 Acct:[id number] Age/Sex: 45 / F ADM Date: 05/28/25 Loc: MOMO Attending Dr: Aylin CUEVAS-YANELI Ordering Physician: Aylin Morales-YANELI Date of Service: 05/28/25 Procedure(s): FL upper GI w air w Ba Swallow Accession Number(s): [id number] cc: Bethanie Holliday MD; Aylin Morales [facility] Reason for Exam: K21.9 - Gastro-esophageal reflux [...] Gutierrez MD in OV> 05/28/25 1242 DD/ 0924 TD/TT: 05/28/25 0937 Customer Quality Engineer: [facility] Procedure Note Donotuseinterpreter, Image - 05/28/[address] [address] Fluoroscopy Report Signed Patient: Martín Ervin MM R#: [id number] : 1980Acct:[id number] Age/Sex: 45 / FADM Date: 05/28/25 Loc: HO.XRAY Attending Dr: Aylin Morales [facility] Ordering Physician: Aylin Morales [facility] Date of Service: 05/28/25 Procedure(s): FL upper GI w air w Ba Swallow Accession Number(s): [id number] cc: Bethanie Holliday MD; Aylin Morales [facility] Reason for Exam: K21.9 - Gastro-esophageal reflux [...] Gutierrez MD in OV> 05/28/25 1242 DD/ 0924 TD/TT: 05/28/25 0937 Customer Quality Engineer: [facility] External Provider IMG FLU OROSCOPY PROCEDURES Final Result * US Pelvis Transvaginal (05/11/2025 1:49 PM EDT) Anatomical Region Laterality Modality Pelvis Ultrasound 05/11/2025 1:49 PM EDT Narrative 05/11/2025 2:25 PM EDT [address] [place] [address] Ultrasound Report Signed Patient: Martín Ervin R#: [id number] : 1980 Acct:[id number] Age/Sex: 45 / F ADM Date: 05/11/25 Loc: .US Attending Dr: Bethanie Holliday MD Ordering Physician: Bethanie Holliday MD Date of Service: 05/11/25 Procedure(s): US pelvic and transvaginal Accession Number(s): [id number] cc: Bethanie Holliday MD Reason for Exam: [...] 05/11/25 1422 DD/ 1349 TD/TT: 05/11/25 1401 Customer Quality Engineer: Procedure Note Donotuseinterpreter, Image - 05/11/[address] [address] Ultrasound Report Signed Patient: Martín Ervin MM R#: [id number] : 1980Acct:[id number] Age/Sex: 45 / FADM Date: 05/11/25 Loc: HO.US Attending Dr: Bethanie Holliday MD Ordering Physician: Bethanie Holliday MD Date of Service: 05/11/25 Procedure(s): US pelvic and transvaginal Accession Number(s): [id number] cc: Bethanie Holliday MD Reason for Exam: [...] 05/11/25 1422 DD/ 1349 TD/TT: 05/11/25 1401 Customer Quality Engineer: us Bethanie Holliday MD IMG US PROCEDURES Final Resul t * BI Mammogram Screening Tomosynthesis Bilateral (02/16/2025 1:20 PM EDT) Anatomical Region Laterality Modality Breast Bilateral Mammography 02/16/2025 1:20 PM EDT Narrative 02/22/2025 1:42 PM EDT [facility] [address] [place] [address] Mammography Report Signed Patient: Martín Ervin Robyn Carlson R#: [id number] : 1980 Acct:[id number] Age/Sex: 45 / F ADM Date: 02/16/25 Loc: HO.MAMMO Attending Dr: Bethanie Holliday MD Ordering Physician: Bethanie Holliday MD Results: 2Be nign Findings Date of Service: 02/16/25 Follow Up: 1 Year From [facility] ina Mammogram Procedure(s): MM tomosynthesis screening BI Accession Number(s): [id number] cc: Bethanie Holliday MD EXAMINATION: MM SCREENING [...] 02/22/25 1339 DD/ 1320 TD/TT: 02/16/25 1340 Customer Quality Engineer: Procedure Note Donotuseinterpreter, Image - 02/22/2025 [facility] [address] [place], [place] [address] Mammography Report Signed Patient: Martín Ervin ELIO R#: [id number] : 1980Acct:[id number] Age/Sex: 45 / FADM Date: 02/16/25 Loc: HO.MAMMO Attending Dr: Bethanie Holliday MD Ordering Physician: Bethanie Holliday MDResults: 2Be nign Findings Date of Service: 02/16/25Follow Up: 1 Year From Orig inal Mammogram Procedure(s): MM tomosynthesis screening BI Accession Number(s): [id number] cc: Bethanie Holliday MD EXAMINATION: MM SCREENING [...] 02/22/25 1339 DD/ 1320 TD/TT: 02/16/25 1340 Customer Quality Engineer: us Bethanie Holliday MD IMG BI PROCEDURES [...] LDL-C. Darren SS et al. REBA. 2013;310(19): 0026-4212 (http://education.MusicSiren/faq/BEJ869) Non-HDL Cholesterol 141(H) <130 mg/dL (calc) CONVERTED [facility] Comment: For patients with diabetes plus 1 major ASCVD risk factor, treating to a non-HDL-C goal of <100 mg/dL (LDL-C of <70 mg/dL) is considered a therapeutic option. Triglycerides 149 <150 mg/dL CONVE RTED [facility] 05/28/2022 8:46 AM EDT us Bubba Lenz MD LAB BLOOD ORDERABL ES Final Result CONVERTED [facility] from Last 3 Months or Most Recently Relevant to Health Maintenance Insurance [facility] Care Teams Lump Machine Operator Relationship Specialty Start Date End Date Bethanie Holliday MD [address] [place] [id number] PCP - General Family Medicine 10/22/14
--- OUTSIDE RECORDS SUMMARY | 2025-08-01 08:05 | XMS_ITS | Encounter Summary ---
Author Organization [employer] Address [address] [place] [address] Care Team Providers Care Event Specialist Product Demonstrator Name Role Phone Bethanie Holliday MD Primary Care Provider [phone] Encounter Details Date Type Department Care Team (Latest Contact Info) Description 12/12/2020 Abstract [facility] CONVERSIONS Dental, Provider, DDS Social [...] on filedocumented in this encounter Care Teams Event Specialist Product Demonstrator Relationship Specialty Start Date End Date Bethanie Holliday MD [address] [place] [address] PCP - General Family Medicine 10/22/14 documented as of this encounter
--- OUTSIDE RECORDS SUMMARY | 2025-08-01 08:05 | XMS_ITS | Encounter Summary ---
Author Organization [employer] Address [address] [place] [address] Care Team Providers Care Aviation Electronics Technician Name Role Phone Bethanie Holliday MD Primary Care Provider [phone] Reason for Visit * Reason Onset Date Comments Med Refill 03/26/2025 Encounter Details Date Type Department Care Team (Late st Contact Info) Description 03/26/2025 Refill [facility] MED & PEDS [address] [place], [place] [phone] Bethanie Holliday MD [address] [place] [address] Social History Tobacco Use Types Packs/Day Years [...] documented as of this encounter Care Teams Aviation Electronics Technician Relationship Specialty Start Date End Date Bethanie Holliday MD [address] [place] [id number] PCP - General Family Medicine 10/22/14 documented as of this encounter
--- OUTSIDE RECORDS SUMMARY | 2025-08-01 08:05 | XMS_ITS | Encounter Summary ---
Author Organization [employer] Address [address] [facility] 7 [place] [address] Care Team Providers Care Core Drier Name Role Phone Bethanie Holliday MD Primary Care Provider [phone] Encounter Details Date Type Department Care Team (Late st Contact Info) Description 06/25/2025 Results Follow-Up [facility] MED & PEDS [address] [place], [place] [phone] Bethanie Holliday MD [address] [place] [address] Bacterial Vaginosis, Chlamydia/N. Gonorrhoeae RNA, TMA, Urogenitial, Pap Smear, HPV DNA, Low/High Risk Social History Tobacco Use Types Packs/Day Years [...] documented as of this encounter Care Teams Core Drier Relationship Specialty Start Date End Date Bethanie Holliday MD [address] [place] [phone] PCP - General Family Medicine 10/22/14 documented as of this encounter
--- OUTSIDE RECORDS SUMMARY | 2025-08-01 08:05 | XMS_ITS | Encounter Summary ---
Author Organization [employer] Address [address] [place] [address] Care Team Providers Care Surgical Attendant Name Role Phone Bethanie Holliday MD Primary Care Provider [phone] Encounter Details Date Type Department Care Team (Latest Contact Info) Description 05/28/2022 Abstract [facility] CONVERSIONS Dental, Provider, DDS Social History [...] on filedocumented in this encounter Care Teams Surgical Attendant Relationship Specialty Start Date End Date Bethanie Holliday MD [address] [place] [address] PCP - General Family Medicine 10/22/14 documented as of this encounter
--- NOTE | 2025-08-01 08:15 | MHC.OFFVIS ---
Vital Signs 08/01/25 08:21 Height 5 ft 4 in Weight 191 lb 9.307 oz BMI 32.9 BP 102/60 Blood Pressure Location Lt brachial Position Sitting Pulse 88 Pulse Source Pulse Oximeter Pulse Oximetry (%) 99 Oxygen Delivery Method Room Air Intake Visit Reasons: Obesity Intake Note: Patient present today for Obesity follow up. Allergies Penicillins Allergy (Mild, Verified 08/01/25 08:19) SWELLING Medication List - Last Reconciled 08/01/25 by Warner Solis MD famotidine 40 mg PO BEDTIME naproxen 500 mg PO BID 2 weeks pantoprazole 40 mg PO DAILY tirzepatide (weight loss) (Zepbound) 7.5 mg (0.5 mL) subcut QWEEK HPI Comments Details: This is a 45-year-old female sent to endocrinology for evaluation of obesity. Weight gain was 10 yrs ago Patient has tried various diets . Patient has seen a video player mechanic. She was prescribed Mounjaro by Dr. Bragg provider who prescribed Mounjaro . On Mounjaro for 2 yrs and lost 60 lbs . On 5 mg for >1 yr . Some nausea but tolerating The patient is a 45-year-old female presenting with obesity management. She reports a significant weight gain starting approximately ten years ago, reaching a peak weight of 240 pounds, attributed to hormonal changes. 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 Approximately two to three years ago, she began treatment with Mounjaro, initially weighing 242 pounds. She has faced challenges with insurance coverage for the medication, affecting her ability to maintain consistent treatment. Despite these challenges, she has reduced her weight to 190 pounds, with fluctuations between 184 and 190 pounds. The patient has been on a 5 mg dose of Mounjaro with dose recently increased but going to increase dose She has been advised to continue dietary management and exercise, with a referral to a video player mechanic suggested to support her weight management goals. The patient has attempted various diets and consulted a video player mechanic to change her eating habits, although the specifics of her dietary intake were not detailed. The patient engages in some exercise as part of her weight management efforts, although specific types and frequency were not detailed. Currently on Zepbound 5 mg . Weight has been stable since last visit [facility] Medical History GERD (gastroesophageal reflux disease) Nephrolithiasis Medullary sponge kidney Obesity Pulmonary emboli Surgical History H/O lithotripsy History of excision of mass (10/05/23) Hx of abdominoplasty (~04/28/23) History of breast lift (~04/28/23) History of delivery Family History Father Prostate cancer Mother High cholesterol HTN (hypertension) Social History Household Members: Family Housing: House Do you presently have visiting nurse or other home services: No Unable to assess alcohol history related to: Unknown Alcohol intake: never Comment: supervision as pt post op Patient Tobacco Use Status: Never used Tobacco service: No Current occupational status: employed Female Reproductive History Menstrual Age of Menarche: 13 Physical Exam Vital Signs: Last Vital Signs Pulse 88 08/01/25 08:21 BP 102/60 08/01/25 08:21 Pulse Ox 99 08/01/25 08:21 Oxygen Delivery Method Room Air 08/01/25 08:21 BMI result Body Mass Index 32.9 Assessment & Plan Assessment & Plan (1) Obesity: Code(s): E66.9 - Obesity, unspecified Category: Medical Plan: 1. Obesity The patient is managing her weight with Mounjaro, reducing from 242 to 190 pounds. Weight has been stable. Patient had follow-up with video player mechanic - Increase Zepbound 7.5 mg as prescribed. - Follow up with the video player mechanic for dietary and exercise guidance. - Monitor weight and report any significant changes. T Coding Level of Care Code Est Pt Level 3 (12526) Diagnoses Obesity E66.9
[2025-08-01 08:21] VITALS: BP 102/60; PULSE 88; O2SAT 99; BMI 32.9
== END 2025-08-01 08:34 | disposition home or self-care (01) ==
LOC: HO.ENCR 07:59
PROVIDERS: PCP Pediatrics; Visit Provider Internal Medicine Endocrinology, Diabetes & Metabolism
DX: E66.9 Obesity, unspecified (principal)
CPT/HCPCS: 99213

== ENCOUNTER → 2025-08-01 07:58 | Outpatient (BNVA) | payer OTHER, SELFPAY | PROVIDERS: PCP Pediatrics; Visit Provider Internal Medicine Endocrinology, Diabetes & Metabolism | DX: E66.9 Obesity, unspecified (principal); Z68.32 Body mass index [BMI] 32.0-32.9, adult | CPT/HCPCS: 99212 ==

== ENCOUNTER 2025-08-17 12:42 | Outpatient (REF) | payer OTHER, SELFPAY ==
--- OUTSIDE RECORDS SUMMARY | 2025-08-17 14:32 | XMS_ITS | Encounter Summary ---
Author Organization [employer] Address [address] [place] [address] Care Team Providers Care Assistant Associate Professor Name Role Phone Bethanie Holliday MD Primary Care Provider [phone] Encounter Details Date Type Department Care Team (Latest Contact Info) Description 05/28/2022 Abstract [facility] CONVERSIONS Dental, Provider, DDS [...] on filedocumented in this encounter Care Teams Assistant Associate Professor Relationship Specialty Start Date End Date Bethanie Holliday MD [address] [place] [address] PCP - General Family Medicine 10/22/14 documented as of this encounter
--- OUTSIDE RECORDS SUMMARY | 2025-08-17 14:32 | XMS_ITS | Encounter Summary ---
Author Organization [employer] Address [address] [address] Care Team Providers Care Peoplesoft Hcm Consultant Name Role Phone Bethanie Holliday MD Primary Care Provider [phone] Reason for Visit * Reason Comments Med Refill Encounter Details Date Type Department Care Team (Late st Contact Info) Description 03/28/2025 Refill [facility] MED & PEDS [address] [place], [place] [phone] Bethanie Holliday MD [address] [place] [address] Social History Tobacco Use Types Packs/Day Years [...] documented as of this encounter Care Teams Peoplesoft Hcm Consultant Relationship Specialty Start Date End Date Bethanie Holliday MD [address] [place] [address] PCP - General Family Medicine 10/22/14 documented as of this encounter
--- OUTSIDE RECORDS SUMMARY | 2025-08-17 14:32 | XMS_ITS | Clinical Summary ---
Author Organization [employer] Address [address] [facility] 7 [place] [address] Care Team Providers Care Clinic Physician Director Name Role Phone Bethanie Holliday MD Primary Care Provider [phone] Allergies Active Allergy Reactions Criticality Noted Date Comments Penicillin G Swelling Low 02/10/2012 Penicillins Swelling Low 08/18/2022 Medications EPINEPHrine (Epipen) 0.3 MG/0.3ML injection syringe Inject 0.3 mL into the shoulder, thigh, or buttocks. 01/18/2020 Active Tirzepatide (Mounjaro) 5 MG/0.5ML solution auto-injector 5 mg. 10/04/2024 Activ e ergocalciferol (Vitamin D2) 1.25 MG (67928 UT) capsule Take 1 capsule (1.25 mg) [...] Type Department Care Team Description 07/20/2025 Refill [facility] [address] [place] [address] Bethanie Holliday MD 06/29/2025 Orders Only GENERIC EXTERNAL DATA DEPARTMENT Provider, Generic External Data 06/25/2025 Results Follow-Up [facility] [address] [place] [address] Bethanie Holliday MD Bacterial Vaginosis, Chlamydia/N. Gonorrhoeae RNA, TMA, Urogenitial, Pap Smear, HPV DNA, Low/High Risk 06/12/2025 Orders Only GENERIC EXTERNAL DATA DEPARTMENT Provider, Generic External Data 05/31/2025 Orders Only GENERIC EXTERNAL DATA DEPARTMENT Provider, Generic External Data from Last 3 Months Immunizations Immunization Administration [...] 02/16/2025, 05/31, 08/29/2019 Lipid Panel 05/28/2027 05/28/2022, 10/2021, 10/30/2020, Additional history exists Zoster Vaccines [...] BARIUM SWALLOW Routine 05/28/2025 9:24 AM EDT BI MAMMOGRAM SCREENING TOMOSYNTHESIS BILATERAL Routine 02/16/2025 [...] 1:37 PM EDT 07/02/2025 8:48 AM EST Narrative [facility] - 07/04/2025 10:24 AM EST ----- ------- Name: Martín Ervin Age/Sex: 45/F : 1980 Unit#: [id number] Attend Dr: Amy Saldaña MD Re06/29/25 [place] [facility] [place] [facility] Disch: ----- ------- SPEC : [id number] RECD: 07/02/25 STATUS: OJVANNA FRAZIER NUM: [id number] MARCELA: 06/29/[address] [facility] [address]: Amy Saldaña MD ENTERED: 07/02/25 SP TYPE: Surgical OTHR DR: Bethanie Holliday MD ORDERED: HE Stain/24, Gross Micro L4/8, IHC/2, Special st. 2/4, H. pylori/2, AB/PAS/4 Diagnosis A. Small bowel, [...] ON NEXT PAGE ----- ------- Name: Sapna CabreraMartín Age/Sex: 45/F : 1980 Unit#: [id number] Attend Dr: Amy Saldaña MD Re06/29/25 Status: [facility] [place]: [facility] Disch: ----- ------- SPEC : [id number] RECD: 07/02/25 STATUS: JOVANNA FRAZIER NUM: [id number] MARCELA: 06/29/25 [facility] [address]: Amy Saldaña MD ENTERED: 07/02/25 SP TYPE: Surgical OTHR DR: Bethanie Holliday MD ORDERED: HE Stain/, Gross Micro L4/8, IHC/2, Special st. 2/, H. pylori/2, AB/PAS/4 Material Received A. Small [...] developed and their performance characteristics determined by [facility]. They have not been cleared [...] Martín Ervin Age/Sex: 45/F : 1980 Unit#: [id number] Attend Dr: Amy Saldaña MD Re06/29/25 [facility] Disch: ----- ------- SPEC : [id number] RECD: 07/02/25 STATUS: JOVANNA FRAZIER NUM: [id number] MARCELA: 06/29/25-7 [facility] [address]: Amy Saldaña MD ENTERED: 07/02/25 SP TYPE: Surgical OTHR DR: Bethanie Holliday MD ORDERED: HE Stain/24, Gross Micro L4/8, IHC/2, Special st. 2/, H. pylori/2, AB/PAS/4 Copies To: Bethanie Holliday MD [address] [address] Amy Saldaña MD [facility] [address] [place] [phone] ----- ------- Signed (signature on file) Braulio Segura MD 07/04/25 1024 ----- ------- END OF REPORT us Generic External Data Provider LAB BLOOD ORDERAB LES Final Result Performing Organization Address [facility]/State/ZIP Co de Phone Number [facility] [address] [place] [address] [phone] * HCG, Qualitative, Urine (06/29/2025 12:20 PM EDT) Urine NEGATIVE NEGATIVE [facility] Comment:This test was develo ped to detect early . Falsenegative results may occur after the 5th - 7th week ofpregnancy when using this test method. If clinicallyindicated, consider a serum hCG. 06/29/2025 12:2 0 PM EDT 06/29/2025 12:33 PM EDT us Generic External Data Provider LAB URINE ORDERAB LES Final Result Performing Organization Address [facility]/ZIP Co de Phone Number [facility] [address] [place] [address] [phone] * Hm Colonoscopy (06/29/2025) Colonoscopy Normal Normal Bethanie Holliday MD HEALTH MAINTENANCE Final Resu lt * HM PAP/HPV (06/13/2025) Pap Smear 1. NILM 1. NILM us Bethanie Holliday MD HEALTH MAINTENANCE Final Resu lt * HPV DNA, Low/High Risk (06/12/2025 4:17 PM EDT) HPV High Risk Negative Negative [facility] HPV Genotype 16 Negative Negative [facility] HPV Genotype 18 Negative Negative [facility] Comment:HPV testing performe d at [facility] (CLIA#[id number]), [address] [place] [address].Testing for HPV was performed using the Sukhdeep [...] ORDERAB LES Final Result Performing Organization Address City/[facility]/ZIP Co de Phone Number [facility] [address] [place] [address] [phone] * Pap Smear (06/12/2025 4:17 PM EDT) 06/12/2025 4:17 PM EDT 06/13/2025 2:06 PM EDT [facility] - 06/18/2025 1:36 PM EDT ----- ------- Name: Martín Ervin Age/Sex: 45/F : 1980 Unit#: [id number] Attend Dr: Dipika Gurrola CNM Re06/12/25 Status: [facility] Location: [facility] Disch: ----- ------- SPEC : [id number] RECD: 06/13/25-140 STATUS: JOVANNA FRAZIER NUM: [id number] MARCELA: 06/12/25-161 [facility] [address]: Dipika Gurrola CNM ENTERED: 06/13/25-141 SP TYPE: Pap Smr OTHR DR: Bethanie Holliday MD ORDERED: Pap Smear Interpretation Satisfactory for evaluation. Negative for intraepithelial lesion or malignancy. No endocervical cells seen. HPV High Risk: Negative HPV Genotyping 16: Negative HPV Genotyping 18: Negative Clinical Information LMP: Previous PAP test: Other surgery: Other history: Material Received ThinPrep-Cervical Copies To: Bethanie Holliday MD [address] [address] Dipika Gurrola CNM [facility] [address] [facility], 3rd [place] [address] ----- ------- Signed (signature on file) AYAAN Zuluaga (ASCP) 06/18/25 1336 ----- ------- END OF REPORT us Generic External Data Provider LAB CYTOLOGY KIANA JOHN Final Result [facility] [address] [place] [address] [phone] * Bacterial Vaginosis (06/12/2025 2:30 PM EDT) TRICHOMONAS VAGINALIS DETECTION BY PCR NOT DETECTED Not Detect [facility] BACTERIAL VAGINOSIS DETECTION BY PCR NEGATIVE Negative [facility] Comment:The BV organism targ ets of [...] DETECTION BY PCR NOT DETECTED Not Detect [facility] Yvonne glab krusei PCR NOT DETECTED Not Detect [facility] 06/12/2025 2:30 PM EDT 06/13/2025 1:49 PM EDT us Generic External Data Provider LAB MICROBIOLOGY - GENERAL ORDERABLES Final Result [facility] [address] [place] [address] [phone] * Chlamydia/N. Gonorrhoeae RNA, TMA, Urogenitial (06/12/2025 2:30 PM EDT) CT PCR NOT DETECTED Not Detect. [facility] Comment:A not detected test result does [...] psychologicalconsequences. NG PCR NOT DETECTED Not Detect. [facility] Comment:A not detected test result does [...] LAB MICROBIOLOGY - GENERAL ORDERABLES Final Result [facility] [address] [place] [address] [phone] * VITAMIN D 25-OH (D2 AND D3) (05/31/2025 12:18 PM EDT) Vitamin D, 25-OH, D2 12 ng/mL [facility] Comment:This test was develo ped and its analytical performancecharacteristics have been determined by [employer] [place], [place]. It hasnot been cleared or approved by the U.S. Food and DrugAdministration. This assay has been validated pursuantto the CLIA regulations and is used for clinicalpurposes.THIS TEST WAS PERFORMED AT:[email or web address] [id number] [place] [address]OVCMWIZ W. MASON,MD,PHD Vitamin D, 25-OH, D3 19 ng/mL [facility] Comment:This test was develo ped and its analytical performancecharacteristics have been determined by [employer] [place], [place]. It hasnot been cleared or approved by the U.S. Food and DrugAdministration. This assay has been validated pursuantto the CLIA regulations and is used for clinicalpurposes. Vitamin D, 25-OH, Total 31 30 - 100 ng/mL [facility] Comment:Vitamin D, 25-Hydrox y reports [...] = 30 ng/mL.For additional information, please refer tohttp://education.[employer]/faq/UBH620(This link is being provided for informational/educational purposes only.) 05/31/2025 12:1 8 PM EDT 05/31/2025 12:18 PM EDT Generic External Data Provider LAB BLOOD ORDERAB LES Final Result Performing Organization Address [facility] Co de Phone Number [facility] [address] [place] [address] [phone] * Vitamin B12 (Cobalamin) and Folate Panel, Serum (05/31/2025 12:18 PM EDT) Vitamin B12 423 200 - 900 pg/mL [facility] Comment:NORMAL 200-900 PG/ML INDETERMINATE 160-199 PG/ML DEFICIENT < 160 PG/ML Folate 13.3 > or = 4.0 ng/mL [facility] Comment:Reference Values:> o r = 4.0 ng/mL< 4.0 ng/mL suggests folate deficiency Methotrexate, aminopterin and folinic acid(leucovorin) are chemotherapeutic agents whose molecularstructures are similar to folate; therefore, the Architectfolate assay cannot be used for patients using these drugs. 05/31/2025 12:1 8 PM EDT 05/31/2025 12:18 PM EDT [employer] External Data Provider LAB BLOOD ORDERAB LES Final Result Performing Organization Address [facility] Co de Phone Number [facility] [address] [place] [address] [phone] * TSH with Reflex to Free T4 (05/31/2025 12:18 PM EDT) TSH reflex Free T4 2.55 0.32 - 4.0 uIU/mL [facility] 05/31/2025 12:1 8 PM EDT 05/31/2025 12:18 PM EDT Generic External Data Provider LAB BLOOD ORDERAB LES Final Result Performing Organization Address [facility] Phone Number [facility] [address] [place] [phone] * Tissue Transglutaminase (tTG) Antibody (IgG) (05/31/2025 12:18 PM EDT) Tissue Transglutaminase Antibody IgG <1.0 U/mL [facility] Comment:Value Interpretation ----- <15.0 Antibody not detected> or = 15.0 Antibody detectedTHIS TEST WAS PERFORMED AT:[employer] [place] [phone] NINA MD 05/31/2025 12:1 8 PM EDT 05/31/2025 12:18 PM EDT Generic External Data Provider LAB BLOOD ORDERAB LES Final Result Performing Organization Address [facility] Number [facility] [address] [place] [phone] * Tissue Transglutaminase Antibody, IgA (05/31/2025 12:18 PM EDT) Transglutaminase IgA <1.0 U/mL [facility] Comment:Value Interpretation ----- <15.0 Antibody not detected> or = 15.0 Antibody detectedTHIS TEST WAS PERFORMED AT:[employer] [place] [phone] NINA MD 05/31/2025 12:1 8 PM EDT 05/31/2025 12:18 PM EDT us Generic External Data Provider LAB BLOOD ORDERAB LES Final Result Performing Organization Address [facility]/ZIP Co de Phone Number [facility] [address] [place] [address] [phone] * Lipase (05/31/2025 12:18 PM EDT) Lipase 52 8 - 78 U/L [facility] 05/31/2025 12:1 8 PM EDT 05/31/2025 12:18 PM EDT us Generic External Data Provider LAB BLOOD ORDERAB LES Final Result Performing Organization Address City/State/[facility] Co de Phone Number [facility] [address] [place] [address] [phone] * FL Upper GI w/air w/Barium Swallow (05/28/2025 9:24 AM EDT) Anatomical Region Laterality Modality Body Radiographic Elza ging 05/28/2025 9:24 AM EDT Narrative 05/28/2025 12:45 PM EDT [address] [address] Fluoroscopy Report Signed Patient: Sapna CabreraMartín#: [id number] : 1980 Acct:[id number] Age/Sex: 45 / F ADM Date: 05/28/25 Loc: HO.XRAY Attending Dr: Aylin CUEVAS-YANELI Ordering Physician: Aylin Morales Date of Service: 05/28/25 Procedure(s): FL upper GI w air w Ba Swallow Accession Number(s): [id number] cc: Bethanie Holliday MD; Aylin Morales-YANELI Reason for Exam: K21.9 - Gastro-esophageal reflux [...] MD in OV> 05/28/25 1242 DD/ TD/TT: 05/28/25936 Press Operator: [facility] Procedure Note Donotuseinterpreter, Image - 05/28/2025 [place] [address] Fluoroscopy Report Signed Patient: Martín Ervin MM R#: [id number] : 1980Acct:[id number] Age/Sex: 45 / FADM Date: 05/28/25 Loc: HO.XRAY Attending Dr: Aylin Morales [facility]- Ordering Physician: Aylin Morales OBJECTIVE C DEVELOPERMADELINE Date of Service: 05/28/25 Procedure(s): FL upper GI w air w Ba Swallow Accession Number(s): [id number] cc: Bethanie Holliday MD; Aylin Morales [facility] Reason for Exam: K21.9 - Gastro-esophageal [...] 05/28/25 1242 DD/ 0924 TD/TT: 05/28/25 0937 Press Operator: [facility] External Provider IMG FLU OROSCOPY PROCEDURES Final Result * BI Mammogram Screening Tomosynthesis Bilateral (02/16/2025 1:20 PM EDT) Anatomical Region Laterality Modality Breast Bilateral Mammography 02/16/2025 1:20 PM EDT Narrative 02/22/2025 1:42 PM EDT [facility] [address] [place] [address] Mammography Report Signed Patient: Sapna CabreraWhitneyalfonso Robyn Carver#: [id number] : 1980 Acct:[id number] Age/Sex: 45 / F ADM Date: 02/16/25 Loc: HO.MAMMO Attending Dr: Bethanie Holliday MD Ordering Physician: Bethanie Holliday MD Results: 2Be nign Findings Date of Service: 02/16/25 Follow Up: 1 Year From Orig ina Mammogram Procedure(s): MM tomosynthesis screening BI Accession Number(s): [id number] cc: Bethanie Holliday MD EXAMINATION: MM SCREENING [...] 02/22/25 1339 DD/ 1320 TD/TT: 02/16/25 1340 Press Operator: Procedure Note Donotuseinterpreter, Image - [facility]/22/[facility] [address] [place] [address] Mammography Report Signed Patient: Martín Ervin ELIO R#: [id number] : 1980Acct:[id number] Age/Sex: 45 / FADM Date: 02/16/25 Loc: HO.MAMMO Attending Dr: Bethanie Holliday MD Ordering Physician: Bethanie Holliday MDResults: 2Be nign Findings Date of Service: 02/16/25Follow Up: 1 Year From Orig inal Mammogram Procedure(s): MM tomosynthesis screening BI Accession Number(s): [id number] cc: Bethanie Holliday MD EXAMINATION: MM SCREENING [...] 02/22/25 1339 DD/ 1320 TD/TT: 02/16/25 1340 Press Operator: us Bethanie Holliday MD IMG BI PROCEDURES [...] LDL-C. Darren COLLADO et al. REBA. 2013;310(19): 7319-0507 (http://education.[employer].com/faq/AEL263) Non-HDL Cholesterol 141(H) <130 mg/dL (calc) CONVERTED [...] Most Recently Relevant to Health Maintenance [place] [address] [place] [address] [place] [address] Care Teams Clinic Physician Director Relationship Specialty Start Date End Date Bethanie Holliday MD [address] [place] [phone] PCP - General Family Medicine 10/22/14
--- OUTSIDE RECORDS SUMMARY | 2025-08-17 14:32 | XMS_ITS | Encounter Summary ---
Author Organization [employer] Address [address] [place] [address] Care Team Providers Care Sharepoint Specialist Name Role Phone Bethanie Holliday MD Primary Care Provider [phone] Encounter Details Date Type Department Care Team (Latest Contact Info) Description 12/12/2020 Abstract [facility] CONVERSIONS Dental, Provider, DDS Social History [...] on filedocumented in this encounter Care Teams Sharepoint Specialist Relationship Specialty Start Date End Date Bethanie Holliday MD [address] [place] [address] PCP - General Family Medicine 10/22/14 documented as of this encounter
--- OUTSIDE RECORDS SUMMARY | 2025-08-17 14:32 | XMS_ITS | Encounter Summary ---
Author Organization [employer] Address [address] [facility] 7 [place] [address] Care Team Providers Care Regrind Mill Operator Name Role Phone Bethanie Holliday MD Primary Care Provider [phone] Encounter Details Date Type Department Care Team (Late st Contact Info) Description 11/13/2022 Orders Only [facility] [address] [place], [place] [phone] Bethanie Holliday MD [address] [place], [place] [phone] Arthralgia of right knee (Primary Dx) Social [...] Primary documented in this encounter Care Teams Regrind Mill Operator Relationship Specialty Start Date End Date Bethanie Holliday MD [address] [place] [address] PCP - General Family Medicine 10/22/14 documented as of this encounter
--- OUTSIDE RECORDS SUMMARY | 2025-08-17 14:32 | XMS_ITS | Data Portability ---
Author Organization [facility], [facility] Address [address] [place] [address] Care Team Providers Care Can Pusher Name Role Phone ZIA AKHTAR Primary Care Provider Assessment No assessment recorded. Plan of Treatment Reminders Order Date Submit Date Provider Last Modified By Organization Details Last Modified Time Details Appointments None record ed. Lab None record ed. Referral None record ed. Procedures None record ed. Surgeries None record ed. Imaging XR, knee, 4 or more view - 114 024 05/09/20 [facility] [address] [facility], [place], [address], 09:23:46 Medication Orders None record ed. Patient [...] a4ajBk vP9nXo QUaueC m3YtLR FvZlgJ JJ8mAn HZtai3 2v5248 AC0Kqa n%2BFW KakKiQ trMwF INTERFACE [facility] [address], [place], [address], 05/09/2024 09:57:38 09/10/20 24 05/09/2024 XR, knee, 4 or more view http:/ [email or web address] ?Encry pted=s hAaTro YD8dLq bEUv6g %2BXZw aYqtaq 0bqfl% 2Fg9IQ a4ajBk vP9nXo QUaueC m3YtLR FvZlgJ JJ8mAn HZtai3 2g5714 AC0Kqa n%2BFW KakKiQ trMwF INTERFACE [facility] [address], [place], [address], 05/09/2024 09:57:40 Result Notes Documentation Provider Name and Address Organization Details Recorded Time Xr, Knee, 4 Or More View : [email or web address] Encrypted=qxJyCzvMK2uVyuZ Uv6g%6LBCojTmqqh3byow%2Fg 8FWl3dkTunK4rFeZGcbdTx8Mb JKLoYazSRG6mXxOPazy68f272 5VV9Ebmn%2BFWKakKiQtrMwF Not Available [facility] 05/09/2024 09:5 7:39 Xr, Knee, 4 Or More View : [email or web address] Encrypted=vsPySraLP4rBbtC Uv6g%8IBEuqYivau3fuqc%2Fg 5QJo6dfHxhE3xOpOJpecFp8Or KPMbKvyTCY6rBcGIfld15a660 0XX1Hcgg%2BFWKakKiQtrMwF Not Available [facility] 05/09/2024 09:5 7:41 Problems Name Problem SNOMED Code Status Onset Date Resolution Date Notes Provider Name and Address Organization Details Recorded Time Pain of right knee joint 959769007943800 Active 2023 Marybeth Delgado i, PA-C [address], [facility] [address], [facility] 13:24:47 Problem Notes None recorded. Procedures Surgical History Date Name Laterality Status Provider Name and Address Organization Details Recorded Time 05/09/2024 Sports Knee 4&1 completed Marybeth Magallanes PA-C [address] [facility] [address], [place], [address], [facility] 05/09/2024 12:45:35 Imaging Results None recorded. Procedure Notes None recorded. Medical Equipment None Reported. Allergies Allergen ID Allergen Name Allergen Category Reaction Reaction Severity Criticality Documentation Date Start Date Code Code System Note Provider Name and Address Organization Details Recorded Time 174901 Product containin g penicilli n (product) medicatio n Not available Not available Not available 05/09/2024 96748 8001 SNOMED MICHAEL galeano [facility] 09:49:07 Medications Name Sig Start Date [...] Updated DateTime 05/09/2024 162.56 cm 32.3 kg/m2 86000.37 g MICHAEL DELGADOJoeARCADIO Clarice [facility] 05/09/2024 09:48:57 Date Recorded Body height Provider Name an d Address Organization Details Last Updated DateTime 08/08/2024 162.56 cm Sariah Vaughan [facility] 08/08/2024 09:37:24 Social History None recorded. Functional Status Question Answer Note LastModified by Organizat ion Details LastModified Time Do you use any illicit or recreational drugs? No jholguinmejia Information not available 05/09/2024 Do you or have you ever used any other forms of tobacco or nicotine? No olguinmejia Information not available 05/09/2024 What is your level of alcohol consumption? None jay hospitalinmejia Information not available 05/09/2024 Mental Status None recorded. Family History Nothing Reported. Medical History Condition Response Kidney/Bladder Problems Y Gynecological HistoryNo gynecological history recorded. Obstetrics History GPAL:G 0 P 0 0 0 0 Past Encounters Encounter ID Performer Location Encounter Start Date Encounter Closed Date Diagnosis/Indication Diagnosis SNOMED-CT Code Diagnosis ICD10 Code Diagnosis IMO Codes Diagnosis Note [id number] GRACIE Zheng [address] [place] [address] 05/09/2024 09:25:51 05/22/2024 09:23:46 Pain of right knee joint 6810223155 54070 M25.857 [id number] GRACIE Zheng [address] [place] [address] 08/08/2024 09:05:23 08/29/2024 08:45:13 Pain of right knee joint 6987427715 35864 M25.561 Health Concerns Section Related Observation LastModified by Organization Detai ls LastModified Time None Recorded Concern Status LastModified by Organization Details LastModified Time None Recorded Advance Directives Directive None Recorded Payers Insurance Date Sequence Insurance Name Policy Number Policy Leggett Covered Member ID Elggett Member ID Guarantor Name 08/29/2024 1 [facility] [employer] PLANS [facility] TYPE I (HMO) [id number] Martín Cabrera [id number] Martín Cabrera Notes Date Note Type [...] more squats. She had an MRI 02-22-24 [facility] that the only finding was quadriceps [...] were ordered, obtained and reviewed today at [facility] demonstrates mild tricompartmental changes. IMPRESSION: Right knee chondromalaciaPLAN: Findings reviewed. Discussed based on her physical exam findings, her knee joint itself seems to be most bothersome. Recommended initial conservative treatment. She elected to proceed wtih right knee cortisone injection today. Discussed low impact exercises. Discussed ifly-dob-onzmdvv anti-inflammatories as needed for pain relief. Follow up in 3 months for recheck. All of her concerns are addressed and she understands and agrees with the plan. Speech recognition fluorescent lamp replacer software was used to create portions of this document. An attempt at proofreading has been made to minimize errors. Please call for corrections. Marybeth Magallanes PA-C [address] [facility] [address], [place], [address], [facility] 05/09/2024 12:48:41 08/08/2024 text/html [...] working out doing more squats. She had [id number] [facility] that the only finding was quadriceps [...] of the Right knee reviewed today at [facility] demonstrates mild tricompartmental changes. IMPRESSION: Right knee chondromalacia PLAN: Findings reviewed. Discussed based on her physical exam findings, her knee joint itself seems to be most bothersome. Recommended ongoing conservative treatment. We held off on injection today as her pain has not returned and she is feeling good. Discussed low impact exercises. Discussed spao-kbt-mnkfcvh anti-inflammatories as needed for pain relief. Follow up as needed. All of her concerns are addressed and she understands and agrees with the plan. Speech recognition fluorescent lamp replacer software was used to create portions of this document. An attempt at proofreading has been made to minimize errors. Please call for corrections. Marybeth Magallanes PA-C [address] [facility] [address] [facility], [place], [address], [facility] 08/08/2024 09:46:15 OBGyn Episode No OBEpisode recorded.
--- OUTSIDE RECORDS SUMMARY | 2025-08-17 14:32 | XMS_ITS | Encounter Summary ---
Author Organization [employer] Address [address] [address] Care Team Providers Care Real Estate Director Name Role Phone Bethanie Holliday MD Primary Care Provider [phone] Reason for Visit * Reason Comments Med Refill Encounter Details Date Type Department Care Team ([facility] st Contact Info) Description 07/20/2025 Refill [facility] MED & PEDS [address] [place], [place] [phone] Bethanie Holliday MD [address] [place] [address] Social History Tobacco Use Types Packs/Day Years [...] documented as of this encounter Care Teams Real Estate Director Relationship Specialty Start Date End Date Bethanie Holliday MD [address] [place] [address] PCP - General Family Medicine 10/22/14 documented as of this encounter
--- OUTSIDE RECORDS SUMMARY | 2025-08-17 14:32 | XMS_ITS | Encounter Summary ---
Author Organization [email or web address] Address [address] [place] [address] Care Team Providers Care Governor Assembler Name Role Phone Bethanie Holliday MD Primary Care Provider [phone] Reason for Visit * Reason Onset Date Comments Hospital Follow-up 10/06/2024 Encounter Details Date Type Department Care Team (Late st Contact Info) Description 10/06/[address] [facility] MEDICINE [address] [place] [address] Bethanie Holliday MD [address] [place] [address] Hospital Follow-up Social History Tobacco Use Types [...] Diagnosed: Kidney Stones Surgery *Send message to [place] [facility] [phone] documented in this encounter Plan of Treatment Not on file documented as of this encounter Visit Diagnoses Not on filedocumented in this encounter Additional Health Concerns Assessment Noted Time PHQ-9 Depression Total Score: 0 05/25/20 23 10:22 AM EDT documented as of this encounter Care Teams Governor Assembler Relationship Specialty Start Date End Date Bethanie Holliday MD [address] [place] [address] PCP - General Family Medicine 10/22/14 documented as of this encounter
--- OUTSIDE RECORDS SUMMARY | 2025-08-17 14:32 | XMS_ITS | Encounter Summary ---
Author Organization [employer] Address [address] [facility] 7 [place] [address] Care Team Providers Care Airdox Fitter Name Role Phone Bethanie Holliday MD Primary Care Provider [phone] Encounter Details Date Type Department Care Team (Late st Contact Info) Description 06/25/2025 Results Follow-Up [facility] MED & PEDS [address] [place], [place] [phone] Bethanie Holliday MD [address] [place] [address] Bacterial Vaginosis, Chlamydia/N. Gonorrhoeae RNA, TMA, Urogenitial, [...] documented as of this encounter Care Teams Airdox Fitter Relationship Specialty Start Date End Date Bethanie Holliday MD [address] [place] [address] PCP - General Family Medicine 10/22/14 documented as of this encounter
--- OUTSIDE RECORDS SUMMARY | 2025-08-17 14:32 | XMS_ITS | Encounter Summary ---
Author Organization [employer] Address [address] [place] [address] Care Team Providers Care Inhalation Therapy Aide Name Role Phone Bethanie Holliday MD Primary Care Provider Encounter Details Date Type Department Care Team (Latest Contact Info) Description 09/06/[address] [facility] CONVERSIONS Dental, Provider, DDS Social History [...] on filedocumented in this encounter Care Teams Inhalation Therapy Aide Relationship Specialty Start Date End Date Bethanie Holliday MD [address] [place] [address] PCP - General Family Medicine 10/22/14 documented as of this encounter
--- OUTSIDE RECORDS SUMMARY | 2025-08-17 14:32 | XMS_ITS | Encounter Summary ---
Author Organization [employer] Address [address] [place] [address] Care Team Providers Care Director Institution Name Role Phone Bethanie Holliday MD Primary Care Provider [phone] Reason for Visit * Reason Onset Date Comments Med Refill 03/26/2025 Encounter Details Date Type Department Care Team (Late st Contact Info) Description 03/26/2025 Refill [facility] MED & PEDS [address] [place], [place] [phone] Bethanie Holliday MD [address] [place] [address] Social History Tobacco Use Types Packs/Day Years [...] documented as of this encounter Care Teams Director Institution Relationship Specialty Start Date End Date Bethanie Holliday MD [address] [place] [address] PCP - General Family Medicine 10/22/14 documented as of this encounter
[2025-08-17 16:26] LABS: Folate 11.2 ng/mL (> or = 4.0); Vitamin B12 417 pg/mL (200-900)
[2025-08-22 14:39] LABS: Vitamin D 25-OH, D2 8 ng/mL; Vitamin D 25-OH, D3 26 ng/mL; Vitamin D 25-OH, Total 34 ng/mL (30-100)
== END 2025-08-17 12:43 | disposition home or self-care (01) ==
LOC: HO.CHCLDS 12:42
PROVIDERS: Visit Provider Nurse Practitioner Family
DX: E55.9 Vitamin D deficiency, unspecified (principal); R10.9 Unspecified abdominal pain; R19.7 Diarrhea, unspecified
CPT/HCPCS: 36415; 82306; 82607; 82746; 86364